=== PATIENT | female | born 1985 | race Caucasian/White ===

== ENCOUNTER → 2020-04-27 | Outpatient (CLI) | payer BC, SELFPAY ==
[2020-04-30 20:39] LABS: HPV APTIMA, High Risk Negative (Negative)
== END | disposition home or self-care (01) ==
LOC: LABSPEC 15:55
PROVIDERS: Visit Provider Student in an Organized Health Care Education/Training Program
DX: Z12.4 Encounter for screening for malignant neoplasm of cervix (principal)
CPT/HCPCS: 87624; 88175; G0145

== ENCOUNTER 2023-08-09 17:36 | Emergency (ER) | payer OTHER, SELFPAY ==
[2023-08-09 17:39] VITALS: BP 133/102; PULSE 118; RESP 18; TEMP 36.5; O2SAT 99; BMI 28.0
--- NOTE | 2023-08-09 18:47 | CT_ITS ---
EXAM: CT ANGIOGRAPHY HEAD AND NECK WITHOUT AND WITH INTRAVENOUS CONTRAST CLINICAL INDICATION: HEADACHE WITH RT NECK PAIN TECHNIQUE: [place] [facility] [place]/head and neck CT angiography protocol performed without and with intravenous contrast. This CT exam was performed using one or more of the following dose reduction techniques: automated exposure control, adjustment of the mA and/or kV according to patient size, and/or use of iterative reconstruction technique. MIP reconstructed images were created and reviewed. CONTRAST: 100 cc of Isovue-370 IV. RADIATION DOSE: CTDIvol = 26.10 mGy, DLP = 1364.38 mGy-cm COMPARISON: No relevant prior studies available. FINDINGS: HEAD: RIGHT ANTERIOR CEREBRAL ARTERY: Unremarkable. No occlusion or significant stenosis. Anterior communicating artery is present. No aneurysm. RIGHT MIDDLE CEREBRAL ARTERY: Unremarkable. No occlusion or significant stenosis. No aneurysm. RIGHT POSTERIOR CEREBRAL ARTERY: Arises primarily from the right internal carotid artery.. No occlusion or significant stenosis. No aneurysm. RIGHT INTRACRANIAL INTERNAL CAROTID ARTERY: Unremarkable. No significant stenosis. No dissection or occlusion. RIGHT INTRACRANIAL VERTEBRAL ARTERY: Unremarkable. No significant stenosis. No dissection or occlusion. LEFT ANTERIOR CEREBRAL ARTERY: Unremarkable. No occlusion or significant stenosis. No aneurysm. LEFT MIDDLE CEREBRAL ARTERY: Unremarkable. No occlusion or significant stenosis. No aneurysm. LEFT POSTERIOR CEREBRAL ARTERY: Unremarkable. No occlusion or significant stenosis. No aneurysm. LEFT INTRACRANIAL INTERNAL CAROTID ARTERY: Unremarkable. No significant stenosis. No dissection or occlusion. LEFT INTRACRANIAL VERTEBRAL ARTERY: Unremarkable. No significant stenosis. No dissection or occlusion. BASILAR ARTERY: Unremarkable. No occlusion or significant stenosis. No aneurysm. OTHER VASCULATURE: No vascular malformation. BRAIN AND EXTRA-AXIAL SPACES: Unremarkable. No intra- or extra-axial hemorrhage. No evidence of acute infarct. No intracranial mass or mass effect. There is preservation of the stallings/white matter interface. Posterior fossa structures are unremarkable. Ventricles are appropriate for age. No hydrocephalus. Basal cisterns are patent. SINUSES: Unremarkable as visualized. Clear. MASTOID AIR CELLS: Unremarkable as visualized. Clear. ORBITS: Visualized globes, extraocular muscles, optic nerves and retrobulbar fat appear unremarkable. NECK: RIGHT COMMON CAROTID ARTERY: Unremarkable. No significant stenosis. No dissection or occlusion. RIGHT EXTRACRANIAL INTERNAL CAROTID ARTERY: Unremarkable. No significant stenosis. No dissection or occlusion. RIGHT EXTERNAL CAROTID ARTERY: Unremarkable. No occlusion. RIGHT EXTRACRANIAL VERTEBRAL ARTERY: Unremarkable. No significant stenosis. No dissection or occlusion. LEFT COMMON CAROTID ARTERY: Unremarkable. No significant stenosis. No dissection or occlusion. LEFT EXTRACRANIAL INTERNAL CAROTID ARTERY: Unremarkable. No significant stenosis. No dissection or occlusion. LEFT EXTERNAL CAROTID ARTERY: Unremarkable. No occlusion. LEFT EXTRACRANIAL VERTEBRAL ARTERY: Unremarkable. No significant stenosis. No dissection or occlusion. BRACHIOCEPHALIC AND SUBCLAVIAN ARTERIES: Unremarkable as visualized. No occlusion or significant stenosis. LUNG APICES: Unremarkable as visualized. HEAD and NECK: BONES/JOINTS: Unremarkable. No discrete lytic or blastic abnormalities. SOFT TISSUES: Unremarkable. CAROTID STENOSIS REFERENCE USING NASCET CRITERIA: % ICA stenosis = (1 - narrowest ICA diameter/diameter of distal cervical ICA) x 100. Mild - <50% stenosis. Moderate - 50-69% stenosis. Severe - 70-94% stenosis. Near occlusion - 95-99% stenosis. Occluded - 100% stenosis. CT/CTA Head AND Neck W/ Contrast IMPRESSION: Negative CTA carotid and CTA brain. Electronically Signed: Beny Grimes MD at 22:16 EDT ,
--- NOTE | 2023-08-09 18:48 | EKG12_ITS ---
Test Reason : DIZZY Blood Pressure : / mmHG Vent. Rate : 096 BPM Atrial Rate : 096 BPM P-R Int : 144 ms QRS Dur : 092 ms QT Int : 364 ms P-R-T Axes : 033 015 017 degrees QTc Int : 459 ms Normal sinus rhythm Normal ECG Confirmed by Beny Roberto ([id number]), newspaper editor managing KARLOS JEFFRIES ([id number]) on 08/14/2023 9:47:50 AM Referred By: Confirmed By:Beny Roberto
--- NOTE | 2023-08-09 18:49 | ED.VIS.STROK ---
HPI History of Present Illness Chief Complaint: Numb/Ting Informant: patient Onset/Context/Timing Onset: Today Timing: Intermittent Current Severity: Mild Maximum Severity: Mild Associated Symptoms Associated Symptoms: Positive for Headache and Nausea; Negative for Vomiting or Chest Pain Narrative Narrative: 38-year-old female history of hypothyroidism and anxiety. Yesterday had a headache behind her right eye which she saw horizontal lines. No history of migraines. Today she had left facial numbness. Perioral numbness. Bilateral hand numbness. And left foot numbness. Been intermittent. Headache is resolved. She has had nausea no vomiting. No head trauma. She is on no blood thinners. No family history of intracranial bleeds. Also had some mild right-sided neck discomfort when she had a headache. Prior similar symptoms: No Recent Illness/Hospitalization: No [facility] Medical History Depression Hypothyroid Home Medications ?Medication ?Instructions ?Recorded ?Last Taken ?Type escitalopram oxalate 10 mg tablet 10 mg PO DAILY 04/09/23 Unknown History fluticasone propionate 50 1 spray intranasal Q12H 04/09/23 Unknown History mcg/actuation nasal spray,suspension levothyroxine 50 mcg tablet 50 mcg PO DAILY 04/09/23 Unknown History (Synthroid) Allergy/AdvReac Type Severity Reaction Status Date / Time No Known Allergies Allergy Verified 08/09/23 17:38 Surgical History History of umbilical hernia repair Social History Smoking Status: Never smoker alcohol intake: current substance use type: does not use ROS ROS ED ROS Narrative Denies recent illness. Review of Systems ROS Unobtainable: Denies due to encephalopathy Constitutional Constitutional ED: Denies chills or fever(s) Eyes Eyes: Denies blurry vision ENT ENT ED: Denies ear pain Cardiovascular Cardiovascular: Denies chest pain Respiratory/Chest Respiratory/Chest: Denies cough or dyspnea Gastrointestinal Gastrointestinal: Reports nausea; Denies abdominal pain, constipation, diarrhea, melena or vomiting Genitourinary Genitourinary ED: Denies dysuria or hematuria Musculoskeletal Musculoskeletal: Denies arthralgias, back pain or myalgias Integumentary Denies abscess Neurologic Neurologic: Reports headache(s) and paresthesias; Denies weakness Psychiatric Psychiatric: Reports anxiety; Denies depression Endocrine Endocrinology: Denies polydipsia or polyphagia Hematologic/Lymphatic Hematologic/Lymphatic: Denies easy bleeding, easy bruising or lymphadenopathy Allergic/Immunologic Allergic/Immunologic ED: Denies mouth swelling or urticaria EXAM Physical Exam Narrative Exam Narrative: Well-appearing 38-year-old female. Vital signs stable initial blood pressure [id number]. She does not look septic toxic or in acute distress. Sitting upright in bed. H EENT exam normal. Pupils round reactive light extra motions are intact. No facial droop. No facial weakness. Normal speech. Unable to wrinkle her forehead. Neck nontender. Lungs clear. Heart regular rhythm rate about 110. No murmurs. Abdomen soft. Nontender. Moving all 4 extremities. Neurologic exam normal. 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 Normal speech. No facial droop. Extra motions are intact. Fingertip to nose and [id number] within normal limits. No drift. Normal strength and sensation both upper and lower extremities. NIH score is 0. Const Vital Signs: 08/09/23 17:39 08/09/23 19:38 08/09/23 21:00 Temperature 97.7 F L Temperature Source Temporal Pulse Rate 118 H 92 92 Respiratory Rate 18 20 H 21 H Blood Pressure 133/102 H 144/94 H 138/95 H Blood Pressure Mean 112 110 109 Pulse Ox 99 95 100 Oxygen Delivery Method Room Air Room Air Positive well nourished and well developed; Negative for obese, cachectic, contractures or unkempt General Appearance ED: well developed and NAD; Negative for unkempt, cachectic or contractures Nutritional Appearance: Negative for cachectic or obese HEENT Reports moist mucous membranes atraumatic; Negative for trauma Nose: Negative for other Eyes PERRL and EOMs intact bilaterally General Eye ED: Negative for pale conjunctiva or scleral icterus Neck no lymphadenopathy, supple and no JVD General: Negative for tenderness Thyroid: Negative for other Chest Wall inspection of chest normal and palpation of chest normal Chest: Negative for other Resp normal respiratory effort and clear to auscultation bilaterally Effort and Inspection: Negative for retractions Auscultation: Negative for rales, rhonchi, wheezes or diminished lung sounds Cardio no murmurs Rate: regular rate Rhythm: regular rhythm Heart Sounds: Negative for S1 normal or S2 normal GI normal to inspection, nondistended, normoactive bowel sounds, soft to palpation, non-tender, non-distended and no masses Inspection: Negative for abdominal distention Auscultation: normoactive bowel sounds Palpation: Negative for tender or guarding Bladder / Kidney Exam: No other Back/Spine no CVA tenderness General Back: Negative for CVA tenderness Cervical Spine: Negative for cervical spine tenderness Thoracic Spine / Upper Back: Negative for thoracic spinal tenderness Lumbar Spine / Lower Back: Negative for lumbar spinal tenderness Extremity normal to inspection General Extremety ED: Negative for deformity, edema, tenderness or other findings General Extremity: Negative for deformity, edema or other findings Neuro oriented x3, CN's II-XII intact bilaterally and no sensory deficits noted Sensorium / Orientation: alert, oriented to person, oriented to place and oriented to time; Negative for orientation impaired, confused, lethargic or stuporous Speech: speech normal Gait (Neuro): Negative for normal gait Sensory Exam: No sensory level loss detected Motor Exam: strength 5/5 throughout; Negative for general weakness or strength abnormal Psych mental status grossly normal Appearance: Negative for unkempt Attitude: No agitated Mood & Affect: Negative for depressed or tearful Attention / Concentration: Negative for other Skin no wounds General Skin Exam: Negative for jaundice Lesions: no lesions Rashes: no rashes Trauma: Negative for abrasion or laceration MDM MDM MDM Narrative Medical decision making narrative: 38-year-old female with headache yesterday and today with atypical numbness. She has normal neurologic exam. This may have been a migraine yesterday. Today it may be secondary to anxiety. Because of her headache her neurological symptoms even though she has normal neurologic exam and her right-sided neck pain I will do a CT and CTA of her head and neck. Screening labs will be obtained. Repeat exam at 10:07 PM neurologic exam remains normal. Patient is clinically doing well. Gone over her labs and EKG with her awaiting the formal reading of the CT a of the head and neck. I did review it I do not see any acute abnormality but of course and waiting for the formal radiologist interpretation. Repeat exam at 1022 CTA returned was negative. Neurologic exam remains normal. NIH remains 0. She will be discharged home. Lab Data Attestation: I reviewed the patient's lab results. Lab results narrative: CBC normal. White count of 6. H&H 14 and 42. Platelets 268. Electrolytes unremarkable gap 3. Normal BUN of 10 creatinine 0.8. Glucose 87. Negative CTA head neck. Labs: Laboratory Results - last 24 hr 08/09/23 18:57 WBC 6.1 RBC 4.62 Hgb 14.0 Hct 42.2 MCV 91.3 MCH 30.3 MCHC 33.2 RDW Std Deviation 40.6 RDW Coeff of Barry 12.2 Plt Count 268 MPV 9.8 Immature Gran % (Auto) 0.200 Neut % (Auto) 50.2 Lymph % (Auto) 38.1 Dodge % (Auto) 8.4 Eos % (Auto) 2.3 Baso % (Auto) 0.8 Absolute Neuts (auto) 3.1 Absolute Lymphs (auto) 2.32 Nucleated RBC % 0 Sodium 139 Potassium 3.7 Chloride 108 H Carbon Dioxide 28.0 Anion Gap 3 L BUN 10 Creatinine 0.80 Estim Creat Clear Calc 88.02 Est GFR (MDRD) Af Amer 105 Est GFR (MDRD) Non-Af 86 BUN/Creatinine Ratio 12.6 Glucose 87 Calcium 8.7 Radiography Diagnostic Testing: Clinical Impression(s) from Imaging Studies Head/Neck CTA 08/09/23 18:47 IMPRESSION: Negative CTA carotid and CTA brain. Electronically Signed: Beny Grimes MD at 22:16 EDT , Rhythm Strip Rhythm Strip: Sinus Rhythm Rate: 96 Ectopy: None EKG Initial EKG: Attestation: I personally reviewed and interpreted this EKG as follows: Interpretation: Sinus Rhythm and No Acute Injury Pattern Comments: Normal sinus rhythm rate 96 no acute signs of NC or ischemia. Discharge Plan Triage Chief Complaint: Numb/Ting ED Provider: Maverick Nassar Dx/Rx/DC Orders Clinical Impression: Headache, migraine, Facial paresthesia, History of anxiety Instructions: ED, Migraine (Classical), ED Paraesthesias Prescriptions: No Action levothyroxine [Synthroid] 50 mcg tablet 50 mcg PO DAILY escitalopram oxalate 10 mg tablet 10 mg PO DAILY fluticasone propionate 50 mcg/actuation spray,suspension 1 spray intranasal Q12H Primary Care Provider: Diann Llamas Referrals: Diann Llamas MD [Primary Care Provider] - 3-5 Days if not improving Activity Restrictions/Additional Instructions: Plenty of fluids and rest. Motrin and Tylenol for any pain. Follow-up with your doctor if not improving. Your labs, EKG and CAT scans were all normal. Print Language: [place] Disposition Disposition: Home, Self Care
[2023-08-09 19:04] LABS: Absolute Lymphocyte Count 2.32 X10^3/uL (0.83-4.51); Absolute Neutrophil Count 3.1 X10^3/uL (2.0-7.7); Basophil# 0.05 X10^3/uL; Basophil% 0.8 % (0-1); Eosinophil# 0.14 X10^3/uL; Eosinophils% 2.3 % (0-5); Hematocrit 42.2 % (37-47); Lymphocyte # 2.32 X10^3/ul (0.83-4.51); Lymphocyte % 38.1 % (19-41); Mean Corp Hgb Conc 33.2 g/dL (32-36); Mean Corpuscular Hgb 30.3 pg (27.0-32.0); Mean Corpuscular Volume 91.3 fL (81-99); Mean Platelet Vol. 9.8 fl (6.2-12.0); Monocyte# 0.51 X10^3/uL; Monocyte% 8.4 % (0-10); NRBC Flagged by Analyzer 0 % (0-5); Neutrophil # 3.06 X10^3/uL (2.7-7.7); Neutrophil % 50.2 % (47-70); Platelet Count 268 K/mm3 (150-450); RBC Distribution Width CV 12.2 % (11.6-14.6); RBC Distribution Width SD 40.6 fl (35.1-43.9); Red Blood Count 4.62 M/mm3 (4.2-5.4); White Blood Count 6.1 K/mm3 (4.4-11.0)
[2023-08-09 19:18] LABS: Anion Gap 3 (5-15); BUN 10 mg/dL (7-18); BUN/Creat Ratio 12.6 RATIO (10-20); Calcium,Total 8.7 mg/dL (8.5-10.1); Chloride 108 mmol/L (98-107); EST Glomerular Filtration Rate 86 mL/min (>60); Est Glom Filt Rate - Afr Amer 105 mL/min (>60); Estimated Creatinine Clearance 88.02 ml/min; Glucose 87 mg/dL (74-106); Potassium 3.7 mmol/L (3.5-5.1); Sodium Level 139 mmol/L (136-145)
[2023-08-09 19:38] VITALS: BP 144/94; PULSE 92; RESP 20; O2SAT 95
[2023-08-09 21:00] VITALS: BP 138/95; PULSE 92; RESP 21; O2SAT 100
[2023-08-09 22:37] VITALS: BP 132/94; PULSE 87; RESP 14; TEMP 36.2; O2SAT 100
== END 2023-08-09 22:40 | disposition home or self-care (01) ==
PROVIDERS: Emergency Provider Emergency Medicine; PCP Internal Medicine; Visit Provider Emergency Medicine
DX: G43.909 Migraine, unspecified, not intractable, without status migrainosus (principal); F41.9 Anxiety disorder, unspecified; R20.2 Paresthesia of skin; R11.0 Nausea; E03.9 Hypothyroidism, unspecified
CPT/HCPCS: 70496; 70498; 80048; 85025; 93005; 99283; Q9967

== ENCOUNTER 2024-11-08 20:26 | Emergency (ER) | payer OTHER, SELFPAY ==
[2024-11-08 20:28] VITALS: BP 128/98; PULSE 71; RESP 16; TEMP 36.8; O2SAT 98; BMI 27.3
--- NOTE | 2024-11-08 20:32 | EKG12_ITS ---
Test Reason : DYSRHYTHMIA Blood Pressure : */* mmHG Vent. Rate : 97 BPM Atrial Rate : 97 BPM P-R Int : 126 ms QRS Dur : 88 ms QT Int : 366 ms P-R-T Axes : 31 9 21 degrees QTcB Int : 464 ms Sinus rhythm with sinus arrhythmia with occasional Premature ventricular complexes Nonspecific T wave abnormality Abnormal ECG Confirmed by NANETTE LONG, DEXTER ([id number]), newspaper editor ADDY STRAUSS ([id number]) on 11/11/2024 9:18:17 AM Referred By: Confirmed By: DEXTER FITZPATRICK MD
--- NOTE | 2024-11-08 20:32 | ED.RN ---
CHEST PAIN NOTED AT END OF TRIAGE RAÚL CHANGED ACCORDINGLY
--- NOTE | 2024-11-08 20:55 | RAD_ITS ---
PROCEDURE: CHEST 1 VIEW (PORTABLE) 11/08/2024 REASON FOR EXAM: CHEST PAIN TECHNIQUE: Frontal view of the chest. COMPARISON: None. FINDINGS: Hardware: None Heart: Normal size. Lungs: Clear. No airspace disease or effusions. Bones: No osseous abnormality. Other: RAD/Chest 1 View (Portable) IMPRESSION: No radiographic evidence of the acute cardiopulmonary process Reading [facility]
--- OUTSIDE RECORDS SUMMARY | 2024-11-08 21:11 | XMS RPT_ITS | CCD ---
Author Organization [facility] CliniSysc Care Team Providers Care Vamp Marker Name Role Phone Saurabh Bermudez MD Primary Care Provider BLOSSOM MURRAY Attending Unavailable GANTA, SAURABH MIGUEL A Primary Care Unavailable LALA POOLE Attending Unavailable GANTA, SAURABH MIGUEL A Primary Care Unavailable BLOSSOM MURRAY Referring Unavailable BLOSSOM MURRAY Attending Unavailable GANTA, SAURABH MIGUEL A Primary Care Unavailable GANTA, SAURABH MIGUEL A Primary Care Unavailable BLOSSOM MURRAY Referring Unavailable GANTA, SAURABH MIGUEL A Primary Care Unavailable BLOSSOM MURRAY Referring Unavailable BLOSSOM MURRAY Attending Unavailable GANTA, SAURABH MIGUEL A Primary Care Unavailable BLOSSOM MURRAY Referring Unavailable AYANA, BLOSSOM LOW Attending Unavailable Anastasia Beck Attending Unavailable Maverick Nassar Attending Unavailable Ganta, Saurabh Primary Care Unavailable Jovita Chisholm Referring Unavailable Jovita Chisholm Attending Unavailable Ganta Saurabh LONG Primary Care Provider Pratibha Doran PA-C Unavailable [phone] 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, Gayathri Unavailable Shital Hameed PA-C Unavailable SHAHIDA GRAF Referring Unavailable GANTA, SAURABH Primary Care Unavailable YVONNE AEGE Attending Unavailable SHAHIDA GRAF Referring Unavailable GANTA, SAURABH Primary Care Unavailable GANTA, SAURABH Primary Care Unavailable GANTA, SAURABH Attending Unavailable GANTA, SAURABH Primary Care Unavailable GANTA, SAURABH Referring Unavailable GANTA, SAURABH Primary Care Unavailable GANTA, SAURABH Referring Unavailable GANTA, SAURABH Primary Care Unavailable GANTA, SAURABH Attending Unavailable DAHLHAUSEN, SHAHIDA Attending Unavailable GANTA, SAURABH Primary Care Unavailable ERROL VENCES Attending Unavailable GANTA, SAURABH Primary Care Unavailable GANTA, SAURABH Primary Care Unavailable ERROL VENCES Attending Unavailable GANTA, SAURABH Primary Care Unavailable DAHLHAUSEN, SHAHIDA Referring Unavailable GANTA, SAURABH Primary Care Unavailable GANTA, SAURABH Primary Care Unavailable DAHLHAUSEN, SHAHIDA Referring Unavailable GANTA, SAURABH Primary Care Unavailable DAHLHAUSEN, SHAHIDA Referring Unavailable ERROL VENCES Attending Unavailable GANTA, SAURABH Primary Care Unavailable HANNAH LORENZO Referring Unavailable MARGOT WYATT Attending Unavailable GANTA, SAURABH Primary Care Unavailable DAHLHAUSEN, SHAHIDA Attending Unavailable GANTA, SAURABH Primary Care Unavailable DAHLHAUSEN, SHAHIDA Referring Unavailable GANTA, SAURABH Primary Care Unavailable DAHLHAUSEN, SHAHIDA Referring Unavailable GANTA, SAURABH Primary Care Unavailable Medications Current Medications Medication Drug Class(es) Dates Sig (Normalized) Sig (Original) amoxicillin 875 mg / clavulanate 125 mg oral tablet (1 source) Penicillin-class Antibacterial Start: 11-08-2021 End: 11-13-2021 take 1 tablet by mouth twice daily amoxicillin-clavula karishma acid (AUGMENTIN) 875-125 mg per tablet Take 1 tablet by mouth twice daily for 5 days. 10 tablet 0 11/08/2021 11/13/2021 Active Comment on above: Take 1 tablet by duarte th twice daily for 5 days. benoxinate hydrochloride 4 mg/ml / fluorescein sodium 3 mg/ml ophthalmic solution (2 sources) Diagnostic Dye Start: 10-19-2023 End: 10-19-2023 fluorescein-benoxin ate 0.3-0.4 % 1 Drop (FLURESS) iv contrast (will be provided with radiology test) (5 sources) Start: 11-02-2023 End: 11-03-2023 iv contrast (will be provided with radiology test) MRI CSP Inject, intravenously, once for 1 dose. No IV access, insert saline lock prior to the beginning of sedation, infusion, injection of imaging exam. Discontinue saline lock post exam. If Pt. has a central line or IVAD, may access for administration according to line specific nursing protocol. Once exam is complete flush line and de-access according to line specific nursing protocol in the MR contrast administration guidelines link. 1 Each 0 11/02/2023 11/03/2023 Active Start: 11-02-2023 End: 11-03-2023 inject 1 dose intravenously once iv contrast (will be provided with radiology test) MRI TSP Inject, intravenously, once for 1 dose. No IV access, insert saline lock prior to the beginning of sedation, infusion, injection of imaging exam. Discontinue saline lock post exam. If Pt. has a central line or IVAD, may access for administration according to line specific nursing protocol. Once exam is complete flush line and de-access according to line specific nursing protocol in the MR contrast administration guidelines link. 1 Each 0 11/02/2023 11/03/2023 Active Start: 10-22-2023 End: 10-23-2023 iv contrast (will be provide d with radiology test) Indications: Pain in eye, unspecified laterality , Subjective visual disturbance MRI Orbits Inject, intravenously, once for 1 dose. No IV access, insert saline lock prior to the beginning of sedation, infusion, injection of imaging exam. Discontinue saline lock post exam. If Pt. has a central line or IVAD, may access for administration according to line specific nursing protocol. Once exam is complete flush line and de-access according to line specific nursing protocol in the MR contrast administration guidelines link. 1 Each 0 10/22/2023 10/23/2023 Active Start: 09-08-2023 End: 09-09-2023 inject 1 dose intravenously once iv contrast (will be provided with radiology test) MRI Brain Inject, intravenously, once for 1 dose.No IV access, insert saline lock prior to beginning of sedation, infusion, injection of imaging exam.Discontinue saline lock post exam. If Pt. has a central line or IVAD, may access for administration according to line specific nursing protocol.Once exam is complete flush line and de-access according to line specific nursing protocol in the MR contrast administration guidelines link 1 Each 0 09/08/2023 09/09/2023 Active Start: 06-30-2021 End: 2021 iv contrast (will be provide d with radiology test) CT Chest ABD/PEL-Inject, intravenously, once for 1 dose.No IV access, insert saline lock prior to the beginning of sedation, infusion, injection of imaging exam. Discontinue saline lock post exam. If Pt. has a central line or IVAD, may access for administration according to line specific nursing protocol. Once exam is complete flush line and de-access according to line specific nursing protocol in the CT contrast administration guidelines link. 1 Each 0 06/30/2021 2021 Comment on above: CT Chest ABD/PEL-Inj ect, intravenously, once for 1 dose.No IV access, insert saline lock prior to the beginning of sedation, infusion, injection of imaging exam. Discontinue saline lock post exam. If Pt. has a central line or IVAD, may access for administration according to line specific nursing protocol. Once exam is complete flush line and de-access according to line specific nursing protocol in the CT contrast administration guidelines link. levothyroxine sodium 0.05 mg oral tablet (20 sources) l-Thyroxine Start: 2023 End: 2024 take 1 tablet by mouth once daily for thyroid dysfunction levothyroxine (LEVOXYL) 50 mcg tablet Indications: Acquired hypothyroidism Take 1 tablet by mouth once daily. Take on empty stomach. For Thyroid 90 tablet 1 09/13/2024 Active Start: 01-03-2022 End: 12-24-2023 take 1 tablet by mouth once daily for thyroid dysfunction levothyroxine (LEVOXYL) 50 mcg tablet Indications: Acquired hypothyroidism Take 1 tablet by mouth once daily. Take on empty stomach. For Thyroid 90 tablet 3 01/11/2023 Active Start: 04-30-2021 End: 01-01-2022 take 1 tablet by mouth once daily for thyroid dysfunction levothyroxine (LEVOXYL) 50 mcg tablet Indications: Acquired hypothyroidism Take 1 tablet by mouth once daily. Take on empty stomach. For Thyroid 30 tablet 5 11/27/2021 01/01/2022 Discontinued Start: 04-28-2021 End: 04-30-2021 take 1 tablet by mouth once daily for thyroid dysfunction levothyroxine (LEVOXYL) 25 mcg tablet Indications: Acquired hypothyroidism Take 1 tablet by mouth once daily. Take on empty stomach. For Thyroid 30 tablet 3 04/28/2021 04/30/2021 Discontinued Comment on above: Take 1 tablet by duarte th once daily. Take on empty stomach. For Thyroid 24 hr metoprolol succinate 25 mg extended release oral tablet (2 sources) beta-Adrenergic Valentine Start: take 1 tablet by mouth once daily metoprolol succinate ER (TOPROL XL) 25 mg 24 hr tablet Take 1 tablet by mouth once daily. 30 tablet 5 10/09/2024 Active tacrolimus 0.001 mg/mg topical ointment (10 sources) Calcineurin Inhibitor Immunosuppressant Start: End: tacrolimus (PROTOPIC) 0.1 % ointment Indications: Eczematous dermatitis of left upper eyelid Apply to affected area two times a day for 21 days. 30 g 03/04/2024 Active triamcinolone acetonide 0.005 mg/mg topical ointment (1 source) Corticosteroid Start: End: triamcinolone acetonide topical 0.5 % ointment Apply to affected area two times a day for 10 days. 15 g 02/15/2024 02/25/2024 Active Completed/Discontinued Medications Medication Drug Class(es) Dates Sig (Normalized) Sig (Original) COMPOUNDED PRESCRIPTION (20 sources) End: 08-24-2022 COMPOUNDED PRESCRIPTION micorgynon - birthcontrol bought in [facility] 08/24/2022 Discontinued End: 08-24-2022 COMPOUNDED PRESCRIPTION sujey rgynon - birthcontrol bought in [facility] 0 08/24/2022 Discontinued COMPOUNDED PRESC RIPTION micorgynon - birthcontrol bought in [facility] 0 Active Comment on above: micorgynon - birthco ntrol bought in [facility] dicyclomine hydrochloride 20 mg oral tablet (19 sources) Anticholinergic Start: 06-02-19 End: 08-25-19 take 1 tablet by mouth three times daily dicyclomine (BENTYL) 20 mg tablet Indications: Back pain, unspecified back location, unspecified back pain laterality, unspecified chronicity , Right upper quadrant pain , Diarrhea, unspecified type Take 1 tablet by mouth three times daily. 90 tablet 0 06/01/2021 08/24/2022 Discontinued Comment on above: Take 1 tablet by duarte three times daily. enteric contrast (will be provided with radiology test) (1 source) Start: 07-01-19 End: 07-02-19 enteric contrast (will be provided with radiology test) For CT CHESTABD/PEL W IVCON Routine order Administer, As Directed One Time Only, via Oral, Rectal, both Oral and Rectal, Enteric Tube, Stoma or Indwelling Catheter, Enteric Contrast as designated per enteric contrast guidelines 1 Each 0 06/30/2021 2021 Comment on above: For CT CHESTABD/PEL W IVCON Routine order Administer, As Directed One Time Only, via Oral, Rectal, both Oral and Rectal, Enteric Tube, Stoma or Indwelling Catheter, Enteric Contrast as designated per enteric contrast guidelines escitalopram 10 mg oral tablet (20 sources) Serotonin Reuptake Inhibitor Start: 01-04-20 End: 10-10-19 escitalopram oxalate (LEXAPRO) 10 mg tablet Indications: Anxiety and depression Take 1 tablet by mouth for 21 days. Then take 2 tablets by mouth for 7 days (week before menses) 120 tablet 3 01/31/2023 10/09/2024 Discontinued Start: 01-26-2021 End: 01-01-2022 take 1 tablet by mouth once daily, then take 1 tablet by mouth once daily escitalopram oxalate (LEXAPRO) 10 mg tablet Indications: Anxiety and depression Take 1 tablet by mouth once daily. 1 tablet by mouth every day 90 tablet 3 01/26/2021 01/01/2022 Discontinued Comment on above: Take 1 tablet by duarte th once daily. 1 tablet by mouth every day Take 1 tablet by duarte th for 21 days. Then take 2 tablets by mouth for 7 days (week before menses) fexofenadine hydrochloride 180 mg oral tablet (7 sources) Histamine-1 Receptor Antagonist take 1 tablet by mouth once daily fexofenadine (ESTELITA ALLERGY) 180 mg tablet Take 180 mg by mouth once daily. 0 Active Comment on above: Take 180 mg by mouth once daily. fluticasone propionate 0.05 mg/actuat metered dose nasal spray (4 sources) Corticosteroid Start: End: fluticasone propionate (FLONASE) 50 mcg/actuation nasal spray gabapentin 100 mg oral capsule (1 source) Anti-epileptic Agent Start: End: take 1 capsule by mouth three times daily gabapentin (NEURONTIN) 100 mg capsule Indications: Chronic night sweats Take 1 capsule by mouth three times a day for 180 days. as directed 270 capsule 1 04/21/2023 08/11/2023 Discontinued ibuprofen 200 mg oral tablet (1 source) Nonsteroidal Anti-inflammatory Drug Start: 025 End: take 3 tablets by mouth every six hours as needed ibuprofen (MOTRIN) 200 mg tablet Take 3 tablets by mouth every 6 hours as needed for pain. FOR PAIN. 04/11/2024 04/11/2024 Discontinued pantoprazole 40 mg delayed release oral tablet (18 sources) Proton Pump Inhibitor Start: End: take 1 tablet by mouth once daily before breakfast pantoprazole DR (PROTONIX) 40 mg tablet Indications: Hx of ulcer disease Take 1 tablet by mouth daily before breakfast. Take on empty stomach, 1/2 hr before meal. 90 tablet 2 07/29/2021 08/24/2022 Discontinued Comment on above: Take 1 tablet by duarte th daily before breakfast. Take on empty stomach, 1/2 hr before meal. phenylephrine hydrochloride 25 mg/ml ophthalmic solution (4 sources) alpha-1 Adrenergic Agonist Start: End: PHENYLephrine 2.5 % 1 Drop (AK-DILATE, SHMUEL-SYNEPHRINE) Start: 02-15-2024 End: 02-16-2024 1 Drop, BOTH EYES, DIRECT ED, Starting on Carissa 02/15/24 at 1500, Until Mon02/16/24 at 0259, Administer for dilation PROTECT FROM LIGHT Start: 10-19-2023 End: 10-19-2023 PHENYLephrine 2.5 % 1 Drop ( AK-DILATE, SHMUEL-SYNEPHRINE) proparacaine hydrochloride 5 mg/ml ophthalmic solution (4 sources) Local Anesthetic Start: 02-15-2024 End: 02-16-2024 proparacaine 0.5 % 1 Drop (ALCAINE) Start: 02-15-2024 End: 02-16-2024 1 Drop, BOTH EYES, DIRECT ED, Starting on Carissa 02/15/24 at 1500, Until Mon02/16/24 at 0259, Administer for pneumo tonometry, tonopen tonometry, or pachymetry. In the event of a proparacaine shortage, administer tetracaine 0.5% ophthalmic drops 1 drop in the left eye as directed for pneumo tonometry, tonopen tonometry, or pachymetry Start: 10-19-2023 End: 10-19-2023 proparacaine 0.5 % 1 Drop (A LCAINE) tropicamide 10 mg/ml ophthalmic solution (4 sources) Anticholinergic Start: 02-15-2024 End: 02-16-2024 tropicamide 1 % 1 Drop (MYDRIACYL) Start: 02-15-2024 End: 02-16-2024 1 Drop, BOTH EYES, DIRECT ED, Starting on Carissa 02/15/24 at 1500, Until Mon02/16/24 at 0259, Administer for dilation Start: 10-19-2023 End: 10-19-2023 tropicamide 1 % 1 Drop (MYDR IACYL) Problems Active Problems Problem Classification Problem Date Documented Da te Episodic/Chronic Abdominal pain (4 sources) Right upper quadrant pain; Translations: [Right upper quadrant pain] Episodic Anxiety disorders (5 sources) Mixed anxiety and depressive disorder; Translations: [Anxiety disorder, unspecified] Chronic Cardiac dysrhythmias (1 source) Other specified cardiac arrhythmias; Translations: [Bigeminy] Onset: 5 Chronic Cardiac dysrhythmias (9 sources) Tachycardia; Translations: [Tachycardia, unspecified] Onset: 5 08-30-2024 Episodic Conditions associated with dizziness or vertigo (5 sources) Dizziness; Translations: [Dizziness and giddiness] Onset: 5 08-30-2024 Episodic Conduction disorders (2 sources) Ventricular bigeminy; Translations: [Other specified cardiac arrhythmias] 10-09-2024 Chronic Disorders of teeth and jaw (3 sources) Pain of right temporomandibular joint; Translations: [Arthralgia of right temporomandibular joint] Onset: 4 07-17-2023 Episodic Gastroduodenal ulcer (except hemorrhage) (1 source) H/O: gastric ulcer; Translations: [Personal history of peptic ulcer disease] Episodic Headache; including migraine (1 source) Migraine without aura, not refractory ; Translations: [Migraine without aura, not intractable, without status migrainosus] 08-11-2023 Chronic Heart valve disorders (3 sources) Pulsus trigeminus; Translations: [Other abnormalities of heart beat] Onset: 5 10-09-2024 Episodic Inflammation; infection of eye (except that caused by tuberculosis or sexually transmitteddisease) (2 sources) Contact dermatitis of eyelid; Translations: [Allergic dermatitis of left eye, unspecified eyelid] 02-16-2024 Episodic Malaise and fatigue (2 sources) Asthenia; Translations: [Weakness] Onset: 5 08-09-2024 Episodic Nutritional deficiencies (3 sources) Vitamin D deficiency; Translations: [Vitamin D deficiency, unspecified] Onset: 5 Chronic Other aftercare (7 sources) Patient encounter status; Translations: [Encounter for therapeutic drug level monitoring] Episodic Other ear and sense organ disorders (3 sources) Sensorineural hearing loss; Translations: [Unspecified sensorineural hearing loss] 06-05-2023 Chronic Other ear and sense organ disorders (2 sources) Unspecified sensorineural hearing loss; Translations: [Unspecified sensorineural hearing loss] Onset: 4 Chronic Other ear and sense organ disorders (3 sources) Subjective tinnitus of right ear; Translations: [Tinnitus, right ear] 06-05-2023 Episodic Other ear and sense organ disorders (1 source) Tinnitus of right ear; Translations: [Tinnitus, right ear] 06-05-2023 Episodic Other ear and sense organ disorders (1 source) Abnormal auditory perception; Translations: [Other abnormal auditory perceptions, right ear] 06-05-2023 Episodic Other ear and sense organ disorders (2 sources) Other abnormal auditory perceptions, right ear; Translations: [Other abnormal auditory perceptions, right ear] Onset: 4 Episodic Other ear and sense organ disorders (4 sources) Tinnitus, right ear; Translations: [Tinnitus, right ear] Onset: 4 Episodic Other eye disorders (6 sources) Pain of left eye; Translations: [Ocular pain, left eye] 09-08-2023 Episodic Other eye disorders (1 source) Pain in eye; Translations: [Ocular pain, unspecified eye] 11-13-2023 Episodic Other female genital disorders (2 sources) Cyst of uterine adnexa; Translations: [Unspecified condition associated with female genital organs and menstrual cycle] Episodic Other gastrointestinal disorders (1 source) Dysphagia; Translations: [Dysphagia, unspecified] 08-09-2024 Episodic Other gastrointestinal disorders (1 source) Dysphagia, unspecified; Translations: [Dysphagia, unspecified type] Onset: 5 Episodic Other nervous system disorders (1 source) Carpal tunnel syndrome of right wrist; Translations: [Carpal tunnel syndrome, right upper limb] Chronic Other nervous system disorders (4 sources) Demyelinating disease of central nervous system; Translations: [Demyelinating disease of central nervous system, unspecified] 09-08-2023 Chronic Other nervous system disorders (1 source) Small fiber neuropathy; Translations: [Polyneuropathy, unspecified] 12-06-2023 Chronic Other nervous system disorders (1 source) Polyneuropathy, unspecified; Translations: [Small fiber neuropathy] Onset: 4 Chronic Other nervous system disorders (1 source) Demyelinating disease of central nervous system, unspecified; Translations: [Demyelinating disease of central nervous system (HCC)] Onset: 4 Chronic Other nervous system disorders (3 sources) Anesthesia of skin; Translations: [Anesthesia of skin] Onset: 4 Episodic Other nervous system disorders (8 sources) Numbness and tingling sensation of skin; Translations: [Anesthesia of skin] 09-04-2023 Episodic Other nervous system disorders (1 source) Perioral numbness; Translations: [Anesthesia of skin] 08-30-2024 Episodic Other nervous system disorders (1 source) Paresthesia; Translations: [Paresthesia of skin] 08-30-2024 Episodic Other nervous system disorders (2 sources) Paresthesia of skin; Translations: [Paresthesia of skin] Onset: 5 Episodic Other non-traumatic joint disorders (1 source) Joint pain; Translations: [Pain in unspecified joint] Episodic Other skin disorders (2 sources) Eruption; Translations: [Rash and other nonspecific skin eruption] Episodic Other skin disorders (1 source) Disorder of skin; Translations: [Other skin changes] Episodic Other skin disorders (1 source) Skin tag; Translations: [Other hypertrophic disorders of the skin] 02-09-2023 Episodic Other skin disorders (1 source) Rash and other nonspecific skin eruption; Translations: [Rash] Onset: 5 Episodic Residual codes; unclassified (1 source) H/O: Disorder; Translations: [Personal history of other specified conditions] Episodic Screening and history of mental health and substance abuse codes (2 sources) Encounter for screening for depression; Translations: [Encounter for screening examination for other mental health and behavioral disorders] Onset: 5 Episodic Spondylosis; intervertebral disc disorders; other back problems (1 source) Backache; Translations: [Dorsalgia, unspecified] 04-28-2021 Episodic Thyroid disorders (20 sources) Graves' disease; Translations: [Thyrotoxicosis with diffuse goiter without thyrotoxic crisis or storm] Onset: 07-31-2017 Chronic Unclassified (1 source) Patient encounter status 10-09-2024 Past or Other Problems Problem Classification Problem Date Documented Date Episodic/Chronic Blindness and vision defects (11 sources) Subjective visual disturbance; Translations: [Unspecified subjective visual disturbances] Onset: 11-13-2023 10-19-2023 Episodic HIV infection (4 sources) Human immunodeficiency virus infection; Translations: [Human immunodeficiency virus [HIV] disease] Onset: 06-05-2023 Resolved: 06-05-2023 06-05-2023 Chronic Influenza (1 source) Influenza due to unidentified influenza virus with other respiratory manifestations; Translations: [Influenza due to unidentified influenza virus with other respiratory manifestations] Onset: 04-10-2023 Episodic Other aftercare (1 source) Encounter for therapeutic drug level monitoring; Translations: [Encounter for therapeutic drug level monitoring] Onset: 08-24-2022 Episodic Other eye disorders (1 source) Ocular pain, unspecified eye; Translations: [Pain in eye, unspecified laterality] Onset: 11-13-2023 Episodic Other eye disorders (1 source) Ocular pain, left eye; Translations: [Left eye pain] Onset: 11-02-2023 Episodic Other non-traumatic joint disorders (1 source) Pain in unspecified joint; Translations: [Polyarthralgia] Onset: 11-01-2023 Episodic Other screening for suspected conditions (not mental disorders or infectious disease) (2 sources) Encounter for screening for lipoid disorders; Translations: [Encounter for screening for diabetes mellitus] Onset: 08-24-2022 Episodic Other upper respiratory infections (2 sources) Acute pansinusitis; Translations: [Acute pansinusitis, unspecified] Onset: 04-10-2023 Episodic Results Test Name Value Interpretation [facility] ) LUCIA OROPEZA ([id number]) 1985 F Date Time Provider Department 10/09/24 8:20 AM SAURABH BERMUDEZ INTMWS During your visit today, we recorded the following information about you: Pulse Respiration Blood pressure Weight 118/minute 16/minute 119/76 68.9 kg Last Period 09/30/24 Saurabh Bermudez MD 10/09/2024 8:59 AM Signed We discussed your symptoms of paresthesias, dizziness, palpitations, and fluctuating heart rate: - Your echocardiogram results were normal, showing good heart function and no structural abnormalities. - Your 14-day Holter monitor showed some isolated supraventricular and ventricular ectopics, as well as occasional bigeminy and trigeminy. These findings are not uncommon but may explain some of your symptoms. - Based on your symptoms and the Holter findings, I recommend that you see an bread packer for further evaluation. Please schedule this appointment as soon as possible. If your symptoms improve with the new medication, you can cancel the appointment. - I prescribed Metoprolol 25 mg to take at night. This may help regulate your heart rate and reduce your symptoms. Please monitor how you feel on this medication and let me know if you experience any side effects such as fatigue or dizziness. - Keep a diary of your symptoms, including any palpitations, dizziness, or other concerns, as well as your food intake and activity levels. This information will help us and the bread packer better understand potential triggers. We discussed your thyroid medication: - You are currently taking 50 mcg of your thyroid medication. I am switching you to Wysox Thyroid, with a dose of 30 mcg and 15 mcg (total 45 mcg daily). This change is to see if it improves your symptoms, as some patients tolerate this formulation better. Please let me know if you notice any changes. Next steps: - Start taking Metoprolol 25 mg at night as prescribed. - Switch to Wysox Thyroid (30 mcg + 15 mcg daily) and monitor for any changes in symptoms. - Schedule an appointment with an bread packer for further evaluation of your heart rate and symptoms. If your symptoms improve significantly with the new medication, you can cancel the appointment. - Keep a detailed diary of your symptoms, food intake, and activity levels to identify potential triggers. Please contact me if your symptoms worsen or if you have any concerns about the new medications. If you experience severe dizziness, fainting, or chest pain, go to the emergency room immediately. Saurabh Bermudez MD 10/09/2024 12:56 PM Signed Reason for Visit Follow up HPI Lucia Oropeza is a 39-year-old female presenting for a 4-5 week follow-up regarding daily paresthesias, visual disturbances, dizziness, and palpitations. Lucia reports persistent daily paresthesias affecting her hands, arms, legs, and the left side of her face. She also experiences visual disturbances described as seeing little spots all over, hal to a TV with poor receptionist telephone operator. These symptoms are exacerbated by physical activity, such as playing pickleball. Lucia has a history of a positive HOPE test, though subsequent autoimmune antibody testing, MRIs, and vascular assessments were negative. She also reports episodes of dizziness and palpitations, which she has become more aware of since wearing a 14-day Holter monitor. She notes that her heart rate seems to fluctuate significantly, and she has experienced feelings of faintness and dizziness during these episodes. She has also noticed that her heart rate increases upon standing, along with her blood pressure. Lucia reports feeling palpitations while driving and sometimes feeling like she might tip over when standing up. She denies current employment but acknowledges potential stress related to her children. Lucia has discontinued Lexapro and is currently on thyroid medication. She has been on thyroid medication for several years, but her symptoms started about a year ago. She has not seen an bread packer. Social History Tobacco Use Smoking status: Never Smokeless tobacco: Never Vaping Use Vaping status: Never Used Substance Use Topics Alcohol use: Yes Comment: occasionally Drug use: No Past medical history, appointments, medications, allergies reviewed. Pertinent Lab/Diagnostic Studies are reviewed and discussed today Current Outpatient Medications: levothyroxine (LEVOXYL) 50 mcg tablet metoprolol succinate ER (TOPROL XL) 25 mg 24 hr tablet tacrolimus (PROTOPIC) 0.1 % ointment Health Maintenance Hepatitis B Vaccine(1 of 3 - 19+ 3-dose series) DTaP,Tdap,Td Vaccine(2 - Td or Tdap) Covid-19 Vaccine(2023- season)@ Review Of Systems Eyes: (+) visual disturbances Cardiovascular: (+) palpitations, (+) tachycardia, (+) near-syncope Musculoskeletal: (+) leg pain (more content not included)... Normal [facility] 1,25-dihydroxyvitamin D3 [Ma ss/Vol]on 08-30-2024 VIT D1,25 DIHYDROXY 42.1 pg/mL Normal 19.9-79.3 [facility] Comment on above: Order Comment: Mine naylor Type: BLOOD SPECIMEN Ordering Facility: [facility] Address: [address] [place] [address] Performed By: #### 1 6493, 1987-05 #### [facility] [place] [id number] [address] [place] [address] [place] 25(OH)D3 [facility] 2024 25-hydroxyvitamin D3 [Mass/Vol] 36.8 ng/mL Normal 31.0-80.0 [facility] Comment on above: Order Comment: Mine naylor Type: BLOOD SPECIMEN Ordering Facility: [facility] Address: [address] [place] [address] Performed By: #### 1 6493, 1987-05 #### [facility] IA [id number] [address] [place] [address] [place] CNOVon 08-30-2024 CNOV Office Visit (INTMWS ) LUCIA OROPEZA ([id number]) 1985 F Date Time Provider Department 08/30/24 8:00 AM SAURABH BERMUDEZ During your visit today, we recorded the following information about you: Pulse Respiration Blood pressure Weight 130/minute 16/minute 132/73 68.9 kg Saurabh Bermudez MD 08/30/2024 9:19 AM Signed Reason for Visit Follow up HPI Lucia Oropeza is a 39-year-old female presenting with chronic paresthesia, visual disturbances, and dizziness. Lucia reports a 1-1.5 year history of daily paresthesia, visual disturbances, and dizziness. The paresthesia is currently localized to her hands, arms, and the left side of her face, with occasional involvement of her lips and tongue. She describes her visual disturbances as seeing little spots all over, hal to a TV with poor receptionist telephone operator. These symptoms are exacerbated by physical activity such as walking, playing pickleball, and swimming. She also experiences episodes of dizziness a few times a week or more. Last night, she noted her legs felt super heavy and painful while lying in bed. She reports that these symptoms began after a sudden, temporary loss of hearing in one ear about 1-1.5 years ago. Lucia has been evaluated for these symptoms previously, including autoimmune antibody testing, MRIs, and vascular assessments, all of which were reportedly normal. An initial positive HOPE test was followed by a negative result on a subsequent test. ESR and CRP levels were within normal limits. Vitamin B12 and thiamine levels were also normal. An EMG revealed evidence of carpal tunnel syndrome, for which she wears a brace. She has also had her eyes examined, with no abnormalities found. Thyroid function tests were normal. She denies any significant stressors and reports sleeping 9 hours per night. She engages in yoga for 30 minutes, five times a week. She is currently tapering off Lexapro, reducing her dose to 5 mg daily for the past month, without adverse effects. She has a family history of cardiac issues, including a grandfather who had a myocardial infarction and subsequent bypass surgery. Social History Tobacco Use Smoking status: Never Smokeless tobacco: Never Vaping Use Vaping status: Never Used Substance Use Topics Alcohol use: Yes Comment: occasionally Drug use: No Past medical history, appointments, medications, allergies reviewed. Pertinent Lab/Diagnostic Studies are reviewed and discussed today Current Outpatient Medications: levothyroxine (LEVOXYL) 50 mcg tablet escitalopram oxalate (LEXAPRO) 10 mg tablet tacrolimus (PROTOPIC) 0.1 % ointment Health Maintenance Depression Screening Anxiety Screening Hepatitis B Vaccine(1 of 3 - 19+ 3-dose series) DTaP,Tdap,Td Vaccine(2 - Td or Tdap) Covid-19 Vaccine( season)@ Review Of Systems Eyes: (+) visual spots Cardiovascular: (+) palpitations Neurological: (+) numbness of hands, (+) numbness of arms, (+) numbness of left face, (+) numbness of lips, (+) numbness of tongue, (+) tingling of hands, (+) tingling of arms, (+) tingling of left face, (+) dizziness Musculoskeletal: (+) leg heaviness, (+) leg pain Physical Exam BP 132/73 Pulse (!) 130 Resp 16 Wt 68.9 kg (152 lb) LMP 07/26/2024 (Exact Date) SpO2 99% BMI 27.80 kg/m? GENERAL: NAD, alert and oriented. SKIN: Unremarkable, no rash or skin lesions. HEAD: Normocephalic. NECK: Supple, no lymphadenopathy, normal thyroid, no carotid bruits. LUNGS: Clear to auscultation bilaterally, no wheezes/rhonchi/rales. HEART: Regular rate and rhythm, no murmurs. No ectopy. EXTREMITIES: Normal, no deformities, no skin discoloration, no edema. NEURO: Awake, alert and oriented x3, cranial nerves II-XII grossly intact, normal gait, no involuntary motions. Labs: (2022) CMP: No abnormalities documented - HOPE: Initially positive, subsequent test negative - ESR: Normal (two tests) - CRP: Normal - Vitamin B12: Normal - Thiamine: Normal Imaging: - MRI: No abnormalities Tests: - EMG: Findings consistent with carpal tunnel syndrome Assessment and Plan 1. Vitamin D deficiency (E55.9) Vitamin D levels previously checked and were within normal limits. 2. Perioral numbness (R20.0) Intermittent numbness over lips and tongue. Differential includes cardiac etiology. - Ordered Holter monitor for 28 days to assess for cardiac arrhythmias. - Ordered echocardiogram to evaluate cardiac function. - Follow-up in one month to review results. 3. Tachycardia (R00.0) Heart rate noted to be on the higher side during visits. Family history of cardiac issues, including grandfather with a heart attack and bypass surgery. - Ordered Holter monitor for 28 days to assess for cardiac arrhythmias. - Ordered echocardiogram to evaluate cardiac function. - Follow-up in one month to review results. 4. Dizziness ( (more content not included)... Normal [facility] Comprehensive metabolic 2000 panelon 08-30-2024 Albumin [Mass/Vol] 4.5 g/dL Normal 3.9-4.9 [facility] Comment on above: Order Comment: Speci men Type: BLOOD SPECIMEN Ordering Facility: [facility] Address: [address] [place] [address] Performed By: #### I FESC #### [facility] CLIA [id number] [address] [place] [address] [place] ALP [Catalytic activity/Vol] 72 U/L Normal 34-123 [facility] Comment on above: Order Comment: Speci men Type: BLOOD SPECIMEN Ordering Facility: [facility] Address: [address] [place] [address] Performed By: #### I FESC #### [facility] CLIA [id number] [address] [place] [address] [place] ALT [Catalytic activity/Vol] 17 U/L Normal 7-38 [facility] Comment on above: Order Comment: Speci men Type: BLOOD SPECIMEN Ordering Facility: [facility] Address: [address] [place] [address] Performed By: #### I FESC #### [facility] CLIA [id number] [address] [place] [address] [place] Anion gap [Moles/Vol] 11 mmol/L Normal 8-15 [facility] Comment on above: Order Comment: Speci men Type: BLOOD SPECIMEN Ordering Facility: [facility] Address: [address] [place] [address] Performed By: #### I FESC #### [facility] CLIA [id number] [address] [place], [place] [id number] [place] AST [Catalytic activity/Vol] 19 U/L Normal 13-35 [facility] Comment on above: Order Comment: Speci men Type: BLOOD SPECIMEN Ordering Facility: [facility] Address: [address] [place] [address] Performed By: #### I FESC #### [facility] CLIA [id number] [address] [place] [address] [place] Bilirubin [Mass/Vol] 0.5 mg/dL Normal 0.2-1.3 [facility] Comment on above: Order Comment: Speci men Type: BLOOD SPECIMEN Ordering Facility: [facility] Address: [address] [place] [address] Performed By: #### I FESC #### [facility] CLIA [id number] [address] [place] [address] [place] Calcium [Mass/Vol] 9.4 mg/dL Normal 8.5-10.2 [facility] Comment on above: Order Comment: Speci men Type: BLOOD SPECIMEN Ordering Facility: [facility] Address: [address] [place] [address] Performed By: #### I FESC #### [facility] CLIA [id number] [address] [place] [address] [place] Chloride [Moles/Vol] 107 mmol/L Normal 98-107 [facility] Comment on above: Order Comment: Speci men Type: BLOOD SPECIMEN Ordering Facility: [facility] Address: [address] [place] [address] Performed By: #### I FESC #### [facility] CLIA [id number] [address] [place], [place] [id number] [place] CO2 [Moles/Vol] 23 mmol/L Normal 22-30 [facility] Comment on above: Order Comment: Speci men Type: BLOOD SPECIMEN Ordering Facility: [facility] Address: [address] [place] [address] Performed By: #### I FESC #### [facility] CLIA [id number] [address] [place] [address] [place] Creatinine [Mass/Vol] 0.81 mg/dL Normal 0.58-0.96 [facility] Comment on above: Order Comment: Nagai men Type: BLOOD SPECIMEN Ordering Facility: [facility] Address: [address] [place] [address] Performed By: #### I FESC #### [facility] CLIA [id number] [address] [place] [address] [place] Creatinine and Glomerular filtration rate.predicted panel (S/P/Bld) 95 mL/min/1.73m??? Normal >=60 [facility] Comment on above: Order Comment: Mine men Type: BLOOD SPECIMEN Ordering Facility: [facility] Address: [address] [place] [address] Result Comment: Margy mated Glomerular Filtration Rate (eGFR) is calculated using the 2020 CKD-EPI creatinine equation. This equation utilizes serum creatinine, sex, and age as parameters. The creatinine assay has traceable calibration to isotope dilution-mass spectrometry. Refer to KDIGO guidelines for clinical interpretation. In patients with unstable renal function, e.g. those with acute kidney injury, the eGFR may not accurately reflect actual GFR. Performed By: #### I FESC #### [facility] CLIA [id number] [address] [place] [address] [place] Glucose [Mass/Vol] 95 mg/dL Normal 74-99 [facility] Comment on above: Order Comment: Mine men Type: BLOOD SPECIMEN Ordering Facility: [facility] Address: [address] [place] [address] Result Comment: The [place] [employer] (ADA) provides guidance for cutoff values for fasting glucose and random glucose. The ADA defines fasting as no caloric intake for at least 8 hours. Fasting plasma glucose results between 100 to 125 mg/dL indicate increased risk for diabetes (prediabetes). Fasting plasma glucose results greater than or equal to 126 mg/dL meet the criteria for diagnosis of diabetes. In the absence of unequivocal hyperglycemia, results should be confirmed by repeat testing. In a patient with classic symptoms of hyperglycemia or hyperglycemic crisis, random plasma glucose results greater than or equal to 200 mg/dL meet the criteria for diagnosis of diabetes. Reference: Standards of Medical Care in Diabetes 2016, [place] [employer]. Diabetes Care. 2016.39(Suppl 1). Performed By: #### I FESC #### [facility] CLIA [id number] [address] [place] [address] [place] Potassium [Moles/Vol] 4.4 mmol/L Normal 3.7-5.1 [facility] Comment on above: Order Comment: Speci men Type: BLOOD SPECIMEN Ordering Facility: [facility] Address: [address] [place] [address] Performed By: #### I FESC #### [facility] CLIA [id number] [address] [place] [address] [place] Protein [Mass/Vol] 6.7 g/dL Normal 6.3-8.0 [facility] Comment on above: Order Comment: Speci men Type: BLOOD SPECIMEN Ordering Facility: [facility] Address: [address] [place] [address] Performed By: #### I FESC #### [facility] CLIA [id number] [address] [place] [address] [place] Sodium [Moles/Vol] 141 mmol/L Normal 136-144 [facility] Comment on above: Order Comment: Speci men Type: BLOOD SPECIMEN Ordering Facility: [facility] Address: [address] [place] [address] Performed By: #### I FESC #### [facility] CLIA [id number] [address] [place], [place] [id number] [place] Urea nitrogen [Mass/Vol] 8 mg/dL Normal 7-21 [facility] Comment on above: Order Comment: Speci men Type: BLOOD SPECIMEN Ordering Facility: [facility] Address: [address] [place] [address] Performed By: #### I [facility] #### [facility] CLIA [id number] [address] [place] [address] [place] [address] [place] [facility] ECHOon 08-30-2024 Echocardiography Echocardiography Report: Transthoracic Echo [facility] Date of service: 08/30/2024 10:16:27 AM WAX MOLDER Ordering physician: SAURABH BERMUDEZ Exam indication: Palpitations Technologist: Deepthi Manzanares RDCS Interpreting physician: Scott Richards MD PATIENT: Name: MS. LUCIA OROPEZA : 1985 Age: 39 years Gender: F Primary rhythm: sinus. Height: 157.50 cm BSA: 1.74 m Weight: 68.95 kg BMI: 27.8 kg/m Heart rate 95 bpm Blood pressure 132/73 mmHg Color Doppler was utilized to interrogate the cardiac valves assessed and spectral Doppler was utilized to determine the flow velocities and pressure gradients reported in this exam. Myocardial strain analysis was performed in this exam to aid in the assessment of cardiac function. MEASUREMENTS: Value Indexed Normal Max aortic dimension 2.8 cm Ao < 3.8 Left atrial volume 30 ml (biplane A-L) 17 ml/m Rena <= 34 LV ID (diastole) 4.6 cm (2D) 2.62 cm/m LV ID (systole) 3.5 cm (2D) 2.01 cm/m IVS, leaflet tips 0.9 cm (2D) Posterior wall thickness 0.8 cm (2D) Left ventricular mass 119 g (2D) 68 g/m Global peak long strain -18.2 % LV stroke volume 47 ml (2D biplane) LV end diastolic volume 81 ml (2D biplane) 46.9 ml/m 29<=EDVi<62 LV end systolic volume 35 ml (2D biplane) 19.9 ml/m Ejection Fraction 58 % (2D biplane) EF > 54 FINDINGS: LEFT VENTRICLE The left ventricle is normal in size. Left ventricular systolic function is normal. Global LV myocardial strain is normal. Normal left ventricular diastolic function. Mitral annular lateral E/e': 5.9. Mitral annular septal E/e': 8.6. Wall Motion: All scored segments are normal. RIGHT VENTRICLE The right ventricle is normal in size. Right ventricular systolic function is normal. RV systolic tissue Doppler velocity is 11.0 cm/s. Tricuspid annular displacement is 1.7 cm. Estimated right atrial pressure is 3 mmHg (although IVC not seen). LEFT ATRIUM The left atrial cavity is normal in size. RIGHT ATRIUM The right atrial cavity is normal in size. Inferior Vena Cava: The inferior vena cava appears normal measuring 1.0 cm. MITRAL VALVE The mitral valve leaflets are structurally normal. There is no mitral valve regurgitation. The pressure half time is 39 msec. The peak mitral E/A ratio is 1.42. The average mitral E/e' ratio is 7.2. The mitral flow deceleration time is 136 msec. TRICUSPID VALVE The tricuspid valve leaflets are structurally normal. There is no tricuspid valve regurgitation. AORTIC VALVE The aortic valve cusps are structurally normal. There is no aortic valve regurgitation. Tricuspid aortic valve. The peak gradient is 9 mmHg (peak velocity = 148.4 cm/s). PULMONIC VALVE The pulmonic valve cusps are structurally normal. There is no pulmonic valve regurgitation. AORTA The visualized aorta is normal in size. Measurements - Mid ascending aorta 2.8 cm. INTERATRIAL SEPTUM There is no evidence of intracardiac shunting as detected by Doppler. PERICARDIUM There is no pericardial effusion. There is an epicardial fat pad. CONCLUSIONS: - Exam indication: Palpitations - The left ventricle is normal in size. Left ventricular systolic function is normal. EF = 58 5% (2D biplane) Normal left ventricular diastolic function. - The right ventricle is normal in size. Right ventricular systolic function is normal. - There are no significant valvular abnormalities. - The patient has not had a prior CC echocardiographic exam for comparison. * * * Final * * * [employer] : [id number] Normal [facility] Magnesium [facility] 08-30 Magnesium [Mass/Vol] 2.3 mg/dL Normal 1.7-2.3 [facility] Comment on above: Order Comment: Speci men Type: BLOOD SPECIMEN Ordering Facility: [facility] Address: [address] [place] [address] Performed By: #### I FESC #### [facility] CLIA [id number] [address] [place] [address] OF [place] PTH-Intact SerPl-ncon 06-0 Parathyrin.intact [Mass/Vol] 55 pg/mL Normal 15-65 [facility] Comment on above: Order Comment: Speci men Type: BLOOD SPECIMEN Ordering Facility: [facility] Address: [address] [place] [address] Performed By: #### I FES #### [facility] CLIA [id number] [address] [place] [address] OF [place] CNOVon 08-22-2024 CNOV Office Visit (NNSTFM ) LUCIA OROPEZA ([id number]) 1985 F Date Time Provider Department 08/22/24 8:30 AM YVONNE AGEE NNST During your visit today, we recorded the following information about you: Temperature Pulse Blood pressure Weight 97.9 degrees 114/minute 124/86 69.3 kg Height Last Period 1.575 m 07/26/24 Yvonne Agee MD 08/22/2024 9:16 AM Addendum HPI: This is Ms. Lucia Oropeza a 39 year old female from who presents to the [facility] neurology department with a chief complaint of numbness and tingling Referring provider: Shahida Graf [address] [address] Lucia is a 39-year-old female presenting for evaluation of falls, numbness, and tingling. Lucia reports experiencing numbness and tingling in her hands, arms, feet, legs, and face for the past year and a half. She also notes seeing specks in her vision. She has been under the care of Shahida Tuttle, who referred her for further evaluation. She describes recent episodes of dizziness, which have led to two falls. The most recent fall occurred last week on the same day as her EMG (08/16), when she experienced an electric shock sensation in her legs while running after a student at work, causing her to fall straight on my face. She describes this incident as a little scary. Lucia reports that the tingling in her hands is intermittent and is associated with decreased sensation in her fingers, particularly the index, thumb, and middle fingers, though she notes that it may affect all fingers. She has a history of mild carpal tunnel syndrome. She has a history of hyperthyroidism as a teenager, which later transitioned to hypothyroidism. She is currently taking levothyroxine for thyroid management and escitalopram for anxiety. 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 Past Diagnostic Results: - (08/16) EMG: Mild carpal tunnel syndrome. - (02/2022) Eye Exam: Normal. - (09/2021) Brain MRI: Normal. - (2021) MRI, Orbits: Normal. - (2021) MRI, Cervical Spine: Normal. - (2021) MRI, Thoracic Spine: Normal. - Skin Biopsy: Normal. PMH: PAST MEDICAL HISTORY Diagnosis Date Graves disease Has not been on medicaiton since 2009 Hyperlipidemia Medications: Current Outpatient Medications Medication Sig Dispense Refill levothyroxine (LEVOXYL) 50 mcg tablet Take 1 tablet by mouth once daily. Take on empty stomach. For Thyroid 90 tablet 1 tacrolimus (PROTOPIC) 0.1 % ointment Apply to affected area two times a day for 21 days. (Patient not taking: Reported on 08/06/2024) 30 g 0 escitalopram oxalate (LEXAPRO) 10 mg tablet Take 1 tablet by mouth for 21 days. Then take 2 tablets by mouth for 7 days (week before menses) 120 tablet 3 No current facility-administered medications for this visit. Allergies: ALLERGIES No Known Allergies Social History: Social History Tobacco Use Smoking status: Never Smokeless tobacco: Never Vaping Use Vaping status: Never Used Substance Use Topics Alcohol use: Yes Comment: occasionally Drug use: No Family History: FAMILY HISTORY Problem Relation Age of Onset Macular Degen Father Cataract Mother Hypertension Mother Psychiatry Mother depression, fibromyalgia Heart Brother 17 hypertrophic cardiomyopathy Hypertension Maternal Grandfather Heart Maternal Grandfather Alzheimer's Disease Maternal Grandfather ROS: A complete review of systems was performed. All systems negative other than those mentioned in HPI. Physical Exam: Vitals: LMP 03/19/2024 (Exact Date) General appearance: no acute distress. Neurological Exam: MSE: Alert and oriented to person, place, and time. Speech is fluent without dysarthria or aphasia. Recall is intact to recent and remote events. Attention and concentration are intact. Fund of knowledge is intact. CN: Pupils equally round and reactive to light. Extraoccular muscles intact. Visual lindsay full. Facial muscles symmetric. Hearing intact to voice. MSK: Normal bulk and tone throughout. Deltoid Triceps Biceps Wrist ext. Hand intrinsic Hip flexion Knee flexion Knee Ext. Eloy. Flex Pl. flex Right 5 5 5 5 5 5 5 5 5 5 Left 5 5 5 5 5 5 5 5 5 5 Sensation: decreased to pinprick L median nerve distribution, otherwise Intact to light touch, pinprick, and vibration throughout. Reflexes: R L Biceps 2 2 Triceps 2 2 Brachioradialis 2 2 Patellar 2 2 Achilles 2 2 Toes downgoing bilaterally Cerebellar: Intact finger to nose bilaterally. Gait: Normal. Labs: WBC Date Value Ref Range Status 08/26/2022 4.77 3.70 - 11.00 k/uL Final Hemoglobin Date Value Ref Range Status 08/26/2022 14.0 11.5 - 15.5 g/dL Final Hematocrit Date Value Ref Range Status 08/26/2022 41.9 36.0 - 46.0 % Final MCV Date Value Ref Range Status (more content not included)... Normal [facility] ACETYLCHOLINE REC BINDING AB Ordered By: Andre Thompson on 08-14-2024 Acetylcholine receptor binding Ab (S) [Moles/Vol] nmol/L NINF - 0.21 nmol/L [facility] Acetylcholine, Binding, Qual Negative Negative [facility] Comment on above: Anti-acetylcholine r eceptor binding antibody test is used as an aid in diagnosis of myasthenia gravis. A negative result cannot exclude myasthenia gravis. Clinical correlation is required. Interpretation and review of laboratory results Normal [facility] ACETYLCHOLINE REC BLOCKING A BOrdered By: Pratibhadenver Baeey on 08-12-2024 Acetylcholine Blocking, Qual Negative Negative [facility] Comment on above: Anti-acetylcholine r eceptor blocking antibody test is used as an aid in diagnosis of myasthenia gravis. A negative result cannot exclude myasthenia gravis. Clinical correlation is required. Acetylcholine receptor blocking Ab/Acetylcholine Ab.total (S) [Molar fraction] [facility] Interpretation and review of laboratory results Normal [facility] ACETYLCHOLINE RECEPTOR MODUL ATING ANTIBODYon 08-12-2024 Acetylcholine receptor modulation Ab/Acetylcholine Ab.total (S) [Molar fraction] 0 % [facility] - 45 % [facility] Comment on above: INTERPRETIVE INFORMA TION: Acetylcholine Modulating Ab Negative .......... 0-45 percent modulating Positive .......... 46 percent or greater modulating Approximately 85-90 percent of patients with myasthenia gravis (MG) express antibodies to the acetylcholine receptor (AChR), which can be divided into binding, blocking, and modulating antibodies. Binding antibody can activate complement and lead to loss of AChR. Blocking antibody may impair binding of acetylcholine to the receptor, leading to poor muscle contraction. Modulating antibody causes receptor endocytosis resulting in loss of AChR expression, which correlates most closely with clinical severity of disease. Approximately 10-15 percent of individuals with confirmed myasthenia gravis have no measurable binding, blocking, or modulating antibodies. This test was developed and its performance characteristics determined by [facility]. It has not been cleared or approved by the [place] Food and Drug Administration. This test was performed in a CLIA certified laboratory and is intended for clinical purposes. Performed By: [facility] [address] [place] [address] Physical Security Specialist: Quentin Rosas MD, PhD CLIA Number: [id number] [facility] ACETYLCHOLINE REC BINDING AB on 08-09-2024 ACETYLCHOLINE BINDING, QUAL Negative Normal Negative [facility] Comment on above: Order Comment: Speci men Type: BLOOD SPECIMEN Ordering Facility: [facility] Address: [address] [place] [address] [place] [address] Result Comment: Anti -acetylcholine receptor binding antibody test is used as an aid in diagnosis of myasthenia gravis. A negative result cannot exclude myasthenia gravis. Clinical correlation is required. Performed By: #### 1 649-3, 1988-05 #### [facility] CLIA [id number] [address] [place] [address] [place] Acetylcholine receptor binding Ab (S) [Moles/Vol] <0.02 Normal <0.21 [facility] Comment on above: Order Comment: Speci men Type: BLOOD SPECIMEN Ordering Facility: [facility] Address: [address] [place] [address] Performed By: #### 1 649-3, 1988-05 #### [facility] CLIA [id number] [address] [place] [address] [place] ACETYLCHOLINE REC BLOCKING A Bon 08-09-2024 ACETYLCHOLINE BLOCKING, QUAL Negative Normal Negative [facility] Comment on above: Order Comment: Mine naylor Type: BLOOD SPECIMEN Ordering Facility: [facility] Address: [address] [place] [address] Result Comment: Anti -acetylcholine receptor blocking antibody test is used as an aid in diagnosis of myasthenia gravis. A negative result cannot exclude myasthenia gravis. Clinical correlation is required. Performed By: #### 1 649-3, 1988-05 #### [facility] CLIA [id number] [address] [place] [address] [place] Acetylcholine receptor blocking Ab/Acetylcholine Ab.total (S) [Molar fraction] <13 Normal <21 [facility] Comment on above: Order Comment: Speci dayday Type: BLOOD SPECIMEN Ordering Facility: [facility] Address: [address] [place] [address] Performed By: #### 1 649-3, 1988-05 #### [facility] CLIA [id number] [address] [place] [address] [place] ACETYLCHOLINE RECEPTOR MODUL ATING ANTIBODYon 05-16-2025 ACETYLCHOLINE RECEPT/MODULATING 0 % Normal <=45 [facility] Comment on above: Order Comment: Mine naylor Type: BLOOD SPECIMEN Ordering Facility: [facility] Address: [address] [place] [address] Result Comment: INTE RPRETIVE INFORMATION: Acetylcholine Modulating Ab Negative .......... 0-45 percent modulating Positive .......... 46 percent or greater modulating Approximately 85-90 percent of patients with myasthenia gravis (MG) express antibodies to the acetylcholine receptor (AChR), which can be divided into binding, blocking, and modulating antibodies. Binding antibody can activate complement and lead to loss of AChR. Blocking antibody may impair binding of acetylcholine to the receptor, leading to poor muscle contraction. Modulating antibody causes receptor endocytosis resulting in loss of AChR expression, which correlates most closely with clinical severity of disease. Approximately 10-15 percent of individuals with confirmed myasthenia gravis have no measurable binding, blocking, or modulating antibodies. This test was developed and its performance characteristics determined by [facility]. It has not been cleared or approved by the [place] Food and Drug Administration. This test was performed in a CLIA certified laboratory and is intended for clinical purposes. Performed By: [facility] [address] [place] [address] Physical Security Specialist: Quentin Rosas MD, PhD CLIA Number: [id number] Performed By: #### I [facility] #### [facility] CLIA [id number] [address] [place] [address] [place] HOPE BY IFA WITH REFLEXon Nuclear Ab Ql (S) Negative Normal Negative [facility] Comment on above: Order Comment: Mine naylor Type: BLOOD SPECIMEN Ordering Facility: [facility] Address: [address] [place] [address] Result Comment: Anti -nuclear antibody test is used as an aid in diagnosis of systemic autoimmune diseases. Where positive and clinically warranted, follow-up using disease-specific testing is recommended. Low positive titers are not uncommon with advanced age, certain chronic infections, and malignancies among others. Test methodology: Indirect fluorescence immunoassay (IFA) using HEp-2 cells. Performed By: #### I [facility] #### [facility] CLIA [id number] [address] [place] [address] [place] CNOVon 08-06-2024 CNOV Office Visit (NEURMM ) LUCIA OROPEZA ([id number]) 1985 F Date Time Provider Department 08/06/24 12:30 PM SHAHIDA GRAF NEUR During your visit today, we recorded the following information about you: Pulse Respiration Blood pressure Weight 119/minute 16/minute 135/89 68.9 kg Shahida Graf APRN.[employer] 08/06/2024 1:31 PM Addendum [facility] [place] Follow-up Visit Follow-up note August 06, 2024 HPI: Ms. Oropeza presents today for a follow-up visit. Per her previous visit on 11/02/23: R20.0, R20.2 Numbness and tingling (primary encounter diagnosis) H57.12 Left eye pain Comment: Pt previously seen for L eye pain and L facial/hand numbness.Sx began as retro-orbital pain in July with progression to L facial numbness. She also reported visual disturbance described as lines/spots as well as shadows. CT/A brain and neck were completed in the ED on 08/09/2023 and unremarkable. Of note, she also underwent MRI/A of the brain in 07/18 d/t ear pain and tinnitus. In interim, MRI brain WO/W completed to evaluate for central process such as demyelinating disease or CN enhancement. Results unremarkable for etiology. Consult was also placed to ophthalmology to evaluate for ocular pathology of pain. Concern for Utthoff's phenomenon and recommendation was made for MRI orbits which has since been ordered and is scheduled for 11/12. Lab work also completed and with positive HOPE but unremarkable reflex panel. Remaining lab work WNL. Since the time of her previous appointment she has experienced additional symptoms including paresthesias to region of T-spine as well as itching sensation throughout all extremities. Symptoms to L face and eye persist. Exam today is mostly unchanged from time of previous appointment and noting brisk reflexes, positive Aly's, ankle clonus bilaterally. Today she reports decreased sensation in R face, bilateral tongue, and pinprick and temperature changes as noted above (slightly altered from exam at time of previous appointment). Given ongoing and worsening symptoms, will proceed with MRI C-spine and T-spine WO/W to further evaluate for process such as demyelinating disease. Should imaging be unremarkable would consider SFN workup including skin biopsy. Order placed at this time and she will schedule for after MRI is complete. Should MRI be unremarkable she will proceed with testing. Over winter she felt good. Since the weather has warmed up the tingling has returned, especially in the heat. Face feels like it is on fire. When washing face feels on fire when water hits it. Feels sunburnt when it is not. + tingling. No numbness. Burning is bilateral but tingling is L. Not constant. Worse only when hot. Did happen when she got in the car yesterday as the car was hot. At [employer] on Monday would come and go. Has had a rash on neck and chest. This comes and goes too. Rash can get brighter and scaly. Rash itches. Unsure if rash and tingling resolve at same time. Maybe rash lasts longer. No tingling to neck. No rash elsewhere. She has tried antihistamines for a week without relief. Tingling in hands and legs. Comes and goes; stays around more often. Has noted this more often since its been hot. Has been walking 1.5 miles. After about one mile feels like she has to force legs to move. Not weak; unsure though. No changes in soaps, diet. She denies headaches; occasionally eye pain but not as frequent. Can radiate down face. No radiation above/across head. Varies from a few min to all day. Can wake her. Takes Tylenol or Aleve; unsure if it helps or if pain is resolving on its own. No light/sound sensitivity. No n/v. Can have pain when walking. No pain with cough/sneeze/bm. + tearing. No ptosis. No facial swelling. No b/b changes. Visual disturbances are worse. No hx of migraines. Last eye appt was last year. + dizziness. Has fallen twice. This is described as spinning. This has been recent. Was drinking water and could not swallow and came back out. No difficulty eating foods. Has not seen PCP recently as she was out. No recent thyroid check. No new family neuro hx. PAST MEDICAL HISTORY Diagnosis Date Graves disease Has not been on medicaiton since 2009 Hyperlipidemia PAST SURGICAL HISTORY Procedure Laterality Date EGD W/O BRSH SPEC VARICIES INJ 06/24/2021 LAP UMBILICAL HERNIA REPAIR 2016 Current Outpatient Medications on File Prior to Visit Medication Sig levothyroxine (LEVOXYL) 50 mcg tablet Take 1 tablet by mouth once daily. Take on empty stomach. For Thyroid tacrolimus (PROTOPIC) 0.1 % ointment Apply to affected area two times a day for 21 days. escitalopram oxalate (LEXAPRO) 10 mg tablet Take 1 tablet by mouth for 21 days. Then take 2 tablets by mouth for 7 days (week before menses) (Patient taking differently: 5 mg. Take (more content not included)... Normal [facility] CRP SerPl-mCncon 08-06-2024 CRP [Mass/Vol] mg/L Normal <0.9 [facility] Comment on above: Order Comment: Speci men Type: BLOOD SPECIMEN Ordering Facility: [facility] Address: [address] [place] [address] Performed By: #### 1 649-3, 1988-05 #### [facility] CLIA [id number] [address] [place] [address] [place] ESR Westergren method (Bld) [Velocity]on 08-06-2024 ESR (Bld) [Velocity] 5 mm/h [facility] Interpretation and review of laboratory results Normal [facility] ESR (Bld) [Velocity] 5 mm/h Normal 0-20 [facility] Comment on above: Order Comment: Speci men Type: BLOOD SPECIMEN Ordering Facility: [facility] Address: [address] [place] [address] Performed By: #### I [facility] #### [facility] CLIA [id number] [address] [place] [address] [place] IMMUNOFIXATION SCREEN, SERUM on 08-06-2024 MPA RESULT No M protein is identified. Normal No M protein is identified. [facility] Comment on above: Order Comment: Speci men Type: BLOOD SPECIMEN Ordering Facility: [facility] Address: [address] [place] [address] Performed By: #### I FES #### [facility] CLIA [id number] [address] [place] [address] OF [place] STAFF REVIEW (MPA) Reviewed by Tanisha Miles M.D., Ph.D Normal [facility] Comment on above: Order Comment: Speci men Type: BLOOD SPECIMEN Ordering Facility: [facility] Address: [address] [place] [address] Performed By: #### I FES #### [facility] CLIA [id number] [address] [place] [address] [place] IMMUNOGLOBULINS,IGG,IGA,IGMo n 08-06-2024 IgA [Mass/Vol] 85 mg/dL Normal 70-400 [facility] Comment on above: Order Comment: Speci men Type: BLOOD SPECIMEN Ordering Facility: [facility] Address: [address] [place] [address] Performed By: #### 1 649-3, 1988-05 #### [facility] CLIA [id number] [address] [place] [address] [place] IgG [Mass/Vol] 1085 mg/dL Normal 700-1600 [facility] Comment on above: Order Comment: Speci men Type: BLOOD SPECIMEN Ordering Facility: [facility] Address: [address] [place] [address] Performed By: #### 1 649-3, 1988-05 #### [facility] CLIA [id number] [address] [place], [place] [id number] [place] IgM [Mass/Vol] 113 mg/dL Normal 40-230 [facility] Comment on above: Order Comment: Speci men Type: BLOOD SPECIMEN Ordering Facility: [facility] Address: [address] [place] [address] Performed By: #### 1 649-3, 1988-05 #### [facility] CLIA [id number] [address] [place] [address] [place] KAPPA/ALVES,FREE,SERon 2024 Immunoglobulin light chains.kappa.free (S) [Mass/Vol] 9.9 mg/L Normal 3.3-19.4 [facility] Comment on above: Order Comment: Speci men Type: BLOOD SPECIMEN Ordering Facility: [facility] Address: [address] [place] [address] Result Comment: Rare ly, increased serum free light chains levels may not be detected or accurately quantified due to prozone phenomenon or in high viscosity samples using this immunoturbidimetric assay. Correlation with other laboratory results and clinical findings is recommended. The [place] Free Light Chain was performed using the Binding Site Optilite immunoturbidimetric method. Result obtained with different assay methods or kits cannot be used interchangeably. Performed By: #### I [facility] #### [facility] CLIA [id number] [address] [place] [address] [place] Immunoglobulin light chains.kappa/Immunoglo bulin light chains.lambda (S) [Mass ratio] 1.14 Normal 0.26-1.65 [facility] Comment on above: Order Comment: Speci men Type: BLOOD SPECIMEN Ordering Facility: [facility] Address: [address] [place] [address] Performed By: #### I FES #### [facility] CLIA [id number] [address] [place] [address] [place] Immunoglobulin light chains.lambda.free [Mass/Vol] 8.7 mg/L Normal 5.7-26.3 [facility] Comment on above: Order Comment: Speci men Type: BLOOD SPECIMEN Ordering Facility: [facility] Address: [address] [place] [address] Result Comment: Rare ly, increased serum free light chains levels may not be detected or accurately quantified due to prozone phenomenon or in high viscosity samples using this immunoturbidimetric assay. Correlation with other laboratory results and clinical findings is recommended. The Lambda Free Light Chain was performed using the Binding Site Optilite immunoturbidimetric method. Result obtained with different assay methods or kits cannot be used interchangeably. Performed By: #### I [facility] #### [facility] CLIA [id number] [address] [place] [address] [place] TSH SerPl-aCncon 08-06-2024 TSH Qn 3.340 m[IU]/L Normal 0.270-4.200 [facility] Comment on above: Order Comment: Speci men Type: BLOOD SPECIMEN Ordering Facility: [facility] Address: [address] [place] [address] Result Comment: If t he patient is , TSH reference range varies by gestational period: First Trimester (weeks 9-12): 0.180-2.990 mIU/L Second Trimester: 0.110-3.980 mIU/L Third Trimester: 0.480-4.710 mIU/L Jefry Darnell et al. A Practical Approach for the Verifications and Determination of Site- and Trimester-Specific Reference Intervals for Thyroid Function tests in . Thyroid, 2019:29:3:412-420. John E, et al. 2017 Guidelines of the [place] Thy[employer] for the Diagnosis and Management of Thyroid Disease during and the . Thyroid, 2017:27:3:315-389. Performed By: #### 1 649-3, 1988-05 #### [facility] CLIA [id number] [address] [place] [address] [place] Vit B12 SerPl-mCncon 025 Cobalamin (Vitamin B12) [Mass/Vol] 845 pg/mL Normal 232-1245 [facility] Comment on above: Order Comment: Speci men Type: BLOOD SPECIMEN Ordering Facility: [facility] Address: [address] [place] [address] Performed By: #### 1 649-3, 1988-05 #### [facility] CLIA [id number] [address] [place] [address] [place] [id number] [facility] CNOVon 04-11-2024 CNOV Office Visit (OBGYWM ) LUCIA OROPEZA ([id number]) 1985 F Date Time Provider Department 04/11/24 3:40 PM MARGOT WYATT OBGYWM During your visit today, we recorded the following information about you: Blood pressure Weight Height Last Period 110/62 67.6 kg 1.6 m 03/19/24 Margot Wyatt MD 04/11/2024 4:11 PM Signed Sample Worker offered: Patient declines. Lucia is a 38 year old who presents for an annual gynecologic exam. Still get period: Yes Menses: cycles every 30 days and 4 days of flow Menstrual flow: Moderate Bleeding amount bothersome: No Bleeding between periods: No Period symptoms: Cramps and Mood change Contraception: Vasectomy HPV vaccine: No HPV:negative 2022 Last pap smear: 2022 negative History of abnormal pap: No Last mammogram: diagnostic for pain in the past 5-6 years OB History T0 L3 SAB0 IAB0 Ectopic0 Multiple0 Live Births0 Comment: 3 vaginal deliveries 1 miscarriage Appeals Examiner History LMP: 03/19/2024 (Exact Date), Having periods Age at Menarche: Age at First : Age at Menopause: Appeals Examiner History Comments: Sexual Activity: Yes; Male Contraception: Vasectomy PAST MEDICAL HISTORY Diagnosis Date Graves disease Has not been on medicaiton since 2009 Hyperlipidemia PAST SURGICAL HISTORY Procedure Laterality Date EGD W/O BRSH SPEC VARICIES INJ 06/24/2021 LAP UMBILICAL HERNIA REPAIR 2016 FAMILY HISTORY Problem Relation Age of Onset Macular Degen Father Cataract Mother Hypertension Mother Psychiatry Mother depression, fibromyalgia Heart Brother 17 hypertrophic cardiomyopathy Hypertension Maternal Grandfather Heart Maternal Grandfather Alzheimer's Disease Maternal Grandfather SOCIAL HISTORY Social History Tobacco Use Smoking status: Never Smokeless tobacco: Never Vaping Use Vaping status: Never Used Substance Use Topics Alcohol use: Yes Comment: occasionally Drug use: No REVIEW OF SYSTEMS Abdomen: No abdominal pain, nausea, vomiting, diarrhea, or constipation. No bloating, early satiety, indigestion, or increased flatulence. Bladder: No dysuria, gross hematuria, urinary frequency, urinary urgency, or incontinence. Breast: No breast lumps, nipple d/c, overlying skin changes, redness or skin retraction. Allergies and current medication updated:Yes SENSITIVE EXAM: The sensitive examination was discussed with the Patient or Patient's Authorized Battery Hand. As applicable, any other physician, advance practice provider, medical student, or other health professional student that will be observing or involved in the sensitive examination for educational or training purposes was discussed with the Patient or Authorized Battery Hand. The Patient or Authorized Battery Hand has agreed to proceed with the sensitive examination. (Sensitive examination includes inspection and/or palpation of the breasts, pelvis, prostate and anorectal regions). EXAM: BP 110/62 Ht 5' 3 (1.60m) Wt 149 lb (67.6kg) LMP 03/19/2024 BMI 26.40 kg/(m2). GENERAL: pleasant, female in no apparent distress BREAST: soft, non-tender, symmetric, no dominant mass, normal nipple-areolar complex, no lymphadenopathy, and no nipple discharge CHEST: Normal inspiratory effort ABDOMEN: soft, non-tender, and no masses PELVIC: external genitalia normal, normal Bartholin's glands, urethra, [place]'s glands, no vulvar lesions, no cervical lesions, good vaginal support, physiologic discharge present, normal appearing perineal body and perianal region BIMANUAL: uterus normal size, shape and consistency, no adnexal masses, and non-tender RECTOVAGINAL: deferred. NEURO: alert and oriented x3,exam grossly non-focal EXTREMITIES: normal ASSESSMENT/PLAN: 1) Health maintenance: Pap/HPV up to date. Mammogram starting age 40. Nutrition, exercise and routine health maintenance exams reviewed. 2) Contraception: vasectomy. Contraceptive options reviewed and information provided. 3) PMS - advised on magnesium and calcium supplementation. Follow up if desires further evaluation and treatment. 4) Follow up one year or sooner as needed MD Jadon Iglesias Karmon, MD 04/11/2024 4:09 PM Signed Calcium and Vitamin D Supplementation (from the National Institutes of Health Office of Dietary Supplements 2010) Calcium is required by the body for blood vessel, muscle, hormone and nerve functioning. Most of the body's calcium is stored in the bones and teeth where it supports structure and function. Bone is continuously broken down and reformed. When bone breakdown exceeds formation, especially in postmenopausal women, bone loss can increase the risk of osteoporosis and fractures. In addition to low calcium intake, women who smoke, have a family history of osteoporosis, are thin, or , or who take certain medications martinez (more content not included)... Normal [facility] OCT OPTIC NERVE CIRRUS OU (B OTH EYES)on 02-16-2024 [facility] OCT OPTIC NERVE CIRRUS OU (B OTH EYES)on 02-15-2024 Radiology Study observation (narrative) [facility] MR Cervical spine WO and W c ontrast Rosalva 11-13-2023 * * *Final Report* * * DATE OF EXAM: Nov 13 2023 10:25AM [facility] 0298 - MRI CERVICAL SPINE WO/W IVCON / PROCEDURE REASON: Demyelinating disease of central nervous system (HCC) * * * * Physician Interpretation * * * * EXAMINATION: MRI CERVICAL SPINE WO/W IVCON, MRI THORACIC SPINE WO/W IVCON CLINICAL HISTORY: Demyelinating disease of central nervous system (HCC) TECHNIQUE: Routine cervical and thoracic spine MR protocol without gadolinium. MQ: MRCTWO_3 COMPARISON: None. RESULT: CERVICAL: Counting reference: Craniocervical junction. Anatomic Variants: None. Localizer images: Alignment: Alignment is anatomic. Craniocervical junction: Craniocervical junction is normal. Cord: The cervical spinal cord is within normal limits of signal intensity and morphology. Bone marrow signal/fracture: No evidence of pathologic marrow infiltration. No evidence of prior fracture. Cervical soft tissues: The paraspinal soft tissues are within normal limits. C2-C3: Canal and foramina are patent. C3-C4: Canal and foramina are patent. C4-C5: Canal and foramina are patent. C5-C6: Canal and foramina are patent. C6-C7: Canal and foramina are patent. C7-T1: Canal and foramina are patent. THORACIC: Counting reference: Craniocervical and lumbosacral junctions For the purposes of this report, Assume the first normal thoracic rib is at the T1 level. Localizer images: Unremarkable. Alignment: Alignment is anatomic. Cord: The thoracic spinal cord is within normal limits of signal intensity and morphology. There is no abnormal enhancement. Bone marrow signal/fracture: No evidence of pathologic marrow infiltration. No evidence of prior fracture. Thoracic soft tissues: The paraspinal soft tissues are within normal limits. Canal and foramina: The thoracic canal and foramina are patent within the constraints of the study. DIVISION OF RADIOLOGY Provider, [facility] - 11/13/2023 * * *Final Report* * * DATE OF EXAM: Nov 13 2023 10:25AM [facility] 0298 - MRI CERVICAL SPINE WO/W IVCON / PROCEDURE REASON: Demyelinating disease of central nervous system (HCC) * * * * Physician Interpretation * * * * EXAMINATION: MRI CERVICAL SPINE WO/W IVCON, MRI THORACIC SPINE WO/W IVCON CLINICAL HISTORY: Demyelinating disease of central nervous system (HCC) TECHNIQUE: Routine cervical and thoracic spine MR protocol without gadolinium. MQ: MRCTWO_3 COMPARISON: None. RESULT: CERVICAL: Counting reference: Craniocervical junction. Anatomic Variants: None. Localizer images: Alignment: Alignment is anatomic. Craniocervical junction: Craniocervical junction is normal. Cord: The cervical spinal cord is within normal limits of signal intensity and morphology. Bone marrow signal/fracture: No evidence of pathologic marrow infiltration. No evidence of prior fracture. Cervical soft tissues: The paraspinal soft tissues are within normal limits. C2-C3: Canal and foramina are patent. C3-C4: Canal and foramina are patent. C4-C5: Canal and foramina are patent. C5-C6: Canal and foramina are patent. C6-C7: Canal and foramina are patent. C7-T1: Canal and foramina are patent. THORACIC: Counting reference: Craniocervical and lumbosacral junctions For the purposes of this report, Assume the first normal thoracic rib is at the T1 level. Localizer images: Unremarkable. Alignment: Alignment is anatomic. Cord: The thoracic spinal cord is within normal limits of signal intensity and morphology. There is no abnormal enhancement. Bone marrow signal/fracture: No evidence of pathologic marrow infiltration. No evidence of prior fracture. Thoracic soft tissues: The paraspinal soft tissues are within normal limits. Canal and foramina: The thoracic canal and foramina are patent within the constraints of the study. IMPRESSION IMPRESSION: Cervical: Normal MRI cervical spine. No evidence of demyelination. No pathologic enhancement. Thoracic: Normal MRI thoracic spine. No evidence of demyelination. No pathologic enhancement. Cervical Anatomic Variant: None. Assume 7 cervical vertebrae with counting from the craniocervical junction. Anatomic Thoracic/Lumbar Variant: None. L4-5 is considered the level of the iliac crest and assume there are 5 lumbar-type vertebrae. Dietetic Intern: [facility] Transcribe Date/Time: Nov 13 2023 10:58A Dictated by : GILL NAIK MD This examination was interpreted and the report reviewed and electronically signed by: GILL NAIK MD on Nov 13 2023 10:59AM [facility] MR Orbit WO and W contrast I Von 11-13-2023 IMPRESSION: NORMAL MRI OF THE BRAIN WITHOUT AND WITH CONTRAST FOR AGE. NO EVIDENCE OF AN ACUTE INTRACRANIAL INFARCTION. HIGH-RESOLUTION IMAGES THROUGH THE ORBITS AND SKULL BASE SHOW NO ABNORMAL ENHANCEMENT. NO EVIDENCE OF SKULL BASE OR ORBITAL MASS. Dietetic Intern: [facility] Transcribe Date/Time: Nov 13 2023 10:56A Dictated by : GILL NAIK MD This examination was interpreted and the report reviewed and electronically signed by: GILL NAIK MD on Nov 13 2023 10:59AM [facility] DIVISION OF RADIOLOGY * * *Final Report* * * DATE OF EXAM: Nov 13 2023 10:25AM [facility] 0311 - MRI ORBIT WO/W IVCON / PROCEDURE REASON: multiple diagnoses * * * * Physician Interpretation * * * * MRI OF THE BRAIN AND ORBITS WITHOUT AND WITH CONTRAST History: Eye pain. Subjective visual disturbance.. Technique: BRAIN: Diffusion, axial T2, axial FLAIR, postcontrast axial T1 volume. ORBIT: High-resolution precontrast coronal T1, fat-saturated high-resolution coronal T2, Fat-saturated postcontrast sagittal T1 space with reconstructions. MQ: MRBWOW_2 Contrast: 14 mL Dotarem IV Results: Brain: There is no restricted diffusion on this exam to suggest an acute intracranial infarction. Postcontrast images show no evidence for an intra-axial mass or leptomeningeal disease. There is moderate diffuse age appropriate volume loss. No white matter changes are definitely identified. There is no cortical encephalomalacia. There is no hydrocephalus, midline shift or herniation. Orbits/skull base: The globes, extraocular muscles, optic nerves, lacrimal glands, optic chiasm and optic tracts are symmetric and normal in appearance. There is no pathologic enhancement along the optic pathways. IAC, CP angles, Meckel's caves and cavernous sinuses as well as the prepontine cistern are normal in appearance. Sella and suprasellar cistern are normal. Mastoid air cells, middle ear cavities and visualized paranasal sinuses are grossly clear. DIVISION [facility]OLOGY [facility] * * *Final Report* * * DATE OF EXAM: Nov 13 2023 10:25AM [facility] 0311 - MRI ORBIT WO/W IVCON / PROCEDURE REASON: multiple diagnoses * * * * Physician Interpretation * * * * MRI OF THE BRAIN AND ORBITS WITHOUT AND WITH CONTRAST History: Eye pain. Subjective visual disturbance.. Technique: BRAIN: Diffusion, axial T2, axial FLAIR, postcontrast axial T1 volume. ORBIT: High-resolution precontrast coronal T1, fat-saturated high-resolution coronal T2, Fat-saturated postcontrast sagittal T1 space with reconstructions. MQ: MRBWOW_2 Contrast: 14 mL Dotarem IV Results: Brain: There is no restricted diffusion on this exam to suggest an acute intracranial infarction. Postcontrast images show no evidence for an intra-axial mass or leptomeningeal disease. There is moderate diffuse age appropriate volume loss. No white matter changes are definitely identified. There is no cortical encephalomalacia. There is no hydrocephalus, midline shift or herniation. Orbits/skull base: The globes, extraocular muscles, optic nerves, lacrimal glands, optic chiasm and optic tracts are symmetric and normal in appearance. There is no pathologic enhancement along the optic pathways. IAC, CP angles, Meckel's caves and cavernous sinuses as well as the prepontine cistern are normal in appearance. Sella and suprasellar cistern are normal. Mastoid air cells, middle ear cavities and visualized paranasal sinuses are grossly clear. IMPRESSION IMPRESSION: NORMAL MRI OF THE BRAIN WITHOUT AND WITH CONTRAST FOR AGE. NO EVIDENCE OF AN ACUTE INTRACRANIAL INFARCTION. HIGH-RESOLUTION IMAGES THROUGH THE ORBITS AND SKULL BASE SHOW NO ABNORMAL ENHANCEMENT. NO EVIDENCE OF SKULL BASE OR ORBITAL MASS. Dietetic Intern: [facility] Transcribe Date/Time: Nov 13 2023 10:56A Dictated by : GILL NAIK MD This examination was interpreted and the report reviewed and electronically signed by: GILL NAIK MD on Nov 13 2023 10:59AM [facility] MR Thoracic spine WO and W c ontrast Rosalva 11-13-2023 * * *Final Report* * * DATE OF EXAM: Nov 13 2023 10:25AM [facility] 0326 - MRI THORACIC SPINE WO/W IVCON / PROCEDURE REASON: Demyelinating disease of central nervous system (HCC) * * * * Physician Interpretation * * * * EXAMINATION: MRI CERVICAL SPINE WO/W IVCON, MRI THORACIC SPINE WO/W IVCON CLINICAL HISTORY: Demyelinating disease of central nervous system (HCC) TECHNIQUE: Routine cervical and thoracic spine MR protocol without gadolinium. MQ: MRCTWO_3 COMPARISON: None. RESULT: CERVICAL: Counting reference: Craniocervical junction. Anatomic Variants: None. Localizer images: Alignment: Alignment is anatomic. Craniocervical junction: Craniocervical junction is normal. Cord: The cervical spinal cord is within normal limits of signal intensity and morphology. Bone marrow signal/fracture: No evidence of pathologic marrow infiltration. No evidence of prior fracture. Cervical soft tissues: The paraspinal soft tissues are within normal limits. C2-C3: Canal and foramina are patent. C3-C4: Canal and foramina are patent. C4-C5: Canal and foramina are patent. C5-C6: Canal and foramina are patent. C6-C7: Canal and foramina are patent. C7-T1: Canal and foramina are patent. THORACIC: Counting reference: Craniocervical and lumbosacral junctions For the purposes of this report, Assume the first normal thoracic rib is at the T1 level. Localizer images: Unremarkable. Alignment: Alignment is anatomic. Cord: The thoracic spinal cord is within normal limits of signal intensity and morphology. There is no abnormal enhancement. Bone marrow signal/fracture: No evidence of pathologic marrow infiltration. No evidence of prior fracture. Thoracic soft tissues: The paraspinal soft tissues are within normal limits. Canal and foramina: The thoracic canal and foramina are patent within the constraints of the study. DIVISION OF RADIOLOGY Provider, Ronna Valle [facility] - 11/13/2023 * * *Final Report* * * DATE OF EXAM: Nov 13 2023 10:25AM [facility] 0326 - MRI THORACIC SPINE WO/W IVCON / PROCEDURE REASON: Demyelinating disease of central nervous system (HCC) * * * * Physician Interpretation * * * * EXAMINATION: MRI CERVICAL SPINE WO/W IVCON, MRI THORACIC SPINE WO/W IVCON CLINICAL HISTORY: Demyelinating disease of central nervous system (HCC) TECHNIQUE: Routine cervical and thoracic spine MR protocol without gadolinium. MQ: MRCTWO_3 COMPARISON: None. RESULT: CERVICAL: Counting reference: Craniocervical junction. Anatomic Variants: None. Localizer images: Alignment: Alignment is anatomic. Craniocervical junction: Craniocervical junction is normal. Cord: The cervical spinal cord is within normal limits of signal intensity and morphology. Bone marrow signal/fracture: No evidence of pathologic marrow infiltration. No evidence of prior fracture. Cervical soft tissues: The paraspinal soft tissues are within normal limits. C2-C3: Canal and foramina are patent. C3-C4: Canal and foramina are patent. C4-C5: Canal and foramina are patent. C5-C6: Canal and foramina are patent. C6-C7: Canal and foramina are patent. C7-T1: Canal and foramina are patent. THORACIC: Counting reference: Craniocervical and lumbosacral junctions For the purposes of this report, Assume the first normal thoracic rib is at the T1 level. Localizer images: Unremarkable. Alignment: Alignment is anatomic. Cord: The thoracic spinal cord is within normal limits of signal intensity and morphology. There is no abnormal enhancement. Bone marrow signal/fracture: No evidence of pathologic marrow infiltration. No evidence of prior fracture. Thoracic soft tissues: The paraspinal soft tissues are within normal limits. Canal and foramina: The thoracic canal and foramina are patent within the constraints of the study. IMPRESSION IMPRESSION: Cervical: Normal MRI cervical spine. No evidence of demyelination. No pathologic enhancement. Thoracic: Normal MRI thoracic spine. No evidence of demyelination. No pathologic enhancement. Cervical Anatomic Variant: None. Assume 7 cervical vertebrae with counting from the craniocervical junction. Anatomic Thoracic/Lumbar Variant: None. L4-5 is considered the level of the iliac crest and assume there are 5 lumbar-type vertebrae. Dietetic Intern: JEANNE Transcribe Date/Time: Nov 13 2023 10:58A Dictated by : GILL NAIK MD This examination was interpreted and the report reviewed and electronically signed by: GILL NAIK MD on Nov 13 2023 10:59AM [facility] MRI CERVICAL SPINE WO/W IVCO Non 11-13-2023 MRI CERVICAL SPINE WO/W IVCON * * *Final Report* * * DATE OF EXAM: Nov 13 2023 10:25AM [facility] 0298 - MRI CERVICAL SPINE WO/W IVCON / PROCEDURE REASON: Demyelinating disease of central nervous system (HCC) * * * * Physician Interpretation * * * * EXAMINATION: MRI CERVICAL SPINE WO/W IVCON, MRI THORACIC SPINE WO/W IVCON CLINICAL HISTORY: Demyelinating disease of central nervous system (HCC) TECHNIQUE: Routine cervical and thoracic spine MR protocol without gadolinium. MQ: MRCTWO_3 COMPARISON: None. RESULT: CERVICAL: Counting reference: Craniocervical junction. Anatomic Variants: None. Localizer images: Alignment: Alignment is anatomic. Craniocervical junction: Craniocervical junction is normal. Cord: The cervical spinal cord is within normal limits of signal intensity and morphology. Bone marrow signal/fracture: No evidence of pathologic marrow infiltration. No evidence of prior fracture. Cervical soft tissues: The paraspinal soft tissues are within normal limits. C2-C3: Canal and foramina are patent. C3-C4: Canal and foramina are patent. C4-C5: Canal and foramina are patent. C5-C6: Canal and foramina are patent. C6-C7: Canal and foramina are patent. C7-T1: Canal and foramina are patent. THORACIC: Counting reference: Craniocervical and lumbosacral junctions For the purposes of this report, Assume the first normal thoracic rib is at the T1 level. Localizer images: Unremarkable. Alignment: Alignment is anatomic. Cord: The thoracic spinal cord is within normal limits of signal intensity and morphology. There is no abnormal enhancement. Bone marrow signal/fracture: No evidence of pathologic marrow infiltration. No evidence of prior fracture. Thoracic soft tissues: The paraspinal soft tissues are within normal limits. Canal and foramina: The thoracic canal and foramina are patent within the constraints of the study. IMPRESSION: Cervical: Normal MRI cervical spine. No evidence of demyelination. No pathologic enhancement. Thoracic: Normal MRI thoracic spine. No evidence of demyelination. No pathologic enhancement. Cervical Anatomic Variant: None. Assume 7 cervical vertebrae with counting from the craniocervical junction. Anatomic Thoracic/Lumbar Variant: None. L4-5 is considered the level of the iliac crest and assume there are 5 lumbar-type vertebrae. Dietetic Intern: [employer] Transcribe Date/Time: Nov 13 2023 10:58A Dictated by : GILL NAIK MD This examination was interpreted and the report reviewed and electronically signed by: GILL NAIK MD on Nov 13 2023 10:59AM EST [id number] Normal [facility] MRI ORBIT WO/W IVCONon 11-12 MRI ORBIT WO/W IVCON * * *Final Report* * * DATE OF EXAM: Nov 13 2023 10:25AM [facility] 0311 - MRI ORBIT WO/W IVCON / PROCEDURE REASON: multiple diagnoses * * * * Physician Interpretation * * * * MRI OF THE BRAIN AND ORBITS WITHOUT AND WITH CONTRAST History: Eye pain. Subjective visual disturbance.. Technique: BRAIN: Diffusion, axial T2, axial FLAIR, postcontrast axial T1 volume. ORBIT: High-resolution precontrast coronal T1, fat-saturated high-resolution coronal T2, Fat-saturated postcontrast sagittal T1 space with reconstructions. MQ: MRBWOW_2 Contrast: 14 mL Dotarem IV Results: Brain: There is no restricted diffusion on this exam to suggest an acute intracranial infarction. Postcontrast images show no evidence for an intra-axial mass or leptomeningeal disease. There is moderate diffuse age appropriate volume loss. No white matter changes are definitely identified. There is no cortical encephalomalacia. There is no hydrocephalus, midline shift or herniation. Orbits/skull base: The globes, extraocular muscles, optic nerves, lacrimal glands, optic chiasm and optic tracts are symmetric and normal in appearance. There is no pathologic enhancement along the optic pathways. IAC, CP angles, Meckel's caves and cavernous sinuses as well as the prepontine cistern are normal in appearance. Sella and suprasellar cistern are normal. Mastoid air cells, middle ear cavities and visualized paranasal sinuses are grossly clear. IMPRESSION: NORMAL MRI OF THE BRAIN WITHOUT AND WITH CONTRAST FOR AGE. NO EVIDENCE OF AN ACUTE INTRACRANIAL INFARCTION. HIGH-RESOLUTION IMAGES THROUGH THE ORBITS AND SKULL BASE SHOW NO ABNORMAL ENHANCEMENT. NO EVIDENCE OF SKULL BASE OR ORBITAL MASS. Dietetic Intern: [facility] Transcribe Date/Time: Nov 13 2023 10:56A Dictated by : GILL NAIK MD This examination was interpreted and the report reviewed and electronically signed by: GILL NAIK MD on Nov 13 2023 10:59AM EST [id number] Normal [facility] MRI THORACIC SPINE WO/W IVCO Non 11-13-2023 MRI THORACIC SPINE WO/W IVCON * * *Final Report* * * DATE OF EXAM: Nov 13 2023 10:25AM [facility] 0326 - MRI THORACIC SPINE WO/W IVCON / PROCEDURE REASON: Demyelinating disease of central nervous system (HCC) * * * * Physician Interpretation * * * * EXAMINATION: MRI CERVICAL SPINE WO/W IVCON, MRI THORACIC SPINE WO/W IVCON CLINICAL HISTORY: Demyelinating disease of central nervous system (HCC) TECHNIQUE: Routine cervical and thoracic spine MR protocol without gadolinium. MQ: MRCTWO_3 COMPARISON: None. RESULT: CERVICAL: Counting reference: Craniocervical junction. Anatomic Variants: None. Localizer images: Alignment: Alignment is anatomic. Craniocervical junction: Craniocervical junction is normal. Cord: The cervical spinal cord is within normal limits of signal intensity and morphology. Bone marrow signal/fracture: No evidence of pathologic marrow infiltration. No evidence of prior fracture. Cervical soft tissues: The paraspinal soft tissues are within normal limits. C2-C3: Canal and foramina are patent. C3-C4: Canal and foramina are patent. C4-C5: Canal and foramina are patent. C5-C6: Canal and foramina are patent. C6-C7: Canal and foramina are patent. C7-T1: Canal and foramina are patent. THORACIC: Counting reference: Craniocervical and lumbosacral junctions For the purposes of this report, Assume the first normal thoracic rib is at the T1 level. Localizer images: Unremarkable. Alignment: Alignment is anatomic. Cord: The thoracic spinal cord is within normal limits of signal intensity and morphology. There is no abnormal enhancement. Bone marrow signal/fracture: No evidence of pathologic marrow infiltration. No evidence of prior fracture. Thoracic soft tissues: The paraspinal soft tissues are within normal limits. Canal and foramina: The thoracic canal and foramina are patent within the constraints of the study. IMPRESSION: Cervical: Normal MRI cervical spine. No evidence of demyelination. No pathologic enhancement. Thoracic: Normal MRI thoracic spine. No evidence of demyelination. No pathologic enhancement. Cervical Anatomic Variant: None. Assume 7 cervical vertebrae with counting from the craniocervical junction. Anatomic Thoracic/Lumbar Variant: None. L4-5 is considered the level of the iliac crest and assume there are 5 lumbar-type vertebrae. Dietetic Intern: JEANNE Transcribe Date/Time: Nov 13 2023 10:58A Dictated by : GILL NAIK MD This examination was interpreted and the report reviewed and electronically signed by: GILL NAIK MD on Nov 13 2023 10:59AM EST [id number] Normal [facility] No Panel InformationOrdered By: [facility] Provider on 11-13-2023 [facility] No Panel Informationon 11-12 IMPRESSION: Cervical: Normal MRI cervical spine. No evidence of demyelination. No pathologic enhancement. Thoracic: Normal MRI thoracic spine. No evidence of demyelination. No pathologic enhancement. Cervical Anatomic Variant: None. Assume 7 cervical vertebrae with counting from the craniocervical junction. Anatomic Thoracic/Lumbar Variant: None. L4-5 is considered the level of the iliac crest and assume there are 5 lumbar-type vertebrae. Dietetic Intern: [facility] Transcribe Date/Time: Nov 13 2023 10:58A Dictated by : GILL NAIK MD This examination was interpreted and the report reviewed and electronically signed by: GILL NAIK MD on Nov 13 2023 10:59AM EST DIVISION OF RADIOLOGY Radiology Study observation (narrative) [facility] CNOVon 11-02-2023 CNOV Office Visit (NEURMM ) LUCIA OROPEZA ([id number]) 1985 F Date Time Provider Department 11/02/23 11:30 AM SHAHIDA GRAF NEURCATINA During your visit today, we recorded the following information about you: Pulse Blood pressure Weight 98/minute 119/87 68.9 kg Shahida Graf APRN.[employer] 11/02/2023 3:22 PM Signed [facility] [place] Follow-up Visit Follow-up note November 02, 2023 HPI: Ms. Oropeza presents today for a follow-up visit. Per her previous visit on 09/08/23: R20.0, R20.2 Numbness and tingling (primary encounter diagnosis) H57.12 Left eye pain Comment: Pt presenting today for L eye pain and L facial/hand numbness. She reports that sx began as retro orbital pain roughly three weeks ago with progression to L facial numbness. She reports visual disturbance described as lines/spots as well as shadows. Due to persistence of symptoms she presented to the ED on 08/09/[address]/A brain and neck were completed and unremarkable. Symptoms have persisted since that time on L. She denies associated headache or migraine history and no notable weakness to face or hand. She does note that she is often bumping into things on L. Of note, she was previously following with ENT who completed MRI/A of brain in June d/t R ear pain and tinnitus. This has since improved with use of bite guard. Exam today is notable for L facial numbness as well as L tongue/buccal surface numbness and sensory deficits to pinprick and temperature as noted above. No focal weakness noted. Reflexes brisk in BLE with + 1 ankle clonus bilaterally. Question if symptoms secondary to migraine headache, though symptoms persist despite absence of eye pain and no notable migraine history. Additionally, given sensory deficits question possible central process such as demyelinating disease or CN enhancement. As previous MRI was completed 2 months ago prior to onset of symptoms, will repeat MRI brain WO/W to evaluate for aforementioned diagnoses. Additionally, consult placed to ophthalmology to evaluate for ocular pathology of pain. Lastly, lab work ordered as listed below to evaluate for underlying cause of paresthesias. Should imaging be unremarkable may consider treating as migraine headache with preventative medication and proceeding with further evaluation for paresthesias in extremities such as nerve testing (small/large fiber). Follow-up after testing is complete or sooner should new or changing symptoms occur. Saw ophthalmology in interim. Has MRI of orbit scheduled. Per ophthalmology on 10/19/23: 1. Left eye pain 2. Subjective visual disturbance Intermittent eye pain (left > right) with spots and lines in vision +worsens with exercise/rise in body temp per patient (Uhthoff's Phenomenon?) No swelling of disc, normal visual field and normal OCT Suspect possible retro-bulbar changes? Patient also notes dimming of vision on left side Patient under care of neurology- had normal MRI but no MRI done of orbits- will consult with neurology for possible coordination of MRI of orbits 3. Myopia, bilateral 4. Regular astigmatism of both eyes Continue with current glasses Recommend follow-up with me in 6 weeks and neurology as scheduled Went back to work this week; sitting at desk. Over the last week has been getting cold radiating sx over the middle of her back. Multiple times per day mostly when sitting. Also notes itching when active. Neck, arms, legs. Lasts for some time after working out. Feels sx in thoracic region. Radiates to flank but not to front. No squeezing sensation in abdomen/torso. A couple months would have tightness in chest when just resting in bed. When exercising eye sx get worse. No improvement. Only pain behind eye. Will be following up with opthalmology for L vision loss. Still noting lines/colors/spots; worse when active. Pain not worse when active. In her mouth she has been getting an abnormal taste; happens even when not eating the last 2-3 days. Tongue feels thick and heavy. She did fall and trip over her L foot. Happened out of nowhere. Was walking her dogs and finished walk ok. No b/b changes. No saddle anesthesia. Feet hurt in the AM or when sitting for some time. Hands have been painful as well. Occasional dizziness over the past week. Spinning sensation. PAST MEDICAL HISTORY No date: Graves disease Comment: Has not been on medicaiton since 2009 No date: Hyperlipidemia PAST SURGICAL HISTORY 06/24/2021: EGD W/O [facility] SPEC VARICIES INJ 2016: LAP UMBILICAL HERNIA REPAIR Current Outpatient Medications on File Prior to Visit Medication Sig escitalopram oxalate (LEXAPRO) 10 mg tablet Take 1 tablet by mouth for 21 days. Then take 2 tablets by mouth for 7 days (week before menses) levothyroxine (LEVOXYL) 50 mcg tablet Take 1 tablet by mouth once daily. Take on emp (more content not included)... Normal [facility] CRP SerPl-mCncon 11-01-2023 CRP [Mass/Vol] mg/L Normal <0.9 [facility] Comment on above: Order Comment: Speci men Type: BLOOD SPECIMEN Ordering Facility: [facility] Address: [address] [place] [address] Performed By: #### I FESC #### [facility] CLIA [id number] [address] [place] [address] [place] ESR Westergren method (Bld) [Velocity]on 11-01-2023 ESR (Bld) [Velocity] 2 mm/h Normal 0-20 [facility] Comment on above: Order Comment: Speci men Type: BLOOD SPECIMEN Ordering Facility: [facility] Address: [address] [place] [address] Performed By: #### 1 649-3, 1988-05 #### [facility] CLIA [id number] [address] [place] [address] [place] Rheumatoid fact SerPl-aCncon 11-01-2023 Rheumatoid factor Qn [IU]/mL Normal <16 [facility] Comment on above: Order Comment: Speci men Type: BLOOD SPECIMEN Ordering Facility: [facility] Address: [address] [place] [address] Performed By: #### I FESC #### [facility] CLIA [id number] [address] [place] [address] [place] CNPMaribel 10-23-2023 CNPN Telephone ([facility]) LUCIA OROPEZA ([id number]) 1985 F Date Time Provider Department 10/23/23 SHAHIDA GRAF During your visit today, we recorded the following information about you: Vladimir Fields, RN 10/23/2023 9:59 AM Signed Shahida Graf APRN.GWEN Jenkins [facility] Please let patient know that I spoke with her medical planner. She recommended proceeding with an MRI of the orbit for further evaluation as this may show some subtle changes that are not seen on the MRI brain. The order has been entered and testing can be scheduled at her earliest convenience. Thank you! Shahida Graf APRN.[employer] Spoke to patient who was advised of provider's message and verbalized understanding. She will schedule the MRI today. Allergies As of Date: 10/23/2023 (No Known Allergies) Date Reviewed: 10/19/2023 Reviewed by: Errol Vences OD - Fully Assessed Prescriptions as of 10/23/2023 - iv contrast (will be provided with radiology test) MRI Orbits Inject, intravenously, once for 1 dose. No IV access, insert saline lock prior to the beginning of sedation, infusion, injection of imaging exam. Discontinue saline lock post exam. If Pt. has a central line or IVAD, may access for administration according to line specific nursing protocol. Once exam is complete flush line and de-access according to line specific nursing protocol in the MR contrast administration guidelines link. - escitalopram oxalate (LEXAPRO) 10 mg tablet Take 1 tablet by mouth for 21 days. Then take 2 tablets by mouth for 7 days (week before menses) - levothyroxine (LEVOXYL) 50 mcg tablet Take 1 tablet by mouth once daily. Take on empty stomach. For Thyroid Problem List As Of Date 10/23/2023 Noted Resolved Graves disease [E05.00] Encounter Status:Closed by VLADIMIR FIELDS on 10/23/23 Normal [facility] OCT OPTIC NERVE CIRRUS OU (B OTH EYES)on 10-19-2023 [facility] Radiology Study observation (narrative) [facility] VISUAL FIELD 30-2 OU (BOTH E YES)on 10-19-2023 [facility] Radiology Study observation (narrative) [facility] MR Brain WO and W contrast I Von 10-17-2023 IMPRESSION: Age-appropriate unremarkable brain without acute findings, abnormal enhancement, or evidence of prior demyelination. Dietetic Intern: JEANNE Transcribe Date/Time: Oct 17 2023 10:10A Dictated by : ELANA XAVIER MD This examination was interpreted and the report reviewed and electronically signed by: ELANA XAVIER MD on Oct 17 2023 10:13AM [facility] DIVISION OF RADIOLOGY * * *Final Report* * * DATE OF EXAM: Oct 17 2023 9:55AM [facility] 0295 - MRI BRAIN WO/W IVCON / PROCEDURE REASON: Demyelinating disease of central nervous system (HCC) * * * * Physician Interpretation * * * * EXAMINATION: MRI BRAIN WO/W IVCON HISTORY: Demyelinating disease of central nervous system TECHNIQUE: MRI brain demyelination protocol without and with contrast. M: [id number] MR Contrast: Dotarem Contrast Dose: 14 cc Route of Administration: IV COMPARISON: MRI brain 07/12/2023 RESULT: Acute Change: No evidence of an acute intracranial process. Hemorrhage: No evidence of prior parenchymal hemorrhage within the constraints of the acquisition. Mass Lesion/ Mass Effect: No evidence of an intracranial mass, abnormal enhancement, extra-axial fluid collection, or significant localized mass effect. Chronic Change: The white matter is within normal limits of signal intensity for age. Parenchyma: No significant parenchymal volume loss for age. Ventricles: Normal caliber and morphology. Skull Base: Hypothalamic and pituitary region are grossly normal. Craniocervical junction is normal. No significant marrow replacement process. Vasculature: Major intracranial arteries and dural venous sinuses demonstrate typical flow voids, suggesting patency by spin echo criteria. Other: The paranasal sinuses and mastoid air cells are clear. The orbits and extracranial soft tissues are unremarkable. DIVISION OF RADIOLOGY Provider, [facility] - 10/17/2023 * * *Final Report* * * DATE OF EXAM: Oct 17 2023 9:55AM [facility] 0295 - MRI BRAIN WO/W IVCON / PROCEDURE REASON: Demyelinating disease of central nervous system (HCC) * * * * Physician Interpretation * * * * EXAMINATION: MRI BRAIN WO/W IVCON HISTORY: Demyelinating disease of central nervous system TECHNIQUE: MRI brain demyelination protocol without and with contrast. M: [id number] MR Contrast: Dotarem Contrast Dose: 14 cc Route of Administration: IV COMPARISON: MRI brain 07/12/2023 RESULT: Acute Change: No evidence of an acute intracranial process. Hemorrhage: No evidence of prior parenchymal hemorrhage within the constraints of the acquisition. Mass Lesion/ Mass Effect: No evidence of an intracranial mass, abnormal enhancement, extra-axial fluid collection, or significant localized mass effect. Chronic Change: The white matter is within normal limits of signal intensity for age. Parenchyma: No significant parenchymal volume loss for age. Ventricles: Normal caliber and morphology. Skull Base: Hypothalamic and pituitary region are grossly normal. Craniocervical junction is normal. No significant marrow replacement process. Vasculature: Major intracranial arteries and dural venous sinuses demonstrate typical flow voids, suggesting patency by spin echo criteria. Other: The paranasal sinuses and mastoid air cells are clear. The orbits and extracranial soft tissues are unremarkable. IMPRESSION IMPRESSION: Age-appropriate unremarkable brain without acute findings, abnormal enhancement, or evidence of prior demyelination. Dietetic Intern: JEANNE Transcribe Date/Time: Oct 17 2023 10:10A Dictated by : ELANA XAVIER MD This examination was interpreted and the report reviewed and electronically signed by: ELANA XAVIER MD on Oct 17 2023 10:13AM EST [facility] Radiology Study observation (narrative) [facility] MR Brain WO and W contrast I VOrdered By: [facility] Provider on 10-17-2023 [facility] MRI BRAIN WO/W IVCONon 10-16 MRI BRAIN WO/W IVCON * * *Final Report* * * DATE OF EXAM: Oct 17 2023 9:55AM [facility] 0295 - MRI BRAIN WO/W IVCON / PROCEDURE REASON: Demyelinating disease of central nervous system (HCC) * * * * Physician Interpretation * * * * EXAMINATION: MRI BRAIN WO/W IVCON HISTORY: Demyelinating disease of central nervous system TECHNIQUE: MRI brain demyelination protocol without and with contrast. M: [id number] MR Contrast: Dotarem Contrast Dose: 14 cc Route of Administration: IV COMPARISON: MRI brain 07/12/2023 RESULT: Acute Change: No evidence of an acute intracranial process. Hemorrhage: No evidence of prior parenchymal hemorrhage within the constraints of the acquisition. Mass Lesion/ Mass Effect: No evidence of an intracranial mass, abnormal enhancement, extra-axial fluid collection, or significant localized mass effect. Chronic Change: The white matter is within normal limits of signal intensity for age. Parenchyma: No significant parenchymal volume loss for age. Ventricles: Normal caliber and morphology. Skull Base: Hypothalamic and pituitary region are grossly normal. Craniocervical junction is normal. No significant marrow replacement process. Vasculature: Major intracranial arteries and dural venous sinuses demonstrate typical flow voids, suggesting patency by spin echo criteria. Other: The paranasal sinuses and mastoid air cells are clear. The orbits and extracranial soft tissues are unremarkable. IMPRESSION: Age-appropriate unremarkable brain without acute findings, abnormal enhancement, or evidence of prior demyelination. Dietetic Intern: JEANNE Transcribe Date/Time: Oct 17 2023 10:10A Dictated by : ELANA XAVIER MD This examination was interpreted and the report reviewed and electronically signed by: ELANA XAVIER MD on Oct 17 2023 10:13AM EST [id number] Normal [facility] 12 Lead EKGon 08-09-2023 12 Lead EKG [facility] [address] [place] [address] 12 Lead EKG 08/09/23 1854 MR#: [id number] Acct: [id number] Name: LUCIA OROPEZA Rep #: [id number] : 1985 38 From: Beny Roberto MD Attending Dr: Status: DEP ER Ordering Dr: Maverick Nassar MD Date: 08/09/23 Location: ED Sex: F C Admitted: Test Reason : DIZZY Blood Pressure : / mmHG Vent. Rate : 096 BPM Atrial Rate : 096 BPM P-R Int : 144 ms QRS Dur : 092 ms QT Int : 364 ms P-R-T Axes : 033 015 017 degrees QTc Int : 459 ms Normal sinus rhythm Normal ECG Confirmed by Beny Roberto ([id number]), index editor KARLOS JEFFRIES ([id number]) on 08/14/2023 9:47:50 AM Referred By: Confirmed By:Beny Roberto 08/14/23 0948 Date Beny Roberto MD CC: Dr. Saurabh Bermudez MD; Dr. Maverick Nassar MD Signed Normal [facility] Basic Metabolic Profile (BMP )on 08-09-2023 BUN/CRE 12.6 RATIO Normal 10-20 [facility] Comment on above: Performed By: #### L 500.2500, L100.0100 #### [facility] [address] [place], [address] CA,Total 8.7 mg/dL Normal 8.5-10.1 [facility] Comment on above: Performed By: #### L 500.2500, L100.0100 #### [facility] [address] [place], [address] Chloride [Moles/Vol] 108 mmol/L High 98-107 [facility] Comment on above: Performed By: #### L 500.2500, L100.0100 #### [facility] [address] [place], [address] CO2 [Moles/Vol] 28.0 mmol/L Normal 21.0-32.0 [facility] Comment on above: Performed By: #### L 500.2500, L100.0100 #### [facility] [address] [place], [address] Creatinine [Mass/Vol] 0.80 mg/dL Normal 0.55-1.02 [facility] Comment on above: Result Comment: The validity of the calculated GFR GFRAA in patients over 70 years has not been determined. Clinical correlation is essential. Performed By: #### L 500.2500, L100.0100 #### [facility] [address] [place], [address] ECRCL 88.02 ml/min Normal [facility] Comment on above: Performed By: #### L 500.2500, L100.0100 #### [facility] [address] [place], [address] EST GFR - AA 105 mL/min Normal >60 [facility] Comment on above: Result Comment: Afri can Qatari GFR Calc Performed By: #### L 500.2500, L100.0100 #### [facility] [address] [place], [address] GAP 3 Low 5-15 [facility] Comment on above: Performed By: #### L 500.2499, L100.0100 #### [facility] [address] [place], [address] GFR/1.73 sq M.predicted among non-blacks MDRD (S/P/Bld) [Vol rate/Area] 86 mL/min/{1.73_m2} Normal >60 [facility] Comment on above: Result Comment: Non- GFR Calc Performed By: #### L 500.2500, L100.0100 #### [facility] [address] [place], [address] Glucose [Mass/Vol] 87 mg/dL Normal 74-106 [facility] Comment on above: Performed By: #### L 500.2500, L100.0100 #### [facility] [address] [place], [address] Potassium [Moles/Vol] 3.7 mmol/L Normal 3.5-5.1 [facility] Comment on above: Performed By: #### L 500.2500, L100.0100 #### [facility] [address] [place], [address] Sodium [Moles/Vol] 139 mmol/L Normal 136-145 [facility] Comment on above: Performed By: #### L 500.2500, L100.0100 #### [facility] [address] [place], [address] Urea nitrogen [Mass/Vol] 10 mg/dL Normal 7-18 [facility] Comment on above: Performed By: #### L 500.2500, L100.0100 #### [facility] [address] [place], [address] CBC W/Diff, Automatedon 05- Absolute Lymph 2.32 X10 3/uL Normal 0.83-4.51 [facility] Comment on above: Performed By: #### L 500.2500, L100.0100 #### [facility] [address] [place], [address] Absolute Neut 3.1 X10 3/uL Normal 2.0-7.7 [facility] Comment on above: Performed By: #### L 500.2500, L100.0100 #### [facility] [address] [place], [address] Basophils/100 WBC (Bld) 0.8 % Normal 0-1 [facility] Comment on above: Performed By: #### L 500.2500, L100.0100 #### [facility] [address] [place], [address] Eosinophils/100 WBC (Bld) 2.3 % Normal 0-5 [facility] Comment on above: Performed By: #### L 500.2500, L100.0100 #### [facility] [address] [place], [address] Erythrocyte distribution width (RBC) [Ratio] 12.2 % Normal 11.6-14.6 [facility] Comment on above: Performed By: #### L 500.2500, L100.0100 #### [facility] [address] [place], [address] Hematocrit (Bld) [Volume fraction] 42.2 % Normal 37-47 [facility] Comment on above: Performed By: #### L 500.2500, L100.0100 #### [facility] [address] [place], [address] Hemoglobin (Bld) [Mass/Vol] 14.0 g/dL Normal 12.0-15.0 [facility] Comment on above: Performed By: #### L 500.2500, L100.0100 #### [facility] [address] [place], [address] IG% 0.200 Normal 0.0-0.9 [facility] Comment on above: Result Comment: IG% - Immature Granulocytes (promyelocytes, myelocytes and metamyelocytes) > 1% indicates that a LEFT SHIFT is Present. Performed By: #### L 500.2500, L100.0100 #### [facility] [address] [place], [address] Lymphocytes/100 WBC (Bld) 38.1 % Normal 19-41 [facility] Comment on above: Performed By: #### L 500.2500, L100.0100 #### [facility] [address] [place], [address] MCH (RBC) [Entitic mass] 30.3 pg Normal 27.0-32.0 [facility] Comment on above: Performed By: #### L 500.2500, L100.0100 #### [facility] [address] [place], [address] MCHC (RBC) [Mass/Vol] 33.2 g/dL Normal 32-36 [facility] Comment on above: Performed By: #### L 500.2500, L100.0100 #### [facility] [address] [place], [address] MCV (RBC) [Entitic vol] 91.3 fL Normal 81-99 [facility] Comment on above: Performed By: #### L 500.2500, L100.0100 #### [facility] [address] [place], [address] Monocytes/100 WBC (Bld) 8.4 % Normal 0-10 [facility] Comment on above: Performed By: #### L 500.2500, L100.0100 #### [facility] [address] [place], [address] Neutrophils/100 WBC (Bld) 50.2 % Normal 47-70 [facility] Comment on above: Performed By: #### L 500.2500, L100.0100 #### [facility] [address] [place], [address] Nucleated RBC (Bld) [#/Vol] 0 10*3/uL Normal 0-5 [facility] Comment on above: Performed By: #### L 500.2500, L100.0100 #### [facility] [address] [place], [address] Platelet mean volume (Bld) [Entitic vol] 9.8 fL Normal 6.2-12.0 [facility] Comment on above: Performed By: #### L 500.2500, L100.0100 #### [facility] [address] [place], [address] Platelets (Bld) [#/Vol] 268 10*3/uL Normal 150-450 [facility] Comment on above: Performed By: #### L 500.2500, L100.0100 #### [facility] [address] [place], [address] RBC (Bld) [#/Vol] 4.62 10*6/uL Normal 4.2-5.4 [facility] Comment on above: Performed By: #### L 500.2500, L100.0100 #### [facility] [address] [place], [address] RDW SD 40.6 fl Normal 35.1-43.9 [facility] Comment on above: Performed By: #### L 500.2500, L100.0100 #### [facility] [address] [place], [address] WBC (Bld) [#/Vol] 6.1 10*3/uL Normal 4.4-11.0 [facility] Comment on above: Performed By: #### L 500.2500, L100.0100 #### [facility] [address] [place], [address] CTA Head AND Neck W/ Contras ton 08-09-2023 CTA Head AND Neck W/ Contrast [facility] Imaging Services [address] [place] [address] CTA Head AND Neck W/ Contrast MR#: [id number] Acct: [id number] Name: LUCIA OROPEZA Rep #: [id number] : 1985 F 38 From: Beny Buchanan PCP: Dr. Saurabh Bermudez MD Status: REG ER Study: CTA Head AND Neck W/ Contrast Date of Exam: Exam# [id number] Ordering Dr: [place] [id number] EXAM: CT ANGIOGRAPHY HEAD AND NECK WITHOUT AND WITH INTRAVENOUS CONTRAST CLINICAL INDICATION: HEADACHE WITH RT NECK PAIN TECHNIQUE: [place]/head and neck CT angiography protocol performed without and with intravenous contrast. This CT exam was performed using one or more of the following dose reduction techniques: automated exposure control, adjustment of the mA and/or kV according to patient size, and/or use of iterative reconstruction technique. MIP reconstructed images were created and reviewed. CONTRAST: 100 cc of Isovue-370 IV. RADIATION DOSE: CTDIvol = 26.10 mGy, DLP = 1364.38 mGy-cm COMPARISON: No relevant prior studies available. FINDINGS: HEAD: RIGHT ANTERIOR CEREBRAL ARTERY: Unremarkable. No occlusion or significant stenosis. Anterior communicating artery is present. No aneurysm. RIGHT MIDDLE CEREBRAL ARTERY: Unremarkable. No occlusion or significant stenosis. No aneurysm. RIGHT POSTERIOR CEREBRAL ARTERY: Arises primarily from the right internal carotid artery.. No occlusion or significant stenosis. No aneurysm. RIGHT INTRACRANIAL INTERNAL CAROTID ARTERY: Unremarkable. No significant stenosis. No dissection or occlusion. RIGHT INTRACRANIAL VERTEBRAL ARTERY: Unremarkable. No significant stenosis. No dissection or occlusion. LEFT ANTERIOR CEREBRAL ARTERY: Unremarkable. No occlusion or significant stenosis. No aneurysm. LEFT MIDDLE CEREBRAL ARTERY: Unremarkable. No occlusion or significant stenosis. No aneurysm. LEFT POSTERIOR CEREBRAL ARTERY: Unremarkable. No occlusion or significant stenosis. No aneurysm. LEFT INTRACRANIAL INTERNAL CAROTID ARTERY: Unremarkable. No significant stenosis. No dissection or occlusion. LEFT INTRACRANIAL VERTEBRAL ARTERY: Unremarkable. No significant stenosis. No dissection or occlusion. BASILAR ARTERY: Unremarkable. No occlusion or significant stenosis. No aneurysm. OTHER VASCULATURE: No vascular malformation. BRAIN AND EXTRA-AXIAL SPACES: Unremarkable. No intra- or extra-axial hemorrhage. No evidence of acute infarct. No intracranial mass or mass effect. There is preservation of the celaya/white matter interface. Posterior fossa structures are unremarkable. Ventricles are appropriate for age. No hydrocephalus. Basal cisterns are patent. SINUSES: Unremarkable as visualized. Clear. MASTOID AIR CELLS: Unremarkable as visualized. Clear. ORBITS: Visualized globes, extraocular muscles, optic nerves and retrobulbar fat appear unremarkable. NECK: RIGHT COMMON CAROTID ARTERY: Unremarkable. No significant stenosis. No dissection or occlusion. RIGHT EXTRACRANIAL INTERNAL CAROTID ARTERY: Unremarkable. No significant stenosis. No dissection or occlusion. RIGHT EXTERNAL CAROTID ARTERY: Unremarkable. No occlusion. RIGHT EXTRACRANIAL VERTEBRAL ARTERY: Unremarkable. No significant stenosis. No dissection or occlusion. LEFT COMMON CAROTID ARTERY: Unremarkable. No significant stenosis. No dissection or occlusion. LEFT EXTRACRANIAL INTERNAL CAROTID ARTERY: Unremarkable. No significant stenosis. No dissection or occlusion. LEFT EXTERNAL CAROTID ARTERY: Unremarkable. No occlusion. LEFT EXTRACRANIAL VERTEBRAL ARTERY: Unremarkable. No significant stenosis. No dissection or occlusion. BRACHIOCEPHALIC AND SUBCLAVIAN ARTERIES: Unremarkable as visualized. No occlusion or significant stenosis. LUNG APICES: Unremarkable as visualized. HEAD and NECK: BONES/JOINTS: Unremarkable. No discrete lytic or blastic abnormalities. SOFT TISSUES: Unremarkable. CAROTID STENOSIS REFERENCE USING NASCET CRITERIA: % ICA stenosis = (1 - narrowest ICA diameter/diameter of distal cervical ICA) x 100. Mild - <50% stenosis. Moderate - 50-69% stenosis. Severe - 70-94% stenosis. Near occlusion - 95-99% stenosis. Occluded - 100% stenosis. CT/CTA Head AND Neck W/ Contrast IMPRESSION: Negative CTA carotid and CTA brain. Electronically Signed: Beny Grimes MD at 22:16 EDT , CC: Dr. Saurabh Bermudez MD; Dr. Maverick Nassar MD Dietetic Intern: Signed Normal [facility] Emergency Department Summary on 08-09-2023 Emergency Department Summary [facility] Medical Records Department [address] [place] [address] Emergency Department Summary 08/09/23 MR#: [id number] Acct: [id number] Name: LUCIA OROPEZA Rep #: [id number] : 1985 38 From: Maverick Nassar MD PCP: Dr. Saurabh Bermudez MD Status:DEP ER Location: ED HPI History of Present Illness Chief Complaint: Numb/Ting Informant: patient Onset/Context/Timing Onset: Today Timing: Intermittent Current Severity: Mild Maximum Severity: Mild Associated Symptoms Associated Symptoms: Positive for Headache and Nausea; Negative for Vomiting or Chest Pain Narrative Narrative: 38-year-old female history of hypothyroidism and anxiety. Yesterday had a headache behind her right eye which she saw horizontal lines. No history of migraines. Today she had left facial numbness. Perioral numbness. Bilateral hand numbness. And left foot numbness. Been intermittent. Headache is resolved. She has had nausea no vomiting. No head trauma. She is on no blood thinners. No family history of intracranial bleeds. Also had some mild right-sided neck discomfort when she had a headache. Prior similar symptoms: No Recent Illness/Hospitalization : No PFSH PFSH Medical History Depression Hypothyroid Home Medications ???Medication ???Instructions ???Recorded ???Last Taken ???Type escitalopram oxalate 10 mg tablet 10 mg PO DAILY 04/09/23 Unknown History fluticasone propionate 50 1 spray intranasal Q12H 04/09/23 Unknown History mcg/actuation nasal spray,suspension levothyroxine 50 mcg tablet 50 mcg PO DAILY 04/09/23 Unknown History (Synthroid) Allergy/AdvReac Type Severity Reaction Status Date / Time No Known Allergies Allergy Verified 08/09/23 17:38 Surgical History History of umbilical hernia repair Social History Smoking Status: Never smoker alcohol intake: current substance use type: does not use ROS ROS ED ROS Narrative Denies recent illness. Review of Systems ROS Unobtainable: Denies due to encephalopathy Constitutional Constitutional ED: Denies chills or fever(s) Eyes Eyes: Denies blurry vision ENT ENT ED: Denies ear pain Cardiovascular Cardiovascular: Denies chest pain Respiratory/Chest Respiratory/Chest: Denies cough or dyspnea Gastrointestinal Gastrointestinal: Reports nausea; Denies abdominal pain, constipation, diarrhea, melena or vomiting Genitourinary Genitourinary ED: Denies dysuria or hematuria Musculoskeletal Musculoskeletal: Denies arthralgias, back pain or myalgias Integumentary Denies abscess Neurologic Neurologic: Reports headache(s) and paresthesias; Denies weakness Psychiatric Psychiatric: Reports anxiety; Denies depression Endocrine Endocrinology: Denies polydipsia or polyphagia Hematologic/Lymphatic Hematologic/Lymphatic: Denies easy bleeding, easy bruising or lymphadenopathy Allergic/Immunologic Allergic/Immunologic ED: Denies mouth swelling or urticaria EXAM Physical Exam Narrative Exam Narrative: Well-appearing 38-year-old female. Vital signs stable initial blood pressure [id number]. She does not look septic toxic or in acute distress. Sitting upright in bed. H EENT exam normal. Pupils round reactive light extra motions are intact. No facial droop. No facial weakness. Normal speech. Unable to wrinkle her forehead. Neck nontender. Lungs clear. Heart regular rhythm rate about 110. No murmurs. Abdomen soft. Nontender. Moving all 4 extremities. Neurologic exam normal. 5 of 5 cigarette catcher strength. Normal speech. No facial droop. Extra motions are intact. Fingertip to nose and [id number] within normal limits. No drift. Normal strength and sensation both upper and lower extremities. NIH score is 0. Const Vital Signs: 08/09/23 17:39 08/09/23 19:38 08/09/23 21:00 Temperature 97.7 F L Temperature Source Temporal Pulse Rate 118 H 92 92 Respiratory Rate 18 20 H 21 H Blood Pressure 133/102 H 144/94 H 138/95 H Blood Pressure Mean 112 110 109 Pulse Ox 99 95 100 Oxygen Delivery Method Room Air Room Air Positive well nourished and well developed; Negative for obese, cachectic, contractures or unkempt General Appearance ED: well developed and NAD; Negative for unkempt, cachectic or contractures Nutritional Appearance: Negative for cachectic or obese HEENT Reports moist mucous membranes atraumatic; Negative for trauma Nose: Negative for other Eyes PERRL and EOMs intact bilaterally General Eye ED: Negative for pale conjunctiva or scleral icterus Neck no lymphadenopathy, supple and no JVD General: Negative for tenderness Thyroid: Negative for other Chest Wall inspection of chest normal and palpation (more content not included)... Normal [facility] MR/MRA BRAIN WITH AND WITHOU T CONTRASTon 07-12-2023 MR/MRA BRAIN WITH AND WITHOUT CONTRAST EXAMINATION: MR/MRA BRAIN WITH AND WITHOUT CONTRAST HISTORY: ORDERING SYSTEM PROVIDED HISTORY: Tinnitus, pulsatile, TECHNOLOGIST PROVIDED HISTORY: Illness/Other Reason for exam: acute rt ear pain , and pulsating sound x 4 months and getting worse Encounter Type: Initial Additional signs and symptoms: n/a ORDERING SYSTEM PROVIDED DIAGNOSIS CODES: H93.11 Subjective tinnitus of right ear COMPARISON: None TECHNIQUE: Routine MRI of the head without with contrast was performed. 3D [id number]-ak-swmxox MRA of the head was performed. CONTRAST: GADOTERATE MEGLUMINE 0.5 MMOL/ML (376.9 MG/ML) INTRAVENOUS SOLUTION - 13.5 mL, FINDINGS: MRI head Brain volume: Normal Sagittal midline structures: Normal Ventricles: Normal Acute ischemic changes: Negative Chronic ischemic changes: Negative Hemorrhage: Negative Masses/edema: Negative Enhancement: Negative Celaya-white: Normal White matter: Normal Vessels: Normal Extra-axial: Normal Calvarium/scalp: Normal Skull base: Normal Visualized sinuses/orbits: Normal Visualized upper neck: Normal MRA head ICAs: Negative ACAs: Negative MCAs: Negative repossession agent: origin of the right SENIOR MEDICAL WRITER. Vertebrobasilar: Negative IMPRESSION: 1. Normal brain. 2. Normal intracranial circulation. Workstation ID: [id number] Dictated by: PHONG WILSON on MonJul 12, 2023 11:20:54 AM EDT Transcribed by: PHONG WILSON on MonJul 12, 2023 11:20:54 AM EDT Finalized by: PHONG WILSON on MonJul 12, 2023 11:20:54 AM EDT Normal [facility] Comment on above: Order Comment: Injur y/Trauma or Illness?:Illness/Other How long have you had these symptoms (acute/chronic)?:Acute Reason for exam?:acute rt ear pain , and pulsating sound x 4 months and getting worse Type of Exam?:Initial Additional signs and symptoms?:n/a Urgent Care Visit Reporton 0 04-09-2023 Urgent Care Visit Report [facility] [address], [address] [place] [address] OFFICE VISIT Date of Service: 04/09/23 MR#: [id number] Acct: [id number] Name: LUCIA OROPEZA Rep #: [id number] : 1985 Provider: MICK Beck Age/Sex: 37/F Location: [facility] Status: Signed Intake Vital Signs 04/09/23 11:08 Height 5 ft 2 in Weight: 148 lb 4 oz BMI 27.1 BP 114/74 Blood Pressure Location Lt brachial Position Sitting Respiration 17 Pulse 131 H Pulse Source NIBP Temp 97.8 F Temp Source Temporal Pulse Oximetry (%) 97 Oxygen Delivery Method room air Intake Visit Reasons: SORE THROAT, EAR PAIN, COUGH Chief Complaint: cough, congestion, left ear pain, ST Apartment Maintenance Technician Required: No Is patient in pain?: Yes Allergies No Known Allergies Allergy (Verified 04/09/23 11:09) Medications escitalopram oxalate 10 mg tablet mg PO 04/09/23 [History Confirmed 04/09/23] fluticasone propionate 50 mcg/actuation nasal spray,suspension intranasal 04/09/23 [History Confirmed 04/09/23] levothyroxine 50 mcg tablet (Synthroid) mcg PO 04/09/23 [History Confirmed 04/09/23] Is last menstrual period known: No Post menopausal: No Patient : No Nurse's Note: cough, congestion, left ear pain, ST x 10 days PFSH Medical History (Updated 04/09/23 @ 11:42 by MICK Gomez) Depression Hypothyroid Surgical History (Updated 04/09/23 @ 11:10 by Ashli Wyatt) History of umbilical hernia repair Social History (Updated 04/09/23 @ 11:10 by Ashli Wyatt) Smoking Status: Never smoker alcohol intake: current substance use type: does not use HPI HPI Chief Complaint: cough, congestion, left ear pain, ST Details: LUCIA OROPEZA, is a 37 F who presents to the office today for cough congestion. Sx started 10 days ago. Congestion, ear pain, ST, cough, sinus pain. Cough- wet cough- unsure of color. Nasal congestion clear. Tried so far day and nyquil, mucinex. neti pot. Denies sob and body aches. Tired and fatigue ROS Const Constitutional: Positive for other (ROS negative x6 except what was placed in HPI) Exam Const General: cooperative and no acute distress Orientation: alert and oriented x3 HENMT Head: normal to inspection and normocephalic Ears: hearing grossly normal bilaterally, external ears normal and TM's normal bilaterally Nose: external nose normal, nasal discharge and other (+ rhinorrhea/congestion, erythema and mild swelling) Face and sinus: normal facial exam and sinus tenderness maxillary (left) Mouth: oral mucosae normal, lip normal, tongue normal, oropharynx normal and moist mucous membranes Throat: posterior oropharynx normal, uvula midline and postnasal drainage Neck Neck: normal visual inspection, full ROM and lymphadenopathy Resp Effort Inspection: normal respiratory effort, able to speak in complete sentences and symmetric chest movement Auscultation: Bilateral: Clear to Auscultation, Left: Clear to Auscultation and Right: Clear to Auscultation Cardio Rate: regular rate and tachycardic Rhythm: regular rhythm Heart Sounds: S1 normal and S2 normal GI Auscultation: normal bowel sounds Palpation: soft and no hepatosplenomegaly Neuro General: patient alert, patient awake and patient oriented x3 Extrem General: normal to inspection and full ROM Psych Appearance: grossly normal Mental Status: mental status grossly normal Attitude: cooperative Thought Process: normal Thought Content: normal Judgment: judgment good Coding Level of Care Code Off vis,new,level 3 Diagnoses Flu J11.1 Acute non-recurrent maxillary sinusitis J01.00 Sinusitis location: maxillary Chronicity: acute Recurrence: non-recurrent Assessment and Plan Assessment and Plan (1) Flu: Status: Acute Plan: Drink plenty of fluids. This includes water, warm soup and drinks that contain minerals, called rehydration solutions. Rest. You may need to change or cancel some of your activities depending on your symptoms. Take acetaminophen (Tylenol, others) or ibuprofen (Advil, Motrin IB, others). These medicines can help lower fever and help with muscle aches or headache. Stay home from work, school or other public places for at least 24 hours after your fever is gone without use of fever-reducing medicine. This helps stop the spread of the virus that causes flu. Most people feel better within a week of becoming infected with the flu virus. But coughing may last for another one or two weeks. (2) Sinus infection: Status: Acute Qualifiers: Sinusitis location: maxillary Chronicity: acute Recurrence: non-recurrent Qualified Code(s): J01.00 - Acute maxillary sinusitis, unspecified Plan: If prescribed antibiotics take the full course even if feeling better. Warm salt water gargles, warm tea w (more content not included)... Normal [facility] CBC W Auto Differential pane l (Bld)on 04-22-2022 Basophils (Bld) [#/Vol] 0.04 10*3/uL <0.11 k/uL [facility] Basophils/100 WBC (Bld) 1.0 % [facility] Differential cell count method Nom (Bld) Auto [facility] Eosinophils (Bld) [#/Vol] 0.19 10*3/uL <0.46 k/uL [facility] Eosinophils/100 WBC (Bld) 4.5 % [facility] Erythrocyte distribution width (RBC) [Ratio] 12.5 % 11.5 - 15.0 % [facility] Hematocrit (Bld) [Volume fraction] 42.7 % 36.0 - 46.0 % [facility] Hemoglobin (Bld) [Mass/Vol] 14.2 g/dL 11.5 - 15.5 g/dL [facility] Immature granulocytes (Bld) [#/Vol] <0.10 k/uL [facility] Immature granulocytes/100 WBC (Bld) 0.2 % [facility] Lymphocytes (Bld) [#/Vol] 0.96 10*3/uL Low 1.00 - 4.00 k/uL [facility] Lymphocytes/100 WBC (Bld) 22.9 % [facility] MCH (RBC) [Entitic mass] 31.3 pg 26.0 - 34.0 pg [facility] MCHC (RBC) [Mass/Vol] 33.3 g/dL 30.5 - 36.0 g/dL [facility] MCV (RBC) [Entitic vol] 94.3 fL 80.0 - 100.0 fL [facility] Monocytes (Bld) [#/Vol] 0.73 10*3/uL <0.87 k/uL [facility] Monocytes/100 WBC (Bld) 17.4 % [facility] Neutrophils (Bld) [#/Vol] 2.26 10*3/uL 1.45 - 7.50 k/uL [facility] Neutrophils/100 WBC (Bld) 54.0 % [facility] Nucleated RBC (Bld) [#/Vol] <0.01 k/uL [facility] Nucleated RBC/100 WBC (Bld) [Ratio] 0.0 /100 WBC [facility] Platelet mean volume (Bld) [Entitic vol] 10.4 fL 9.0 - 12.7 fL [facility] Platelets (Bld) [#/Vol] 224 10*3/uL 150 - 400 k/uL [facility] RBC (Bld) [#/Vol] 4.53 10*6/uL 3.90 - 5.2 0 m/uL [facility] WBC (Bld) [#/Vol] 4.19 10*3/uL 3.70 - 11. 00 k/uL [facility] US FEMALE PELVIS TRANSVAGon 07-22-[address] [facility] [address] ABD/PEL W IVCONon 022 [facility] EGD DIAGNOSTICon 06-24-2021 [facility] XR Lumbar spine 3 Viewson IMPRESSION: Negative lumbar spine X-ray. Dietetic Intern: PSCB Transcribe Date/Time: Apr 28 2021 12:57P Dictated by : DANIELA ROBERTS MD This examination was interpreted and the report reviewed and electronically signed by: DANIELA ROBERTS MD on Apr 28 2021 12:58PM [facility] DIVISION OF RADIOLOGY * * *Final Report* * * DATE OF EXAM: Apr 28 2021 12:52PM WOX [id number] - XR LUMBAR 3V AP/LAT/L5-S1 / PROCEDURE REASON: Back pain, unspecified back location, unspecified back pain laterality, unspecif * * * * Physician Interpretation * * * * EXAM TITLE: XR LUMBAR 3V AP/LAT/L5-S1 EXAM DATE/TIME: 04/28/2021 12:52 PM COMPARISON: None. CLINICAL INDICATION/HISTORY: Back pain. TECHNIQUE: AP, lateral and cone down lateral views of the lumbar spine are presented. FINDINGS: There are five hki-hzt-jdmcwyi lumbar vertebrae. No fracture or subluxations are noted. The disc spaces are well preserved. There is no significant osteophyte formation. DIV[facility]OLOGY [facility] * * *Final Report* * * DATE OF EXAM: Apr 28 2021 12:52PM WOX [id number] - XR LUMBAR 3V AP/LAT/L5-S1 / PROCEDURE REASON: Back pain, unspecified back location, unspecified back pain laterality, unspecif * * * * Physician Interpretation * * * * EXAM TITLE: XR LUMBAR 3V AP/LAT/L5-S1 EXAM DATE/TIME: 04/28/2021 12:52 PM COMPARISON: None. CLINICAL INDICATION/HISTORY: Back pain. TECHNIQUE: AP, lateral and cone down lateral views of the lumbar spine are presented. FINDINGS: There are five wsg-mhi-eakwsge lumbar vertebrae. No fracture or subluxations are noted. The disc spaces are well preserved. There is no significant osteophyte formation. IMPRESSION IMPRESSION: Negative lumbar spine X-ray. Dietetic Intern: [facility] Transcribe Date/Time: Apr 28 2021 12:57P Dictated by : DANIELA ROBERTS MD This examination was interpreted and the report reviewed and electronically signed by: DANIELA ROBERTS MD on Apr 28 2021 12:58PM EST [facility] Radiology Study observation (narrative) [facility] XR Lumbar spine 3 ViewsOrder ed By: Cc Provider on 04-28-2021 [facility] Vital Signs Date Time Vital Sign Value Performing Clinician Karin anand 10-09-2024 08:21-0400 Body mass index (BMI) [Ratio] 27.76 kg/m2 Saurabh Bermudez MD Work Phone: [facility] 10-09-2024 08:21-0400 Body weight 68.86 kg Saurabh Bermudez MD Work Phone: [facility] 10-09-2024 08:21-0400 Diastolic blood pressure 76 mm[Hg] Saurabh Bermudez MD Work Phone: [facility] 10-09-2024 08:21-0400 Heart rate 118 /min Saurabh Bermudez MD Work Phone: [facility] 10-09-2024 08:21-0400 Respiratory rate 16 /min Saurabh eBrmudez MD Work Phone: [facility] 10-09-2024 08:21-0400 Systolic blood pressure 119 mm[Hg] Saurabh Bermudez MD Work Phone: [facility] 08-30-2024 08:13-0400 Body mass index (BMI) [Ratio] 27.8 kg/m2 Saurabh Berumdez MD Work Phone: [facility] 08-30-2024 08:13-0400 Body weight 68.95 kg Saurabh Bermudez MD Work Phone: [facility] 08-30-2024 08:13-0400 Diastolic blood pressure 73 mm[Hg] Saurabh Bermudez MD Work Phone: [facility] 08-30-2024 08:13-0400 Heart rate 130 /min Saurabh Bermudez MD Work Phone: [facility] 08-30-2024 08:13-0400 Respiratory rate 16 /min Saurabh Bermudez MD Work Phone: [facility] 08-30-2024 08:13-0400 SaO2% (BldA) [Mass fraction] 99 % Saurabh Bermudez MD Work Phone: [facility] 08-30-2024 08:13-0400 Systolic blood pressure 132 mm[Hg] Saurabh Bermudez MD Work Phone: [facility] 08-22-2024 08:29-0400 Body height 157.5 cm Yvonne Agee MD Work Phone: [facility] 08-22-2024 08:29-0400 Body mass index (BMI) [Ratio] 27.94 kg/m2 Yvonne Agee MD Work Phone: [facility] 08-22-2024 08:29-0400 Body temperature 97.9 [degF] Yvonne Agee MD Work Phone: [facility] 08-22-2024 08:29-0400 Body weight 69.3 kg Yvonne Agee MD Work Phone: [facility] 08-22-2024 08:29-0400 Diastolic blood pressure 86 mm[Hg] Yvonne Agee MD Work Phone: [facility] 08-22-2024 08:29-0400 Heart rate 114 /min Yvonne Agee MD Work Phone: [facility] 08-22-2024 08:29-0400 SaO2% (BldA) [Mass fraction] 100 % Yvonne Agee MD Work Phone: [facility] 08-22-2024 08:29-0400 Systolic blood pressure 124 mm[Hg] Yvonne Agee MD Work Phone: [facility] 08-06-2024 12:32-0400 Body mass index (BMI) [Ratio] 26.91 kg/m2 Shahidaxiang Averyhausen FINAL INSPECTOR [employer]EST FIREFIGHTER Work Phone: [facility] 08-06-2024 12:32-0400 Body weight 68.9 kg Shahida Averyhausen FINAL INSPECTOR [employer].FOREST FIREFIGHTER Work Phone: [facility] 08-06-2024 12:32-0400 Diastolic blood pressure 89 mm[Hg] Shahida Daromihausen FINAL INSPECTOR [employer].FOREST FIREFIGHTER Work Phone: [facility] 08-06-2024 12:32-0400 Heart rate 119 /min Shahida Genahausen FINAL INSPECTOR [employer]EST FI[employer]FIGHTER Work Phone: [facility] 08-06-2024 12:32-0400 Respiratory rate 16 /min Shahida Dahlhausen FINAL INSPECTOR [employer].FOREST FIREFIGHTER Work Phone: [facility] 08-06-2024 12:32-0400 SaO2% (BldA) [Mass fraction] 99 % Shahida Dahlhausen FINAL INSPECTOR [employer].FOREST FIREFIGHTER Work Phone: [facility] 08-06-2024 12:32-0400 Systolic blood pressure 135 mm[Hg] Shahida Dahlhausen FINAL INSPECTOR [employer]EST FIREFIGHTER Work Phone: [facility] 04-11-2024 15:45-0500 Body height 160 cm Margot Wyatt MD Work Phone: [facility] 04-11-2024 15:45-0500 Body mass index (BMI) [Ratio] 26.39 kg/m2 Margot Wyatt MD Work Phone: [facility] 04-11-2024 15:45-0500 Body weight 67.59 kg Margot Wyatt MD Work Phone: [facility] 04-11-2024 15:45-0500 Diastolic blood pressure 62 mm[Hg] Margot Wyatt MD Work Phone: [facility] 04-11-2024 15:45-0500 Systolic blood pressure 110 mm[Hg] Margot Wyatt MD Work Phone: [facility] 11-02-2023 11:29-0400 Body mass index (BMI) [Ratio] 27.78 kg/m2 Shahida Dahlhausen FINAL INSPECTOR [employer]EST FI[employer]FIGHTER Work Phone: [facility] 11-02-2023 11:29-0400 Body weight 68.9 kg Shahida Dahlhausen FINAL INSPECTOR [employer]EST FI[employer]FIGHTER Work Phone: [facility] 11-02-2023 11:29-0400 Diastolic blood pressure 87 mm[Hg] Shahida Dahlhausen FINAL INSPECTOR [employer]EST FI[employer]FIGHTER Work Phone: [facility] 11-02-2023 11:29-0400 Heart rate 98 /min Shahida Dahlhausen FINAL INSPECTOR [employer]EST FI[employer]FIGHTER Work Phone: [facility] 11-02-2023 11:29-0400 SaO2% (BldA) [Mass fraction] 100 % Shahida Dahlhausen FINAL INSPECTOR [employer]EST FI[employer]FIGHTER Work Phone: [facility] 11-02-2023 11:29-0400 Systolic blood pressure 119 mm[Hg] Shahida Dahlhausen FINAL INSPECTOR [employer]EST FIREFIGHTER Work Phone: [facility] 09-08-2023 08:51-0400 Body height 157.5 cm Shahida Dahlhausen FINAL INSPECTOR [employer]EST FI[employer]FIGHTER Work Phone: [facility] 09-08-2023 08:51-0400 Body mass index (BMI) [Ratio] 28.27 kg/m2 Shahida Dahlhausen FINAL INSPECTOR [employer]EST FI[employer]FIGHTER Work Phone: [facility] 09-08-2023 08:51-0400 Body weight 70.1 kg Shahida Dahlhausen FINAL INSPECTOR [employer]EST FI[employer]FIGHTER Work Phone: [facility] 09-08-2023 08:51-0400 Diastolic blood pressure 90 mm[Hg] Shahida Dahlhausen FINAL INSPECTOR [employer]EST FI[employer]FIGHTER Work Phone: [facility] 09-08-2023 08:51-0400 Heart rate 90 /min Shahida Dahlhausen FINAL INSPECTOR [employer]EST FI[employer]FIGHTER Work Phone: [facility] [facility]23 08:51-0400 SaO2% (BldA) [Mass fraction] 100 % Shahida Dahlhausen FINAL INSPECTOR [employer] Work Phone: [facility] 09-08-2023 08:51-0400 Systolic blood pressure 133 mm[Hg] Shahida Dahlhausen FINAL INSPECTOR [employer] Work Phone: [facility] 08-11-2023 15:00-0400 Body height 160.7 cm Hannah Lorenzo MD Work Phone: [facility] 08-11-2023 15:00-0400 Body mass index (BMI) [Ratio] 26.86 kg/m2 Hannah Lorenzo MD Work Phone: [facility] 08-11-2023 15:00-0400 Body temperature 98.01 [degF] Hannah Lorenzo MD Work Phone: [facility] 08-11-2023 15:00-0400 Body weight 69.4 kg Hannah Lorenzo MD Work Phone: [facility] 08-11-2023 15:00-0400 Diastolic blood pressure 86 mm[Hg] Hannah Lorenzo MD Work Phone: [facility] 08-11-2023 15:00-0400 Heart rate 75 /min Hannah Lorenzo MD Work Phone: [facility] 08-11-2023 15:00-0400 Respiratory rate 18 /min Hannah Lorenzo MD Work Phone: [facility] 08-11-2023 15:00-0400 SaO2% (BldA) [Mass fraction] 100 % Hannah Lorenzo MD Work Phone: [facility] 08-11-2023 15:00-0400 Systolic blood pressure 138 mm[Hg] Hannah Lorenzo MD Work Phone: [facility] 07-17-2023 15:12-0400 Body height 157.5 cm Blossom Murray MD Work Phone: [facility] 07-17-2023 15:12-0400 Body mass index (BMI) [Ratio] 28.24 kg/m2 Blossom Murray MD Work Phone: [facility] 07-17-2023 15:12-0400 Body temperature 98.01 [degF] Blossom Murray MD Work Phone: [facility] 07-17-2023 15:12-0400 Body weight 70.03 kg Blossom Murray MD Work Phone: [facility] 06-05-2023 08:23-0400 Body temperature 98.49 [degF] Blossom Murray MD Work Phone: [facility] 06-05-2023 08:23-0400 Body weight 69.17 kg Blossom Murray MD Work Phone: [facility] 02-09-2023 14:55-0500 Body weight 67.86 kg Margot Wyatt MD Work Phone: [facility] 02-09-2023 14:55-0500 Diastolic blood pressure 70 mm[Hg] Margot Wyatt MD Work Phone: [facility] 02-09-2023 14:55-0500 Systolic blood pressure 124 mm[Hg] Margot Wytat MD Work Phone: [facility] 01-31-2023 08:20-0500 Body height 159.4 cm Margot Wyatt MD Work Phone: [facility] 01-31-2023 08:20-0500 Body weight 68.13 kg Margot Wyatt MD Work Phone: [facility] 01-31-2023 08:20-0500 Diastolic blood pressure 82 mm[Hg] Margot Wyatt MD Work Phone: [facility] 01-31-2023 08:20-0500 Systolic blood pressure 138 mm[Hg] Margot Wyatt MD Work Phone: [facility] 08-24-2022 15:28-0400 Body weight 63.96 kg Jovita Kathrine FINAL INSPECTOR [employer] Work Phone: [facility] 08-24-2022 15:28-0400 Diastolic blood pressure 80 mm[Hg] Jovita Kathrine FINAL INSPECTOR [employer]EST FI[employer]TER Work Phone: [facility] 08-24-2022 15:28-0400 Heart rate 97 /min Jovita Kathrine FINAL INSPECTOR [employer]EST FI[employer]FIGHTER Work Phone: [facility] 08-24-2022 15:28-0400 SaO2% (BldA) [Mass fraction] 99 % Jovita Kathrine FINAL INSPECTOR [employer]EST FI[employer]TER Work Phone: [facility] 08-24-2022 15:28-0400 Systolic blood pressure 126 mm[Hg] Jovita Kathrine FINAL INSPECTOR [employer]EST FI[employer]FIG[employer]TER Work Phone: [facility] 04-22-2022 09:34-0500 Body temperature 98.71 [degF] Gayathri 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 Work Phone: [facility] 04-22-2022 09:34-0500 Body weight 61.69 kg Gayathri 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 Work Phone: [facility] 04-22-2022 09:34-0500 Diastolic blood pressure 76 mm[Hg] Gayathri 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 Work Phone: [facility] 04-22-2022 09:34-0500 Heart rate 107 /min Gayathri 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 Work Phone: [facility] 04-22-2022 09:34-0500 Respiratory rate 16 /min Gayathri 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 Work Phone: [facility] 04-22-2022 09:34-0500 SaO2% (BldA) [Mass fraction] 98 % Gayathri 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 Work Phone: [facility] 04-22-2022 09:34-0500 Systolic blood pressure 122 mm[Hg] Gayathri 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 Work Phone: [facility] 02-12-2022 09:55-0500 Body weight 61.69 kg Saurabh Bermudez MD Work Phone: [facility] 02-12-2022 09:55-0500 Diastolic blood pressure 82 mm[Hg] Saurabh Bermudez MD Work Phone: [facility] 02-12-2022 09:55-0500 Heart rate 88 /min Saurabh Bermudez MD Work Phone: [facility] 02-12-2022 09:55-0500 Respiratory rate 16 /min Saurabh Bermudez MD Work Phone: [facility] 02-12-2022 09:55-0500 Systolic blood pressure 128 mm[Hg] Saurabh Bermudez MD Work Phone: [facility] 11-08-2021 18:15-0400 Body temperature 97.39 [degF] Leydi Dusty FINAL INSPECTOR [employer] Work Phone: [facility] 11-08-2021 18:15-0400 Body weight 64.5 kg Leydi Dusty FINAL INSPECTOR [employer]EST FI[employer] Work Phone: [facility] 11-08-2021 18:15-0400 Diastolic blood pressure 74 mm[Hg] Leydi Dusty FINAL INSPECTOR [employer]EST FI[employer]TER Work Phone: [facility] 11-08-2021 18:15-0400 Heart rate 99 /min Leydi Dusty FINAL INSPECTOR [employer]EST FI[employer]HTER Work Phone: [facility] 11-08-2021 18:15-0400 Respiratory rate 21 /min Leydi Dusty FINAL INSPECTOR [employer]EST FI[employer]FIGHTER Work Phone: [facility] 11-08-2021 18:15-0400 SaO2% (BldA) [Mass fraction] 100 % Leydi Dusty FINAL INSPECTOR [employer]EST FI[employer]FIGHTER Work Phone: [facility] 11-08-2021 18:15-0400 Systolic blood pressure 122 mm[Hg] Leydi Dusty FINAL INSPECTOR [employer]EST FI[employer]TER Work Phone: [facility] 06-24-2021 14:41-0400 Diastolic blood pressure 81 mm[Hg] Jamari Rincon MD Work Phone: [facility] 06-24-2021 14:41-0400 Heart rate 95 /min Jamari Rincon MD Work Phone: [facility] 06-24-2021 14:41-0400 Respiratory rate 16 /min Jamari Rincon MD Work Phone: [facility] 06-24-2021 14:41-0400 SaO2% (BldA) [Mass fraction] 100 % Jamari Rincon MD Work Phone: [facility] 06-24-2021 14:41-0400 Systolic blood pressure 121 mm[Hg] Jamari Rincon MD Work Phone: [facility] 06-24-2021 12:37-0400 Body temperature 99 [degF] Jamari Rincon MD Work Phone: [facility] Encounters Encounter Date Encounter Type Care Provider Facility Start: 10-09-2024 End: 10-09-2024 Office outpatient visit 25 minutes Saurabh Bermudez MD Work Phone: [facility] [place] Comment on above: Bigeminy (Primary Dx ); Palpitation; Dizziness; Trigeminy; Sinus tachycardia; Screening for depression; Encounter for screening examination for other mental health and behavioral disorders Start: 10-09-2024 End: 10-09-2024 ambulatory Saurabh Bermudez MD Work Phone: [facility] [place] Comment on above: Thyroid medication Start: 09-13-2024 End: 09-13-2024 Refill Saurabh Bermudez MD Work Phone: [facility] [place] Comment on above: Refill Request Start: 08-30-2024 End: 08-30-2024 ambulatory SAURABH LARA Facility:[facility] Start: 08-30-2024 End: 08-30-2024 [facility] Facility:[facility] Start: 08-30-2024 End: 08-30-2024 Office outpatient visit 25 minutes Saurabh Bermudez MD Work Phone: [facility] [place] Comment on above: Vitamin D deficiency (Primary Dx); Perioral numbness; Tachycardia; Dizziness; Paresthesia of skin Start: 08-30-2024 End: 08-30-2024 [facility] Start: 08-22-2024 End: 08-22-2024 Patient encounter procedure Yvonne Agee MD Work Phone: Neurology Comment on above: Numbness and tinglin g Start: 08-22-2024 End: 08-22-2024 ambulatory YOVNNE AGEE Facility:[facility] Start: 08-16-2024 End: 08-16-2024 ambulatory SHAHIDA GRAF Facility:[facility] Start: 08-14-2024 End: 10-14-2024 Follow-up encounter Shahida Graf APRN.CNP Work Phone: Neurology Start: 08-09-2024 End: 08-09-2024 ambulatory SHAHIDA GRAF Facility:[facility] Start: 08-09-2024 End: 10-09-2024 Follow-up encounter Shahida Graf SHELLEY Work Phone: Neurology Start: 08-06-2024 End: 08-06-2024 ambulatory SHAHIDARACHAEL GRAF Facility:[facility] Start: 08-06-2024 End: 08-06-2024 Patient encounter procedure Shahida Graf APRKwesiFOREST FIREFIGHTER Work Phone: Neurology Comment on above: Numbness and tinglin g (Primary Dx); Left eye pain; Rash Start: 08-06-2024 End: 08-06-2024 [facility] Start: 08-04-2024 End: 08-05-2024 E-mail encounter from caregiver Shahida Graf APRN.GWEN Work Phone: Neurology Start: 08-04-2024 End: 08-05-2024 Patient encounter procedure Shahida Graf [employer] Work Phone: Neurology Comment on above: Appointment Request Start: 04-11-2024 End: 04-11-2024 ambulatory MARGOT WYATT Facility:[facility] Start: 04-11-2024 End: 04-11-2024 Patient encounter procedure Margot Wyatt MD Work Phone: OB/Gynecology Comment on above: Encounter for gyneco logical examination (general) (routine) without abnormal findings (Primary Dx) Start: 04-11-2024 End: 04-11-2024 Patient encounter status Margot Wyatt MD Work Phone: [facility] Start: 04-08-2024 End: 04-08-2024 Refill Saurabh Bermudez MD Work Phone: [facility] [place] Comment on above: Refill Request Start: 03-12-2024 End: 03-12-2024 Refill Saurabh Bermudez MD Work Phone: [facility] [place] Comment on above: Refill Request Start: 03-04-2024 End: 03-04-2024 Orders Only Errol Vences OD Work Phone: Ophthalmology Comment on above: Eczematous dermatiti s of left upper eyelid (Primary Dx) Start: 02-15-2024 End: 02-15-2024 ambulatory ERROL VENCES Facility:[facility] Start: 02-15-2024 End: 02-15-2024 Patient encounter procedure Errol Vences OD Work Phone: Ophthalmology Comment on above: Left eye pain (Prima ry Dx); Subjective visual disturbance; Myopia, bilateral; Regular astigmatism of both eyes; Contact dermatitis of eyelid, left Start: 12-24-2023 End: 12-26-2023 Refill Jovita Kathrine FIN[employer]EST FI[employer] Work Phone: [facility] [place] Comment on above: Refill Request Start: 12-06-2023 End: 12-06-2023 Patient encounter procedure Skin Biopsy Work Phone: Neurology Start: 12-06-2023 End: 12-06-2023 ambulatory SAURABH BERMUDEZ Neurology Comment on above: Arrived Start: 11-30-2023 End: 11-30-2023 ambulatory ERROL VENCES Facility:[facility] Start: 11-30-2023 End: 11-30-2023 Patient encounter procedure Errol Vences OD Work Phone: Ophthalmology Comment on above: Left eye pain (Prima ry Dx); Subjective visual disturbance; Myopia, bilateral; Regular astigmatism of both eyes Start: 11-13-2023 End: 11-13-2023 ambulatory SHAHIDA GRAF Facility:[facility] Start: 11-13-2023 End: 11-13-2023 Subsequent hospital visit by physician [employer] [facility] (I-Stat/1.5t) Work Phone: Radiology Comment on above: Pain in eye, unspeci fied laterality [H57.10] Start: 11-02-2023 End: 11-02-2023 ambulatory SHAHIDA GRAF Facility:[facility] Start: 11-02-2023 End: 11-02-2023 Patient encounter procedure Shahida Graf FINAL [employer]PECT[employer] FI[employer] Work Phone: Neurology Comment on above: Numbness and tinglin g (Primary Dx); Left eye pain; Demyelinating disease of central nervous system (HCC) Start: 11-01-2023 End: 11-01-2023 [facility] Facility:[facility] Start: 10-23-2023 Telephone encounter Shahida Maya APRN.CNP Work Phone: Neurology Start: 10-19-2023 End: 10-19-2023 [facility] Facility:[facility] Start: 10-19-2023 End: 10-19-2023 Patient encounter procedure Errol Vences OD Work Phone: Ophthalmology Comment on above: Left eye pain (Prima ry Dx); Subjective visual disturbance; Myopia, bilateral; Regular astigmatism of both eyes Start: 10-17-2023 End: 10-17-2023 [facility] Facility:[facility] Start: 10-17-2023 End: 10-17-2023 Subsequent [facility] physician [facility] Work Phone: Radiology Comment on above: Demyelinating diseas e of central nervous system (HCC) [G37.9] Start: 09-08-2023 End: 09-08-2023 Patient encounter procedure Shahida Graf APRN.FOREST FIREFIGHTER Work Phone: Neurology Comment on above: Numbness and tinglin g (Primary Dx); Left eye pain; Demyelinating disease of central nervous system (HCC) Start: 09-01-2023 ambulatory Hannah crandall MD Work Phone: [facility] [place] Start: 09-01-2023 Patient encounter procedure Hannah Lorenzo MD Work Phone: [facility] [place] Comment on above: Neurology appointmen t Start: 08-11-2023 End: 08-11-2023 Patient encounter procedure Hannah Lorenzo MD Work Phone: [facility] [place] Comment on above: Routine medical exam (Primary Dx); Acquired hypothyroidism; Migraine without aura and without status migrainosus, not intractable; Numbness and tingling Start: 08-11-2023 End: 08-11-2023 Patient encounter status Hannah Lorenzo MD Work Phone: [facility] Work Phone: Start: 08-09-2023 End: 08-10-2023 Emergency department patient visit Maverick Nassar Facility:[facility] Start: 07-17-2023 End: 07-17-2023 ambulatory BLOSSOM MURRAY [facility] Ambulatory Start: 07-17-2023 End: 07-17-2023 Office outpatient visit 15 minutes Blossom Murray MD Work Phone: [facility] Comment on above: Subjective tinnitus of right ear (Primary Dx); Arthralgia of right temporomandibular joint; Sensorineural hearing loss, unilateral Start: 07-12-2023 End: 07-13-2023 ambulatory [facility] Start: 06-05-2023 End: 06-09-2023 ambulatory [facility] Start: 06-05-2023 End: 06-09-2023 ambulatory LALA Gilma POOLE [facility] Amb[facility] Start: 06-05-2023 End: 06-05-2023 Clinical Support Lala Gilma Virgilio [facility] Work Phone: [facility] Comment on above: Tinnitus of right ea r (Primary Dx); Abnormal auditory perception of right ear Start: 06-05-2023 End: 06-05-2023 Office outpatient new 45 minutes Blossom Murray MD Work Phone: [facility] Comment on above: Subjective tinnitus of right ear (Primary Dx); Sensorineural hearing loss, unilateral Start: 04-09-2023 End: 04-10-2023 ambulatory Anastasia Beck Facility:[facility] Start: 02-24-2023 Telephone encounter Purnima Solorzano DO Work Phone: Orthopaedics Comment on above: Appointment Conflict Start: 02-20-2023 ambulatory Jovita Chisholm APRN.CNP Work Phone: [facility] [place] Comment on above: Thyroid Start: 02-09-2023 End: 02-09-2023 Patient encounter procedure Margot Wyatt MD Work Phone: OB/Gynecology Comment on above: Skin tag (Primary Dx ) Start: 01-31-2023 End: 01-31-2023 Patient encounter procedure Margot Wyatt MD Work Phone: OB/Gynecology Comment on above: Encounter for gyneco logical examination without abnormal finding (Primary Dx); Encounter for screening for malignant neoplasm of cervix; Special screening examination for human papillomavirus (HPV); Anxiety and depression Start: 01-31-2023 End: 01-31-2023 Patient encounter status Margot Wyatt MD Work Phone: [facility] Start: 01-10-2023 Refill Gayathri Whitley APRN .[employer] Work Phone: Internal [facility] Comment on above: Refill Request Start: 12-08-2022 Refill Gayathri Whitley APRN .FOREST FI[employer]HTER Work Phone: [facility] Comment on above: Refill Request Start: 08-25-2022 ambulatory [facility] Facility:[facility] Start: 08-24-2022 Encounter for genera l adult medical examination without abnormal findings [facility] Start: 08-24-2022 End: 08-24-2022 Patient encounter procedure Jovita Chisholm [employer]HTER Work Phone: Internal [facility] Comment on above: Wellness examination (Primary Dx); Carpal tunnel syndrome of right wrist; Arthralgia, unspecified joint; Graves disease; Encounter for therapeutic drug monitoring; Encounter for screening for diabetes mellitus; Screening for lipid disorders Start: 08-24-2022 End: 08-24-2022 Patient encounter status Jovita Chisholm APRN.FOREST FIREFIGHTER Work Phone: [facility] [place] Start: 04-28-2022 Telephone encounter Gayathri Whitley APRN.[employer]EST FI[employer]HTER Work Phone: Family [facility] Comment on above: Results Start: 04-22-2022 End: 04-22-2022 Patient encounter procedure Gayathri Whitley APRN.FOREST FIREFIGHTER Work Phone: [facility] [place] Comment on above: Skin rash (Primary D x); Other skin changes; Graves disease Start: 03-28-2022 ambulatory Saurabh Buchanan Work Phone: [facility] [place] Comment on above: Red lines in armpit Eosin Start: 02-12-2022 End: 02-12-2022 Patient encounter procedure Saurabh Bermudez MD Work Phone: [facility] [place] Comment on above: Acquired hypothyroid ism (Primary Dx); Hx of ulcer disease; Anxiety and depression; Vitamin D deficiency Start: 01-01-2022 Refill Saurabh Buchanan Work Phone: [facility] [place] Comment on above: Refill Request Start: 11-27-2021 Refill Gayathri Older [employer] .[employer] Work Phone: [facility] [place] Comment on above: Refill Request Start: 11-27-2021 Refill Gayathri Older FINAL [employer] .[employer]EST FI[employer]HTER Work Phone: [facility] [place] Comment on above: Refill Request Start: 11-08-2021 End: 11-08-2021 Patient encounter procedure Leydi Montano FIN[employer]EST FI[employer]HTER Work Phone: [facility] Comment on above: Acute non-recurrent pansinusitis (Primary Dx) Start: 07-28-2021 ambulatory Jeanna Harris [employer]EST FI[employer]HTER Work Phone: Gastroenterology Comment on above: Cyst shape Start: 07-22-2021 End: 07-22-2021 Subsequent hospital visit by physician [facility] Work Phone: Radiology Comment on above: Adnexal cyst [N94.9] Start: 07-21-2021 End: 07-21-2021 ambulatory Jeanna Harris [employer]HTER Work Phone: Gastroenterology Comment on above: RUQ pain (Primary Dx ); Adnexal cyst Start: 07-21-2021 End: 07-21-2021 Telemedicine consultation with patient Jeanna Harris FINAL INSPECTOR [employer]EST FIREFIGHTER Work Phone: [facility] Start: 07-20-2021 Telephone encounter Jeanna Harris FINAL INSPECTOR [employer]EST FI[employer]FIGHTER Work Phone: Gastroenterology Comment on above: Results Start: 07-15-2021 End: 07-15-2021 Subsequent hospital visit by physician [facility] (I-Stat) Work Phone: Cat Scan Comment on above: Right lower quadrant abdominal pain [R10.31] Start: 06-30-2021 Telephone encounter Jeanna Harris APRN.FOREST FIREFIGHTER Work Phone: Gastroenterology Comment on above: Results Start: 06-24-2021 ambulatory Jeanna Harris APRN.FOREST FI[employer]HTER Work Phone: Gastroenterology Comment on above: update Start: 06-24-2021 End: 06-24-2021 Subsequent hospital visit by physician Jamari Rincon MD Work Phone: Ambulatory Surgery Comment on above: Right upper quadrant pain [R10.11] Start: 06-01-2021 Telephone encounter Jeanna Harris APRN.[employer]EST FI[employer]FIGHTER Work Phone: Gastroenterology Comment on above: Procedure (EGD) Start: 04-28-2021 End: 04-28-2021 Subsequent hospital visit by physician [facility] [place] Work Phone: Radiology Comment on above: Back pain, unspecifi ed back location, unspecified back pain laterality, unspecified chronicity [M54.9] Procedures Date Procedure Procedure Detail Performing Clinician Start: 10-09-2024 Adult depression screening assessment Saurabh Bermudez MD Work Phone: Start: 02-15-2024 Computerized ophthalmic imaging optic nerve Errol Vences OD Work Phone: Start: 11-13-2023 Mri orbit face & neck w/o & w/contrast matrl Shahida Daromihausen FINAL [employer]PECT[employer]HTER Work Phone: Start: 10-19-2023 End: 10-19-2023 Visual field xm uni/bi w/interp extended exam Errol Vences OD Work Phone: Start: 10-17-2023 Mri brain brain stem w/o w/contrast material Shahida Dahlhausen FINAL INSPECT[employer]EST FI[employer]HTER Work Phone: Start: 01-31-2023 Microscopic observation [Identifier] in Cervix by Cyto stain Blossom Murray MD Work Phone: Start: 07-22-2021 Us transvaginal Jeanna Harris FINAL [employer]HTER Work Phone: Start: 07-15-2021 Ct abdomen & pelvis w/contrast material Jeanna Harris FINAL INSPECTOR [employer]EST FI[employer]FIGHTER Work Phone: Start: 06-24-2021 Esophagogastroduodenoscopy transoral diagnostic Jeanna Harris FINAL INSPECTOR [employer]EST FI[employer]HTER Work Phone: Start: 04-28-2021 Radex spine lumbosacral 2/3 views Saurabh Bermudez MD Work Phone: Start: 08-08-2020 Adult depression screening assessment Jamari Rincon MD Work Phone: Plan of Treatment Date Care Activity Detail Author Start: 02-01-2028 HPV Testing HPV Testing [facility] Start: 02-01-2028 Pap Testing Pap Testing [facility] Start: 02-01-2028 Screening for malignant neoplasm of cervix [facility] Start: 01-31-2026 Screening for malignant neoplasm of cervix Pap Smear [facility] Start: 10-09-2025 Annual PCP Team Chronic Disease Visit Annual PCP Team Chronic Disease Visit [facility] Start: 10-09-2025 Anxiety Screening Anxiety Screening [facility] Start: 10-09-2025 Depression Screening Depression Screening [facility] Start: 08-30-2025 Annual PCP Team Chronic Disease Visit Annual PCP Team Chronic Disease Visit [facility] Start: 04-15-2025 End: 04-15-2025 Patient encounter procedure 04/15/2025 3:40 PM EST Office Visit OB/Gynecology [address] [place] [id number] Margot Wyatt MD [address] [place] [id number] Annual OB/Gynecology Comment on above: Annual Start: 02-14-2025 End: 02-14-2025 Patient encounter procedure 02/14/2025 3:00 PM EST Office Visit [facility] [place] [address] [place] [id number] Saurabh Bermudez MD [address] [place] [address] 4 month follow up [facility] [place] Comment on above: 4 month follow up Start: 12-17-2024 End: 12-17-2024 Patient encounter procedure 12/17/2024 8:20 AM EDT Office Visit [facility] [address] [place] [address] Dinesh Clemons MD [address] [place] [address] [place] [phone] ; Bigeminy [I49.8]; Trigeminy [R00.8]; Sinus tachycardia [R00.0]; Palpitation [R00.2]; Dizziness [R42] [facility] Comment on above: ; Bigeminy [I49.8]; Trigeminy [R00.8]; S inus tachycardia [R00.0]; Palpitation [R00.2]; Dizziness [R42] Start: 11-25-2024 Influenza vaccination [facility] Start: 10-09-2024 End: 10-09-2024 Patient encounter procedure 10/09/2024 8:20 AM EDT Office Visit [facility] [place] [address] [place] [address] Saurabh Bermudez MD [address] [place] [address] 4-5 Week F/U [facility] [place] Comment on above: 4-5 Week F/U Start: 09-04-2024 End: 09-04-2024 ambulatory 09/04/2024 11:15 AM EDT OT/PT/Speech Visit [facility] [address] [place] [address] Lexis Davison, PT Dizziness and nausea [facility] Comment on above: Dizziness and nausea Start: 08-30-2024 End: 11-29-2024 25-hydroxyvitamin D3 [Mass/volume] in Serum or Plasma [facility] Comment on above: Expected: 08/30/2024, Expires: Start: 08-30-2024 End: 11-29-2024 Calcitriol [Mass/volume] in Serum or Plasma [facility] Comment on above: Expected: 08/30/2024, Expires: Start: 08-30-2024 End: 11-29-2024 Comprehensive metabolic 2000 panel - Serum or Plasma [facility] Work Phone: Comment on above: Expected: 08/30/2024, Expires: Start: 08-30-2024 End: 11-29-2024 Magnesium [Mass/volume] in Serum or Plasma [facility] Comment on above: Expected: 08/30/2024, Expires: Start: 08-30-2024 End: 11-29-2024 Parathyrin.intact [Mass/volume] in Serum or Plasma [facility] Comment on above: Expected: 08/30/2024, Expires: Start: 08-22-2024 End: 08-22-2024 Patient encounter procedure 08/22/2024 8:30 AM EDT Office Visit Neurology [address] [facility] [address] [place] [address] Yvonne Agee MD [address] [facility] [address] [place] [address] Numbness and tingling [R20.0, R20.2] Neurology Comment on above: Numbness and tingling [R20.0, R20.2] Start: 08-16-2024 End: 08-16-2024 ambulatory 08/16/2024 7:40 AM EDT Procedure Neurology [address] [place] [address] Numbness and tingling [R20.0, R20.2] Neurology Comment on above: Numbness and tingling [R20.0, R20.2] Start: 08-10-2024 Annual PCP Team Chronic Disease Visit Annual PCP Team Chronic Disease Visit [facility] Start: 08-06-2024 End: 11-05-2024 HOPE BY IFA WITH REFLEX [facility] Comment on above: Expected: 08/06/2024, Expires: Start: 08-06-2024 End: 11-05-2024 C reactive protein [Mass/volume] in Serum or Plasma [facility] Comment on above: Expected: 08/06/2024, Expires: Start: 08-06-2024 End: 11-05-2024 Cobalamin (Vitamin B12) [Mass/volume] in Serum or Plasma [facility] Comment on above: Expected: 08/06/2024, Expires: Start: 08-06-2024 End: 11-05-2024 MONOCLONAL PROTEIN, SERUM (BLOOD) [facility] Comment on above: Expected: 08/06/2024, Expires: Start: 08-06-2024 End: 11-05-2024 Thyrotropin [Units/volume] in Serum or Plasma [facility] Work Phone: Comment on above: Expected: 08/06/2024, Expires: Start: 08-06-2024 End: 08-06-2024 Patient encounter procedure 08/06/2024 12:30 PM EDT Office Visit Neurology [address] [address] Shahida Graf APRN.[employer] [address] [address] New neurological symptoms (MyChart appt request); 60 min per KD Neurology Comment on above: New neurological symptoms (MyChart appt request); 60 min per KD Start: 07-22-2024 End: 07-22-2024 Patient encounter procedure 07/22/2024 2:15 PM EDT Office Visit [facility] [address] [place] [id number] Blossom Murray MD [address] [place] [address] [facility] Start: 06-14-2024 End: 06-14-2024 Patient encounter procedure 06/14/2024 2:45 PM EDT Office Visit [facility] [address] [place] [address] Errol Vences, OD [address] [place] [address] OV for vision and eye pain check ( possible dilation Ophthalmology Comment on above: OV for vision and eye pain check ( possi ble dilation Start: 04-11-2024 End: 04-11-2024 Patient encounter procedure 04/11/2024 3:40 PM EST Office Visit OB/Gynecology [address] [place] [address] Margot Wyatt MD [address] [place] [address] Annual checkup OB/Gynecology Comment on above: Annual checkup Start: 02-29-2024 End: 02-29-2024 Patient encounter procedure 02/29/2024 8:00 AM EST Office Visit [facility] [address] [place] [address] Errol Vences, OD [address] [place] [address] 3 MTH F/U for dilation and OCT nerve. Ophthalmology Comment on above: 3 MTH F/U for dilation and OCT nerve. Start: 02-23-2024 End: 02-23-2024 Patient encounter procedure 02/23/2024 2:20 PM EST Office Visit Internal Medicine [place] [address] [place] [address] Hannah Lorenzo MD [address] [place] [address] 6 month follow up [facility] Medicine [place] Comment on above: 6 month follow up Start: 02-06-2024 End: 02-06-2024 Patient encounter procedure 02/06/2024 3:20 PM EST Office Visit OB/Gynecology [address] [place] [address] Margot Wyatt MD [address] [place] [address] annual OB/Gynecology Comment on above: annual Start: 02-02-2024 End: 02-02-2024 Patient encounter procedure 02/02/2024 9:20 AM EST Office Visit OB/Gynecology [address] [place] [address] Margot Wyatt MD [address] [place] [address] annual OB/Gynecology Comment on above: annual Start: 12-06-2023 End: 12-06-2023 ambulatory 12/06/2023 2:25 PM EDT Procedure Neurology [address] [place] [address] Numbness and tingling [R20.0, R20.2 (ICD-10-CM)] Neurology Comment on above: Numbness and tingling [R20.0, R20.2 (ICD -10-CM)] Start: 11-30-2023 End: 11-30-2023 Patient encounter procedure 11/30/2023 1:15 PM EDT Office Visit [facility] [address] [place] [address] Errol Vences, OD [address] [place] [address] 6 wk f/u-Vision check and refraction Ophthalmology Comment on above: 6 wk f/u-Vision check and refraction Start: 11-30-2023 End: 11-30-2023 Patient encounter procedure Radiology Comment on above: Demyelinating disease of central nervous system (HCC) [G37.9] Start: 11-26-2023 Covid-19 Vaccine () Covid-19 Vaccine () [facility] Start: 11-26-2023 Influenza vaccination Influenza Vaccine (#1) [facility] Start: 11-13-2023 End: 11-13-2023 Patient encounter procedure 11/13/2023 9:20 AM EDT Appointment Radiology [address] [place] [id number] MRI ORBIT WO/W IVCON Radiology Comment on above: MRI ORBIT WO/W IVCON Start: 11-02-2023 End: 11-02-2023 Patient encounter procedure 11/02/2023 11:30 AM EDT Office Visit Neurology [address] [address] Shahida Graf APRN.[employer] [address] [place] [address] follow up Neurology Comment on above: follow up Start: 10-19-2023 End: 10-19-2023 Patient encounter procedure 10/19/2023 8:15 AM EDT Office Visit [facility] [address] [place] [address] Errol Vences, OD [address] [place] [address] Numbness and tingling [R20.0, R20.2] Ophthalmology Comment on above: Numbness and tingling [R20.0, R20.2] Start: 10-17-2023 End: 10-17-2023 Patient encounter procedure 10/17/2023 9:20 AM EDT Appointment Radiology [address] [place] [address] Demyelinating disease of central nervous system (HCC) [G37.9] Radiology Comment on above: Demyelinating disease of central nervous system (HCC) [G37.9] Start: 09-09-2023 End: 09-09-2023 ambulatory 09/09/2023 8:45 AM EDT [facility] [address] [place] [id number] [facility] Start: 09-08-2023 End: 12-08-2023 HOPE BY IFA WITH REFLEX HOPE BY IFA WITH REFLEX Lab Routine Numbness and tingling Expected: 09/08/2023, Expires: 12/08/2023 [facility] Comment on above: Expected: 09/08/2023, Expires: Start: 09-08-2023 End: 12-08-2023 Cobalamin (Vitamin B12) [Mass/volume] in Serum or Plasma VITAMIN B12 Lab Routine Numbness and tingling Expected: 09/08/2023, Expires: 12/08/2023 [facility] Comment on above: Expected: 09/08/2023, Expires: Start: 09-08-2023 End: 12-08-2023 Pyridoxine [Mass/volume] in Serum or Plasma VITAMIN B6/PYRIDOXIN Lab Routine Numbness and tingling Expected: 09/08/2023, Expires: 12/08/2023 [facility] Comment on above: Expected: 09/08/2023, Expires: Start: 09-08-2023 End: 12-08-2023 VITAMIN B1 (THIAMINE), WHOLE BLOOD VITAMIN B1 (THIAMINE), WHOLE BLOOD Lab Routine Numbness and tingling Expected: 09/08/2023, Expires: 12/08/2023 [facility] Work Phone: Comment on above: Expected: 09/08/2023, Expires: Start: 09-08-2023 End: 09-08-2023 Patient encounter procedure 09/08/2023 9:00 AM EDT Office Visit Neurology [address] [address] Shahida Graf, TAMMY.[employer] [address] [place] [address] Numbness and tingling [R20.0, R20.2] Neurology Comment on above: Numbness and tingling [R20.0, R20.2] Start: 08-25-2023 ANNUAL PCP TEAM CHRONIC DISEASE VISIT ANNUAL PCP TEAM CHRONIC DISEASE VISIT [facility] Start: 07-11-2023 End: 07-11-2023 Patient encounter procedure 07/11/2023 8:00 AM EDT Office Visit [facility] [address] [place] [address] Blossom Murray MD [facility] [address] [place] [address] [facility] Start: 04-22-2023 ANNUAL PCP TEAM CHRONIC DISEASE VISIT ANNUAL PCP TEAM CHRONIC DISEASE VISIT [facility] Start: 03-27-2023 Behavioral Health Screening Behavioral Health Screening [facility] Start: 02-27-2023 End: 05-29-2023 Thyrotropin [Units/volume] in Serum or Plasma TSH BLD Lab Routine Acquired hypothyroidism Expected: 02/27/2023, Expires: 05/29/2023 [facility] Work Phone: Comment on above: Expected: 02/27/2023, Expires: Start: 02-27-2023 End: 05-29-2023 Thyroxine (T4) free [Mass/volume] in Serum or Plasma T4 FREE/FREE THYROX Lab Routine Acquired hypothyroidism Expected: 02/27/2023, Expires: 05/29/2023 [facility] Work Phone: Comment on above: Expected: 02/27/2023, Expires: Start: 02-27-2023 End: 05-29-2023 Triiodothyronine (T3) Free [Mass/volume] in Serum or Plasma T3 FREE BLD Lab Routine Acquired hypothyroidism Expected: 02/27/2023, Expires: 05/29/2023 [facility] Work Phone: Comment on above: Expected: 02/27/2023, Expires: Start: 02-12-2023 ANNUAL PCP TEAM CHRONIC DISEASE VISIT ANNUAL PCP TEAM CHRONIC DISEASE VISIT [facility] Start: 11-25-2022 Covid-19 Vaccine () Covid-19 Vaccine () [facility] Start: 11-25-2022 Influenza vaccination Influenza Vaccine (#1) [facility] Start: 08-31-2022 End: 10-31-2022 CBC W Auto Differential panel - Blood CBC + DIFF Lab Routine Wellness examination Encounter for therapeutic drug monitoring Expected: 08/31/2022, Expires: 10/31/2022 [facility] Work Phone: Comment on above: Expected: 08/31/2022, Expires: Start: 08-31-2022 End: 10-31-2022 Comprehensive metabolic 2000 panel - Serum or Plasma COMP METABOLIC PANEL Lab Routine Wellness examination Encounter for therapeutic drug monitoring Encounter for screening for diabetes mellitus Expected: 08/31/2022, Expires: 10/31/2022 [facility] Work Phone: Comment on above: Expected: 08/31/2022, Expires: Start: 08-31-2022 End: 10-31-2022 Lipid 1996 panel - Serum or Plasma LIPID PANEL BASIC Lab Routine Wellness examination Screening for lipid disorders Expected: 08/31/2022, Expires: 10/31/2022 [facility] Work Phone: Comment on above: Expected: 08/31/2022, Expires: Start: 08-31-2022 End: 10-31-2022 Thyrotropin [Units/volume] in Serum or Plasma TSH BLD Lab Routine Graves disease Expected: 08/31/2022, Expires: 10/31/2022 [facility] Work Phone: Comment on above: Expected: 08/31/2022, Expires: 3 Start: 08-31-2022 End: 10-31-2022 Thyroxine (T4) free [Mass/volume] in Serum or Plasma T4 FREE/FREE THYROX Lab Routine Graves disease Expected: 08/31/2022, Expires: 10/31/2022 [facility] Work Phone: Comment on above: Expected: 08/31/2022, Expires: Start: 08-31-2022 End: 10-31-2022 Triiodothyronine (T3) Free [Mass/volume] in Serum or Plasma T3 FREE BLD Lab Routine Graves disease Expected: 08/31/2022, Expires: 10/31/2022 [facility] Work Phone: Comment on above: Expected: 08/31/2022, Expires: 3 Start: 07-29-2022 ANNUAL PCP TEAM CHRONIC DISEASE VISIT ANNUAL PCP TEAM CHRONIC DISEASE VISIT [facility] Start: 07-29-2022 HEPATITIS C SCREENING HEPATITIS C SCREENING [facility] Comment on above: Postponed from 2004 (Declined at t his time) Start: 07-29-2022 HIV SCREENING HIV SCREENING [facility] Comment on above: Postponed from 2004 (Declined at t his time) Start: 07-29-2022 Urine microalbumin profile DTAP,TDAP,TD (1 - Tdap) [facility] Comment on above: Postponed from 03/03/2010 (Declined at t his time) Start: 04-28-2022 ANNUAL PCP TEAM CHRONIC DISEASE VISIT ANNUAL PCP TEAM CHRONIC DISEASE VISIT [facility] Start: 04-22-2022 End: 06-22-2022 C reactive protein [Mass/volume] in Serum or Plasma [facility] Work Phone: Comment on above: Expected: 04/22/2022, Expires: 3 Start: 04-22-2022 End: 06-22-2022 Comprehensive metabolic 2000 panel - Serum or Plasma [facility] Work Phone: Comment on above: Expected: 04/22/2022, Expires: 3 Start: 04-22-2022 End: 06-22-2022 Erythrocyte sedimentation rate [facility] Work Phone: Comment on above: Expected: 04/22/2022, Expires: 3 Start: 04-22-2022 End: 06-22-2022 Thyrotropin [Units/volume] in Serum or Plasma [facility] Work Phone: Comment on above: Expected: 04/22/2022, Expires: 3 Start: 04-22-2022 End: 06-22-2022 Thyroxine (T4) free [Mass/volume] in Serum or Plasma [facility] Work Phone: Comment on above: Expected: 04/22/2022, Expires: 3 Start: 04-22-2022 End: 06-22-2022 Triiodothyronine (T3) [Mass/volume] in Serum or Plasma [facility] Work Phone: Comment on above: Expected: 04/22/2022, Expires: 3 Start: 03-27-2022 DEPRESSION ASSESSMENT DEPRESSION ASSESSMENT [facility] Start: 02-12-2022 End: 04-14-2022 25-hydroxyvitamin D3 [Mass/volume] in Serum or Plasma [facility] Work Phone: Comment on above: Expected: 02/12/2022, Expires: 3 Start: 02-12-2022 End: 04-14-2022 CBC W Auto Differential panel - Blood [facility] Work Phone: Comment on above: Expected: 02/12/2022, Expires: 3 Start: 02-12-2022 End: 04-14-2022 Comprehensive metabolic 2000 panel - Serum or Plasma [facility] Work Phone: Comment on above: Expected: 02/12/2022, Expires: 3 Start: 02-12-2022 End: 04-14-2022 Thyrotropin [Units/volume] in Serum or Plasma [facility] Work Phone: Comment on above: Expected: 02/12/2022, Expires: 3 Start: 11-25-2021 Influenza vaccination INFLUENZA (#1) [facility] Start: 08-08-2021 Adult depression screening assessment DEPRESSION SCREENING [facility] Start: 06-30-2021 End: 08-30-2021 Choriogonadotropin.beta subunit [Units/volume] in Serum or Plasma HCG QUANTITATIVE Lab Routine Right lower quadrant abdominal pain Expected: 06/30/2021, Expires: 08/30/2021 [facility] Work Phone: Comment on above: Expected: 06/30/2021, Expires: 2 Start: 04-12-2021 COVID-19 VACCINE (4 - Booster for Moderna series) COVID-19 VACCINE (4 - Booster for Moderna series) [facility] Start: 03-27-2021 DEPRESSION ASSESSMENT DEPRESSION ASSESSMENT [facility] Start: 03-02-2020 Tetanus vaccination Tetanus: Every 10yrs [facility] Start: 03-02-2020 Urine microalbumin profile DTaP,Tdap,Td Vaccine (2 - Td or Tdap) [facility] Start: 2016 HPV TESTING HPV TESTING [facility] Start: 06-27-2014 History and physical examination, annual for health maintenance Wellness Visit [facility] Start: 03-03-2010 Urine microalbumin profile DTAP,TDAP,TD (1 - Tdap) [facility] Start: 07-02-2007 PAP TESTING PAP TESTING [facility] Start: 2005 Hepatitis B Vaccine (1 of 3 - 19+ 3-dose series) Hepatitis B Vaccine (1 of 3 - 19+ 3-dose series) [facility] Start: 2004 Anxiety Screening Anxiety Screening [facility] Start: 2004 Depression Screening Depression Screening [facility] Start: 2004 HEPATITIS C SCREENING HEPATITIS C SCREENING [facility] Start: 2004 Hepatitis C screening Hepatitis C Screening [facility] Start: 2004 HIV SCREENING HIV SCREENING [facility] Start: 2001 HIV screening HIV Screening [facility] Start: 1998 Depression screening using PHQ-9 (Patient Health Questionnaire 9) score Depression Screening (PHQ-2/9) [facility] Start: 1986 HEPATITIS B (1 of 3 - 3-dose series) HEPATITIS B (1 of 3 - 3-dose series) [facility] Start: 1986 Hepatitis B Vaccine (1 of 3 - 3-dose series) Hepatitis B Vaccine (1 of 3 - 3-dose series) [facility] End: 06-04-2024 Creatinine [Mass/volume] in Serum or Plasma Creatinine, Serum Lab Routine Subjective tinnitus of right ear 1 Occurrences starting 06/05/2023 until 06/04/2024 [facility] Comment on above: 1 Occurrences starting 06/05/2023 until 06/04/2024 Creatinine [Mass/vol ume] in Serum or Plasma Creatinine, Serum Lab Routine Subjective tinnitus of right ear 06/05/2023 10:15 AM EDT [facility] End: 07-30-2022 Ct abdomen & pelvis w/contrast material CT ABD/PEL W IVCON Radiology Routine Right lower quadrant abdominal pain 1 Occurrences starting 06/30/2021 until 07/30/2022 [facility] Work Phone: Comment on above: 1 Occurrences starting 06/30/2021 until 07/30/2022 End: 08-30-2025 Echocardiography ECHO Cardiology Routine Tachycardia Dizziness 1 Occurrences starting 08/30/2024 until 08/30/2025 [facility] Comment on above: 1 Occurrences starting 08/30/2024 until 08/30/2025 End: 08-06-2025 EMG(NEURO/NI) EMG(NEURO/NI) EMG Routine Numbness and tingling 1 Occurrences starting 08/06/2024 until 08/06/2025 [facility] Comment on above: 1 Occurrences starting 08/06/2024 until 08/06/2025 End: 10-07-2024 MR Brain WO and W contrast IV MRI BRAIN WO/W IVCON Radiology Routine Demyelinating disease of central nervous system (HCC) 1 Occurrences starting 09/08/2023 until 10/07/2024 [facility] Comment on above: 1 Occurrences starting 09/08/2023 until 10/07/2024 End: 06-04-2024 MR Brain WO and W contrast IV and MRA Brain WO contrast MR/MRA Brain With And Without Contrast Imaging Routine Subjective tinnitus of right ear 1 Occurrences starting 06/05/2023 until 06/04/2024 [facility] Comment on above: 1 Occurrences starting 06/05/2023 until 06/04/2024 End: 12-01-2024 MR Cervical spine WO and W contrast IV MRI CERVICAL SPINE WO/W IVCON Radiology Routine Demyelinating disease of central nervous system (HCC) 1 Occurrences starting 11/02/2023 until 12/01/2024 [facility] Comment on above: 1 Occurrences starting 11/02/2023 until 12/01/2024 End: 06-04-2024 MR Internal auditory canal WO and W contrast IV MR IAC With And Without Contrast Imaging Routine Subjective tinnitus of right ear 1 Occurrences starting 06/05/2023 until 06/04/2024 [facility] Work Phone: Comment on above: 1 Occurrences starting 06/05/2023 until 06/04/2024 End: 12-01-2024 MR Thoracic spine WO and W contrast IV MRI THORACIC SPINE WO/W IVCON Radiology Routine Demyelinating disease of central nervous system (HCC) 1 Occurrences starting 11/02/2023 until 12/01/2024 [facility] Comment on above: 1 Occurrences starting 11/02/2023 until 12/01/2024 OUTSIDE VENDOR CARDI AC OUTPATIENT EXTENDED RHYTHM RECORDING (WITHOUT TELEMETRY) OUTSIDE VENDOR CARDIAC OUTPATIENT EXTENDED RHYTHM RECORDING (WITHOUT TELEMETRY) Holter Routine Tachycardia Dizziness Ordered: 08/30/2024 [facility] Comment on above: Ordered: 08/30/2024 PAP TEST PAP TEST Lab [facility] Encounter for screening for malignant neoplasm of cervix Special screening examination for human papillomavirus (HPV) 01/31/2023 9:50 AM [facility] Work Phone: SKIN BIOPSY FOR NEUROPATHY/CNL SKIN BIOPSY FOR NEUROPATHY/CNL Procedures Routine Numbness and tingling Ordered: 11/02/2023 [facility] Work Phone: Comment on above: Ordered: 11/02/2023 SURGICAL PATHOLOGY [facility] Work Phone: Comment on above: Release Upon Ordering for 1 Occurrences starting 06/24/2021, 1 completed SURGICAL PATHOLOGY SURGICAL PATH OLOGY Lab Routine Skin tag 02/09/2023 3:22 PM [facility] Work Phone: Thyrotropin [Units/volume] in Serum or Plasma TSH BLD Lab Routine Acquired hypothyroidism 02/20/2023 4:55 PM [facility] Work Phone: Thyroxine (T4) free [Mass/volume] in Serum or Plasma T4 FREE/FREE THYROX Lab Routine Acquired hypothyroidism 02/20/2023 4:55 PM [facility] Work Phone: Triiodothyronine (T3 ) Free [Mass/volume] in Serum or Plasma T3 FREE BLD Lab Routine Acquired hypothyroidism 02/20/2023 4:55 PM [facility] Work Phone: End: 08-20-2022 Us transvaginal US FEMALE PELVIS TRANSVAG Radiology Routine Adnexal cyst 1 Occurrences starting 07/21/2021 until 08/20/2022 [facility] Work Phone: Comment on above: 1 Occurrences starting 07/21/2021 until 08/20/2022 [facility] Immunizations Immunization Date Immunization Notes Care Provider Fa cility 12-17-2022 Seasonal, quadrivale nt, recombinant, injectable influenza vaccine, preservative free Hannah Lorenzo MD Work Phone: [facility] 12-17-2022 influenza virus vacc ine, unspecified formulation Mri (I-Stat/1.5t) Work Phone: [facility] 12-11-2021 influenza, injectabl e, quadrivalent, preservative free Jovita Kathrine [employer] Work Phone: [facility] Work Phone: 12-11-2021 influenza virus vacc ine, unspecified formulation Gayathri Whitley [employer] Work Phone: [facility] 12-19-2020 influenza virus vacc ine, unspecified formulation Jovita Kathrine [employer] Work Phone: [facility] Work Phone: 12-19-2020 influenza, injectabl e, quadrivalent, contains preservative Jamari Rincon MD Work Phone: [facility] Work Phone: 12-12-2020 Influenza, injectabl e, Madin Lohn Canine Kidney, preservative free, quadrivalent Jovita Kathrine [employer] Work Phone: [facility] Work Phone: 12-11-2019 influenza, injectabl e, quadrivalent, preservative free Jovita Kathrine [employer] Work Phone: [facility] Work Phone: 01-29-2019 influenza, injectabl e, quadrivalent, preservative free Jovita Kathrine [employer] Work Phone: [facility] Work Phone: 01-24-2018 Influenza, injectabl e, Madin Marissa Canine Kidney, preservative free, quadrivalent Jovita Vitaler [employer] Work Phone: [facility] Work Phone: 03-02-2010 tetanus and diphther ia toxoids, adsorbed, preservative free, for adult use (2 Lf of tetanus toxoid and 2 Lf of diphtheria toxoid) Jamari Rincon MD Work Phone: [facility] 03-02-2010 tetanus toxoid, redu yael diphtheria toxoid, and acellular pertussis vaccine, adsorbed Jovita Kathrine [employer] Work Phone: [facility] Work Phone: 08-10-2008 typhoid vaccine, unspecified formulation Jamari Rincon MD Work Phone: [facility] 08-10-2008 Yellow fever vaccine , unspecified formulation Jamari Rincon MD Work Phone: [facility] 08-24-2005 meningococcal C conjugate vaccine Jamari Rincon MD Work Phone: [facility] 08-24-2005 tetanus and diphther ia toxoids, adsorbed, preservative free, for adult use (2 Lf of tetanus toxoid and 2 Lf of diphtheria toxoid) Jamari Rincon MD Work Phone: [facility] 09-24-1998 hepatitis B immune globulin Jamari Rincon MD Work Phone: [facility] 05-28-1998 hepatitis B immune globulin Jamari Rincon MD Work Phone: [facility] 04-30-1998 hepatitis B immune globulin Jamari Rincon MD Work Phone: [facility] Payers Date Payer Category Payer Self-pay [id number] 2022 Unknown [id number] 2022 Private Health Insurance MMO [employer] PPO [id number] 2022 Unknown [id number] 2021 Unknown MATT PAUL GER O RICHARD [id number] 2021-Present [phone] [address] [place] [address] O [id number] 2018 Unknown [id number] 2018 Unknown [id number] 1986 Unknown [id number] 1986 Unknown [id number] 1986 Unknown [id number] 1986 Unknown [id number] 1986 Unknown [id number] Unknown [id number] Unknown [id number] Unknown [id number] Unknown [id number] Social History Date Type Detail Facility Start: 07-31-2017 End: 11-08-2021 Tobacco smoking status NHIS Never smoked tobacco [facility] Start: 07-31-2017 End: 11-08-2021 Tobacco use and exposure Smokeless tobacco non-user [facility] Start: 06-24-2021 End: 08-06-2024 Alcohol intake Current drinker of alcohol (finding) [facility] Start: 08-09-2020 End: 04-21-2022 History SDOH Alcohol Frequency 3 [facility] Start: 08-09-2020 End: 04-21-2022 History SDOH Alcohol Std Drinks 1 [facility] Start: 07-31-2017 History SDOH Alcohol Comment occasionally [facility] Start: 08-09-2020 End: 04-21-2022 History SDOH Social Connections Phone 2 [facility] Start: 08-09-2020 End: 04-21-2022 History SDOH Financial 5 [facility] Start: 08-08-2020 Education 17 [facility] Start: 1985 Sex Assigned At Female [facility] Start: 03-29-2021 End: 2021 Exposure to SARS-CoV-2 (event) Not sure [facility] Work Phone: Start: 04-21-2022 History SDOH Financial 4 [facility] Start: 04-20-2022 End: 08-24-2022 History of Social function [facility] Start: 04-20-2022 End: 08-24-2022 Social connection and isolation panel [facility] Do you belong to any clubs or organizations such as gnosticism groups, unions, fraternal or athletic groups, or school groups? Yes [facility] Are you now , , , , never or living with a partner? [facility] How often to you hav e a drink containing alcohol? 2-4 times a month [facility] How many standard dr inks containing alcohol do you have on a typical day? 1 or 2 [facility] How often do you hav e 6 or more drinks on 1 occasion? Never [facility] How hard is it for y ou to pay for the very basics like food, housing, medical care, and heating Not very hard [facility] Adult Depression Screening Assessment 0 [facility] Work Phone: Do you feel stress - tense, restless, nervous, or anxious, or unable to sleep at night because your mind is troubled all the time - these days [OSQ] Only a little [facility] (I/We) worried wheth er (my/our) food would run out before (I/we) got money to buy more. Never true [facility] In the past 12 month s, was there a time when you were not able to pay the mortgage or rent on time? No [facility] Start: 08-12-2020 Gender identity Identifies as female gender (finding) [facility] Start: 08-12-2020 Sexual orientation Heterosexual (finding) [facility] Start: 06-05-2023 Alcohol intake Lifetime non-drinker (finding) [facility] Start: 1985 Sex Assigned At Not on file [facility] Do you feel stress - tense, restless, nervous, or anxious, or unable to sleep at night because your mind is troubled all the time - these days [OSQ] To some extent [facility] Functional Status Date Assessment Result Facility 08-28-2024 Total score [AUDIT-C] 2 08/29/19 25 8:23 PM EDT User, Pari [facility] 08-28-2024 How often to you hav e a drink containing alcohol? 2-4 times a month 08/28/2024 8:23 PM EDT User, Pari 2-4 times a month [facility] 08-28-[address] inks containing alcohol do you have on a typical day? 1 or 2 08/28/2024 8:23 PM EDT User, Pari 1 or 2 [facility] 08-28-2024 How often do you hav e 6 or more drinks on 1 occasion? Never 08/28/2024 8:23 PM EDT User, Pari Gonzalez [facility] Clinical Notes 02-02-2022 to 10-09-2024 Saurabh Bermudez MD - 10/09/2024 12:55 PM EDTPatient InstructionsTelephone Encounter - Deepthi Carter RN - 09/13/2024 4:34 PM EDTTelephone Encounter - Deepthi Carter RN - 09/13/2024 4:34 PM EDT Note Date & Type Note Facility 10-09-2024 Note HNO ID: [id number] Author: SAURBAH BERMUDEZ MD Service: ? Author Type: Physician Type: Progress Notes Filed: 10/09/2024 12:56 Note Text: Reason for Visit Follow up HPI Lucia Oropeza is a 39-year-old female presenting for a 4-5 week follow-up regarding daily paresthesias, visual disturbances, dizziness, and palpitations. Lucia reports persistent daily paresthesias affecting her hands, arms, legs, and the left side of her face. She also experiences visual disturbances described as seeing little spots all over, hal to a TV with poor receptionist telephone operator. These symptoms are exacerbated by physical activity, such as playing pickleball. Lucia has a history of a positive HOPE test, though subsequent autoimmune antibody testing, MRIs, and vascular assessments were negative. She also reports episodes of dizziness and palpitations, which she has become more aware of since wearing a 14-day Holter monitor. She notes that her heart rate seems to fluctuate significantly, and she has experienced feelings of faintness and dizziness during these episodes. She has also noticed that her heart rate increases upon standing, along with her blood pressure. Lucia reports feeling palpitations while driving and sometimes feeling like she might tip over when standing up. She denies current employment but acknowledges potential stress related to her children. Lucia has discontinued Lexapro and is currently on thyroid medication. She has been on thyroid medication for several years, but her symptoms started about a year ago. She has not seen an bread packer. Social History Tobacco Use Smoking status: Never Smokeless tobacco: Never Vaping Use Vaping status: Never Used Substance Use Topics Alcohol use: Yes Comment: occasionally Drug use: No Past medical history, appointments, medications, allergies reviewed. Pertinent Lab/Diagnostic Studies are reviewed and discussed today Current Outpatient Medications: levothyroxine (LEVOXYL) 50 mcg tablet metoprolol succinate ER (TOPROL XL) 25 mg 24 hr tablet tacrolimus (PROTOPIC) 0.1 % ointment Health Maintenance Hepatitis B Vaccine(1 of 3 - 19+ 3-dose series) DTaP,Tdap,Td Vaccine(2 - Td or Tdap) Covid-19 Vaccine( season)@ Review Of Systems Eyes: (+) visual disturbances Cardiovascular: (+) palpitations, (+) tachycardia, (+) near-syncope Musculoskeletal: (+) leg pain Neurological: (+) paresthesias of hands, arms, legs, left face, (+) dizziness Physical Exam BP 119/76 Pulse 118 Resp 16 Wt 68.9 kg (151 lb 12.8 oz) LMP 09/30/2024 (Exact Date) BMI 27.76 kg/m? GENERAL: NAD, alert and oriented. SKIN: Unremarkable, no rash or skin lesions. HEAD: Normocephalic. EYES: PERRLA, EOMI, conjunctiva clear. EARS: External ears normal, canals clear, TM's normal. NOSE/SINUSES: Nares normal. Septum midline. OROPHARYNX: Lips, mucosa, and tongue normal, good dentition. No oral lesions noted. NECK: Supple, no lymphadenopathy, normal thyroid, no carotid bruits. LUNGS: Clear to auscultation bilaterally, no wheezes/rhonchi/rales. HEART: Regular rate and rhythm, no murmurs. No ectopy. EXTREMITIES: Normal, no deformities, no skin discoloration, no edema. NEURO: Awake, alert and oriented x3, cranial nerves II-XII grossly intact, normal gait, no involuntary motions. Labs: - HOPE: Negative - HOPE: Positive - Autoimmune body testing: Negative - Magnesium: Normal - Vitamin D: Normal Tests: - Holter monitor (14-day): - Minimum HR: 52 - Maximum HR: 200 - Average HR: 92 - Rhythm: Sinus - Supraventricular ectopics: Rare (<1%) - Ventricular ectopics: Occasional (1.5%) - Bigeminy/trigeminy present Imaging: - Echocardiogram: - Left Ventricular Ejection Fraction: 58% (normal) - Normal diastolic function - No valvular abnormalities - MRI: Negative - Vascular assessment: Negative Assessment and Plan 1. Palpitation (R00.2) Dizziness (R42) Trigeminy (R00.8) Bigeminy (I49.8) Sinus tachycardia (R00.0) Holter monitor showed sinus rhythm with occasional supraventricular and ventricular ectopics, including bigeminy and trigeminy. Patient experiences palpitations and dizziness, particularly during physical activity and upon standing. Symptoms may be related to autonomic dysregulation or exaggerated cardiovascular response. - Initiated metoprolol 25 mg at night to help regulate heart rate and reduce palpitations. - Referred to electrophysiology for further evaluation and management. - Advised patient to maintain a diary of symptoms, including any potential triggers such as physical activity or dietary intake. 2. Screening for depression (Z13.31) Encounter for screening examination for other mental health and behavioral disorders (Z13.39) Patient previously on Lexapro, now discontinued. No current depressive symptoms reported. Voice recognition software was used to compose this office note. Please excuse any (more content not included)... [facility] 10-09-2024 History of Present illness Narrative Reason for Visit Follow up HPI Lucia Oropeza is a 39-year-old female presenting for a 4-5 week follow-up regarding daily paresthesias, visual disturbances, dizziness, and palpitations. Lucia reports persistent daily paresthesias affecting her hands, arms, legs, and the left side of her face. She also experiences visual disturbances described as seeing little spots all over, hal to a TV with poor receptionist telephone operator. These symptoms are exacerbated by physical activity, such as playing pickleball. Lucia has a history of a positive HOPE test, though subsequent autoimmune antibody testing, MRIs, and vascular assessments were negative. She also reports episodes of dizziness and palpitations, which she has become more aware of since wearing a 14-day Holter monitor. She notes that her heart rate seems to fluctuate significantly, and she has experienced feelings of faintness and dizziness during these episodes. She has also noticed that her heart rate increases upon standing, along with her blood pressure. Lucia reports feeling palpitations while driving and sometimes feeling like she might tip over when standing up. She denies current employment but acknowledges potential stress related to her children. Lucia has discontinued Lexapro and is currently on thyroid medication. She has been on thyroid medication for several years, but her symptoms started about a year ago. She has not seen an bread packer. Social History Tobacco Use Smoking status: Never Smokeless tobacco: Never Vaping Use Vaping status: Never Used Substance Use Topics Alcohol use: Yes Comment: occasionally Drug use: No Past medical history, appointments, medications, allergies reviewed. Pertinent Lab/Diagnostic Studies are reviewed and discussed today Current Outpatient Medications: levothyroxine (LEVOXYL) 50 mcg tablet metoprolol succinate ER (TOPROL XL) 25 mg 24 hr tablet tacrolimus (PROTOPIC) 0.1 % ointment Health Maintenance Hepatitis B Vaccine(1 of 3 - 19+ 3-dose series) DTaP,Tdap,Td Vaccine(2 - Td or Tdap) Covid-19 Vaccine( season)@ Review Of Systems Eyes: (+) visual disturbances Cardiovascular: (+) palpitations, (+) tachycardia, (+) near-syncope Musculoskeletal: (+) leg pain Neurological: (+) paresthesias of hands, arms, legs, left face, (+) dizziness Physical Exam BP 119/76 Pulse 118 Resp 16 Wt 68.9 kg (151 lb 12.8 oz) LMP 09/30/2024 (Exact Date) BMI 27.76 kg/m GENERAL: NAD, alert and oriented. SKIN: Unremarkable, no rash or skin lesions. HEAD: Normocephalic. EYES: PERRLA, EOMI, conjunctiva clear. EARS: External ears normal, canals clear, TM's normal. NOSE/SINUSES: Nares normal. Septum midline. OROPHARYNX: Lips, mucosa, and tongue normal, good dentition. No oral lesions noted. NECK: Supple, no lymphadenopathy, normal thyroid, no carotid bruits. LUNGS: Clear to auscultation bilaterally, no wheezes/rhonchi/rales. HEART: Regular rate and rhythm, no murmurs. No ectopy. EXTREMITIES: Normal, no deformities, no skin discoloration, no edema. NEURO: Awake, alert and oriented x3, cranial nerves II-XII grossly intact, normal gait, no involuntary motions. Labs: - HOPE: Negative - HOPE: Positive - Autoimmune body testing: Negative - Magnesium: Normal - Vitamin D: Normal Tests: - Holter monitor (14-day): - Minimum HR: 52 - Maximum HR: 200 - Average HR: 92 - Rhythm: Sinus - Supraventricular ectopics: Rare (<1%) - Ventricular ectopics: Occasional (1.5%) - Bigeminy/trigeminy present Imaging: - Echocardiogram: - Left Ventricular Ejection Fraction: 58% (normal) - Normal diastolic function - No valvular abnormalities - MRI: Negative - Vascular assessment: Negative Assessment and Plan 1. Palpitation (R00.2) Dizziness (R42) Trigeminy (R00.8) Bigeminy (I49.8) Sinus tachycardia (R00.0) Holter monitor showed sinus rhythm with occasional supraventricular and ventricular ectopics, including bigeminy and trigeminy. Patient experiences palpitations and dizziness, particularly during physical activity and upon standing. Symptoms may be related to autonomic dysregulation or exaggerated cardiovascular response. - Initiated metoprolol 25 mg at night to help regulate heart rate and reduce palpitations. - Referred to electrophysiology for further evaluation and management. - Advised patient to maintain a diary of symptoms, including any potential triggers such as physical activity or dietary intake. 2. Screening for depression (Z13.31) Encounter for screening examination for other mental health and behavioral disorders (Z13.39) Patient previously on Lexapro, now discontinued. No current depressive symptoms reported. Voice recognition software was used to compose this office note. Please excuse any unintended typographical errors. Recording using [employer] software for draft documentation of the visit was discussed with the patient/authorized public service representative; all questions welcomed and answered. Patient/authorized public service representative agreed to proceed Saurabh Bermudez MD documented in this encounter [facility] 10-09-2024 Instructions Saurabh Bermudez MD - 10/09/2024 8:59 AM EDT We discussed your symptoms of paresthesias, dizziness, palpitations, and fluctuating heart rate: - Your echocardiogram results were normal, showing good heart function and no structural abnormalities. - Your 14-day Holter monitor showed some isolated supraventricular and ventricular ectopics, as well as occasional bigeminy and trigeminy. These findings are not uncommon but may explain some of your symptoms. - Based on your symptoms and the Holter findings, I recommend that you see an bread packer for further evaluation. Please schedule this appointment as soon as possible. If your symptoms improve with the new medication, you can cancel the appointment. - I prescribed Metoprolol 25 mg to take at night. This may help regulate your heart rate and reduce your symptoms. Please monitor how you feel on this medication and let me know if you experience any side effects such as fatigue or dizziness. - Keep a diary of your symptoms, including any palpitations, dizziness, or other concerns, as well as your food intake and activity levels. This information will help us and the bread packer better understand potential triggers. We discussed your thyroid medication: - You are currently taking 50 mcg of your thyroid medication. I am switching you to Wysox Thyroid, with a dose of 30 mcg and 15 mcg (total 45 mcg daily). This change is to see if it improves your symptoms, as some patients tolerate this formulation better. Please let me know if you notice any changes. Next steps: - Start taking Metoprolol 25 mg at night as prescribed. - Switch to Wysox Thyroid (30 mcg + 15 mcg daily) and monitor for any changes in symptoms. - Schedule an appointment with an bread packer for further evaluation of your heart rate and symptoms. If your symptoms improve significantly with the new medication, you can cancel the appointment. - Keep a detailed diary of your symptoms, food intake, and activity levels to identify potential triggers. Please contact me if your symptoms worsen or if you have any concerns about the new medications. If you experience severe dizziness, fainting, or chest pain, go to the emergency room immediately. documented in this encounter [facility] 09-13-2024 Telephone encounter Note The patient has been identified by name and date of : Yes Caregiver verified no other encounters exist for this prescription request: Yes Caregiver confirmed with patient/requestor that no other refills are due, in the near future, with this provider at this time: Yes The last office visit in the department: 08/30/2024 Does the patient have a future office visit with this provider/department: Yes 10/09/2024 Requested Prescriptions Pending Prescriptions Disp Refills levothyroxine (LEVOXYL) 50 mcg tablet 90 tablet 1 Sig: Take 1 tablet by mouth once daily. Take on empty stomach. For Thyroid Deepthi Carter RN September 13, 2024 4:34 PM [facility] 09-13-2024 Miscellaneous Notes The patient has been identified by name and date of : Yes Caregiver verified no other encounters exist for this prescription request: Yes Caregiver confirmed with patient/requestor that no other refills are due, in the near future, with this provider at this time: Yes The last office visit in the department: 08/30/2024 Does the patient have a future office visit with this provider/department: Yes 10/09/2024 Requested Prescriptions Pending Prescriptions Disp Refills levothyroxine (LEVOXYL) 50 mcg tablet 90 tablet 1 Sig: Take 1 tablet by mouth once daily. Take on empty stomach. For Thyroid Deepthi Carter RN September 13, 2024 4:34 PM documented in this encounter [facility] 08-30-2024 Instructions Saurabh Bermudez MD - 08/30/2024 8:41 AM EDT We discussed your symptoms of numbness, tingling, dizziness, and visual disturbances: - You are currently tapering off Lexapro, taking 5 mg daily. Continue this dose for one more month, then stop the medication. Let me know if you experience any worsening symptoms during this process. - I will order an echocardiogram (echo) and a 28-day Holter monitor to evaluate your heart function and rhythm, as your symptoms may be related to a cardiac issue or a condition like POTS (Postural Orthostatic Tachycardia Syndrome). - I will also check your magnesium and calcium levels to rule out any deficiencies or imbalances contributing to your symptoms. - Continue your regular exercise routine, including yoga, as this is beneficial for your overall health. We discussed your history of carpal tunnel syndrome: - Continue wearing your wrist brace as needed to manage symptoms. Let me know if your symptoms worsen or if you experience new issues. We discussed follow-up: - Please schedule a follow-up appointment with me in one month to review the results of your cardiac testing and lab work. Let me know if you have any new or worsening symptoms before your next visit. documented in this encounter [facility] 08-30-2024 Note HNO ID: [id number] Author: SAURABH BERMUDEZ MD Service: ? Author Type: Physician Type: Progress Notes Filed: 08/30/2024 09:19 Note Text: Reason for Visit Follow up HPI Lucia Oropeza is a 39-year-old female presenting with chronic paresthesia, visual disturbances, and dizziness. Lucia reports a 1-1.5 year history of daily paresthesia, visual disturbances, and dizziness. The paresthesia is currently localized to her hands, arms, and the left side of her face, with occasional involvement of her lips and tongue. She describes her visual disturbances as seeing little spots all over, hal to a TV with poor receptionist telephone operator. These symptoms are exacerbated by physical activity such as walking, playing pickleball, and swimming. She also experiences episodes of dizziness a few times a week or more. Last night, she noted her legs felt super heavy and painful while lying in bed. She reports that these symptoms began after a sudden, temporary loss of hearing in one ear about 1-1.5 years ago. Lucia has been evaluated for these symptoms previously, including autoimmune antibody testing, MRIs, and vascular assessments, all of which were reportedly normal. An initial positive HOPE test was followed by a negative result on a subsequent test. ESR and CRP levels were within normal limits. Vitamin B12 and thiamine levels were also normal. An EMG revealed evidence of carpal tunnel syndrome, for which she wears a brace. She has also had her eyes examined, with no abnormalities found. Thyroid function tests were normal. She denies any significant stressors and reports sleeping 9 hours per night. She engages in yoga for 30 minutes, five times a week. She is currently tapering off Lexapro, reducing her dose to 5 mg daily for the past month, without adverse effects. She has a family history of cardiac issues, including a grandfather who had a myocardial infarction and subsequent bypass surgery. Social History Tobacco Use Smoking status: Never Smokeless tobacco: Never Vaping Use Vaping status: Never Used Substance Use Topics Alcohol use: Yes Comment: occasionally Drug use: No Past medical history, appointments, medications, allergies reviewed. Pertinent Lab/Diagnostic Studies are reviewed and discussed today Current Outpatient Medications: levothyroxine (LEVOXYL) 50 mcg tablet escitalopram oxalate (LEXAPRO) 10 mg tablet tacrolimus (PROTOPIC) 0.1 % ointment Health Maintenance Depression Screening Anxiety Screening Hepatitis B Vaccine(1 of 3 - 19+ 3-dose series) DTaP,Tdap,Td Vaccine(2 - Td or Tdap) Covid-19 Vaccine( season)@ Review Of Systems Eyes: (+) visual spots Cardiovascular: (+) palpitations Neurological: (+) numbness of hands, (+) numbness of arms, (+) numbness of left face, (+) numbness of lips, (+) numbness of tongue, (+) tingling of hands, (+) tingling of arms, (+) tingling of left face, (+) dizziness Musculoskeletal: (+) leg heaviness, (+) leg pain Physical Exam BP 132/73 Pulse (!) 130 Resp 16 Wt 68.9 kg (152 lb) LMP 07/26/2024 (Exact Date) SpO2 99% BMI 27.80 kg/m? GENERAL: NAD, alert and oriented. SKIN: Unremarkable, no rash or skin lesions. HEAD: Normocephalic. NECK: Supple, no lymphadenopathy, normal thyroid, no carotid bruits. LUNGS: Clear to auscultation bilaterally, no wheezes/rhonchi/rales. HEART: Regular rate and rhythm, no murmurs. No ectopy. EXTREMITIES: Normal, no deformities, no skin discoloration, no edema. NEURO: Awake, alert and oriented x3, cranial nerves II-XII grossly intact, normal gait, no involuntary motions. Labs: (2022) CMP: No abnormalities documented - HOPE: Initially positive, subsequent test negative - ESR: Normal (two tests) - CRP: Normal - Vitamin B12: Normal - Thiamine: Normal Imaging: - MRI: No abnormalities Tests: - EMG: Findings consistent with carpal tunnel syndrome Assessment and Plan 1. Vitamin D deficiency (E55.9) Vitamin D levels previously checked and were within normal limits. 2. Perioral numbness (R20.0) Intermittent numbness over lips and tongue. Differential includes cardiac etiology. - Ordered Holter monitor for 28 days to assess for cardiac arrhythmias. - Ordered echocardiogram to evaluate cardiac function. - Follow-up in one month to review results. 3. Tachycardia (R00.0) Heart rate noted to be on the higher side during visits. Family history of cardiac issues, including grandfather with a heart attack and bypass surgery. - Ordered Holter monitor for 28 days to assess for cardiac arrhythmias. - Ordered echocardiogram to evaluate cardiac function. - Follow-up in one month to review results. 4. Dizziness (R42) Intermittent dizziness occurring a few times a week. Differential includes cardiac etiology and POTS. - Ordered Holter monitor for 28 days to assess for cardiac arrhythmias. - Ordered echocardiogram to evaluate cardiac function. - Follow-up in one rody (more content not included)... [facility] 08-30-2024 History of Present illness Narrative Reason for Visit Follow up HPI Lucia Oropeza is a 39-year-old female presenting with chronic paresthesia, visual disturbances, and dizziness. Lucia reports a 1-1.5 year history of daily paresthesia, visual disturbances, and dizziness. The paresthesia is currently localized to her hands, arms, and the left side of her face, with occasional involvement of her lips and tongue. She describes her visual disturbances as seeing little spots all over, hal to a TV with poor receptionist telephone operator. These symptoms are exacerbated by physical activity such as walking, playing pickleball, and swimming. She also experiences episodes of dizziness a few times a week or more. Last night, she noted her legs felt super heavy and painful while lying in bed. She reports that these symptoms began after a sudden, temporary loss of hearing in one ear about 1-1.5 years ago. Lucia has been evaluated for these symptoms previously, including autoimmune antibody testing, MRIs, and vascular assessments, all of which were reportedly normal. An initial positive HOPE test was followed by a negative result on a subsequent test. ESR and CRP levels were within normal limits. Vitamin B12 and thiamine levels were also normal. An EMG revealed evidence of carpal tunnel syndrome, for which she wears a brace. She has also had her eyes examined, with no abnormalities found. Thyroid function tests were normal. She denies any significant stressors and reports sleeping 9 hours per night. She engages in yoga for 30 minutes, five times a week. She is currently tapering off Lexapro, reducing her dose to 5 mg daily for the past month, without adverse effects. She has a family history of cardiac issues, including a grandfather who had a myocardial infarction and subsequent bypass surgery. Social History Tobacco Use Smoking status: Never Smokeless tobacco: Never Vaping Use Vaping status: Never Used Substance Use Topics Alcohol use: Yes Comment: occasionally Drug use: No Past medical history, appointments, medications, allergies reviewed. Pertinent Lab/Diagnostic Studies are reviewed and discussed today Current Outpatient Medications: levothyroxine (LEVOXYL) 50 mcg tablet escitalopram oxalate (LEXAPRO) 10 mg tablet tacrolimus (PROTOPIC) 0.1 % ointment Health Maintenance Depression Screening Anxiety Screening Hepatitis B Vaccine(1 of 3 - 19+ 3-dose series) DTaP,Tdap,Td Vaccine(2 - Td or Tdap) Covid-19 Vaccine( season)@ Review Of Systems Eyes: (+) visual spots Cardiovascular: (+) palpitations Neurological: (+) numbness of hands, (+) numbness of arms, (+) numbness of left face, (+) numbness of lips, (+) numbness of tongue, (+) tingling of hands, (+) tingling of arms, (+) tingling of left face, (+) dizziness Musculoskeletal: (+) leg heaviness, (+) leg pain Physical Exam BP 132/73 Pulse (!) 130 Resp 16 Wt 68.9 kg (152 lb) LMP 07/26/2024 (Exact Date) SpO2 99% BMI 27.80 kg/m GENERAL: NAD, alert and oriented. SKIN: Unremarkable, no rash or skin lesions. HEAD: Normocephalic. NECK: Supple, no lymphadenopathy, normal thyroid, no carotid bruits. LUNGS: Clear to auscultation bilaterally, no wheezes/rhonchi/rales. HEART: Regular rate and rhythm, no murmurs. No ectopy. EXTREMITIES: Normal, no deformities, no skin discoloration, no edema. NEURO: Awake, alert and oriented x3, cranial nerves II-XII grossly intact, normal gait, no involuntary motions. Labs: (2022) CMP: No abnormalities documented - HOPE: Initially positive, subsequent test negative - ESR: Normal (two tests) - CRP: Normal - Vitamin B12: Normal - Thiamine: Normal Imaging: - MRI: No abnormalities Tests: - EMG: Findings consistent with carpal tunnel syndrome Assessment and Plan 1. Vitamin D deficiency (E55.9) Vitamin D levels previously checked and were within normal limits. 2. Perioral numbness (R20.0) Intermittent numbness over lips and tongue. Differential includes cardiac etiology. - Ordered Holter monitor for 28 days to assess for cardiac arrhythmias. - Ordered echocardiogram to evaluate cardiac function. - Follow-up in one month to review results. 3. Tachycardia (R00.0) Heart rate noted to be on the higher side during visits. Family history of cardiac issues, including grandfather with a heart attack and bypass surgery. - Ordered Holter monitor for 28 days to assess for cardiac arrhythmias. - Ordered echocardiogram to evaluate cardiac function. - Follow-up in one month to review results. 4. Dizziness (R42) Intermittent dizziness occurring a few times a week. Differential includes cardiac etiology and POTS. - Ordered Holter monitor for 28 days to assess for cardiac arrhythmias. - Ordered echocardiogram to evaluate cardiac function. - Follow-up in one month to review results. 5. Paresthesia of skin (R20.2) Intermittent numbness and tingling in hands, arms, and left side of face. Symptoms exacerbated by physical activity. Previous EMG showed evidence of carpal tunnel syndrome. - Continue wearing wrist brace for carpal tunnel syndrome. - Discontinue Lexapro; patient has been tapering to 5 mg daily for the past month. - Ordered Holter monitor for 28 days to assess for cardiac arrhythmias. - Ordered echocardiogram to evaluate cardiac function. - Follow-up in one month to review results. Voice recognition software was used to compose this office note. Please excuse any unintended typographical errors. Recording using [employer] software for draft documentation of the visit was discussed with the patient/authorized public service representative; all questions welcomed and answered. Patient/authorized public service representative agreed to proceed Saurabh Bermudez MD documented in this encounter [facility] 08-30-2024 Note HNO ID: [id number] Author: ILYA NEUMANN MD Service: ? Author Type: Physician Type: Procedures Filed: 09/30/2024 16:27 Note Text: Patient Name: Lucia Oropeza : 1985 Ordering Provider: SAURABH BERMUDEZ Indication: R00.0 Tachycardia, unspecified Type of Monitor: Extended Monitoring-Zio Patch Enrollment Dates: 09/02/2024-09/16/2024 IRHYTHM FINDINGS: Patient had a min HR of 52 bpm, max HR of 200 bpm, and avg HR of 92 bpm. Predominant underlying rhythm was Sinus Rhythm. Isolated SVEs were rare (<1.0%), and no SVE Couplets or SVE Triplets were present. Isolated VEs were occasional (1.5%, [id number]), VE Couplets were rare (<1.0%, 38), and no VE Triplets were present. Ventricular Bigeminy and Trigeminy were present. [facility] 08-22-2024 History of Present illness Narrative HPI: This is Ms. Lucia Castro Oropeza a 39 year old female from who presents to the [facility] neurology department with a chief complaint of numbness and tingling Referring provider: Shahida Graf [address] [address] Lucia is a 39-year-old female presenting for evaluation of falls, numbness, and tingling. Lucia reports experiencing numbness and tingling in her hands, arms, feet, legs, and face for the past year and a half. She also notes seeing specks in her vision. She has been under the care of Shahida Tuttle, who referred her for further evaluation. She describes recent episodes of dizziness, which have led to two falls. The most recent fall occurred last week on the same day as her EMG (08/16), when she experienced an electric shock sensation in her legs while running after a student at work, causing her to fall straight on my face. She describes this incident as a little scary. Lucia reports that the tingling in her hands is intermittent and is associated with decreased sensation in her fingers, particularly the index, thumb, and middle fingers, though she notes that it may affect all fingers. She has a history of mild carpal tunnel syndrome. She has a history of hyperthyroidism as a teenager, which later transitioned to hypothyroidism. She is currently taking levothyroxine for thyroid management and escitalopram for anxiety. 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 Past Diagnostic Results: - (08/16) EMG: Mild carpal tunnel syndrome. - (02/2022) Eye Exam: Normal. - (09/2021) Brain MRI: Normal. - (2021) MRI, Orbits: Normal. - (2021) MRI, Cervical Spine: Normal. - (2021) MRI, Thoracic Spine: Normal. - Skin Biopsy: Normal. PMH: PAST MEDICAL HISTORY Diagnosis Date Graves disease Has not been on medicaiton since 2009 Hyperlipidemia Medications: Current Outpatient Medications Medication Sig Dispense Refill levothyroxine (LEVOXYL) 50 mcg tablet Take 1 tablet by mouth once daily. Take on empty stomach. For Thyroid 90 tablet 1 tacrolimus (PROTOPIC) 0.1 % ointment Apply to affected area two times a day for 21 days. (Patient not taking: Reported on 08/06/2024) 30 g 0 escitalopram oxalate (LEXAPRO) 10 mg tablet Take 1 tablet by mouth for 21 days. Then take 2 tablets by mouth for 7 days (week before menses) 120 tablet 3 No current facility-administered medications for this visit. Allergies: ALLERGIES No Known Allergies Social History: Social History Tobacco Use Smoking status: Never Smokeless tobacco: Never Vaping Use Vaping status: Never Used Substance Use Topics Alcohol use: Yes Comment: occasionally Drug use: No Family History: FAMILY HISTORY Problem Relation Age of Onset Macular Degen Father Cataract Mother Hypertension Mother Psychiatry Mother depression, fibromyalgia Heart Brother 17 hypertrophic cardiomyopathy Hypertension Maternal Grandfather Heart Maternal Grandfather Alzheimer's Disease Maternal Grandfather ROS: A complete review of systems was performed. All systems negative other than those mentioned in HPI. Physical Exam: Vitals: LMP 03/19/2024 (Exact Date) General appearance: no acute distress. Neurological Exam: MSE: Alert and oriented to person, place, and time. Speech is fluent without dysarthria or aphasia. Recall is intact to recent and remote events. Attention and concentration are intact. Fund of knowledge is intact. CN: Pupils equally round and reactive to light. Extraoccular muscles intact. Visual lindsay full. Facial muscles symmetric. Hearing intact to voice. MSK: Normal bulk and tone throughout. Deltoid Triceps Biceps Wrist ext. Hand intrinsic Hip flexion Knee flexion Knee Ext. Eloy. Flex Pl. flex Right 5 5 5 5 5 5 5 5 5 5 Left 5 5 5 5 5 5 5 5 5 5 Sensation: decreased to pinprick L median nerve distribution, otherwise Intact to light touch, pinprick, and vibration throughout. Reflexes: R L Biceps 2 2 Triceps 2 2 Brachioradialis 2 2 Patellar 2 2 Achilles 2 2 Toes downgoing bilaterally Cerebellar: Intact finger to nose bilaterally. Gait: Normal. Labs: WBC Date Value Ref Range Status 08/26/2022 4.77 3.70 - 11.00 k/uL Final Hemoglobin Date Value Ref Range Status 08/26/2022 14.0 11.5 - 15.5 g/dL Final Hematocrit Date Value Ref Range Status 08/26/2022 41.9 36.0 - 46.0 % Final MCV Date Value Ref Range Status 08/26/2022 93.5 80.0 - 100.0 fL Final Platelet Count Date Value Ref Range Status 08/26/2022 300 150 - 400 k/uL Final BUN Date Value Ref Range Status 08/26/2022 9 7 - 21 mg/dL Final Creatinine Date Value Ref Range Status 08/26/2022 0.79 0.58 - 0.96 mg/dL Final Calcium, Total Date Value Ref Range Status 08/26/2022 8.9 8.5 - 10.2 mg/dL Final AST Date Value Ref Range Status 08/26/2022 19 13 - 35 U/L Final ALT Date Value Ref Range Status 08/26/2022 11 7 - 38 U/L Final Bilirubin, Total Date Value Ref Range Status 08/26/2022 0.4 0.2 - 1.3 mg/dL Final TSH Date Value Ref Range Status 08/06/2024 3.340 0.270 - 4.200 mIU/L Final Comment: If the patient is , TSH reference range varies by gestational period: First Trimester (weeks 9-12): 0.180-2.990 mIU/L Second Trimester: 0.110-3.980 mIU/L Third Trimester: 0.480-4.710 mIU/L Jefry Darnell et al. A Practical Approach for the Verifications and Determination of Site- and Trimester-Specific Reference Intervals for Thyroid Function tests in . Thyroid, 2019:29:3:412-420. John Vogt, et al. 2017 Guidelines of the [place] Thy[employer] for the Diagnosis and Management of Thyroid Disease during and the . Thyroid, 2017:27:3:315-389. Vitamin B12 Date Value Ref Range Status 08/06/2024 845 232 - 1,245 pg/mL Final CRP Date Value Ref Range Status 08/06/2024 <0.3 <0.9 mg/dL Final HOPE Date Value Ref Range Status 08/06/2024 Negative Negative Final Comment: Anti-nuclear antibody test is used as an aid in diagnosis of systemic autoimmune diseases. Where positive and clinically warranted, follow-up using disease-specific testing is recommended. Low positive titers are not uncommon with advanced age, certain chronic infections, and malignancies among others. Test methodology: Indirect fluorescence immunoassay (IFA) using HEp-2 cells. Vitamin B1 (Thiamine diphosphate), Whole Blood Date Value Ref Range Status 09/09/2023 151.1 84.3 - 213.3 nmol/L Final Comment: This assay measures the concentration of thiamine diphosphate (TDP), the primary active form of vitamin B1. Approximately 90 percent of vitamin B1 present in whole blood is TDP. Thiamine and thiamine monophosphate, which comprise the remaining 10 percent, are not measured. This test was developed and its performance characteristics determined by [facility] [place] ([facility]). It has not been cleared or approved by the FDA. [facility] is regulated under CLIA as qualified to perform high-complexity testing. This test is used for clinical purposes. It should not be regarded as investigational or for research. Latest Ref Rng 09/09/2023 11/01/2023 HOPE Negative Positive ! HOPE Titer 1:80 HOPE Pattern Nuclear fine speckled Sm Antibody Negative Negative Anti-Sm <1.0 AI <0.2 DNA Antibody <=200 IU/mL 27 DNA Antibody Qualitative Interpretation Negative Negative SUPERVISOR PLATE PASTING Antibody QUAL Negative Negative Anti-SUPERVISOR PLATE PASTING <1.0 AI <0.2 SSA Antibody Qual Negative Negative Anti-SSA <1.0 AI <0.2 Anti-SSB <1.0 AI <0.2 SSB Antibody Qual Negative Negative CENTROMERE AB QUAL Negative Negative Centromere Ab <1.0 AI <0.2 Scleroderma Ab Qual Negative Negative Scl-70 Abs, EIA <1.0 AI <0.2 DREA 1 ANTIBODY QUAL Negative Negative Drea 1 Antibody <1.0 AI <0.2 Ribosomal SUPERVISOR [employer]STING Qualitative Negative Negative Ribosomal SUPERVISOR [employer]ATE PASTING Ab <1.0 AI <0.2 Chromatin Ab Qual Negative Negative Chromatin Ab <1.0 AI <0.2 Vitamin B1 (TDP), Whole Blood 84.3 - 213.3 nmol/L 151.1 Vitamin B6, Plasma 20.0 - 125.0 nmol/L 24.0 Vitamin B12 232 - 1,245 pg/mL 691 WSR 0 - 20 mm/hr 2 CRP <0.9 mg/dL <0.3 Rheumatoid Factor <16 IU/mL <10 Imaging: MRI Head/Brain - Last 2 Impressions MRI BRAIN WO/W IVCON Exam End: 10/17/2023 10:02 AM (Final result) Impression: IMPRESSION: Age-appropriate unremarkable brain without acute findings, abnormal enhancement, or evidence of prior demyelination. ... MRI cervical and thoracic spine: IMPRESSION: Cervical: Normal MRI cervical spine. No evidence of demyelination. No pathologic enhancement. Thoracic: Normal MRI thoracic spine. No evidence of demyelination. No pathologic enhancement. Other studies: Emg Extensive electrodiagnostic examination of the right upper and lower limbs reveals: 1. No evidence of a right lumbosacral (L3-S1) motor radiculopathy. 2. No evidence of a large fiber sensorimotor polyneuropathy. 3. Right median mononeuropathy at or distal to the wrist (consistent with carpal tunnel syndrome) which is mild in degree electrically. IMPRESSION: The epidermal nerve fiber densities are normal at all sites. There is no evidence of a small fiber sensory neuropathy. Assessment/Plan : 1. Numbness and tingling (R20.0) - Extensive workup including brain MRI, cervical and thoracic spine imaging, EMG, and skin biopsy have all returned normal results. - Mild carpal tunnel syndrome identified on EMG, likely contributing to intermittent paresthesia in hands. - Neurologic examination today is unremarkable; no evidence of serious neurologic disease. - Symptoms are likely functional in nature rather than structural. - Reassured patient that there is no indication of a serious underlying neurologic condition. - Advised monitoring symptoms and maintaining current management. - Follow-up as needed if symptoms worsen or new symptoms develop. documented in this encounter [facility] 08-22-2024 Note HNO ID: [id number] Author: YVONNE AGEE MD Service: ? Author Type: Physician Type: Progress Notes Filed: 08/22/2024 09:16 Note Text: HPI: This is Ms. Lucia Castro Oropeza a 39 year old female from who presents to the [facility] neurology department with a chief complaint of numbness and tingling Referring provider: Shahida Graf [address] [place] [id number] Lucia is a 39-year-old female presenting for evaluation of falls, numbness, and tingling. Lucia reports experiencing numbness and tingling in her hands, arms, feet, legs, and face for the past year and a half. She also notes seeing specks in her vision. She has been under the care of Shahida Tuttle, who referred her for further evaluation. She describes recent episodes of dizziness, which have led to two falls. The most recent fall occurred last week on the same day as her EMG (08/16), when she experienced an electric shock sensation in her legs while running after a student at work, causing her to fall straight on my face. She describes this incident as a little scary. Lucia reports that the tingling in her hands is intermittent and is associated with decreased sensation in her fingers, particularly the index, thumb, and middle fingers, though she notes that it may affect all fingers. She has a history of mild carpal tunnel syndrome. She has a history of hyperthyroidism as a teenager, which later transitioned to hypothyroidism. She is currently taking levothyroxine for thyroid management and escitalopram for anxiety. 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 Past Diagnostic Results: - (08/16) EMG: Mild carpal tunnel syndrome. - (02/2022) Eye Exam: Normal. - (09/2021) Brain MRI: Normal. - (2021) MRI, Orbits: Normal. - (2021) MRI, Cervical Spine: Normal. - (2021) MRI, Thoracic Spine: Normal. - Skin Biopsy: Normal. PMH: PAST MEDICAL HISTORY Diagnosis Date Graves disease Has not been on medicaiton since 2009 Hyperlipidemia Medications: Current Outpatient Medications Medication Sig Dispense Refill levothyroxine (LEVOXYL) 50 mcg tablet Take 1 tablet by mouth once daily. Take on empty stomach. For Thyroid 90 tablet 1 tacrolimus (PROTOPIC) 0.1 % ointment Apply to affected area two times a day for 21 days. (Patient not taking: Reported on 08/06/2024) 30 g 0 escitalopram oxalate (LEXAPRO) 10 mg tablet Take 1 tablet by mouth for 21 days. Then take 2 tablets by mouth for 7 days (week before menses) 120 tablet 3 No current facility-administered medications for this visit. Allergies: ALLERGIES No Known Allergies Social History: Social History Tobacco Use Smoking status: Never Smokeless tobacco: Never Vaping Use Vaping status: Never Used Substance Use Topics Alcohol use: Yes Comment: occasionally Drug use: No Family History: FAMILY HISTORY Problem Relation Age of Onset Macular Degen Father Cataract Mother Hypertension Mother Psychiatry Mother depression, fibromyalgia Heart Brother 17 hypertrophic cardiomyopathy Hypertension Maternal Grandfather Heart Maternal Grandfather Alzheimer's Disease Maternal Grandfather ROS: A complete review of systems was performed. All systems negative other than those mentioned in HPI. Physical Exam: Vitals: LMP 03/19/2024 (Exact Date) General appearance: no acute distress. Neurological Exam: MSE: Alert and oriented to person, place, and time. Speech is fluent without dysarthria or aphasia. Recall is intact to recent and remote events. Attention and concentration are intact. Fund of knowledge is intact. CN: Pupils equally round and reactive to light. Extraoccular muscles intact. Visual lindsay full. Facial muscles symmetric. Hearing intact to voice. MSK: Normal bulk and tone throughout. Deltoid Triceps Biceps Wrist ext. Hand intrinsic Hip flexion Knee flexion Knee Ext. Eloy. Flex Pl. flex Right 5 5 5 5 5 5 5 5 5 5 Left 5 5 5 5 5 5 5 5 5 5 Sensation: decreased to pinprick L median nerve distribution, otherwise Intact to light touch, pinprick, and vibration throughout. Reflexes: R L Biceps 2 2 Triceps 2 2 Brachioradialis 2 2 Patellar 2 2 Achilles 2 2 Toes downgoing bilaterally Cerebellar: Intact finger to nose bilaterally. Gait: Normal. Labs: WBC Date Value Ref Range Status 08/26/2022 4.77 3.70 - 11.00 k/uL Final Hemoglobin Date Value Ref Range Status 08/26/2022 14.0 11.5 - 15.5 g/dL Final Hematocrit Date Value Ref Range Status 08/26/2022 41.9 36.0 - 46.0 % Final MCV Date Value Ref Range Status 08/26/2022 93.5 80.0 - 100.0 fL Final Platelet Count Date Value Ref Range Status 08/26/2022 300 150 - 400 k/uL Final BUN Date Value Ref Range Status 08/26/2022 9 7 - 21 mg/dL Final Creatinine Date Value Ref Range Status 08/26/2022 0.79 0.58 - 0.96 mg/dL Final Calcium, Total Date Value Ref Range St (more content not included)... [facility] 08-16-2024 Note HNO ID: [id number] Author: DINESH QUEVEDO DO Service: ? Author Type: Physician Type: Progress Notes Filed: 08/16/2024 09:45 Note Text: UNIVERSAL PROTOCOL / SAFETY CHECKLIST Procedure to be Performed: EMG Sign In: A Moment of CARE was completed. Personnel directly involved with the procedure wore the appropriate PPE (Personal Protective Equipment). Patient/Surrogate Stated/Verified: Patient name, Date of , Relevant allergies, and The intended procedure Time Out Communication: Intended patient and procedure match the source documents. Correct side/site marked and visible. Sign Out: SIGN OUT (optional for EMERGENT procedures): Post-procedure follow-up management communicated and Plan of Care Visit completed when applicable. Karen LOWE, R.NCS.T Dinesh Quevedo DO [facility] 08-06-2024 History of Present illness Narrative Images from the original note were not included. [facility] [place] Follow-up Visit Follow-up note August 06, 2024 HPI: Ms. Oropeza presents today for a follow-up visit. Per her previous visit on 11/02/23: R20.0, R20.2 Numbness and tingling (primary encounter diagnosis) H57.12 Left eye pain Comment: Pt previously seen for L eye pain and L facial/hand numbness.Sx began as retro-orbital pain in July with progression to L facial numbness. She also reported visual disturbance described as lines/spots as well as shadows. CT/A brain and neck were completed in the ED on 08/09/2023 and unremarkable. Of note, she also underwent MRI/A of the brain in 07/18 d/t ear pain and tinnitus. In interim, MRI brain WO/W completed to evaluate for central process such as demyelinating disease or CN enhancement. Results unremarkable for etiology. Consult was also placed to ophthalmology to evaluate for ocular pathology of pain. Concern for Utthoff's phenomenon and recommendation was made for MRI orbits which has since been ordered and is scheduled for 11/12. Lab work also completed and with positive HOPE but unremarkable reflex panel. Remaining lab work WNL. Since the time of her previous appointment she has experienced additional symptoms including paresthesias to region of T-spine as well as itching sensation throughout all extremities. Symptoms to L face and eye persist. Exam today is mostly unchanged from time of previous appointment and noting brisk reflexes, positive Aly's, ankle clonus bilaterally. Today she reports decreased sensation in R face, bilateral tongue, and pinprick and temperature changes as noted above (slightly altered from exam at time of previous appointment). Given ongoing and worsening symptoms, will proceed with MRI C-spine and T-spine WO/W to further evaluate for process such as demyelinating disease. Should imaging be unremarkable would consider SFN workup including skin biopsy. Order placed at this time and she will schedule for after MRI is complete. Should MRI be unremarkable she will proceed with testing. Over winter she felt good. Since the weather has warmed up the tingling has returned, especially in the heat. Face feels like it is on fire. When washing face feels on fire when water hits it. Feels sunburnt when it is not. + tingling. No numbness. Burning is bilateral but tingling is L. Not constant. Worse only when hot. Did happen when she got in the car yesterday as the car was hot. At [employer] baseball game on Monday would come and go. Has had a rash on neck and chest. This comes and goes too. Rash can get brighter and scaly. Rash itches. Unsure if rash and tingling resolve at same time. Maybe rash lasts longer. No tingling to neck. No rash elsewhere. She has tried antihistamines for a week without relief. Tingling in hands and legs. Comes and goes; stays around more often. Has noted this more often since its been hot. Has been walking 1.5 miles. After about one mile feels like she has to force legs to move. Not weak; unsure though. No changes in soaps, diet. She denies headaches; occasionally eye pain but not as frequent. Can radiate down face. No radiation above/across head. Varies from a few min to all day. Can wake her. Takes Tylenol or Aleve; unsure if it helps or if pain is resolving on its own. No light/sound sensitivity. No n/v. Can have pain when walking. No pain with cough/sneeze/bm. + tearing. No ptosis. No facial swelling. No b/b changes. Visual disturbances are worse. No hx of migraines. Last eye appt was last year. + dizziness. Has fallen twice. This is described as spinning. This has been recent. Was drinking water and could not swallow and came back out. No difficulty eating foods. Has not seen PCP recently as she was out. No recent thyroid check. No new family neuro hx. PAST MEDICAL HISTORY Diagnosis Date Graves disease Has not been on medicaiton since 2009 Hyperlipidemia PAST SURGICAL HISTORY Procedure Laterality Date EGD W/O [facility] SPEC VARICIES INJ 06/24/2021 LAP UMBILICAL HERNIA REPAIR 2016 Current Outpatient Medications on File Prior to Visit Medication Sig levothyroxine (LEVOXYL) 50 mcg tablet Take 1 tablet by mouth once daily. Take on empty stomach. For Thyroid tacrolimus (PROTOPIC) 0.1 % ointment Apply to affected area two times a day for 21 days. escitalopram oxalate (LEXAPRO) 10 mg tablet Take 1 tablet by mouth for 21 days. Then take 2 tablets by mouth for 7 days (week before menses) (Patient taking differently: 5 mg. Take 1 tablet by mouth for 21 days. Then take 2 tablets by mouth for 7 days (week before menses)) No current facility-administered medications on file prior to visit. Social History Tobacco Use Smoking status: Never Smokeless tobacco: Never Vaping Use Vaping status: Never Used Substance Use Topics Alcohol use: Yes Comment: occasionally Drug use: No ALLERGIES No Known Allergies Review of Systems: Cardiopulmonary: denies chest pain, palpitations Respiratory: denies shortness of breath GI/: denies recent nausea, vomiting, diarrhea, constipation, incontinence Musculoskeletal: denies weakness, joint ache/pain Back/spine: denies low back or cervical pains Neuro: denies tremors, loss of feeling, dizziness, seizure, blackout, paresthesia, facial paresthesia, facial weakness, difficulty in speech, slurring of words, dysarthria, dysphagia, memory loss, headache, vision changes, loss of hearing Physical Exam: 08/06/24 1232 BP: 135/89 BP Site: Left Arm BP Position: Sitting BP Cuff Size: Large Adult Pulse: 119 Resp: 16 SpO2: 99% Weight: 68.9 kg (151 lb 14.4 oz) Patient is alert and in no distress. Dress is appropriate. Mood is appropriate Breathing appears regular and unstressed Neurologic examination: Cognitively intact. No deficits. No formal MOCA performed. CN: Pupils equal and reactive to light, extraocular movements intact with no nystagmus, face is symmetric with no facial droop, facial sensation dec to light touch. R V1-3, hearing intact bilaterally, symmetric evaluation of the soft palate, tongue is midline with no deviation, shoulder shrug is symmetric. Motor Examination: Right Upper Extremity: (of 5) Left Upper Extremity: (of 5) Shoulder Abduction: Deltoid (Ax/C5) 5 Shoulder Abduction 5 Elbow Flexion: Biceps (MC/R and C5/6) 5 Elbow Flexion 5 Elbow Extension: Triceps (R/C7) 5 Elbow Extension 5 Wrist Flexion (M/U and C6/7) 5 Wrist Flexion 5 Wrist Extension (R/C6) 5 Wrist Extension 5 Finger Abduction (U/T1) 5 Finger Abduction 5 Pony Worker 5 Pony Worker 5 Right Lower Extremity: (of 5) Left Lower Extremity: (of 5) Hip Flexion: Iliopsoas (F and L1/2) 5 Hip Flexion 5 Knee Extension: Quadriceps (F and L3/4) 5 Knee Extension 5 Knee Flexion: Hamstrings (S/S1) 5 Knee Flexion 5 Dorsiflexion: Tibialis Anterior (DP and L4/5) 5 Dorsiflexion 5 Plantarflexion: Gastrocnemius/Soleus (T and S1/2) 5 Plantarflexion 5 Reflexes: Right Extremities Left Extremities: Triceps (C7-8R) 2 Triceps 2+ Biceps (C5-6MC) 2+ Biceps 2+ Brachioradialis (C5-6R) 2+ Brachioradialis 2+ Patellar (L3-4F) 3 Patellar 3 Achilles (S1-2S) 2+ Achilles 2+ Babinskis: mute Ankle Clonus: +3 R and +2 L Prieto's: + R Sensory Intact to light touch upper and lower extremities bilaterally Pinprick: dec in feet and hands and inc moving proximally Temperature: dec in feet and hands and inc moving proximally Normal proprioception (toe position) Normal toe and finger vibratory sensation Coordination: No dysmetria on finger to nose. No tremors noted. No drift seen. Gait normal in stance and pattern. Negative Romberg. Tandem without imbalance. Labs/studies: Skin biopsy for neuropathy 12/14/23: IMPRESSION: The epidermal nerve fiber densities are normal at all sites. There is no evidence of a small fiber sensory neuropathy. MRI Spine Report MRI THORACIC SPINE WO/W IVCON Exam End: 11/13/2023 10:35 AM (Final result) Narrative: * * *Final Report* * * DATE OF EXAM: Nov 13 2023 10:25AM [facility] 0326 - MRI THORACIC SPINE WO/W IVCON / PROCEDURE REASON: Demyelinating disease of central nervous system (HCC) * * * * Physician Interpretation * * * * EXAMINATION: MRI CERVICAL SPINE WO/W IVCON, MRI THORACIC SPINE WO/W IVCON CLINICAL HISTORY: Demyelinating disease of central nervous system (HCC) TECHNIQUE: Routine cervical and thoracic spine MR protocol without gadolinium. MQ: [id number] COMPARISON: None. RESULT: CERVICAL: Counting reference: Craniocervical junction. Anatomic Variants: None. Localizer images: Alignment: Alignment is anatomic. Craniocervical junction: Craniocervical junction is normal. Cord: The cervical spinal cord is within normal limits of signal intensity and morphology. Bone marrow signal/fracture: No evidence of pathologic marrow infiltration. No evidence of prior fracture. Cervical soft tissues: The paraspinal soft tissues are within normal limits. C2-C3: Canal and foramina are patent. C3-C4: Canal and foramina are patent. C4-C5: Canal and foramina are patent. C5-C6: Canal and foramina are patent. C6-C7: Canal and foramina are patent. C7-T1: Canal and foramina are patent. THORACIC: Counting reference: Craniocervical and lumbosacral junctions For the purposes of this report, Assume the first normal thoracic rib is at the T1 level. Localizer images: Unremarkable. Alignment: Alignment is anatomic. Cord: The thoracic spinal cord is within normal limits of signal intensity and morphology. There is no abnormal enhancement. Bone marrow signal/fracture: No evidence of pathologic marrow infiltration. No evidence of prior fracture. Thoracic soft tissues: The paraspinal soft tissues are within normal limits. Canal and foramina: The thoracic canal and foramina are patent within the constraints of the study. Impression: IMPRESSION: Cervical: Normal MRI cervical spine. No evidence of demyelination. No pathologic enhancement. Thoracic: Normal MRI thoracic spine. No evidence of demyelination. No pathologic enhancement. Cervical Anatomic Variant: None. Assume 7 cervical vertebrae with counting from the craniocervical junction. Anatomic Thoracic/Lumbar Variant: None. L4-5 is considered the level of the iliac crest and assume there are 5 lumbar-type vertebrae. Dietetic Intern: [facility] Transcribe Date/Time: Nov 13 2023 10:58A Dictated by : GILL NAIK MD This examination was interpreted and the report reviewed and electronically signed by: GILL NAIK MD on Nov 13 2023 10:59AM EST Latest Ref Rng 09/09/2023 11/01/2023 HOPE Negative Positive ! HOPE Titer 1:80 HOPE Pattern Nuclear fine speckled Sm Antibody Negative Negative Anti-Sm <1.0 AI <0.2 DNA Antibody <=200 IU/mL 27 DNA Antibody Qualitative Interpretation Negative Negative SUPERVISOR PLATE PASTING Antibody QUAL Negative Negative Anti-SUPERVISOR PLATE PASTING <1.0 AI <0.2 SSA Antibody Qual Negative Negative Anti-SSA <1.0 AI <0.2 Anti-SSB <1.0 AI <0.2 SSB Antibody Qual Negative Negative CENTROMERE AB QUAL Negative Negative Centromere Ab <1.0 AI <0.2 Scleroderma Ab Qual Negative Negative Scl-70 Abs, EIA <1.0 AI <0.2 DREA 1 ANTIBODY QUAL Negative Negative Drea 1 Antibody <1.0 AI <0.2 Ribosomal SUPERVISOR [employer] PASTING Qualitative Negative Negative Ribosomal SUPERVISOR [employer]ATE PASTING Ab <1.0 AI <0.2 Chromatin Ab Qual Negative Negative Chromatin Ab <1.0 AI <0.2 Vitamin B1 (TDP), Whole Blood 84.3 - 213.3 nmol/L 151.1 Vitamin B6, Plasma 20.0 - 125.0 nmol/L 24.0 Vitamin B12 232 - 1,245 pg/mL 691 WSR 0 - 20 mm/hr 2 CRP <0.9 mg/dL <0.3 Rheumatoid Factor <16 IU/mL <10 Legend: ! Abnormal MRI Report MRI BRAIN WO/W IVCON Exam End: 10/17/2023 10:02 AM (Final result) Narrative: * * *Final Report* * * DATE OF EXAM: Oct 17 2023 9:55AM [facility] 0295 - MRI BRAIN WO/W IVCON / PROCEDURE REASON: Demyelinating disease of central nervous system (HCC) * * * * Physician Interpretation * * * * EXAMINATION: MRI BRAIN WO/W IVCON HISTORY: Demyelinating disease of central nervous system TECHNIQUE: MRI brain demyelination protocol without and with contrast. M: [id number] MR Contrast: Dotarem Contrast Dose: 14 cc Route of Administration: IV COMPARISON: MRI brain 07/12/2023 RESULT: Acute Change: No evidence of an acute intracranial process. Hemorrhage: No evidence of prior parenchymal hemorrhage within the constraints of the acquisition. Mass Lesion/ Mass Effect: No evidence of an intracranial mass, abnormal enhancement, extra-axial fluid collection, or significant localized mass effect. Chronic Change: The white matter is within normal limits of signal intensity for age. Parenchyma: No significant parenchymal volume loss for age. Ventricles: Normal caliber and morphology. Skull Base: Hypothalamic and pituitary region are grossly normal. Craniocervical junction is normal. No significant marrow replacement process. Vasculature: Major intracranial arteries and dural venous sinuses demonstrate typical flow voids, suggesting patency by spin echo criteria. Other: The paranasal sinuses and mastoid air cells are clear. The orbits and extracranial soft tissues are unremarkable. Impression: IMPRESSION: Age-appropriate unremarkable brain without acute findings, abnormal enhancement, or evidence of prior demyelination. Dietetic Intern: JEANNE Transcribe Date/Time: Oct 17 2023 10:10A Dictated by : ELANA XAVIER MD This examination was interpreted and the report reviewed and electronically signed by: ELANA XAVIER MD on Oct 17 2023 10:13AM EST Latest Ref Rng 05/05/2023 TSH 0.270 - 4.200 mIU/L 1.170 Free T4 0.9 - 1.7 ng/dL 1.2 Free T3 2.3 - 4.1 pg/mL 2.7 CTA Head/Neck 08/09/23: FINDINGS: HEAD: RIGHT ANTERIOR CEREBRAL ARTERY: Unremarkable. No occlusion or significant stenosis. Anterior communicating artery is present. No aneurysm. RIGHT MIDDLE CEREBRAL ARTERY: Unremarkable. No occlusion or significant stenosis. No aneurysm. RIGHT POSTERIOR CEREBRAL ARTERY: Arises primarily from the right internal carotid artery.. No occlusion or significant stenosis. No aneurysm. RIGHT INTRACRANIAL INTERNAL CAROTID ARTERY: Unremarkable. No significant stenosis. No dissection or occlusion. RIGHT INTRACRANIAL VERTEBRAL ARTERY: Unremarkable. No significant stenosis. No dissection or occlusion. LEFT ANTERIOR CEREBRAL ARTERY: Unremarkable. No occlusion or significant stenosis. No aneurysm. LEFT MIDDLE CEREBRAL ARTERY: Unremarkable. No occlusion or significant stenosis. No aneurysm. LEFT POSTERIOR CEREBRAL ARTERY: Unremarkable. No occlusion or significant stenosis. No aneurysm. LEFT INTRACRANIAL INTERNAL CAROTID ARTERY: Unremarkable. No significant stenosis. No dissection or occlusion. LEFT INTRACRANIAL VERTEBRAL ARTERY: Unremarkable. No significant stenosis. No dissection or occlusion. BASILAR ARTERY: Unremarkable. No occlusion or significant stenosis. No aneurysm. OTHER VASCULATURE: No vascular malformation. BRAIN AND EXTRA-AXIAL SPACES: Unremarkable. No intra- or extra-axial hemorrhage. No evidence of acute infarct. No intracranial mass or mass effect. There is preservation of the celaya/white matter interface. Posterior fossa structures are unremarkable. Ventricles are appropriate for age. No hydrocephalus. Basal cisterns are patent. SINUSES: Unremarkable as visualized. Clear. MASTOID AIR CELLS: Unremarkable as visualized. Clear. ORBITS: Visualized globes, extraocular muscles, optic nerves and retrobulbar fat appear unremarkable. NECK: RIGHT COMMON CAROTID ARTERY: Unremarkable. No significant stenosis. No dissection or occlusion. RIGHT EXTRACRANIAL INTERNAL CAROTID ARTERY: Unremarkable. No significant stenosis. No dissection or occlusion. RIGHT EXTERNAL CAROTID ARTERY: Unremarkable. No occlusion. RIGHT EXTRACRANIAL VERTEBRAL ARTERY: Unremarkable. No significant stenosis. No dissection or occlusion. LEFT COMMON CAROTID ARTERY: Unremarkable. No significant stenosis. No dissection or occlusion. LEFT EXTRACRANIAL INTERNAL CAROTID ARTERY: Unremarkable. No significant stenosis. No dissection or occlusion. LEFT EXTERNAL CAROTID ARTERY: Unremarkable. No occlusion. LEFT EXTRACRANIAL VERTEBRAL ARTERY: Unremarkable. No significant stenosis. No dissection or occlusion. BRACHIOCEPHALIC AND SUBCLAVIAN ARTERIES: Unremarkable as visualized. No occlusion or significant stenosis. LUNG APICES: Unremarkable as visualized. HEAD and NECK: BONES/JOINTS: Unremarkable. No discrete lytic or blastic abnormalities. SOFT TISSUES: Unremarkable. IMPRESSION: Negative CTA carotid and CTA brain. 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 Impression 1. Normal brain. 2. Normal intracranial circulation. Assessment/Plan: R20.0, R20.2 Numbness and tingling (primary encounter diagnosis) H57.12 Left eye pain R21 Rash Comment: Pt previously seen for L eye pain and L facial/hand numbness with last visit in 11/02/2023. Symptoms began in 07/2023. Previous imaging completed in [address]/A head and neck, MRI/A brain WO/W, MRI brain and MRI orbit WO/W, MRI cervical and thoracic spine WO/W all of which were unremarkable. She also underwent skin biopsy for neuropathy without evidence of SFN. Previous lab work was unremarkable with exception of low positive HOPE and elevated TSH. At time of appointment today she reports that symptoms had initially improved since her previous appointment, however, she experienced return of symptoms with onset of warmer weather in July (similar in timing to onset in 2023). Current symptoms include facial tingling/paresthesias, tingling in hands and legs, weakness to BLE with prolonged exertion, occasional L eye pain, dizziness, episode of dysphagia. Exam today again noting brisk reflexes throughout, bilateral ankle clonus, and positive R Aly's. Sensory deficits to pinprick and temperature in stocking glove pattern are noted. Slight rash noted to chest and anterior neck. Etiology of symptoms remains uncertain. Given extensive past testing and recurrence of symptoms we will proceed with further plan below: - Additional lab work as listed below. - EMG/NCV to evaluate for peripheral neuropathy. - Will place consult for neuromuscular opinion should testing be unremarkable (as workup thus far has been unrevealing for etiology). Office Visit on 08/06/24 THYROID STIMULATING HORMONE HOPE BY IFA WITH REFLEX MONOCLONAL PROTEIN, SERUM (BLOOD) VITAMIN B12 SEDIMENTATION RATE, WESTERGREN C-REACTIVE PROTEIN CONSULT TO NEUROLOGY EMG(NEURO/NI) Shahida Graf APRN.GWEN I spent a total of 50 minutes on the date of the service which included preparing to see the patient, [id number] patient care, completing clinical documentation, obtaining and/or reviewing separately obtained history, performing a medically appropriate examination, counseling and educating the patient/family/caregiver, and ordering medications, tests, or procedures. documented in this encounter [facility] 08-06-2024 Note HNO ID: [id number] Author: SHAHIDA GRAF APRN.CNP Service: ? Author Type: Nurse Practitioner Type: Progress Notes Filed: 08/06/2024 13:31 Note Text: [facility] [place] Follow-up Visit Follow-up note August 06, 2024 HPI: Ms. Oropeza presents today for a follow-up visit. Per her previous visit on 11/02/23: R20.0, R20.2 Numbness and tingling (primary encounter diagnosis) H57.12 Left eye pain Comment: Pt previously seen for L eye pain and L facial/hand numbness.Sx began as retro-orbital pain in July with progression to L facial numbness. She also reported visual disturbance described as lines/spots as well as shadows. CT/A brain and neck were completed in the ED on 08/09/2023 and unremarkable. Of note, she also underwent MRI/A of the brain in 07/18 d/t ear pain and tinnitus. In interim, MRI brain WO/W completed to evaluate for central process such as demyelinating disease or CN enhancement. Results unremarkable for etiology. Consult was also placed to ophthalmology to evaluate for ocular pathology of pain. Concern for Utthoff's phenomenon and recommendation was made for MRI orbits which has since been ordered and is scheduled for 11/12. Lab work also completed and with positive HOPE but unremarkable reflex panel. Remaining lab work WNL. Since the time of her previous appointment she has experienced additional symptoms including paresthesias to region of T-spine as well as itching sensation throughout all extremities. Symptoms to L face and eye persist. Exam today is mostly unchanged from time of previous appointment and noting brisk reflexes, positive Aly's, ankle clonus bilaterally. Today she reports decreased sensation in R face, bilateral tongue, and pinprick and temperature changes as noted above (slightly altered from exam at time of previous appointment). Given ongoing and worsening symptoms, will proceed with MRI C-spine and T-spine WO/W to further evaluate for process such as demyelinating disease. Should imaging be unremarkable would consider SFN workup including skin biopsy. Order placed at this time and she will schedule for after MRI is complete. Should MRI be unremarkable she will proceed with testing. Over winter she felt good. Since the weather has warmed up the tingling has returned, especially in the heat. Face feels like it is on fire. When washing face feels on fire when water hits it. Feels sunburnt when it is not. + tingling. No numbness. Burning is bilateral but tingling is L. Not constant. Worse only when hot. Did happen when she got in the car yesterday as the car was hot. At [email or web address] game on Monday would come and go. Has had a rash on neck and chest. This comes and goes too. Rash can get brighter and scaly. Rash itches. Unsure if rash and tingling resolve at same time. Maybe rash lasts longer. No tingling to neck. No rash elsewhere. She has tried antihistamines for a week without relief. Tingling in hands and legs. Comes and goes; stays around more often. Has noted this more often since its been hot. Has been walking 1.5 miles. After about one mile feels like she has to force legs to move. Not weak; unsure though. No changes in soaps, diet. She denies headaches; occasionally eye pain but not as frequent. Can radiate down face. No radiation above/across head. Varies from a few min to all day. Can wake her. Takes Tylenol or Aleve; unsure if it helps or if pain is resolving on its own. No light/sound sensitivity. No n/v. Can have pain when walking. No pain with cough/sneeze/bm. + tearing. No ptosis. No facial swelling. No b/b changes. Visual disturbances are worse. No hx of migraines. Last eye appt was last year. + dizziness. Has fallen twice. This is described as spinning. This has been recent. Was drinking water and could not swallow and came back out. No difficulty eating foods. Has not seen PCP recently as she was out. No recent thyroid check. No new family neuro hx. PAST MEDICAL HISTORY Diagnosis Date Graves disease Has not been on medicaiton since 2009 Hyperlipidemia PAST SURGICAL HISTORY Procedure Laterality Date EGD W/O [facility] SPEC VARICIES INJ 06/24/2021 LAP UMBILICAL HERNIA REPAIR 2016 Current Outpatient Medications on File Prior to Visit Medication Sig levothyroxine (LEVOXYL) 50 mcg tablet Take 1 tablet by mouth once daily. Take on empty stomach. For Thyroid tacrolimus (PROTOPIC) 0.1 % ointment Apply to affected area two times a day for 21 days. escitalopram oxalate (LEXAPRO) 10 mg tablet Take 1 tablet by mouth for 21 days. Then take 2 tablets by mouth for 7 days (week before menses) (Patient taking differently: 5 mg. Take 1 tablet by mouth for 21 days. Then take 2 tablets by mouth for 7 days (week before menses)) No current facility-administered medications on file prior to visit. Social History Tobacco Use Smoking status: Never Smokeless tobacco: Never Vaping Use Vaping sta (more content not included)... [facility] 08-05-2024 Telephone encounter Note Called Patient - no answer. Left voicemail with appt details below Josee Fitzgerald [facility] 08-05-2024 Miscellaneous Notes Called Patient - no answer. Left voicemail with appt details below Josee Fitzgerald documented in this encounter [facility] 04-11-2024 Instructions Margot Wyatt MD - 04/11/2024 4:09 PM EST Calcium and Vitamin D Supplementation (from the National Institutes of Health Office of Dietary Supplements 2011) Calcium is required by the body for blood vessel, muscle, hormone and nerve functioning. Most of the body's calcium is stored in the bones and teeth where it supports structure and function. Bone is continuously broken down and reformed. When bone breakdown exceeds formation, especially in postmenopausal women, bone loss can increase the risk of osteoporosis and fractures. In addition to low calcium intake, women who smoke, have a family history of osteoporosis, are thin, or , or who take certain medications such as cancer chemotherapy, seizure mediations and steroids are at increased risk of osteoporosis. The calcium requirements in women change with age. The National Institutes of Health (NIH) recommends: 1000mg elemental calcium for premenopausal women age 19-50 1200mg elemental calcium for postmenopausal women and all women over 50 Milk, yogurt, and cheese are rich natural sources of calcium and are the major food contributors in the [place]. For example, 8oz of milk (whole, lowfat or skim) contains about 300mg calcium, 8oz of yogurt contains 415mg. Nondairy sources include salmon and sardines and vegetables, such as Malagasy cabbage, kale, and broccoli. Foods fortified with calcium include many fruit juices, tofu and cereals. For more food calcium content information, visit http://ods.od.nih.gov/factsheets/c alcium. Calcium supplements come in several different forms. Remember that the recommendations are for millgrams (mg) of elemental calcium which may be less than the total weight of the supplement. The amount of elemental calcium is required to be printed on the label. Calcium carbonate is the least expensive form. It must be taken on a full stomach to be properly absorbed. Some patients may experience gas or constipation. Calcium phosphate and calcium citrate may be taken either with or without food and tend to have less side effects but are generally more expensive. Because of its ability to neutralize stomach acid, calcium carbonate is found in some [id number] antacid products, such as Tums and Rolaids . Depending on its strength, each chewable pill or softchew provides 200 to 400 mg of elemental calcium. The percentage of calcium absorbed depends on the total amount of elemental calcium consumed at one time. Absorption is highest in doses <500mg. So a woman who takes 1,000mg/day of calcium from supplements should split the dose and take 500mg at two separate times during the day. Too much calcium can cause kidney stones, constipation, difficulty absorbing other nutrients and calcium buildup in blood vessels. Women under 50 should not exceed 2500mg/day (2000mg/day for women over 50) of calcium from food and supplements. Excessive alcohol and caffeine intake can inhibit absorption of calcium. Calcium can reduce the absorption of some medications if taken at the same time of day (bisphosphonates, thyroid medication, Phenytoin and other seizure medications, some antibiotics and iron supplements). Vitamin D promotes calcium absorption in the gut and maintains adequate blood levels of calcium and phosphate for normal bone growth and bone remodeling. Vitamin D also helps regulate cell growth as well as nerve, muscle and immune system function. Vitamin D is produced in the skin as a result of ultraviolet sunlight rays and must be altered in the liver and kidney to become its active form. Recommended intake according to the National Institutes of Health is 600 International Units (IU) for girls and women ages 1-70 and 800 IU for women over 70. Very few foods in nature contain vitamin D. The flesh of fatty fish (such as salmon, tuna, and mackerel) and fish liver oils are among the best sources. Small amounts of vitamin D are found in beef liver, cheese, mushrooms and egg yolks. Most people meet at least some of their vitamin D needs through exposure to sunlight. Season, time of day, length of day, cloud cover, smog, skin melanin content, and sunscreen are among the factors that affect UV radiation exposure and vitamin D synthesis. Despite the importance of the sun for vitamin D synthesis, it is prudent to limit exposure of skin to sunlight and avoid tanning beds. UV radiation is a carcinogen responsible for most of the estimated 1.5 million skin cancers that occur annually in the [place]. Lifetime cumulative UV damage to skin is also responsible for some age-associated dryness and other cosmetic changes. In supplements and fortified foods, vitamin D is available in two forms, D2 (ergocalciferol) and D3 (cholecalciferol). The two are equivalent at normal supplement doses. For women who require high supplement doses because of vitamin D deficiency, D3 may work better to raise blood levels. Some medications can prevent proper absorption of Vitamin D. These include laxatives, corticosteroids like prednisone, the seizure drugs phenobarbital and phenytoin, the weight-loss drug orlistat ( Xenical and AlliTM) and the cholesterol-lowering drug cholestyramine (Questran , LoCholest , and Prevalite ). Talk to your doctor about adjusting your recommended daily vitamin D dosage if you take these medications. You should not exceed 4000 mg of vitamin D supplementation daily unless specifically prescribed by your doctor. documented in this encounter [facility] 04-11-2024 Note HNO ID: [id number] Author: MARGOT WYATT MD Service: ? Author Type: Physician Type: Progress Notes Filed: 04/11/2024 16:11 Note Text: Sample Worker offered: Patient declines. Lucia is a 38 year old who presents for an annual gynecologic exam. Still get period: Yes Menses: cycles every 30 days and 4 days of flow Menstrual flow: Moderate Bleeding amount bothersome: No Bleeding between periods: No Period symptoms: Cramps and Mood change Contraception: Vasectomy HPV vaccine: No HPV:negative 2022 Last pap smear: 2022 negative History of abnormal pap: No Last mammogram: diagnostic for pain in the past 5-6 years OB History T0 L3 SAB0 IAB0 Ectopic0 Multiple0 Live Births0 Comment: 3 vaginal deliveries 1 miscarriage Appeals Examiner History LMP: 03/19/2024 (Exact Date), Having periods Age at Menarche: Age at First : Age at Menopause: Appeals Examiner History Comments: Sexual Activity: Yes; Male Contraception: Vasectomy PAST MEDICAL HISTORY Diagnosis Date Graves disease Has not been on medicaiton since 2009 Hyperlipidemia PAST SURGICAL HISTORY Procedure Laterality Date EGD W/O BRSH SPEC VARICIES INJ 06/24/2021 LAP UMBILICAL HERNIA REPAIR 2016 FAMILY HISTORY Problem Relation Age of Onset Macular Degen Father Cataract Mother Hypertension Mother Psychiatry Mother depression, fibromyalgia Heart Brother 17 hypertrophic cardiomyopathy Hypertension Maternal Grandfather Heart Maternal Grandfather Alzheimer's Disease Maternal Grandfather SOCIAL HISTORY Social History Tobacco Use Smoking status: Never Smokeless tobacco: Never Vaping Use Vaping status: Never Used Substance Use Topics Alcohol use: Yes Comment: occasionally Drug use: No REVIEW OF SYSTEMS Abdomen: No abdominal pain, nausea, vomiting, diarrhea, or constipation. No bloating, early satiety, indigestion, or increased flatulence. Bladder: No dysuria, gross hematuria, urinary frequency, urinary urgency, or incontinence. Breast: No breast lumps, nipple d/c, overlying skin changes, redness or skin retraction. Allergies and current medication updated:Yes SENSITIVE EXAM: The sensitive examination was discussed with the Patient or Patient's Authorized Battery Hand. As applicable, any other physician, advance practice provider, medical student, or other health professional student that will be observing or involved in the sensitive examination for educational or training purposes was discussed with the Patient or Authorized Battery Hand. The Patient or Authorized Battery Hand has agreed to proceed with the sensitive examination. (Sensitive examination includes inspection and/or palpation of the breasts, pelvis, prostate and anorectal regions). EXAM: BP 110/62 Ht 5' 3 (1.60m) Wt 149 lb (67.6kg) LMP 03/19/2024 BMI 26.40 kg/(m2). GENERAL: pleasant, female in no apparent distress BREAST: soft, non-tender, symmetric, no dominant mass, normal nipple-areolar complex, no lymphadenopathy, and no nipple discharge CHEST: Normal inspiratory effort ABDOMEN: soft, non-tender, and no masses PELVIC: external genitalia normal, normal Bartholin's glands, urethra, [place]'s glands, no vulvar lesions, no cervical lesions, good vaginal support, physiologic discharge present, normal appearing perineal body and perianal region BIMANUAL: uterus normal size, shape and consistency, no adnexal masses, and non-tender RECTOVAGINAL: deferred. NEURO: alert and oriented x3,exam grossly non-focal EXTREMITIES: normal ASSESSMENT/PLAN: 1) Health maintenance: Pap/HPV up to date. Mammogram starting age 40. Nutrition, exercise and routine health maintenance exams reviewed. 2) Contraception: vasectomy. Contraceptive options reviewed and information provided. 3) PMS - advised on magnesium and calcium supplementation. Follow up if desires further evaluation and treatment. 4) Follow up one year or sooner as needed Margot Wyatt MD [facility] 04-11-2024 History of Present illness Narrative Sample Worker offered: Patient declines. Lucia is a 38 year old who presents for an annual gynecologic exam. Still get period: Yes Menses: cycles every 30 days and 4 days of flow Menstrual flow: Moderate Bleeding amount bothersome: No Bleeding between periods: No Period symptoms: Cramps and Mood change Contraception: Vasectomy HPV vaccine: No HPV:negative 2022 Last pap smear: 2022 negative History of abnormal pap: No Last mammogram: diagnostic for pain in the past 5-6 years OB History T0 L3 SAB0 IAB0 Ectopic0 Multiple0 Live Births0 Comment: 3 vaginal deliveries 1 miscarriage Appeals Examiner History LMP: 03/19/2024 (Exact Date), Having periods Age at Menarche: Age at First : Age at Menopause: Appeals Examiner History Comments: Sexual Activity: Yes; Male Contraception: Vasectomy PAST MEDICAL HISTORY Diagnosis Date Graves disease Has not been on medicaiton since 2009 Hyperlipidemia PAST SURGICAL HISTORY Procedure Laterality Date EGD W/O BRSH SPEC VARICIES INJ 06/24/2021 LAP UMBILICAL HERNIA REPAIR 2016 FAMILY HISTORY Problem Relation Age of Onset Macular Degen Father Cataract Mother Hypertension Mother Psychiatry Mother depression, fibromyalgia Heart Brother 17 hypertrophic cardiomyopathy Hypertension Maternal Grandfather Heart Maternal Grandfather Alzheimer's Disease Maternal Grandfather SOCIAL HISTORY Social History Tobacco Use Smoking status: Never Smokeless tobacco: Never Vaping Use Vaping status: Never Used Substance Use Topics Alcohol use: Yes Comment: occasionally Drug use: No REVIEW OF SYSTEMS Abdomen: No abdominal pain, nausea, vomiting, diarrhea, or constipation. No bloating, early satiety, indigestion, or increased flatulence. Bladder: No dysuria, gross hematuria, urinary frequency, urinary urgency, or incontinence. Breast: No breast lumps, nipple d/c, overlying skin changes, redness or skin retraction. Allergies and current medication updated:Yes SENSITIVE EXAM: The sensitive examination was discussed with the Patient or Patient's Authorized Battery Hand. As applicable, any other physician, advance practice provider, medical student, or other health professional student that will be observing or involved in the sensitive examination for educational or training purposes was discussed with the Patient or Authorized Battery Hand. The Patient or Authorized Battery Hand has agreed to proceed with the sensitive examination. (Sensitive examination includes inspection and/or palpation of the breasts, pelvis, prostate and anorectal regions). EXAM: BP 110/62 Ht 5' 3 (1.60m) Wt 149 lb (67.6kg) LMP 03/19/2024 BMI 26.40 kg/(m^2). GENERAL: pleasant, female in no apparent distress BREAST: soft, non-tender, symmetric, no dominant mass, normal nipple-areolar complex, no lymphadenopathy, and no nipple discharge CHEST: Normal inspiratory effort ABDOMEN: soft, non-tender, and no masses PELVIC: external genitalia normal, normal Bartholin's glands, urethra, [place]'s glands, no vulvar lesions, no cervical lesions, good vaginal support, physiologic discharge present, normal appearing perineal body and perianal region BIMANUAL: uterus normal size, shape and consistency, no adnexal masses, and non-tender RECTOVAGINAL: deferred. NEURO: alert and oriented x3,exam grossly non-focal EXTREMITIES: normal ASSESSMENT/PLAN: 1) Health maintenance: Pap/HPV up to date. Mammogram starting age 40. Nutrition, exercise and routine health maintenance exams reviewed. 2) Contraception: vasectomy. Contraceptive options reviewed and information provided. 3) PMS - advised on magnesium and calcium supplementation. Follow up if desires further evaluation and treatment. 4) Follow up one year or sooner as needed Margot Wyatt MD documented in this encounter [facility] 04-08-2024 Telephone encounter Note Patient's pharmacy changed. Please resend levothyroxine to [facility] 04-08-2024 Miscellaneous Notes Patient's pharmacy changed. Please resend levothyroxine to [facility] Prescription Refill Information The patient has been identified by name and date of : Yes Caregiver verified no other encounters exist for this prescription request: Yes Caregiver confirmed with patient/requestor that no other refills are due, in the near future, with this provider at this time: Yes The last office visit in the department: 08-11-23 Does the patient have a future office visit with this provider/department: No Requested Prescriptions Pending Prescriptions Disp Refills levothyroxine (LEVOXYL) 50 mcg tablet 90 tablet 3 Sig: Take 1 tablet by mouth once daily. Take on empty stomach. For Thyroid Adalgisa Peterson April 08, 2024 2:14 PM documented in this encounter [facility] 04-08-2024 Telephone encounter Note Prescription Refill Information The patient has been identified by name and date of : Yes Caregiver verified no other encounters exist for this prescription request: Yes Caregiver confirmed with patient/requestor that no other refills are due, in the near future, with this provider at this time: Yes The last office visit in the department: 08-11-23 Does the patient have a future office visit with this provider/department: No Requested Prescriptions Pending Prescriptions Disp Refills levothyroxine (LEVOXYL) 50 mcg tablet 90 tablet 3 Sig: Take 1 tablet by mouth once daily. Take on empty stomach. For Thyroid Adalgisa Peterson April 08, 2024 2:14 PM [facility] 03-04-2024 Note HNO ID: [id number] Author: ERROL VENCES OD Service: ? Author Type: RIB CLOTH KNITTER Type: Progress Notes Filed: 03/04/2024 08:33 Note Text: [facility] rx [facility] 03-04-2024 History of Present illness Narrative [facility] rx [facility]. documented in this encounter [facility] 02-16-2024 Note HNO ID: [id number] Author: ERROL VENCES OD Service: ? Author Type: RIB CLOTH KNITTER Type: Progress Notes Filed: 02/16/2024 09:03 Note Text: 1. Left eye pain 2. Subjective visual disturbance Slight improvement in symptoms the past few months but some symptoms returning this past week No swelling of disc, normal visual field and normal OCT Patient also notes dimming of vision on left side Patient under care of neurology- had normal MRI of head and orbit - will continue to monitor 3. Myopia, bilateral 4. Regular astigmatism of both eyes Recommend updating glasses 5. Contact dermatitis vs molluscum of left eyelid Suspect contact dermatitis Will start: Medications to Start Taking triamcinolone acetonide topical 0.5 % ointment Apply to affected area two times a day for 10 days. Educated pt to keep out of eye and discussed risks (IOP spike, glaucoma, cataracts, etc) Also recommended aquaphor ointment nightly Follow-up with any new or worsening eyelid symptoms Follow-up in 4-5 months for vision check and possible dilation Errol Vences, OD February 16, 2024 8:55 AM [facility] 02-16-2024 Note Date of Procedure 02/16/2024. Quality Right Eye Good. Left Eye Good. NFL Interpretation Right Eye Normal. Left Eye Normal. Ganglion Cell Layer Thickness Right Eye Normal. Left Eye Normal. Interval Change Right Eye Stable. Left Eye Stable. [facility] 02-16-2024 History of Present illness Narrative 1. Left eye pain 2. Subjective visual disturbance Slight improvement in symptoms the past few months but some symptoms returning this past week No swelling of disc, normal visual field and normal OCT Patient also notes dimming of vision on left side Patient under care of neurology- had normal MRI of head and orbit - will continue to monitor 3. Myopia, bilateral 4. Regular astigmatism of both eyes Recommend updating glasses 5. Contact dermatitis vs molluscum of left eyelid Suspect contact dermatitis Will start: Medications to Start Taking triamcinolone acetonide topical 0.5 % ointment Apply to affected area two times a day for 10 days. Educated pt to keep out of eye and discussed risks (IOP spike, glaucoma, cataracts, etc) Also recommended aquaphor ointment nightly Follow-up with any new or worsening eyelid symptoms Follow-up in 4-5 months for vision check and possible dilation Errol Vences, CARROLL February 16, 2024 8:55 AM documented in this encounter [facility] 02-15-2024 Instructions Errol Vences, OD - 02/15/2024 3:28 PM EST Use Systane Complete or Refresh Relieva 2-3 times daily Use Systane, Refresh or Blink gel nightly before bed in both eyes documented in this encounter [facility] 12-26-2023 Telephone encounter Note Patient has been identified by name and date of : Yes Patient phones for refill(s): Requested Prescriptions Pending Prescriptions Disp Refills levothyroxine (LEVOXYL) 50 mcg tablet 90 tablet 3 Sig: Take 1 tablet by mouth once daily. Take on empty stomach. For Thyroid Date of last office visit in primary care: 08/11/2023 Date of next office visit in primary care: 02/23/2024 Please advise. Thank you. Fanny Stevens LPN. [facility] 12-26-2023 Miscellaneous Notes Patient has been identified by name and date of : Yes Patient phones for refill(s): Requested Prescriptions Pending Prescriptions Disp Refills levothyroxine (LEVOXYL) 50 mcg tablet 90 tablet 3 Sig: Take 1 tablet by mouth once daily. Take on empty stomach. For Thyroid Date of last office visit in primary care: 08/11/2023 Date of next office visit in primary care: 02/23/2024 Please advise. Thank you. Fanny Stevens LPN. documented in this encounter [facility] 12-06-2023 History of Present illness Narrative Skin Biopsy Procedure Note Skin Biopsy Accession Number: [id number] Biopsy Date: 12/06/2023 Referring physician: Shahida Graf CNP UNIVERSAL PROTOCOL / SAFETY CHECKLIST Procedure to be Performed: skin nerve biopsy Sign In: A Moment of CARE was completed. Personnel directly involved with the procedure wore the appropriate PPE (Personal Protective Equipment). Patient/Surrogate Stated/Verified: PATIENT VERIFIED(optional for EMERGENT procedures): Patient name, Date of , Relevant allergies, and The intended procedure Time Out Communication: Intended patient and procedure match the source documents. Consent documented and matches the intended procedure. Sign Out: SIGN OUT (optional for EMERGENT procedures): All specimen containers correctly labeled. BREN Barber APRN.GWEN Sign in Pt ID verified with patient. Yes, by name and date. Is patient allergic to lidocaine, epinephrine, or bandage adhesive: No Is patient on anticoagulant medicine or blood thinners: No Does patient have a history of surgery on legs or feet: No Procedure verified with the patient: Yes, right leg biopsies, 2 sites. History 38 year old female with symptoms of numbness and tingling in BLE/BUE, face and occasionally back for 5 months is referred for skin biopsy to evaluate for possible small fiber neuropathy. Written aftercare was given and explained: Yes Patient verbally agrees to proceed with the procedure. Sign in completed: Yes Procedure Note Procedure confirmed with provider and network support administrator. Yes, right leg 2 skin biopsies. The procedure was discussed with the patient, including the risks, benefits, instruments and personnel involved in this procedure. All of the patient s questions were answered. Informed consent discussed and signed: Yes Audible time-out documented: Yes Procedure Start Time: 1459 Procedure: After the patient was placed in a lateral position the following biopsy sites were identified: right distal leg and right distal thigh. These sites were cleansed with Chloroprep and injected with 0.5cc 1% Lidocaine. Two skin biopsies were obtained using a 3mm biopsy punch and removed with the forceps and surgical blade technique. Bleeding was minimal and hemostasis was obtained by pressure. Sterile dressing was applied to each biopsy site. Audible sign out completed: All specimens labeled, no equipment issues. Procedure End Time: 1504 Patient tolerated procedure well, without complications. Patient was discharged home. Specimens were labeled and sent to [facility] Cutaneous Nerve Laboratory. Procedure was performed by: Shahida Graf APRN.GWEN Assistance in supply/equipment preparation performed by: GRACE Palomo, RN, BA (RN) Sign out is complete. documented in this encounter [facility] 12-06-2023 Note HNO ID: [id number] Author: SHAHIDA GRAF APRN.GWEN Service: ? Author Type: Nurse Practitioner Type: Progress Notes Filed: 12/06/2023 15:05 Note Text: Skin Biopsy Procedure Note Skin Biopsy Accession Number: [id number] Biopsy Date: 12/06/2023 Referring physician: Shahida Graf CNP UNIVERSAL PROTOCOL / SAFETY CHECKLIST Procedure to be Performed: skin nerve biopsy Sign In: A Moment of CARE was completed. Personnel directly involved with the procedure wore the appropriate PPE (Personal Protective Equipment). Patient/Surrogate Stated/Verified: PATIENT VERIFIED(optional for EMERGENT procedures): Patient name, Date of , Relevant allergies, and The intended procedure Time Out Communication: Intended patient and procedure match the source documents. Consent documented and matches the intended procedure. Sign Out: SIGN OUT (optional for EMERGENT procedures): All specimen containers correctly labeled. BREN Barber APRN.FOREST FIREFIGHTER Sign in Pt ID verified with patient. Yes, by name and date. Is patient allergic to lidocaine, epinephrine, or bandage adhesive: No Is patient on anticoagulant medicine or blood thinners: No Does patient have a history of surgery on legs or feet: No Procedure verified with the patient: Yes, right leg biopsies, 2 sites. History 38 year old female with symptoms of numbness and tingling in BLE/BUE, face and occasionally back for 5 months is referred for skin biopsy to evaluate for possible small fiber neuropathy. Written aftercare was given and explained: Yes Patient verbally agrees to proceed with the procedure. Sign in completed: Yes Procedure Note Procedure confirmed with provider and network support administrator. Yes, right leg 2 skin biopsies. The procedure was discussed with the patient, including the risks, benefits, instruments and personnel involved in this procedure. All of the patient?s questions were answered. Informed consent discussed and signed: Yes Audible time-out documented: Yes Procedure Start Time: 145 Procedure: After the patient was placed in a lateral position the following biopsy sites were identified: right distal leg and right distal thigh. These sites were cleansed with Chloroprep and injected with 0.5cc 1% Lidocaine. Two skin biopsies were obtained using a 3mm biopsy punch and removed with the forceps and surgical blade technique. Bleeding was minimal and hemostasis was obtained by pressure. Sterile dressing was applied to each biopsy site. Audible sign out completed: All specimens labeled, no equipment issues. Procedure End Time: 1504 Patient tolerated procedure well, without complications. Patient was discharged home. Specimens were labeled and sent to [facility] Cutaneous Nerve Laboratory. Procedure was performed by: Shahida Garf APRN.FOREST FIREFIGHTER Assistance in supply/equipment preparation performed by: Yany Mclean, ANNMARIEN, RN, BA (RN) Sign out is complete. [facility] 11-30-2023 Note HNO ID: [id number] Author: ERROL VENCES OD Service: ? Author Type: RIB CLOTH KNITTER Type: Progress Notes Filed: 11/30/2023 13:51 Note Text: 1. Left eye pain 2. Subjective visual disturbance Intermittent eye pain (left > right) with spots and lines in vision +worsens with exercise/rise in body temp per patient (Uhthoff's Phenomenon?) No swelling of disc 10/19/23 or today -normal visual field and normal OCT on 10/19/23 Normal ishihara color vision both eyes Suspect possible retro-bulbar changes but no changes or signs of optic neuritis on MRI orbits (11/13/23) Patient still notes dimming of vision on left side but vision is slightly improved Patient under care of neurology- will continue care 3. Myopia, bilateral 4. Regular astigmatism of both eyes Finalized spec rx Follow-up in 3 months for dilation and OCT nerve Errol Vences, CARROLL November 30, 2023 1:43 PM [facility] 11-30-2023 History of Present illness Narrative 1. Left eye pain 2. Subjective visual disturbance Intermittent eye pain (left > right) with spots and lines in vision +worsens with exercise/rise in body temp per patient (Uhthoff's Phenomenon?) No swelling of disc 10/19/23 or today -normal visual field and normal OCT on 10/19/23 Normal ishihara color vision both eyes Suspect possible retro-bulbar changes but no changes or signs of optic neuritis on MRI orbits (11/13/23) Patient still notes dimming of vision on left side but vision is slightly improved Patient under care of neurology- will continue care 3. Myopia, bilateral 4. Regular astigmatism of both eyes Finalized spec rx Follow-up in 3 months for dilation and OCT nerve Errol Vneces, CARROLL November 30, 2023 1:43 PM documented in this encounter [facility] 11-13-2023 History of Present illness Narrative Radiology Service Progress Note DATE OF SERVICE: November 13, 2023 TIME: 9:40 AM PATIENT IDENTITY VERIFICATION COMPLETED USING TWO (2) STANDARD IDENTIFIERS: Name and Date of confirmed by patient verbally. FALL SCREENING: Has the patient had 2 falls in the last year or 1 fall with injury or currently using an Ambulatory Assistive Device (Walker, Cane, Wheelchair, Crutches, etc.)? No PATIENT GENDER DATA: Female. status: : No status: NO. PATIENT RELEVANT IMPLANT DATA REVIEWED: Yes PATIENT PRESENTS WITH AN IMPLANTABLE OR ATTACHED WELFARE INTERVIEWER: No ALLERGIES: Reviewed and unchanged CONTRAST ALLERGY: NO. EXAM: MRI - CONTRAST TYPE: GROUP II PERIPHERAL IV DATA: Ambulatory: A peripheral IV was started in the Left upper extremity with a Angio cath: 22 gauge. RADIOLOGY DEPARTMENT: MR; Exam(s) Completed: Head: Orbit/Sinus Spine: Cervical spine and Thoracic spine SIGNATURE: YOANA Ceja) PATIENT NAME: Lucia Oropeza DATE: November 13, 2023 TIME: 9:40 AM documented in this encounter [facility] 11-13-2023 Note HNO ID: [id number] Author: ROHINI MACKEY RT (R) Service: ? Author Type: Technologist Type: Progress Notes Filed: 11/13/2023 09:40 Note Text: Radiology Service Progress Note DATE OF SERVICE: November 13, 2023 TIME: 9:40 AM PATIENT IDENTITY VERIFICATION COMPLETED USING TWO (2) STANDARD IDENTIFIERS: Name and Date of confirmed by patient verbally. FALL SCREENING: Has the patient had 2 falls in the last year or 1 fall with injury or currently using an Ambulatory Assistive Device (Walker, Cane, Wheelchair, Crutches, etc.)? No PATIENT GENDER DATA: Female. status: : No status: NO. PATIENT RELEVANT IMPLANT DATA REVIEWED: Yes PATIENT PRESENTS WITH AN IMPLANTABLE OR ATTACHED WELFARE INTERVIEWER: No ALLERGIES: Reviewed and unchanged CONTRAST ALLERGY: NO. EXAM: MRI - CONTRAST TYPE: GROUP II PERIPHERAL IV DATA: Ambulatory: A peripheral IV was started in the Left upper extremity with a Angio cath: 22 gauge. RADIOLOGY DEPARTMENT: MR; Exam(s) Completed: Head: Orbit/Sinus Spine: Cervical spine and Thoracic spine SIGNATURE: RT Brenna(R) PATIENT NAME: Lucia Oropeza DATE: November 13, 2023 TIME: 9:40 AM [facility] 11-02-2023 History of Present illness Narrative Images from the original note were not included. [facility] [place] Follow-up Visit Follow-up note November 02, 2023 HPI: Ms. Oropeza presents today for a follow-up visit. Per her previous visit on 09/08/23: R20.0, R20.2 Numbness and tingling (primary encounter diagnosis) H57.12 Left eye pain Comment: Pt presenting today for L eye pain and L facial/hand numbness. She reports that sx began as retro orbital pain roughly three weeks ago with progression to L facial numbness. She reports visual disturbance described as lines/spots as well as shadows. Due to persistence of symptoms she presented to the ED on 08/09/[address]/A brain and neck were completed and unremarkable. Symptoms have persisted since that time on L. She denies associated headache or migraine history and no notable weakness to face or hand. She does note that she is often bumping into things on L. Of note, she was previously following with ENT who completed MRI/A of brain in June d/t R ear pain and tinnitus. This has since improved with use of bite guard. Exam today is notable for L facial numbness as well as L tongue/buccal surface numbness and sensory deficits to pinprick and temperature as noted above. No focal weakness noted. Reflexes brisk in BLE with + 1 ankle clonus bilaterally. Question if symptoms secondary to migraine headache, though symptoms persist despite absence of eye pain and no notable migraine history. Additionally, given sensory deficits question possible central process such as demyelinating disease or CN enhancement. As previous MRI was completed 2 months ago prior to onset of symptoms, will repeat MRI brain WO/W to evaluate for aforementioned diagnoses. Additionally, consult placed to ophthalmology to evaluate for ocular pathology of pain. Lastly, lab work ordered as listed below to evaluate for underlying cause of paresthesias. Should imaging be unremarkable may consider treating as migraine headache with preventative medication and proceeding with further evaluation for paresthesias in extremities such as nerve testing (small/large fiber). Follow-up after testing is complete or sooner should new or changing symptoms occur. Saw ophthalmology in interim. Has MRI of orbit scheduled. Per ophthalmology on 10/19/23: 1. Left eye pain 2. Subjective visual disturbance Intermittent eye pain (left > right) with spots and lines in vision +worsens with exercise/rise in body temp per patient (Uhthoff's Phenomenon?) No swelling of disc, normal visual field and normal OCT Suspect possible retro-bulbar changes? Patient also notes dimming of vision on left side Patient under care of neurology- had normal MRI but no MRI done of orbits- will consult with neurology for possible coordination of MRI of orbits 3. Myopia, bilateral 4. Regular astigmatism of both eyes Continue with current glasses Recommend follow-up with me in 6 weeks and neurology as scheduled Went back to work this week; sitting at desk. Over the last week has been getting cold radiating sx over the middle of her back. Multiple times per day mostly when sitting. Also notes itching when active. Neck, arms, legs. Lasts for some time after working out. Feels sx in thoracic region. Radiates to flank but not to front. No squeezing sensation in abdomen/torso. A couple months would have tightness in chest when just resting in bed. When exercising eye sx get worse. No improvement. Only pain behind eye. Will be following up with opthalmology for L vision loss. Still noting lines/colors/spots; worse when active. Pain not worse when active. In her mouth she has been getting an abnormal taste; happens even when not eating the last 2-3 days. Tongue feels thick and heavy. She did fall and trip over her L foot. Happened out of nowhere. Was walking her dogs and finished walk ok. No b/b changes. No saddle anesthesia. Feet hurt in the AM or when sitting for some time. Hands have been painful as well. Occasional dizziness over the past week. Spinning sensation. PAST MEDICAL HISTORY No date: Graves disease Comment: Has not been on medicaiton since 2009 No date: Hyperlipidemia PAST SURGICAL HISTORY 06/24/2021: EGD W/O BRS SPEC VARICIES INJ 2016: LAP UMBILICAL HERNIA REPAIR Current Outpatient Medications on File Prior to Visit Medication Sig escitalopram oxalate (LEXAPRO) 10 mg tablet Take 1 tablet by mouth for 21 days. Then take 2 tablets by mouth for 7 days (week before menses) levothyroxine (LEVOXYL) 50 mcg tablet Take 1 tablet by mouth once daily. Take on empty stomach. For Thyroid No current facility-administered medications on file prior to visit. Social History Tobacco Use Smoking status: Never Smokeless tobacco: Never Vaping Use Vaping Use: Never used Substance Use Topics Alcohol use: Yes Comment: occasionally Drug use: No ALLERGIES No Known Allergies Review of Systems: Constitutional: denies fever, weight loss, + loss of appetite ENT: denies loss of hearing (R ear Dec), vertigo Vision: denies double vision/diplopia Dermatologic: + rash (one month) Cardiopulmonary: denies chest pain, palpitations Respiratory: denies shortness of breath GI: denies recent + nausea, vomiting, diarrhea, constipation : denies incontinence Psych: denies depression, + anxiety (not worse at onset of sx) Sleep: denies issues with sleeping Musculoskeletal: denies weakness Neuro: denies tremors, loss of feeling, dizziness, seizure, blackout, + paresthesia, + facial paresthesia, facial weakness, difficulty in speech, slurring of words, dysarthria, dysphagia, memory loss, + headache (eye pain) Physical Exam: 11/02/23 1129 BP: 119/87 Pulse: 98 SpO2: 100% Weight: 68.9 kg (151 lb 14.4 oz) Patient is alert and in no distress. Dress is appropriate. Mood is appropriate Breathing appears regular and unstressed Neurologic examination: Cognitively intact. No deficits. No formal MOCA performed. CN: Pupils equal and reactive to light, extraocular movements intact with no nystagmus, face is symmetric with no facial droop, facial sensation decreased to light touch. R V1-2 (decreased to bilateral tongue and intact in buccal surface), hearing intact bilaterally, symmetric evaluation of the soft palate, tongue is midline with no deviation, shoulder shrug is symmetric. Motor Examination: Right Upper Extremity: (of 5) Left Upper Extremity: (of 5) Shoulder Abduction: Deltoid (Ax/C5) 5 Shoulder Abduction 5 Elbow Flexion: Biceps (MC/R and C5/6) 5 Elbow Flexion 5 Elbow Extension: Triceps (R/C7) 5 Elbow Extension 5 Wrist Flexion (M/U and C6/7) 5 Wrist Flexion 5 Wrist Extension (R/C6) 5 Wrist Extension 5 Finger Abduction (U/T1) 5 Finger Abduction 5 Pony Worker 5 Pony Worker 5 Right Lower Extremity: (of 5) Left Lower Extremity: (of 5) Hip Flexion: Iliopsoas (F and L1/2) 5 Hip Flexion 5 Knee Extension: Quadriceps (F and L3/4) 5 Knee Extension 5 Knee Flexion: Hamstrings (S/S1) 5 Knee Flexion 5 Dorsiflexion: Tibialis Anterior (DP and L4/5) 5 Dorsiflexion 5 Plantarflexion: Gastrocnemius/Soleus (T and S1/2) 5 Plantarflexion 5 Reflexes: Right Extremities Left Lower Extremities: Triceps (C7-8R) 2+ Triceps 2+ Biceps (C5-6MC) 2+ Biceps 2+ Brachioradialis (C5-6R) 2+ Brachioradialis 2+ Patellar (L3-4F) 2+ Patellar 2+ Achilles (S1-2S) 2+ Achilles 2+ Ankle Clonus: +1 bilaterally Prieto's: + R Sensory Dec to light touch in RUE Pinprick: Decreased in both feet R>L Temperature: Decreased to LLE and RLE in both feet Normal toe and finger vibratory sensation Coordination: No dysmetria on finger to nose. No tremors noted. No drift seen. Gait normal in stance and pattern. Tandem without imbalance. Negative Romberg. Labs/studies: MRI Report MRI BRAIN WO/W IVCON Exam End: 10/17/2023 10:02 AM (Final result) Narrative: * * *Final Report* * * DATE OF EXAM: Oct 17 2023 9:55AM [facility] 0295 - MRI BRAIN WO/W IVCON / PROCEDURE REASON: Demyelinating disease of central nervous system (HCC) * * * * Physician Interpretation * * * * EXAMINATION: MRI BRAIN WO/W IVCON HISTORY: Demyelinating disease of central nervous system TECHNIQUE: MRI brain demyelination protocol without and with contrast. M: [id number] MR Contrast: Dotarem Contrast Dose: 14 cc Route of Administration: IV COMPARISON: MRI brain 07/12/2023 RESULT: Acute Change: No evidence of an acute intracranial process. Hemorrhage: No evidence of prior parenchymal hemorrhage within the constraints of the acquisition. Mass Lesion/ Mass Effect: No evidence of an intracranial mass, abnormal enhancement, extra-axial fluid collection, or significant localized mass effect. Chronic Change: The white matter is within normal limits of signal intensity for age. Parenchyma: No significant parenchymal volume loss for age. Ventricles: Normal caliber and morphology. Skull Base: Hypothalamic and pituitary region are grossly normal. Craniocervical junction is normal. No significant marrow replacement process. Vasculature: Major intracranial arteries and dural venous sinuses demonstrate typical flow voids, suggesting patency by spin echo criteria. Other: The paranasal sinuses and mastoid air cells are clear. The orbits and extracranial soft tissues are unremarkable. Impression: IMPRESSION: Age-appropriate unremarkable brain without acute findings, abnormal enhancement, or evidence of prior demyelination. Dietetic Intern: JEANNE Transcribe Date/Time: Oct 17 2023 10:10A Dictated by : ELANA XAVIER MD This examination was interpreted and the report reviewed and electronically signed by: ELANA XAVIER MD on Oct 17 2023 10:13AM EST Latest Ref Rng 05/05/2023 TSH 0.270 - 4.200 mIU/L 1.170 Free T4 0.9 - 1.7 ng/dL 1.2 Free T3 2.3 - 4.1 pg/mL 2.7 CTA Head/Neck 08/09/23: FINDINGS: HEAD: RIGHT ANTERIOR CEREBRAL ARTERY: Unremarkable. No occlusion or significant stenosis. Anterior communicating artery is present. No aneurysm. RIGHT MIDDLE CEREBRAL ARTERY: Unremarkable. No occlusion or significant stenosis. No aneurysm. RIGHT POSTERIOR CEREBRAL ARTERY: Arises primarily from the right internal carotid artery.. No occlusion or significant stenosis. No aneurysm. RIGHT INTRACRANIAL INTERNAL CAROTID ARTERY: Unremarkable. No significant stenosis. No dissection or occlusion. RIGHT INTRACRANIAL VERTEBRAL ARTERY: Unremarkable. No significant stenosis. No dissection or occlusion. LEFT ANTERIOR CEREBRAL ARTERY: Unremarkable. No occlusion or significant stenosis. No aneurysm. LEFT MIDDLE CEREBRAL ARTERY: Unremarkable. No occlusion or significant stenosis. No aneurysm. LEFT POSTERIOR CEREBRAL ARTERY: Unremarkable. No occlusion or significant stenosis. No aneurysm. LEFT INTRACRANIAL INTERNAL CAROTID ARTERY: Unremarkable. No significant stenosis. No dissection or occlusion. LEFT INTRACRANIAL VERTEBRAL ARTERY: Unremarkable. No significant stenosis. No dissection or occlusion. BASILAR ARTERY: Unremarkable. No occlusion or significant stenosis. No aneurysm. OTHER VASCULATURE: No vascular malformation. BRAIN AND EXTRA-AXIAL SPACES: Unremarkable. No intra- or extra-axial hemorrhage. No evidence of acute infarct. No intracranial mass or mass effect. There is preservation of the celaya/white matter interface. Posterior fossa structures are unremarkable. Ventricles are appropriate for age. No hydrocephalus. Basal cisterns are patent. SINUSES: Unremarkable as visualized. Clear. MASTOID AIR CELLS: Unremarkable as visualized. Clear. ORBITS: Visualized globes, extraocular muscles, optic nerves and retrobulbar fat appear unremarkable. NECK: RIGHT COMMON CAROTID ARTERY: Unremarkable. No significant stenosis. No dissection or occlusion. RIGHT EXTRACRANIAL INTERNAL CAROTID ARTERY: Unremarkable. No significant stenosis. No dissection or occlusion. RIGHT EXTERNAL CAROTID ARTERY: Unremarkable. No occlusion. RIGHT EXTRACRANIAL VERTEBRAL ARTERY: Unremarkable. No significant stenosis. No dissection or occlusion. LEFT COMMON CAROTID ARTERY: Unremarkable. No significant stenosis. No dissection or occlusion. LEFT EXTRACRANIAL INTERNAL CAROTID ARTERY: Unremarkable. No significant stenosis. No dissection or occlusion. LEFT EXTERNAL CAROTID ARTERY: Unremarkable. No occlusion. LEFT EXTRACRANIAL VERTEBRAL ARTERY: Unremarkable. No significant stenosis. No dissection or occlusion. BRACHIOCEPHALIC AND SUBCLAVIAN ARTERIES: Unremarkable as visualized. No occlusion or significant stenosis. LUNG APICES: Unremarkable as visualized. HEAD and NECK: BONES/JOINTS: Unremarkable. No discrete lytic or blastic abnormalities. SOFT TISSUES: Unremarkable. IMPRESSION: Negative CTA carotid and CTA brain. 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 Impression 1. Normal brain. 2. Normal intracranial circulation. Assessment/Plan: R20.0, R20.2 Numbness and tingling (primary encounter diagnosis) H57.12 Left eye pain Comment: Pt previously seen for L eye pain and L facial/hand numbness.Sx began as retro-orbital pain in July with progression to L facial numbness. She also reported visual disturbance described as lines/spots as well as shadows. CT/A brain and neck were completed in the ED on 08/09/2023 and unremarkable. Of note, she also underwent MRI/A of the brain in 07/18 d/R ear pain and tinnitus. In interim, MRI brain WO/W completed to evaluate for central process such as demyelinating disease or CN enhancement. Results unremarkable for etiology. Consult was also placed to ophthalmology to evaluate for ocular pathology of pain. Concern for Utthoff's phenomenon and recommendation was made for MRI orbits which has since been ordered and is scheduled for 11/12. Lab work also completed and with positive HOPE but unremarkable reflex panel. Remaining lab work WNL. Since the time of her previous appointment she has experienced additional symptoms including paresthesias to region of T-spine as well as itching sensation throughout all extremities. Symptoms to L face and eye persist. Exam today is mostly unchanged from time of previous appointment and noting brisk reflexes, positive Aly's, ankle clonus bilaterally. Today she reports decreased sensation in R face, bilateral tongue, and pinprick and temperature changes as noted above (slightly altered from exam at time of previous appointment). Given ongoing and worsening symptoms, will proceed with MRI C-spine and T-spine WO/W to further evaluate for process such as demyelinating disease. Should imaging be unremarkable would consider SFN workup including skin biopsy. Order placed at this time and she will schedule for after MRI is complete. Should MRI be unremarkable she will proceed with testing. Office Visit on 11/02/23 SKIN BIOPSY FOR NEUROPATHY/CNL MRI CERVICAL SPINE WO/W IVCON MRI THORACIC SPINE WO/W IVCON Shahida Graf APRN.GWEN I spent a total of 40 minutes on the date of the service which included preparing to see the patient, [id number] patient care, completing clinical documentation, obtaining and/or reviewing separately obtained history, performing a medically appropriate examination, counseling and educating the patient/family/caregiver, and ordering medications, tests, or procedures. documented in this encounter [facility] 11-02-2023 Note HNO ID: [id number] Author: SHAHIDA GRAF APRN.GWEN Service: ? Author Type: Nurse Practitioner Type: Progress Notes Filed: 11/02/2023 15:22 Note Text: [facility] [place] Follow-up Visit Follow-up note November 02, 2023 HPI: Ms. Oropeza presents today for a follow-up visit. Per her previous visit on 09/08/23: R20.0, R20.2 Numbness and tingling (primary encounter diagnosis) H57.12 Left eye pain Comment: Pt presenting today for L eye pain and L facial/hand numbness. She reports that sx began as retro orbital pain roughly three weeks ago with progression to L facial numbness. She reports visual disturbance described as lines/spots as well as shadows. Due to persistence of symptoms she presented to the ED on 08/09/[address]/A brain and neck were completed and unremarkable. Symptoms have persisted since that time on L. She denies associated headache or migraine history and no notable weakness to face or hand. She does note that she is often bumping into things on L. Of note, she was previously following with ENT who completed MRI/A of brain in June d/t R ear pain and tinnitus. This has since improved with use of bite guard. Exam today is notable for L facial numbness as well as L tongue/buccal surface numbness and sensory deficits to pinprick and temperature as noted above. No focal weakness noted. Reflexes brisk in BLE with + 1 ankle clonus bilaterally. Question if symptoms secondary to migraine headache, though symptoms persist despite absence of eye pain and no notable migraine history. Additionally, given sensory deficits question possible central process such as demyelinating disease or CN enhancement. As previous MRI was completed 2 months ago prior to onset of symptoms, will repeat MRI brain WO/W to evaluate for aforementioned diagnoses. Additionally, consult placed to ophthalmology to evaluate for ocular pathology of pain. Lastly, lab work ordered as listed below to evaluate for underlying cause of paresthesias. Should imaging be unremarkable may consider treating as migraine headache with preventative medication and proceeding with further evaluation for paresthesias in extremities such as nerve testing (small/large fiber). Follow-up after testing is complete or sooner should new or changing symptoms occur. Saw ophthalmology in interim. Has MRI of orbit scheduled. Per ophthalmology on 10/19/23: 1. Left eye pain 2. Subjective visual disturbance Intermittent eye pain (left > right) with spots and lines in vision +worsens with exercise/rise in body temp per patient (Uhthoff's Phenomenon?) No swelling of disc, normal visual field and normal OCT Suspect possible retro-bulbar changes? Patient also notes dimming of vision on left side Patient under care of neurology- had normal MRI but no MRI done of orbits- will consult with neurology for possible coordination of MRI of orbits 3. Myopia, bilateral 4. Regular astigmatism of both eyes Continue with current glasses Recommend follow-up with me in 6 weeks and neurology as scheduled Went back to work this week; sitting at desk. Over the last week has been getting cold radiating sx over the middle of her back. Multiple times per day mostly when sitting. Also notes itching when active. Neck, arms, legs. Lasts for some time after working out. Feels sx in thoracic region. Radiates to flank but not to front. No squeezing sensation in abdomen/torso. A couple months would have tightness in chest when just resting in bed. When exercising eye sx get worse. No improvement. Only pain behind eye. Will be following up with opthalmology for L vision loss. Still noting lines/colors/spots; worse when active. Pain not worse when active. In her mouth she has been getting an abnormal taste; happens even when not eating the last 2-3 days. Tongue feels thick and heavy. She did fall and trip over her L foot. Happened out of nowhere. Was walking her dogs and finished walk ok. No b/b changes. No saddle anesthesia. Feet hurt in the AM or when sitting for some time. Hands have been painful as well. Occasional dizziness over the past week. Spinning sensation. PAST MEDICAL HISTORY No date: Graves disease Comment: Has not been on medicaiton since 2009 No date: Hyperlipidemia PAST SURGICAL HISTORY 06/24/2021: EGD W/O [facility] SPEC VARICIES INJ 2016: LAP UMBILICAL HERNIA REPAIR Current Outpatient Medications on File Prior to Visit Medication Sig escitalopram oxalate (LEXAPRO) 10 mg tablet Take 1 tablet by mouth for 21 days. Then take 2 tablets by mouth for 7 days (week before menses) levothyroxine (LEVOXYL) 50 mcg tablet Take 1 tablet by mouth once daily. Take on empty stomach. For Thyroid No current facility-administered medications on file prior to visit. Social History Tobacco Use Smoking status: Never Smokeless tobacco: Never Vaping Use Vaping Use: Never used Substance Use Topics Al (more content not included)... [facility] 10-23-2023 Telephone encounter Note Images from the original note were not included. Shahida Graf APRN.CNP [facility] Please let patient know that I spoke with her medical planner. She recommended proceeding with an MRI of the orbit for further evaluation as this may show some subtle changes that are not seen on the MRI brain. The order has been entered and testing can be scheduled at her earliest convenience. Thank you! Shahida Graf APRN.CNP Spoke to patient who was advised of provider's message and verbalized understanding. She will schedule the MRI today. [facility] 10-23-2023 Miscellaneous Notes Images from the original note were not included. Shahida Graf APRN.CNP [facility] Please let patient know that I spoke with her medical planner. She recommended proceeding with an MRI of the orbit for further evaluation as this may show some subtle changes that are not seen on the MRI brain. The order has been entered and testing can be scheduled at her earliest convenience. Thank you! Shahida Graf APRN.CNP Spoke to patient who was advised of provider's message and verbalized understanding. She will schedule the MRI today. documented in this encounter [facility] 10-19-2023 Note HNO ID: [id number] Author: ERROL VENCES OD Service: ? Author Type: RIB CLOTH KNITTER Type: Progress Notes Filed: 10/19/2023 10:40 Note Text: 1. Left eye pain 2. Subjective visual disturbance Intermittent eye pain (left > right) with spots and lines in vision +worsens with exercise/rise in body temp per patient (Uhthoff's Phenomenon?) No swelling of disc, normal visual field and normal OCT Suspect possible retro-bulbar changes? Patient also notes dimming of vision on left side Patient under care of neurology- had normal MRI but no MRI done of orbits- will consult with neurology for possible coordination of MRI of orbits 3. Myopia, bilateral 4. Regular astigmatism of both eyes Continue with current glasses Recommend follow-up with me in 6 weeks and neurology as scheduled Errol Vences, OD October 19, 2023 10:29 AM [facility] 10-19-2023 History of Present illness Narrative 1. Left eye pain 2. Subjective visual disturbance Intermittent eye pain (left > right) with spots and lines in vision +worsens with exercise/rise in body temp per patient (Uhthoff's Phenomenon?) No swelling of disc, normal visual field and normal OCT Suspect possible retro-bulbar changes? Patient also notes dimming of vision on left side Patient under care of neurology- had normal MRI but no MRI done of orbits- will consult with neurology for possible coordination of MRI of orbits 3. Myopia, bilateral 4. Regular astigmatism of both eyes Continue with current glasses Recommend follow-up with me in 6 weeks and neurology as scheduled Errol Vences, OD October 19, 2023 10:29 AM documented in this encounter [facility] 10-19-2023 Note Date of Procedure 10/19/2023. Paper Products Machine Operator Information Adolescent Counselor: THOMAS. Start time: 8:48 AM. Stop time: 8:48 AM. Quality Right Eye Good. Left Eye Good. NFL Interpretation Right Eye Normal. Left Eye Normal. Ganglion Cell Layer Thickness Right Eye Normal. Left Eye Normal. Interval Change Right Eye Initial. Left Eye Initial. [facility] 10-19-2023 Note Date of Procedure 10/19/2023. Paper Products Machine Operator Information Adolescent Counselor: THOMAS. Start time: 9:30 AM. Stop time: 9:37 AM. Reliability Right Eye Good. Left Eye Good. Interpretation Right Eye Normal. Left Eye Normal. Interval Change Right Eye Initial. Left Eye Initial. [facility] 10-17-2023 History of Present illness Narrative Radiology Service Progress Note DATE OF SERVICE: October 17, 2023 TIME: 9:20 AM PATIENT IDENTITY VERIFICATION COMPLETED USING TWO (2) STANDARD IDENTIFIERS: Name and Date of confirmed by patient verbally. FALL SCREENING: Has the patient had 2 falls in the last year or 1 fall with injury or currently using an Ambulatory Assistive Device (Walker, Cane, Wheelchair, Crutches, etc.)? No PATIENT GENDER DATA: Female. status: : No status: NO. PATIENT RELEVANT IMPLANT DATA REVIEWED: Yes PATIENT PRESENTS WITH AN IMPLANTABLE OR ATTACHED WELFARE INTERVIEWER: No ALLERGIES: Reviewed and unchanged CONTRAST ALLERGY: NO. EXAM: MRI - CONTRAST TYPE: GROUP II PERIPHERAL IV DATA: Ambulatory: A peripheral IV was started in the Left antecubital site with a Angio cath: 22 gauge. RADIOLOGY DEPARTMENT: MR; Exam(s) Completed: Head: Multiple Sclerosis SIGNATURE: RT Brenna(Giacomo) PATIENT NAME: Lucia Oropeza DATE: October 17, 2023 TIME: 9:20 AM documented in this encounter [facility] 10-17-2023 Note HNO ID: [id number] Author: ROHINI MACKEY RT (R) Service: ? Author Type: Technologist Type: Progress Notes Filed: 10/17/2023 09:21 Note Text: Radiology Service Progress Note DATE OF SERVICE: October 17, 2023 TIME: 9:20 AM PATIENT IDENTITY VERIFICATION COMPLETED USING TWO (2) STANDARD IDENTIFIERS: Name and Date of confirmed by patient verbally. FALL SCREENING: Has the patient had 2 falls in the last year or 1 fall with injury or currently using an Ambulatory Assistive Device (Walker, Cane, Wheelchair, Crutches, etc.)? No PATIENT GENDER DATA: Female. status: : No status: NO. PATIENT RELEVANT IMPLANT DATA REVIEWED: Yes PATIENT PRESENTS WITH AN IMPLANTABLE OR ATTACHED WELFARE INTERVIEWER: No ALLERGIES: Reviewed and unchanged CONTRAST ALLERGY: NO. EXAM: MRI - CONTRAST TYPE: GROUP II PERIPHERAL IV DATA: Ambulatory: A peripheral IV was started in the Left antecubital site with a Angio cath: 22 gauge. RADIOLOGY DEPARTMENT: MR; Exam(s) Completed: Head: Multiple Sclerosis SIGNATURE: RT Brenna(Giacomo) PATIENT NAME: Lucia Oropeza DATE: October 17, 2023 TIME: 9:20 AM [facility] 09-08-2023 History of Present illness Narrative Images from the original note were not included. [facility] [place] New Patient Evaluation CHIEF COMPLAINT: Facial numbness/hand numbness Lucia Oropeza is a 38 year old accompanied by self. Consult was requested by Dr. Lorenzo for an opinion regarding above CC. My final impression and recommendations will be communicated back to the requesting physician by way of the shared medical record or fax. September 08, 2023 HPI: Ms. Oropeza presents today secondary to issues of facial numbness/hand numbness/eye pain. She states that sx began three weeks as pain behind her eye. L face became numb. Was also seeing lines/spots in vision. Numbness did not resolve so she went to ED where CT was completed. This past week had pain behind her eye. Initially thought this was r/t sinuses. Over the past year had the pain. Followed up with PCP after. Per ED note from [facility] on 08/09/23: Medical decision making narrative: 38-year-old female with headache yesterday and today with atypical numbness. She has normal neurologic exam. This may have been a migraine yesterday. Todayit may be secondary to anxiety. Because of her headache her neurological symptoms even though she has normal neurologic exam and her right-sided neck pain I will do a CT and CTA of her head and neck. Screening labs will be obtained. Repeat exam at 10:07 PM neurologic exam remains normal. Patient is clinically doing well. Gone over her labs and EKG with her awaiting the formal reading of the CT a of the head and neck. I did review it I do not see any acute abnormality but of course and waiting for the formal radiologist interpretation. Clinical Impression: Headache, migraine, Facial paresthesia, History of anxiety Activity Restrictions/Additional Instructions: Plenty of fluids and rest. Motrin and Tylenol for any pain. Follow-up with your doctor if not improving. Your labs, EKG and CAT scans were all normal. Did have an MRI in 07/18 for ear pain and whooshing in R ear. Was felt to be TMJ. This has since improved since using night guards. No whooshing L ear. No migraine or headache hx. No family hx of migraine. Just L facial pain. Numbness from eye down; lips involved. L should and hand numb. Sx are intermittent. Tried tracking and no known trigger. Can happen when sitting or mowing lawn. Lasts from 30 min to all day. Has tried Tylenol and ibuprofen which did not help. Has not yet seen an eye doctor. Has seen within the past year. Denies neck pain. Both hands numb. No bright lights but does see shadows. Independent of numbness. Dots are constant. Shadows occur intermittently. Few times per week. No shade over eye. Eye pain separate and more with numbness. No double vision. No loss of vision. No changes in taste or smell. No facial weakness. No speech changes. No weakness in extremities. Feels like she runs into things more with her leg. Not lifting as much. Not tripping over foot. No b/b changes. No falls. No neuro hx. No family neuro hx. Personal hx of Graves ds and mother with Eron. Mother with fibro. No recent med changes, illness. Last head injury 17 years ago. No vit def, DM. No recent [place] rash or heavy metal exposure. Alcohol: Socially Tobacco: Denies Drug: Denies PAST MEDICAL HISTORY Diagnosis Date Graves disease Has not been on medicaiton since 2009 Hyperlipidemia PAST SURGICAL HISTORY Procedure Laterality Date EGD W/O [facility] SPEC VARICIES INJ 06/24/2021 LAP UMBILICAL HERNIA REPAIR 2016 Current Outpatient Medications on File Prior to Visit Medication Sig escitalopram oxalate (LEXAPRO) 10 mg tablet Take 1 tablet by mouth for 21 days. Then take 2 tablets by mouth for 7 days (week before menses) levothyroxine (LEVOXYL) 50 mcg tablet Take 1 tablet by mouth once daily. Take on empty stomach. For Thyroid No current facility-administered medications on file prior to visit. Social History Tobacco Use Smoking status: Never Smokeless tobacco: Never Vaping Use Vaping Use: Never used Substance Use Topics Alcohol use: Yes Comment: occasionally Drug use: No ALLERGIES No Known Allergies Review of Systems: Constitutional: denies fever, weight loss, + loss of appetite ENT: denies loss of hearing (R ear Dec), vertigo Vision: denies double vision/diplopia Dermatologic: + rash (one month) Cardiopulmonary: denies chest pain, palpitations Respiratory: denies shortness of breath GI: denies recent + nausea, vomiting, diarrhea, constipation : denies incontinence Psych: denies depression, + anxiety (not worse at onset of sx) Sleep: denies issues with sleeping Musculoskeletal: denies weakness Neuro: denies tremors, loss of feeling, dizziness, seizure, blackout, + paresthesia, + facial paresthesia, facial weakness, difficulty in speech, slurring of words, dysarthria, dysphagia, memory loss, + headache (eye pain) Physical Exam: 09/08/23 0851 BP: 133/90 BP Site: Left Arm BP Position: Sitting BP Cuff Size: Regular Adult Pulse: 90 SpO2: 100% Weight: 70.1 kg (154 lb 8.7 oz) Height: 157.5 cm (5' 2) Patient is alert and in no distress. Dress is appropriate. Mood is appropriate Breathing appears regular and unstressed Neurologic examination: Cognitively intact. No deficits. No formal MOCA performed. CN: Pupils equal and reactive to light, extraocular movements intact with no nystagmus, face is symmetric with no facial droop, facial sensation decreased to light touch. L V1-2 (decreased to L tongue and L buccal surface), hearing intact bilaterally, symmetric evaluation of the soft palate, tongue is midline with no deviation, shoulder shrug is symmetric. Motor Examination: Right Upper Extremity: (of 5) Left Upper Extremity: (of 5) Shoulder Abduction: Deltoid (Ax/C5) 5 Shoulder Abduction 5 Elbow Flexion: Biceps (MC/R and C5/6) 5 Elbow Flexion 5 Elbow Extension: Triceps (R/C7) 5 Elbow Extension 5 Wrist Flexion (M/U and C6/7) 5 Wrist Flexion 5 Wrist Extension (R/C6) 5 Wrist Extension 5 Finger Abduction (U/T1) 5 Finger Abduction 5 Pony Worker 5 Pony Worker 5 Right Lower Extremity: (of 5) Left Lower Extremity: (of 5) Hip Flexion: Iliopsoas (F and L1/2) 5 Hip Flexion 5 Knee Extension: Quadriceps (F and L3/4) 5 Knee Extension 5 Knee Flexion: Hamstrings (S/S1) 5 Knee Flexion 5 Dorsiflexion: Tibialis Anterior (DP and L4/5) 5 Dorsiflexion 5 Plantarflexion: Gastrocnemius/Soleus (T and S1/2) 5 Plantarflexion 5 Reflexes: Right Extremities Left Lower Extremities: Triceps (C7-8R) 2 Triceps 2 Biceps (C5-6MC) 2 Biceps 2 Brachioradialis (C5-6R) 2 Brachioradialis 2 Patellar (L3-4F) 2+ Patellar 2+ Achilles (S1-2S) 2+ Achilles 2+ Ankle Clonus: negative bilaterally Prieto's: +1 bilaterally Sensory Intact to light touch upper and lower extremities bilaterally Pinprick: Decreased in arms compared to BLE Temperature: Decreased to LLE Normal proprioception (toe position) Normal toe and finger vibratory sensation No temporal pain with palpation. Coordination: No dysmetria on finger to nose. No tremors noted. No drift seen. Gait normal in stance and pattern. Tandem without imbalance. Negative Romberg. Labs/studies: Latest Ref Rng 05/05/2023 TSH 0.270 - 4.200 mIU/L 1.170 Free T4 0.9 - 1.7 ng/dL 1.2 Free T3 2.3 - 4.1 pg/mL 2.7 CTA Head/Neck 08/09/23: FINDINGS: HEAD: RIGHT ANTERIOR CEREBRAL ARTERY: Unremarkable. No occlusion or significant stenosis. Anterior communicating artery is present. No aneurysm. RIGHT MIDDLE CEREBRAL ARTERY: Unremarkable. No occlusion or significant stenosis. No aneurysm. RIGHT POSTERIOR CEREBRAL ARTERY: Arises primarily from the right internal carotid artery.. No occlusion or significant stenosis. No aneurysm. RIGHT INTRACRANIAL INTERNAL CAROTID ARTERY: Unremarkable. No significant stenosis. No dissection or occlusion. RIGHT INTRACRANIAL VERTEBRAL ARTERY: Unremarkable. No significant stenosis. No dissection or occlusion. LEFT ANTERIOR CEREBRAL ARTERY: Unremarkable. No occlusion or significant stenosis. No aneurysm. LEFT MIDDLE CEREBRAL ARTERY: Unremarkable. No occlusion or significant stenosis. No aneurysm. LEFT POSTERIOR CEREBRAL ARTERY: Unremarkable. No occlusion or significant stenosis. No aneurysm. LEFT INTRACRANIAL INTERNAL CAROTID ARTERY: Unremarkable. No significant stenosis. No dissection or occlusion. LEFT INTRACRANIAL VERTEBRAL ARTERY: Unremarkable. No significant stenosis. No dissection or occlusion. BASILAR ARTERY: Unremarkable. No occlusion or significant stenosis. No aneurysm. OTHER VASCULATURE: No vascular malformation. BRAIN AND EXTRA-AXIAL SPACES: Unremarkable. No intra- or extra-axial hemorrhage. No evidence of acute infarct. No intracranial mass or mass effect. There is preservation of the celaya/white matter interface. Posterior fossa structures are unremarkable. Ventricles are appropriate for age. No hydrocephalus. Basal cisterns are patent. SINUSES: Unremarkable as visualized. Clear. MASTOID AIR CELLS: Unremarkable as visualized. Clear. ORBITS: Visualized globes, extraocular muscles, optic nerves and retrobulbar fat appear unremarkable. NECK: RIGHT COMMON CAROTID ARTERY: Unremarkable. No significant stenosis. No dissection or occlusion. RIGHT EXTRACRANIAL INTERNAL CAROTID ARTERY: Unremarkable. No significant stenosis. No dissection or occlusion. RIGHT EXTERNAL CAROTID ARTERY: Unremarkable. No occlusion. RIGHT EXTRACRANIAL VERTEBRAL ARTERY: Unremarkable. No significant stenosis. No dissection or occlusion. LEFT COMMON CAROTID ARTERY: Unremarkable. No significant stenosis. No dissection or occlusion. LEFT EXTRACRANIAL INTERNAL CAROTID ARTERY: Unremarkable. No significant stenosis. No dissection or occlusion. LEFT EXTERNAL CAROTID ARTERY: Unremarkable. No occlusion. LEFT EXTRACRANIAL VERTEBRAL ARTERY: Unremarkable. No significant stenosis. No dissection or occlusion. BRACHIOCEPHALIC AND SUBCLAVIAN ARTERIES: Unremarkable as visualized. No occlusion or significant stenosis. LUNG APICES: Unremarkable as visualized. HEAD and NECK: BONES/JOINTS: Unremarkable. No discrete lytic or blastic abnormalities. SOFT TISSUES: Unremarkable. IMPRESSION: Negative CTA carotid and CTA brain. 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 Impression 1. Normal brain. 2. Normal intracranial circulation. Assessment/Plan: R20.0, R20.2 Numbness and tingling (primary encounter diagnosis) H57.12 Left eye pain Comment: Pt presenting today for L eye pain and L facial/hand numbness. She reports that sx began as retro orbital pain roughly three weeks ago with progression to L facial numbness. She reports visual disturbance described as lines/spots as well as shadows. Due to persistence of symptoms she presented to the ED on 08/09/[address]/A brain and neck were completed and unremarkable. Symptoms have persisted since that time on L. She denies associated headache or migraine history and no notable weakness to face or hand. She does note that she is often bumping into things on L. Of note, she was previously following with ENT who completed MRI/A of brain in June d/t R ear pain and tinnitus. This has since improved with use of bite guard. Exam today is notable for L facial numbness as well as L tongue/buccal surface numbness and sensory deficits to pinprick and temperature as noted above. No focal weakness noted. Reflexes brisk in BLE with + 1 ankle clonus bilaterally. Question if symptoms secondary to migraine headache, though symptoms persist despite absence of eye pain and no notable migraine history. Additionally, given sensory deficits question possible central process such as demyelinating disease or CN enhancement. As previous MRI was completed 2 months ago prior to onset of symptoms, will repeat MRI brain WO/W to evaluate for aforementioned diagnoses. Additionally, consult placed to ophthalmology to evaluate for ocular pathology of pain. Lastly, lab work ordered as listed below to evaluate for underlying cause of paresthesias. Should imaging be unremarkable may consider treating as migraine headache with preventative medication and proceeding with further evaluation for paresthesias in extremities such as nerve testing (small/large fiber). Follow-up after testing is complete or sooner should new or changing symptoms occur. Office Visit on 09/08/23 MRI BRAIN WO/W IVCON VITAMIN B1 (THIAMINE), WHOLE BLOOD VITAMIN B6/PYRIDOXIN VITAMIN B12 HOPE BY IFA WITH REFLEX CONSULT TO NEUROLOGY CONSULT TO OPHTHALMOLOGY Shahida Graf APRN.GWEN I spent a total of 60 minutes on the date of the service which included preparing to see the patient, [id number] patient care, completing clinical documentation, obtaining and/or reviewing separately obtained history, performing a medically appropriate examination, counseling and educating the patient/family/caregiver, and ordering medications, tests, or procedures. Portions of this note were created with electronic dictation and errors in spelling, syntax, and meaning may have occurred. documented in this encounter [facility] 09-04-2023 Telephone encounter Note Filed order [facility] 09-04-2023 Miscellaneous Notes Filed order documented in this encounter [facility] 08-11-2023 History of Present illness Narrative This note was created using [employer]. Subjective Lucia Oropeza is a 38 year old female. HISTORY Lucia Oropeza is a 38 year old lady here for yearly exam and follow up appointment. Right shoulder pain Migraine Monday then other symptoms persisted. Migraine headache resolved after 8 hours. Half face was numb and face and feet numb--lasted overnight so went to ER. Blood work, ECG, CT head and neck fine. Lips constantly numb and so is face. In back and shoulder area and hands come and go. Has TMJ issues with pain shooting down the right neck with pain in right TMJ with pulsatile tinnitus. TMJ issues come and go. Not an issue now. Gabapentin helped with night sweats but caused increased depression symptoms but might have been thyroid issue. No recurrence of night sweats. Migraines usually once in a while and not lasting long. No neck issues. Labs from work reviewed. Plans to start regular exercise. Usually eats healthy diet--has some room to improve. PAST MEDICAL HISTORY Diagnosis Date Graves disease Has not been on medicaiton since 2009 Hyperlipidemia Current Outpatient Medications Medication Sig escitalopram oxalate (LEXAPRO) 10 mg tablet Take 1 tablet by mouth for 21 days. Then take 2 tablets by mouth for 7 days (week before menses) levothyroxine (LEVOXYL) 50 mcg tablet Take 1 tablet by mouth once daily. Take on empty stomach. For Thyroid gabapentin (NEURONTIN) 100 mg capsule Take 1 capsule by mouth three times a day for 180 days. as directed (Patient not taking: Reported on 08/11/2023) No current facility-administered medications for this visit. ALLERGIES No Known Allergies FAMILY HISTORY Problem Relation Age of Onset Hypertension Mother Psychiatry Mother depression, fibromyalgia Heart Brother 17 hypertrophic cardiomyopathy Hypertension Maternal Grandfather Heart Maternal Grandfather Alzheimer's Disease Maternal Grandfather Social History Tobacco Use Smoking status: Never Smokeless tobacco: Never Vaping Use Vaping Use: Never used Substance Use Topics Alcohol use: Yes Comment: occasionally Drug use: No Review of Systems Objective BP 138/86 Pulse 75 Temp 36.7 C (98 F) Resp 18 Ht 160.8 cm (5' 3.29) Wt 69.4 kg (153 lb) LMP 07/29/2023 (Exact Date) SpO2 100% BMI 26.86 kg/m Last 5 Encounter Wt Readings: Date: Wt: 08/11/2023 69.4 kg (153 lb) 03/21/2023 68 kg (150 lb) 03/14/2023 67.6 kg (149 lb) 02/09/2023 67.9 kg (149 lb 9.6 oz) 01/31/2023 68.1 kg (150 lb 3.2 oz) No waist measurement recorded Estimated body mass index is 26.86 kg/m as calculated from the following: Height as of this encounter: 160.8 cm (5' 3.29). Weight as of this encounter: 69.4 kg (153 lb). Last 5 Encounter BP Readings: Date: BP: 08/11/2023 138/86 03/21/2023 124/82 03/14/2023 126/82 02/09/2023 124/70 01/31/2023 138/82 Physical Exam Vitals reviewed. Constitutional: Appearance: She is well-developed. HENT: Head: Normocephalic and atraumatic. Right Ear: External ear normal. Left Ear: External ear normal. Nose: Nose normal. Eyes: Conjunctiva/sclera: Conjunctivae normal. Neck: Thyroid: No thyromegaly. Cardiovascular: Rate and Rhythm: Normal rate and regular rhythm. Pulses: Normal pulses. Heart sounds: Normal heart sounds. No murmur heard. No friction rub. No gallop. Pulmonary: Effort: Pulmonary effort is normal. Breath sounds: Normal breath sounds. Abdominal: General: Bowel sounds are normal. There is no distension. Palpations: Abdomen is soft. There is no mass. Tenderness: There is no abdominal tenderness. Musculoskeletal: General: No deformity. Normal range of motion. Right lower leg: No edema. Left lower leg: No edema. Lymphadenopathy: Cervical: No cervical adenopathy. Skin: General: Skin is warm and dry. Coloration: Skin is not jaundiced or pale. Findings: No rash. Neurological: General: No focal deficit present. Mental Status: She is alert and oriented to person, place, and time. Cranial Nerves: No cranial nerve deficit, dysarthria or facial asymmetry. Sensory: Sensation is intact. No sensory deficit. Motor: No weakness, tremor or abnormal muscle tone. Coordination: Coordination normal. Gait: Gait normal. Deep Tendon Reflexes: Reflexes normal. Psychiatric: Attention and Perception: Attention normal. Mood and Affect: Mood and affect normal. Behavior: Behavior normal. Thought Content: Thought content normal. Judgment: Judgment normal. Latest Ref Rng 08/26/2022 02/20/2023 05/05/2023 WBC 3.70 - 11.00 k/uL 4.77 RBC 3.90 - 5.20 m/uL 4.48 Hemoglobin 11.5 - 15.5 g/dL 14.0 Hematocrit 36.0 - 46.0 % 41.9 MCV 80.0 - 100.0 fL 93.5 MCH 26.0 - 34.0 pg 31.3 MCHC 30.5 - 36.0 g/dL 33.4 RDW-CV 11.5 - 15.0 % 12.4 Platelet Count 150 - 400 k/uL 300 MPV 9.0 - 12.7 fL 10.5 Neut% % 46.4 Abs Neut (ANC) 1.45 - 7.50 k/uL 2.21 Lymph% % 39.0 Abs Lymph 1.00 - 4.00 k/uL 1.86 Hall% % 9.6 Abs Hall <0.87 k/uL 0.46 Eosin% % 4.0 Abs Eosin <0.46 k/uL 0.19 Baso% % 0.8 Abs Baso <0.11 k/uL 0.04 Immature Gran % % 0.2 IMMATURE GRANS (ABS) <0.10 k/uL <0.03 NRBC /100 WBC 0.0 Absolute nRBC <0.01 k/uL <0.01 DTYPE Auto Protein, Total 6.3 - 8.0 g/dL 6.9 Albumin 3.9 - 4.9 g/dL 4.4 Calcium 8.5 - 10.2 mg/dL 8.9 Bilirubin, Total 0.2 - 1.3 mg/dL 0.4 Alkaline Phosphatase 34 - 123 U/L 74 AST 13 - 35 U/L 19 ALT 7 - 38 U/L 11 Glucose 74 - 99 mg/dL 93 BUN 7 - 21 mg/dL 9 Creatinine 0.58 - 0.96 mg/dL 0.79 Sodium 136 - 144 mmol/L 139 Potassium 3.7 - 5.1 mmol/L 4.2 Chloride 97 - 105 mmol/L 106 (H) CO2 22 - 30 mmol/L 25 Anion Gap 9 - 18 mmol/L 8 (L) eGFR >=60 mL/min/1.73m 100 Cholesterol, Total <200 mg/dL 169 Triglyceride <150 mg/dL 60 HDL Cholesterol >39 mg/dL 48 Non HDL Cholesterol <130 mg/dL 121 Fasting Time hrs 12 VLDL Cholesterol <30 mg/dL 12 TC:HDL Ratio <5.10 3.52 LDL Cholesterol <100 mg/dL 109 (H) LDL:HDL Ratio <2.54 2.27 TSH 0.270 - 4.200 mIU/L 2.480 3.790 Free T3 2.3 - 4.1 pg/mL 3.0 2.5 2.7 Free T4 0.9 - 1.7 ng/dL 1.2 1.1 1.2 Legend: (H) High (L) Low Assessment and Plan Encounter Diagnosis ICD-10-CM 1. Routine medical exam Z00.00 2. Acquired hypothyroidism E03.9 Clinically euthyroid. Stay on same dose 3. Migraine without aura and without status migrainosus, not intractable G43.009 4. Numbness and tingling R20.0 R20.2 Face on left, lips persistent; left arm and shoulder area and hand--come and goes; sometimes left foot Patient here for yearly exam and follow up. Above issues addressed with patient. Patient involved in shared decision making for management of medical issues. History and medications reviewed. Epic updated as needed Refills taken care of and meds adjusted as indicated after reviewed history, exam and labs. Health Maintenance reviewed. Updated record and/or ordered tests as recorded. Encouraged on efforts at healthy diet and regular exercise and adequate sleep. Will refer to neurology if symptoms persist or migraines get worse. Hannah Lorenzo MD documented in this encounter [facility] 07-17-2023 History of Present illness Narrative [facility] [address] [facility] [address] [facility] [address] Dept: [phone] MD Lucia Mccracken 38 y.o. female Patient presents with a chief complaint of Subjective tinnitus of right ear (1mo follow up MRA review) Temp 98 F (36.7 C) (Temporal) Ht 5' 2 Wt 70 kg (154 lb 6.4 oz) BMI 28.24 kg/m History of Presenting Illness: The patient/caregiver reports a history of complaint with the following features: She reports that the noise of the MRI seemed to make her right ear pain worse. This has subsided. She still has pain that comes and goes and this will shoot down her neck. She does report popping of the right jaw with wide mouth opening. She does admit teeth grinding at night. Review of systems covering 10 systems is reviewed and pertinent positives and negatives are noted as above. Past Medical History: Diagnosis Date Disease of thyroid gland 07/2003 Fracture of nasal bones 11/2006 Tinnitus 03/27/2023 Current Outpatient Medications: escitalopram oxalate (LEXAPRO) 10 MG tablet, Take 1 tablet by mouth for 21 days. Then take 2 tablets by mouth for 7 days (week before menses), Disp: , Rfl: levothyroxine (SYNTHROID, LEVOTHROID) 50 MCG tablet, Take 1 (one) tablet (50 mcg total) by mouth daily ., Disp: , Rfl: fluticasone propionate (FLONASE) 50 mcg/actuation nasal spray, , Disp: , Rfl: No Known Allergies History reviewed. No pertinent surgical history. Social History Socioeconomic History Marital status: Tobacco Use Smoking status: Never Smokeless tobacco: Never Substance and Sexual Activity Alcohol use: Yes Alcohol/week: 1.0 standard drink of alcohol Types: 1 Drinks containing 0.5 oz of alcohol per week Drug use: Never Sexual activity: Yes Partners: Male control/protection: Vasectomy Family History Problem Relation Age of Onset Hypertension Mother Glaucoma Father Hearing loss Father Hypertension Maternal Grandfather Heart disease Maternal Grandmother Hearing loss Paternal Grandfather Hearing loss Paternal Grandmother PHYSICAL EXAM: The patient was examined today 07/17/2023 with findings as follows: CONSTITUTIONAL: General Appearance: well-appearing, nontoxic, alert, no acute distress Communication: understanding at normal conversational tones, normal voicing, speech intelligible HEAD/FACE: Head: atraumatic, normocephalic, no lesions Facial Inspection: no lesions, healthy skin Facial Strength: motor strength normal, symmetric strength, symmetric movement Sinuses: no sinus tenderness Salivary Glands: no enlargements of parotid glands, no tenderness of parotid glands, no masses of parotid glands, clear salivary flow on palpation from Stensen's ducts, no duct stones of Stensen's duct, no enlargement of submandibular glands, no tenderness of submandibular glands, no masses of submandibular glands, clear salivary flow from Anna's ducts, no stones of Anna's ducts Temporomandibular Joint: no crepitus with motion, no tenderness on palpation, no trismus, motion symmetric EYES: Pupils: PERRLA, extra-ocular movements intact, no nystagmus, sclera white, no redness of eyes, no watering of eyes EARS: Bilateral External Ears: no pits, no tags Right External Ear: normally formed, no lesions, no mastoid tenderness Left External Ear: normally formed, no lesions, no mastoid tenderness Right External Auditory Canal: normal, healthy skin, no obstructing cerumen, no discharge Left External Auditory Canal: normal, healthy skin, no obstructing cerumen, no discharge Right Tympanic Membrane: normal landmarks, translucent, mobile to pneumatic otoscopy, no perforation Left Tympanic Membrane: normal landmarks, translucent, mobile to pneumatic otoscopy, no perforation Hearing: intact to spoken voice NOSE: Nasal Skin: no lesions, no lacerations, no scars Nasal Dorsum: symmetric with no visible or palpable deformities Nasal Tip: normal symmetric nasal tip, normal nasal valves Nasal Mucosa: normal, pink and moist Septum: not markedly deformed, midline, no exposed vessels, no bleeding, no septal granuloma Turbinates: normal size and conformation Nasopharynx: normal ORAL CAVITY/MOUTH: Lips, teeth, gums: normal lips, normal gums, dentition intact, no dental pain on palpation Oral Mucosa: normal, moist, no lesions Palate: normal hard palate, normal soft palate, symmetric palatal elevation Floor of Mouth: normal floor of mouth Tongue: normal tongue, no lesions, no edema, no masses, normal mucosa, mobile Tonsils: normal tonsils, symmetric, no lesions Posterior pharynx: normal NECK: Neck: no masses, trachea midline, normal range of motion, no cysts or pits, no tenderness to palpation Thyroid: normal thyroid, no enlargement, no tenderness, no nodules LYMPH NODES: Cervical: no palpable lymph node enlargement SKIN: General Appearance: no lesions, warm and dry, normal turgor, no bruising NEUROLOGICAL SYSTEM: Orientation: oriented to time, oriented to place, oriented to person Cranial Nerves: Cranial Nerves II-XII intact, normal facial movement PSYCHIATRIC: Mood and affect: normal mood, normal affect Assessment and Plan: I have independently reviewed her MRI brain with her. This shows no retrocochlear or vascular pathology. There is some inferior enhancement of the maxillary sinuses that does not appear clinically relevant. There is some asymmetric flair enhancement of the TMJ joint on the right that may suggest some inflammation. This can result in the radiating otalgia and swishing tinnitus that she describes. Repeat hearing assessment to monitor for any progressive hearing loss is advised. The patient and/or caregiver is advised on symptom management with the use of over the counter medication of ibuprofen 600 mg every 8 hours for three days if there is no medical contraindication, the avoidance of gum chewing, a soft diet, warm compresses to the area, gentle stretching of the jaw, and stress management. I have discussed that if this should fail to give adequate relief, consideration for dental evaluation and fitting of a bite block may be considered. The patient and/or caregiver is to notify me for any acute worsening or failure to relieve symptoms prior to scheduled follow-up. The patient and/or caregiver is able to state an understanding of these recommendations and is agreeable to the treatment plan. 1. Subjective tinnitus of right ear 2. Arthralgia of right temporomandibular joint 3. Sensorineural hearing loss, unilateral Return in about 1 year (around 07/16/2024). The patient and/or caregiver is to notify the office if no improvement or worsening of symptoms is noted prior to the scheduled follow-up for sooner evaluation. The patient and/or caregiver is able to state an understanding of these recommendations and is agreeable to the treatment plan. --Blossom Murray MD on 07/17/2023 at 3:37 PM An electronic signature was used to authenticate this note. Review of Systems Constitutional: Negative. HENT: Positive for ear pain and sinus pressure. Eyes: Negative. Respiratory: Negative. Cardiovascular: Negative. Gastrointestinal: Negative. Endocrine: Negative. Genitourinary: Negative. Musculoskeletal: Negative. Skin: Negative. Allergic/Immunologic: Negative. Neurological: Negative. Hematological: Negative. Psychiatric/Behavioral: Negative. documented in this encounter [facility] 06-05-2023 History of Present illness Narrative Images from the original note were not included. [facility] [address] [address] Name: Lucia Oropeza : 1985 Date: 06/05/23 History & Purpose of Evaluation: Lucia Oropeza was seen today for audiologic assessment at the request of Blossom Murray MD. Ms. Oropeza's chief auditory complaint was sudden hearing loss in her right ear, beginning on March 20, 2023. Hearing improved somewhat after 24 hours from onset. Please see below for other pertinent case history information as reported by Ms. Oropeza. Otologic Symptoms R L Noise Exposure Y N Medical Y N Hearing Loss [x] [] Occupational [] [x] Hypertension [] [x] Tinnitus [x] [] Recreational [x] [] Diabetes [] [x] Otalgia [x] [] [] [x] Hypercholesterolemia [] [x] Otorrhea [x] [] Heart Disease [] [x] Aural Fullness [x] [] Family History [x] [] Stroke [] [x] Meniere s Disease [] [] Cancer [] [x] Y N Sp./Lang. Skills Ear Surgery R L Vertigo [] [x] Appropriate [x] [] PE Tubes [] [] Dizziness [] [x] In Therapy [] [x] Mastoidectomy [] [] Imbalance [] [x] Social Acoustic Neuroma [] [] Vestibular Rehab [] [x] Depression [x] [] Tympanoplasty [] [] Hearing aids: none Other: Results: Otoscopy: Performed by Dr. Murray prior to testing. Puretone Air & Bone Conduction Audiometry: Puretone audiometry suggested hearing within normal limits bilaterally, but better in the left ear than the right ear. Speech Audiometry: Speech recognition thresholds were in good agreement with puretone averages. Word recognition was excellent (98%) when assessed at normal conversational loudness levels using recorded male voice. Immittance Audiometry: Tympanometry revealed normal ear canal volume, normal static compliance, and normal resting pressure (Jerger type A), bilaterally. Impression: Middle ear testing was consistent with a well-ventilated middle ear system, bilaterally. Puretone audiometry was consistent with better hearing in the left ear than in the right ear on day of test. Recommendations: Follow up with Dr. Murray. Further testing and/or re-evaluation at Dr. Murray' discretion. Use of hearing protection is recommended when in high levels of noise. The above was explained to Ms. Oropeza and she expressed understanding. Electronically Signed by: Ovi Sage, CCC-A 06/05/23 8:59 AM Audiogram: documented in this encounter [facility] 06-05-2023 History of Present illness Narrative [facility] [address] [facility] [address] [facility] [address] Dept: [phone] Blossom Murray MD Lucia Oropeza 37 y.o. female Patient presents with a chief complaint of Hearing Loss Temp 98.5 F (36.9 C) (Temporal) Wt 69.2 kg (152 lb 8 oz) History of Presenting Illness: The patient/caregiver reports a history of complaint with the following features: Onset: lost hearing on right, now with whooshing sound after oral steroid therapy Timing: abrupt onset Duration: last few months Quality: comes and goes Location: right Severity: pain none Risk factors: no prior hearing, no preceding illness Alleviating factors: oral steroid, background noise improved tinnitus Aggravating factors: nothing makes it worse Associated factors: initially with off balance, but no america spinning, that lasted 3-4 weeks Review of systems covering 10 systems is reviewed and pertinent positives and negatives are noted as above. History reviewed. No pertinent past medical history. Current Outpatient Medications: escitalopram oxalate (LEXAPRO) 10 MG tablet, Take 1 tablet by mouth for 21 days. Then take 2 tablets by mouth for 7 days (week before menses), Disp: , Rfl: fluticasone propionate (FLONASE) 50 mcg/actuation nasal spray, , Disp: , Rfl: levothyroxine (SYNTHROID, LEVOTHROID) 50 MCG tablet, Take 1 (one) tablet (50 mcg total) by mouth daily ., Disp: , Rfl: No Known Allergies History reviewed. No pertinent surgical history. Social History Socioeconomic History Marital status: Tobacco Use Smoking status: Never Smokeless tobacco: Never Substance and Sexual Activity Alcohol use: Never Drug use: Never History reviewed. No pertinent family history. PHYSICAL EXAM: The patient was examined today 06/05/2023 with findings as follows: CONSTITUTIONAL: General Appearance: well-appearing, nontoxic, alert, no acute distress Communication: understanding at normal conversational tones, normal voicing, speech intelligible HEAD/FACE: Head: atraumatic, normocephalic, no lesions Facial Inspection: no lesions, healthy skin Facial Strength: motor strength normal, symmetric strength, symmetric movement Sinuses: no sinus tenderness Salivary Glands: no enlargements of parotid glands, no tenderness of parotid glands, no masses of parotid glands, clear salivary flow on palpation from Stensen's ducts, no duct stones of Stensen's duct, no enlargement of submandibular glands, no tenderness of submandibular glands, no masses of submandibular glands, clear salivary flow from Anna's ducts, no stones of Anna's ducts Temporomandibular Joint: no crepitus with motion, no tenderness on palpation, no trismus, motion symmetric EYES: Pupils: PERRLA, extra-ocular movements intact, no nystagmus, sclera white, no redness of eyes, no watering of eyes EARS: Bilateral External Ears: no pits, no tags Right External Ear: normally formed, no lesions, no mastoid tenderness Left External Ear: normally formed, no lesions, no mastoid tenderness Right External Auditory Canal: normal, healthy skin, no obstructing cerumen, no discharge Left External Auditory Canal: normal, healthy skin, no obstructing cerumen, no discharge Right Tympanic Membrane: normal landmarks, translucent, mobile to pneumatic otoscopy, no perforation Left Tympanic Membrane: normal landmarks, translucent, mobile to pneumatic otoscopy, no perforation Hearing: intact to spoken voice, intact to finger rub, Owens midline, Right Ear: Rinne AC>BC, Left Left Ear: Rinne AC>BC NOSE: Nasal Skin: no lesions, no lacerations, no scars Nasal Dorsum: symmetric with no visible or palpable deformities Nasal Tip: normal symmetric nasal tip, normal nasal valves Nasal Mucosa: normal, pink and moist Septum: not markedly deformed, midline, no exposed vessels, no bleeding, no septal granuloma Turbinates: normal size and conformation Nasopharynx: normal ORAL CAVITY/MOUTH: Lips, teeth, gums: normal lips, normal gums, dentition intact, no dental pain on palpation Oral Mucosa: normal, moist, no lesions Palate: normal hard palate, normal soft palate, symmetric palatal elevation Floor of Mouth: normal floor of mouth Tongue: normal tongue, no lesions, no edema, no masses, normal mucosa, mobile Tonsils: normal tonsils, symmetric, no lesions Posterior pharynx: normal NECK: Neck: no masses, trachea midline, normal range of motion, no cysts or pits, no tenderness to palpation Thyroid: normal thyroid, no enlargement, no tenderness, no nodules LYMPH NODES: Cervical: no palpable lymph node enlargement RESPIRATORY: Inspection/Auscultation: good air movement, chest expands symmetrically, normal breath sounds, no wheezing, no stridor CARDIOVASCULAR SYSTEM: Auscultation: regular rate and rhythm, carotid pulse normal, no carotid thrills, no carotid bruits Observation/Palpation of Peripheral Vascular System: no varicosities, no cyanosis, no edema SKIN: General Appearance: no lesions, warm and dry, normal turgor, no bruising NEUROLOGICAL SYSTEM: Orientation: oriented to time, oriented to place, oriented to person Cranial Nerves: Cranial Nerves II-XII intact, normal facial movement PSYCHIATRIC: Mood and affect: normal mood, normal affect Assessment and Plan: She presents with a sudden onset change in hearing and balance on the right that was treated with oral steroid, but has left her with a persistent whooshing tinnitus. I see no middle ear disease or auscultate any abnormal vascular sounds on exam. She has outside audiograms from 03/22/23 and 04/06/23 that are reviewed. These show a slight right hearing loss initially, with convergence on second testing, mostly due to reduced left values than improved right responses. Audiometric testing is performed today and independently reviewed and interpreted. This shows a mild asymmetric right loss at all frequencies. Tympanometry shows normal compliance consistent with normally ventilated middle ear spaces. MRI imaging to evaluate and retrocochlear pathology or vascular disease is advised given this finding and accompanying pulsatile tinnitus as I find no obvious cause on exam. 1. Subjective tinnitus of right ear Ambulatory referral to Audiology MR IAC With And Without Contrast MR/MRA Brain With And Without Contrast Creatinine, Serum 2. Sensorineural hearing loss, unilateral Return in about 1 month (around 07/06/2023). The patient and/or caregiver is to notify the office if no improvement or worsening of symptoms is noted prior to the scheduled follow-up for sooner evaluation. The patient and/or caregiver is able to state an understanding of these recommendations and is agreeable to the treatment plan. --Blossom Murray MD on 06/05/2023 at 10:02 AM An electronic signature was used to authenticate this note. Review of Systems HENT: Positive for hearing loss. documented in this encounter [facility] 02-24-2023 Miscellaneous Notes Provider called off for 02/24/23, sent [employer]- call center spoke with patient. documented in this encounter [facility] 02-09-2023 History of Present illness Narrative UNIVERSAL PROTOCOL / SAFETY CHECKLIST Procedure to be Performed: Skin Tag Removal on Left Breast Sign In: A Moment of CARE was completed. Personnel directly involved with the procedure wore the appropriate PPE (Personal Protective Equipment). Patient/Surrogate Stated/Verified: PATIENT VERIFIED(optional for EMERGENT procedures): Patient name, Date of , Relevant allergies, and The intended procedure Time Out Communication: Intended patient and procedure match the source documents. Consent documented and matches the intended procedure. Medications required for procedure verified. Sign Out: SIGN OUT (optional for EMERGENT procedures): All specimen containers correctly labeled. All instruments, equipment, possible retained foreign bodies accounted for. Post-procedure follow-up management communicated and Plan of Care Visit completed when applicable. Margot Wyatt MD documented in this encounter [facility] 01-31-2023 History of Present illness Narrative Sample Worker offered: Patient declines. Lucia is a 37 year old who presents for an annual gynecologic exam. She reports PMS like symptoms about 4-7 days before menses that resolve within a few days of menses starting. Menses: cycles every 30 days and 4-6 days of flow but can last longer Contraception: vasectomy HPV vaccine: No Last Pap: unsure but was getting care at [facility] [facility] History of abnormal pap: No Last mammogram: within the past 5 years for pain - imaging was negative OB History No obstetric history on file. Appeals Examiner History LMP: 01/16/2023 (Exact Date) Age at Menarche: Age at First : Age at Menopause: Appeals Examiner History Comments: Sexual Activity: Yes; Male Contraception: None PAST MEDICAL HISTORY Diagnosis Date Graves disease Has not been on medicaiton since 2009 Hyperlipidemia PAST SURGICAL HISTORY Procedure Laterality Date EGD W/O BRSH SPEC VARICIES INJ 06/24/2021 LAP UMBILICAL HERNIA REPAIR 2016 FAMILY HISTORY Problem Relation Age of Onset Hypertension Mother Psychiatry Mother depression, fibromyalgia Heart Brother 17 hypertrophic cardiomyopathy Hypertension Maternal Grandfather Heart Maternal Grandfather Alzheimer's Disease Maternal Grandfather SOCIAL HISTORY Social History Tobacco Use Smoking status: Never Smokeless tobacco: Never Vaping Use Vaping Use: Never used Substance Use Topics Alcohol use: Yes Comment: occasionally Drug use: No REVIEW OF SYSTEMS Abdomen: No abdominal pain, nausea, vomiting, diarrhea, or constipation. No bloating, early satiety, indigestion, or increased flatulence. Bladder: No dysuria, gross hematuria, urinary frequency, urinary urgency, or incontinence. Breast: No breast lumps, nipple d/c, overlying skin changes, redness or skin retraction. Allergies and current medication updated:Yes EXAM: BP 138/82 Ht 5' 2.75 (1.59m) Wt 150 lb 3.2 oz (68.1kg) LMP 01/16/2023 BMI 26.81 kg/(m^2). GENERAL: pleasant, female in no apparent distress BREAST: soft, non-tender, no dominant mass, normal nipple-areolar complex other than left breast with 5mm skin tag, no lymphadenopathy, and no nipple discharge CHEST: Normal inspiratory effort ABDOMEN: soft, non-tender, and no masses PELVIC: external genitalia normal, normal Bartholin's glands, urethra, [place]'s glands, no vulvar lesions, no cervical lesions, good vaginal support, physiologic discharge present, normal appearing perineal body and perianal region BIMANUAL: uterus normal size, shape and consistency, no adnexal masses, and non-tender RECTOVAGINAL: deferred. NEURO: alert and oriented x3,exam grossly non-focal EXTREMITIES: normal ASSESSMENT/PLAN: 1) Health maintenance: Pap done with HPV. Mammogram starting age 40. Nutrition, exercise and routine health maintenance exams reviewed. 2) Contraception: vasectomy. Contraceptive options reviewed and information provided. 3) Breast skin tag - follow up for removal if desired 4) Follow up one year or sooner as needed 5) PMS - discussed R/B/A and will increase lexapro for week before menses to 20mg Margot Wyatt MD documented in this encounter [facility] 01-11-2023 Miscellaneous Notes Patient has been identified by name and date of : No Patient phones for refill(s): Requested Prescriptions Pending Prescriptions Disp Refills escitalopram oxalate (LEXAPRO) 10 mg tablet 90 tablet 3 Sig: Take 1 tablet by mouth once daily. 1 tablet by mouth every day levothyroxine (LEVOXYL) 50 mcg tablet 90 tablet 3 Sig: Take 1 tablet by mouth once daily. Take on empty stomach. For Thyroid Date of last office visit in primary care: 08/24/2022 Date of next office visit in primary care: Visit date not found Last 2 Encounter Wt Readings: Date: Wt: 08/24/2022 64 kg (141 lb) 04/22/2022 61.7 kg (136 lb) Previous labs/tests for medication: Thyroid: TSH Date Value 08/26/2022 2.480 mIU/L 04/28/2021 5.370 uU/mL Please advise. Thank you. Praveena Braxton. documented in this encounter [facility] 08-24-2022 History of Present illness Narrative CHIEF COMPLAINT: Patient presents with: Wellness HISTORY: Lucia Oropeza is a 37 year old female who presents 08/24/2022 for her Yearly Physical Exam. They are here today for a wellness exam. Generally feels well and does not have complaints. Does wear a seatbelt when riding in a car. Does have smoke detectors and a carbon monoxide detector in the home. Is able to complete ADL's with independence. Overall health is good per patient. Issues with joint pain the last month. Notices this most in right thumb but all fingers, elbows, shoulders have some stiffness, discomfort. No swelling, no redness, not warm to touch. Occasional shooting pain, no numbness or tingling. Has not tried NSAIDs. Other Providers: Dentist Appeals Examiner, Dr. Anderson with [facility] Depression Screen Q1: Over the past two weeks, have you felt down, depressed or hopeless? No Q2: Over the past two weeks, have you felt little interest or pleasure in doing things? 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 Are periods regular? Yes, noticing some changes Last Pap: No results found for: CYTO Family Hx Breast CA: no Family Hx Colon CA: no Past Medical History: PAST MEDICAL HISTORY Diagnosis Date Graves disease Has not been on medicaiton since 2009 Hyperlipidemia Family Medical History: FAMILY HISTORY Problem Relation Age of Onset Hypertension Mother Psychiatry Mother depression, fibromyalgia Heart Brother 17 hypertrophic cardiomyopathy Hypertension Maternal Grandfather Heart Maternal Grandfather Alzheimer's Disease Maternal Grandfather Social History: Social History Tobacco Use Smoking status: Never Smokeless tobacco: Never Substance Use Topics Alcohol use: Yes Comment: occasionally Drug use: No Allergies: ALLERGIES No Known Allergies Medications: Current Outpatient Medications Medication Sig fexofenadine (ESTELITA ALLERGY) 180 mg tablet Take 180 mg by mouth once daily. escitalopram oxalate (LEXAPRO) 10 mg tablet Take 1 tablet by mouth once daily. 1 tablet by mouth every day levothyroxine (LEVOXYL) 50 mcg tablet Take 1 tablet by mouth once daily. Take on empty stomach. For Thyroid No current facility-administered medications for this visit. Chronic Problem List: ACTIVE PROBLEM LIST Graves Disease Comment: Has not been on medicaiton since 2009 Review of Systems Review of Systems Constitutional: Negative. Respiratory: Negative. Cardiovascular: Negative. Musculoskeletal: Positive for arthralgias. OBJECTIVE BP 126/80 Pulse 97 Wt 141 lb (64.0kg) SpO2 99% LMP 08/22/2022 Physical Exam Vitals and nursing note reviewed. Constitutional: General: She is awake. She is not in acute distress. Appearance: Normal appearance. She is well-developed and well-groomed. She is not ill-appearing, toxic-appearing or diaphoretic. HENT: Head: Normocephalic. Right Ear: Hearing, tympanic membrane, ear canal and external ear normal. Left Ear: Hearing, tympanic membrane, ear canal and external ear normal. Nose: Nose normal. Mouth/Throat: Lips: [place]. Mouth: Mucous membranes are moist. Eyes: General: Vision grossly intact. Conjunctiva/sclera: Conjunctivae normal. Pupils: Pupils are equal, round, and reactive to light. Neck: Thyroid: No thyroid mass, thyromegaly or thyroid tenderness. Vascular: No carotid bruit or JVD. Trachea: Trachea normal. Cardiovascular: Rate and Rhythm: Normal rate and regular rhythm. Pulses: Normal pulses. Heart sounds: Normal heart sounds. No murmur heard. Pulmonary: Effort: Pulmonary effort is normal. No accessory muscle usage, prolonged expiration or respiratory distress. Breath sounds: Normal breath sounds. Musculoskeletal: Cervical back: Normal range of motion and neck supple. Comments: Positive Tinel and shahrzad tests on the right Lymphadenopathy: Cervical: No cervical adenopathy. Skin: General: Skin is warm and dry. Capillary Refill: Capillary refill takes less than 2 seconds. Neurological: General: No focal deficit present. Mental Status: She is alert and oriented to person, place, and time. Mental status is at baseline. Psychiatric: Attention and Perception: Attention and perception normal. Mood and Affect: Mood and affect normal. Speech: Speech normal. Behavior: Behavior normal. Behavior is cooperative. Thought Content: Thought content normal. Cognition and Memory: Cognition and memory normal. Judgment: Judgment normal. ASSESSMENT/PLAN: 1. Wellness examination - ICD9: V70.0, ICD10: Z00.00 (primary diagnosis) - Counseled on healthy diet and regular exercise - Calcium intake with supplements or by diet of 1000 mg/day for under 50, 8187-2326 mg/day for 50+ - Depression screening tool completed and reviewed with patient. Based on score and interview, patient is not at risk for depression and recommended no further intervention at this time. - DEPRESSION SCREENING/ASSESSMENT - CBC + DIFF - COMP METABOLIC PANEL - LIPID PANEL BASIC ALSO ADDRESSED WITH VISIT: 2. 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 If persistent call office. - COCK-UP WRIST SPLINT 3. Arthralgia, unspecified joint - ICD9: 719.40, ICD10: M25.50 Suspect elbow and shoulder soreness is related to job, she has the summer off so we will see if improving. IF persistent will look further in to it. 4. Graves disease - ICD9: 242.00, ICD10: E05.00 - TSH BLD - T3 FREE BLD - T4 FREE/FREE THYROX 5. Encounter for therapeutic drug monitoring - ICD9: V58.83, ICD10: Z51.81 - CBC + DIFF - COMP METABOLIC PANEL 6. Encounter for screening for diabetes mellitus - ICD9: V77.1, ICD10: Z13.1 - COMP METABOLIC PANEL 7. Screening for lipid disorders - ICD9: V77.91, ICD10: Z13.220 - LIPID PANEL BASIC Wellness exam completed. Health maintenance reviewed and updated. Chronic conditions and medications reviewed and updated as needed. Encouraged regular physical activity as tolerated, Healthy diet, and health promoting lifestyle. Encouraged regular eye doctor and dental visits. Wellness handout given Portions of this note have been entered by ancillary staff. I have reviewed and when necessary edited, so that they are an adequate record of my encounter with this patient Please note that parts of this document were created using voice recognition software and therefore may contain grammatical errors. Patient verbalizes understanding of instructions from today's visit and in agreement with treatment plan. Questions answered. Agrees to call the office if questions, concerns or issues with acute symptoms not improving or if they worsen. See diagnoses and orders for additional plan(s). Allergies and medications were reviewed, list was updated, and refills given if needed. Past medical, surgical, social, and family history reviewed and updated as appropriate. Encouraged proper diet & exercise as well as compliance with taking medications. Age-appropriate health preventative measures were discussed. Return if symptoms worsen or fail to improve, for Keep next scheduled appointment.. Jovita Chisholm APRN-GWEN documented in this encounter [facility] 04-28-2022 Miscellaneous Notes Left message for return call. ----- Message from Gayathri Whitley APRN.[employer] sent at 04/28/2022 12:56 PM EST ----- Please let patient know that lab work is overall within acceptable ranges. I am going to have her stop using Deoderant to see if this helps, if it does not help or she is unable to stop using underarm treatments, I will send her to dermatology for further evaluation. Thank you Gayathri Whitley APRN.[employer] documented in this encounter [facility] 04-22-2022 History of Present illness Narrative CC: Patient presents with: Derm Problem: Spots on B/L armpits x 1 month HPI Lucia Oropeza is a 36 year old female who presents today for red lines to her bilateral armpits that have been present for over a month but every day seems the lines are in different areas of her armpits. Itching or Pain: No. Ever had a rash like this before: No. History of skin problems such as psoriasis, eczema, hives: YES, eczema. Changes in soaps or detergents: No. New medications or foods: No. Exposure to others with rash: No. Environmental exposures: No Environmental/seasonal allergies: No Fever, chills, fatigue, joint pain/swelling: No. Treatments: none Had a cold that knocked her out a little before the striations occurred, but symptoms resolved so no further ill symptoms, fever, chills, malaise, tenderness, edema, lumps, drainage, or open areas. PAST MEDICAL HISTORY Diagnosis Date Graves disease Has not been on medicaiton since 2009 Hyperlipidemia PAST SURGICAL HISTORY Procedure Laterality Date E[facility] VARICIES INJ 06/24/2021 LAP UMBILICAL HERNIA REPAIR 2016 ALLERGIES Patient has no known allergies. MEDICATIONS escitalopram oxalate (LEXAPRO) 10 mg tablet Take 1 tablet by mouth once daily. 1 tablet by mouth every day levothyroxine (LEVOXYL) 50 mcg tablet Take 1 tablet by mouth once daily. Take on empty stomach. For Thyroid pantoprazole DR (PROTONIX) 40 mg tablet Take 1 tablet by mouth daily before breakfast. Take on empty stomach, 1/2 hr before meal. dicyclomine (BENTYL) 20 mg tablet Take 1 tablet by mouth three times daily. (Patient not taking: Reported on 07/21/2021 ) COMPOUNDED PRESCRIPTION micorgynon - birthcontrol [place] (Patient not taking: Reported on 08/11/2020 ) FAMILY HISTORY Problem Relation Age of Onset Hypertension Mother Psychiatry Mother depression, fibromyalgia Heart Brother 17 hypertrophic cardiomyopathy Hypertension Maternal Grandfather Heart Maternal Grandfather Alzheimer's Disease Maternal Grandfather Social History Tobacco Use Smoking status: Never Smokeless tobacco: Never Substance Use Topics Alcohol use: Yes Comment: occasionally Drug use: No REVIEW OF SYSTEMS General: no fevers, no chills, no night sweats, no recurrent infections, no change in appetite, no change in energy, and no significant changes in weight Neck: no lumps, no pain , and no swelling Respiratory: no cough, no wheezing, no shortness of breath, no hemoptysis Cardiovascular: no chest pain, no chest pressure, no palpitations, and no swelling GI: No nausea, vomiting, or diarrhea Musculoskeletal: Negative for joint pain or swelling, back pain or muscle pain Endocrine: no fatigue, no weight gain, no weight loss, no cold intolerance, no heat intolerance, no polyuria, no polyphagia, and no polydipsia Neurologic: No headache, weakness, numbness, tingling, neck stiffness, tremor, vertigo, dizziness, memory loss, syncope. PHYSICAL EXAM BP 122/76 Pulse 107 Temp 37.1 C (98.7 F) (Temporal) Resp 16 Wt 61.7 kg (136 lb) LMP 06/17/2021 (Approximate) SpO2 98% BMI 24.31 kg/m General Appearance: well appearing, in no acute distress, alert Eyes: conjunctiva pink and moist, no icterus, sclera white, non-injected Neck: Thyroid normal size and symmetric without palpable nodules, Neck supple, No adenopathy Lymph nodes: No cervical lymphadenopathy, No supraclavicular lymphadenopathy, and No axillary lymphadenopathy. Lungs: Lungs clear to auscultation. No wheezing, rhonchi, rales. Heart: RRR without murmur, gallop, or rubs. No ectopy Skin: 3 short red non-raised striations to left axillae. Right axillae normal in appearance except for heel stiffener skin patches patient states in her tinea versicolor, no open areas, edema, masses, drainage, or tenderness noted. DATA REVIEWED: No new labs ASSESSMENT/PLAN: 1. Skin rash - ICD9: 782.1, ICD10: R21 (primary diagnosis) - been present without known cause for a month and varying in location but always to axillary region. No lymphadenopathy or signs of infection. Unsure on cause Will do further lab work to evaluate further. Follow up depending on results - CBC + DIFF - COMP METABOLIC PANEL - SED RATE WESTERGREN - C-REACTIVE PROTEIN (CRP) - TSH BLD - T3 BLD - T4 FREE/FREE THYROX 2. Other skin changes - ICD9: 782.9, ICD10: R23.8 As above - CBC + DIFF - COMP METABOLIC PANEL - SED RATE WESTERGREN - C-REACTIVE PROTEIN (CRP) - TSH BLD - T3 BLD - T4 FREE/FREE THYROX 3. Graves disease - ICD9: 242.00, ICD10: E05.00 - TSH BLD - T3 BLD - T4 FREE/FREE THYROX Prescription instructions reviewed with patient as applicable. Potential red flag symptoms discussed with the patient. Reviewed appropriate action plan to take if red flag symptoms occur. Patient agreeable to treatment plan. Gayathri Whitley APRN.CNP Medical Decision Making: Problems: Moderate: New problem with uncertain prognosis Data: Unique test(s) ordered: 3+ Risk: Low: Low risk from testing/treatment Medical Decision Making Level: 4 - Moderate documented in this encounter [facility] 02-12-2022 History of Present illness Narrative Reason for Visit Patient presents with: Recheck: 6 month follow up Lucia Oropeza is a 36 year old female who presents here today for Above Complaints.. Health Maintenance HEPATITIS B(1 of 3 - 3-dose series) PAP TESTING HPV TESTING DEPRESSION ASSESSMENT HPI Irritable bowel syndrome: Patient was Trying a low fodmap diet for herself, it worked some but now she is able to tolerate foods without much symptoms of gas or diarrhea. She is not taking the protonix and dicyclomine Hypothyroidism. 6 months ago we checked tsh and it was normal. She has indeed lost some weight. 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 She seems to be where she should be though... She is doing well on her current dose of Synthroid. Denies fatigue, cold intolerance and swelling in feet. TSH recently checked and normal. Anxiety depression: the lexapro is helping her a lot recently and she loves the medication . Gained a little weight.she has been exercising doing yoga and running. Was doing a control and that may be the cause for weight gain. She is dong well with the medication She has side pain, ovarian cyst is being followed by [facility] in [facility]- she did not see them , encouraged to make a follow up No problem-specific Assessment & Plan notes found for this encounter. PAST MEDICAL HISTORY Diagnosis Date Graves disease Has not been on medicaiton since 2009 Hyperlipidemia PAST SURGICAL HISTORY Procedure Laterality Date EGD W/O [facility] SPEC VARICIES INJ 06/24/2021 LAP UMBILICAL HERNIA REPAIR 2016 FAMILY HISTORY Problem Relation Age of Onset Hypertension Mother Psychiatry Mother depression, fibromyalgia Heart Brother 17 hypertrophic cardiomyopathy Hypertension Maternal Grandfather Heart Maternal Grandfather Alzheimer's Disease Maternal Grandfather Social History Tobacco Use Smoking status: Never Smokeless tobacco: Never Substance Use Topics Alcohol use: Yes Comment: occasionally Drug use: No Past medical history, appointments, medications, allergies reviewed. Pertinent Lab/Diagnostic Studies are reviewed and discussed today Current Outpatient Medications: escitalopram oxalate (LEXAPRO) 10 mg tablet levothyroxine (LEVOXYL) [address] (PROTONIX) 40 mg tablet dicyclomine (BENTYL) 20 mg tablet COMPOUNDED PRESCRIPTION Review of Systems CONSTITUTIONAL: No fevers, chills night sweats, unintended weight loss CARDIOVASCULAR: No chest pain, dyspnea, palpitations, orthopnea, PND, ankle edema. PULM: No dyspnea, unexplained cough. GI: No dysphagia/odynophagia, problematic reflux, constipation, diarrhea, changes in stool habits, hematochezia, melena. : No new urinary complaints, including dysuria, gross hematuria or pyuria. NEURO: No new balance problems, peripheral weakness/paresthesias or numbness of concern. Physical Exam BP 128/82 Pulse 88 Resp 16 Wt 61.7 kg (136 lb) LMP 06/17/2021 (Approximate) BMI 24.31 kg/m General appearance: Well appearing, alert, in no acute distress, well nourished. Skin: Skin color, texture, turgor normal, no suspicious rashes or lesions Head: Normocephalic, no masses, lesions, tenderness or abnormalities Eyes: Anicteric sclera. Pupils are equally round and reactive to light. Extraocular movements are intact. Lungs: Lungs clear to auscultation. No wheezing, rhonchi, rales Heart: RRR without murmur, gallop, or rubs. Extremities: No deformities, edema, skin discoloration, clubbing or cyanosis. Good capillary refill. ASSESSMENT/PLAN: 1. Acquired hypothyroidism - ICD9: 244.9, ICD10: E03.9 (primary diagnosis) - Instructed patient on importance of taking on an empty stomach either first thing in the morning or at bedtime. Stable - TSH BLD 2. Hx of ulcer disease - ICD9: V13.89, ICD10: Z87.898 - CBC + DIFF - COMP METABOLIC PANEL 3. Anxiety and depression - ICD9: 300.00, 311, ICD10: F41.9, F32.A Cont on the lexapro as she has been doing well with it 4. Vitamin D deficiency - ICD9: 268.9, ICD10: E55.9 Check vit d numbers - VITAMIN D 25 HYDROXY Saurabh Bermudez MD documented in this encounter [facility] 01-03-2022 Miscellaneous Notes Patient has been identified by name and date of : Yes Patient phones for refill(s): Requested Prescriptions Pending Prescriptions Disp Refills escitalopram oxalate (LEXAPRO) 10 mg tablet 90 tablet 3 Sig: Take 1 tablet by mouth once daily. 1 tablet by mouth every day levothyroxine (LEVOXYL) 50 mcg tablet 30 tablet 5 Sig: Take 1 tablet by mouth once daily. Take on empty stomach. For Thyroid Date of last office visit in primary care: 07/29/21 Last 2 Encounter Wt Readings: Date: Wt: 11/08/2021 64.5 kg (142 lb 3.2 oz) 07/29/2021 64.4 kg (142 lb) Previous labs/tests for medication: Thyroid: TSH Date Value 06/15/2021 2.320 mIU/L 04/28/2021 5.370 uU/mL Please advise. Thank you. Praveena Hinson LPN documented in this encounter [facility] 11-27-2021 Miscellaneous Notes duplicate request documented in this encounter [facility] 11-27-2021 Miscellaneous Notes Patient has been identified by name and date of : Yes Patient phones for refill(s): Requested Prescriptions Pending Prescriptions Disp Refills levothyroxine (LEVOXYL) 50 mcg tablet 30 tablet 5 Sig: Take 1 tablet by mouth once daily. Take on empty stomach. For Thyroid Date of last office visit in primary care: 07/29/2021 Last 2 Encounter Wt Readings: Date: Wt: 11/08/2021 64.5 kg (142 lb 3.2 oz) 07/29/2021 64.4 kg (142 lb) Previous labs/tests for medication: Thyroid: TSH Date Value 06/15/2021 2.320 mIU/L 04/28/2021 5.370 uU/mL Please advise. Thank you. Praveena Hinson LPN documented in this encounter [facility] 11-08-2021 History of Present illness Narrative Subjective The history is provided by the patient. No school of nursing director was used. MERCEDES Oropeza is a 36 year old female who presents today for CC of sinus pressure and congestion on left side of face, and left ear pain/pressure. She started with uri symptoms a week ago and pain worsened over past 2 days. She denies any fever. She used OTC cold meds without relief. BP 122/74 Pulse 99 Temp 36.3 C (97.4 F) Resp 21 Wt 64.5 kg (142 lb 3.2 oz) LMP 06/17/2021 (Approximate) SpO2 100% BMI 25.42 kg/m Social History Tobacco Use Smoking status: Never Smokeless tobacco: Never Substance Use Topics Alcohol use: Yes Comment: occasionally Drug use: No PAST MEDICAL HISTORY Diagnosis Date Graves disease Has not been on medicaiton since 2009 Hyperlipidemia I have confirmed and edited as necessary, the [facility] Review of Systems Constitutional: Negative for chills, fever and malaise/fatigue. HENT: Positive for congestion, ear pain and sinus pain. Negative for sore throat. Respiratory: Negative for cough, sputum production, shortness of breath and wheezing. Cardiovascular: Negative for chest pain. Gastrointestinal: Negative for abdominal pain, diarrhea, nausea and vomiting. Musculoskeletal: Negative for myalgias. Neurological: Positive for headaches. Objective Physical Exam Vitals and nursing note reviewed. HENT: Head: Normocephalic and atraumatic. Right Ear: Tympanic membrane, ear canal and external ear normal. Left Ear: Ear canal and external ear normal. A middle ear effusion is present. Tympanic membrane is bulging. Nose: Mucosal edema, congestion and rhinorrhea present. Right Sinus: No maxillary sinus tenderness or frontal sinus tenderness. Left Sinus: Maxillary sinus tenderness and frontal sinus tenderness present. Mouth/Throat: Pharynx: Uvula midline. No oropharyngeal exudate or posterior oropharyngeal erythema. Cardiovascular: Rate and Rhythm: Normal rate and regular rhythm. Heart sounds: Normal heart sounds. Pulmonary: Effort: Pulmonary effort is normal. Breath sounds: Normal breath sounds. Lymphadenopathy: Head: Right side of head: No submental, submandibular or tonsillar adenopathy. Left side of head: No submental, submandibular or tonsillar adenopathy. Cervical: No cervical adenopathy. Skin: General: Skin is warm and dry. Neurological: Mental Status: She is alert. Psychiatric: Mood and Affect: Affect normal. ASSESSMENT/PLAN: 1. Acute non-recurrent pansinusitis - ICD9: 461.8, ICD10: J01.40 - Will begin treatment with Augmentin 875 mg PO BID for 7 days - Supportive care with plenty of fluids, rest, and analgesia prn. - Follow up in one week if symptoms persist or worsen. - zyrtec, flonase - Nasal saline - See patient instructions. Diagnosis and treatment plan were discussed and questions were answered to the patient's satisfaction. Pt acknowledged understanding of concepts and follow up plan. Specific signs and symptoms that would indicate the need for higher level of care were discussed in detail warranting prompt ER evaluation. Leydi Montano APRN.CNP documented in this encounter [facility] 11-08-2021 Instructions Leydi Montano APRN.CNP - 11/08/2021 6:22 PM EDT -Increase fluid intake. --Rest as much as possible. - Nasal saline spray, maria antonia pot, flonase Flonase or Nasonex 2 sprays in each nostril once a day Zyrtec 10 mg By mouth daily at bedtime Take the entire course of antibiotics as prescribed. DO NOT stop taking it early, even if you are feeling better. -Monitor for signs of worsening infection: increased temperature, pain in face, ear pain or headaches or increase in nasal congestion/mucous that is not improving. -Educated patient on side effects of medication. Probiotic: Floradylann, Gladys, Align. Do not take with antibiotic, make sure 2 hours between. documented in this encounter [facility] 07-22-2021 History of Present illness Narrative Radiology Service Progress Note PATIENT NAME: Lucia Oropeza DATE OF SERVICE: July 22, 2021 TIME: 11:23 AM PATIENT IDENTITY VERIFICATION COMPLETED USING TWO (2) IDENTIFIERS: Name and Date of confirmed by patient verbally. FALL SCREENING: Has the patient had 2 falls in the last year or 1 fall with injury or currently using an Ambulatory Assistive Device (Walker, Cane, Wheelchair, Crutches, etc.)? No PATIENT GENDER DATA: Female. status: : No status: N/A PATIENT RELEVANT IMPLANT DATA REVIEWED: Not Applicable RADIOLOGY DEPARTMENT: Ultrasound PERIPHERAL IV DATA: Not applicable SIGNED BY: Lexis Pineda RDMS T July 22, 2021 11:23 AM documented in this encounter [facility] 07-21-2021 History of Present illness Narrative CHIEF COMPLAINT: Patient presents with: Follow Up: CT scan. Abdominal Pain: same type of pain started on left side upper quad that radiates around to her back HPI Lucia Oropeza is a 36 year old female here today for follow up regarding RUQ pain. Patient was last seen by myself for RUQ pain that radiates to her back and worsens with food. Patient has had US, HIDA, EGD and blood work and most recent CT scan all unremarkable. She reports started Bentyl made her feel tried and brain fog. She reports her diarrhea has improved. She continue to have RUQ pain frequent throughout the day even during the night. She reports pain can intensify after eating or drinking. She reports sometimes the pain is just in her lower back and sometimes it's in her RUQ and lower back. CT scan- findings of bilateral nephrolithiasis - small in size - could be causing some discomfort. Patient denies any urinary symptoms Current Outpatient Medications Medication Sig levothyroxine (LEVOXYL) 50 mcg tablet Take 1 tablet by mouth once daily. Take on empty stomach. For Thyroid escitalopram oxalate (LEXAPRO) 10 mg tablet Take 1 tablet by mouth once daily. 1 tablet by mouth every day pantoprazole DR (PROTONIX) 40 mg tablet Take 1 tablet by mouth daily before breakfast. Take on empty stomach, 1/2 hr before meal. dicyclomine (BENTYL) 20 mg tablet Take 1 tablet by mouth three times daily. (Patient not taking: Reported on 07/21/2021 ) COMPOUNDED PRESCRIPTION micorgynon - birthcontrol [place] in [place] (Patient not taking: Reported on 08/11/2020 ) No current facility-administered medications for this visit. ALLERGIES No Known Allergies Social History Tobacco Use Smoking status: Never Smoker Smokeless tobacco: Never Used Substance Use Topics Alcohol use: Yes Comment: occasionally Drug use: No PAST MEDICAL HISTORY Diagnosis Date Graves disease Has not been on medicaiton since 2009 Hyperlipidemia PAST SURGICAL HISTORY Procedure Laterality Date EGD W/O [facility] SPEC VARICIES INJ 06/24/2021 LAP UMBILICAL HERNIA REPAIR 2016 FAMILY HISTORY Problem Relation Age of Onset Hypertension Mother Psychiatry Mother depression, fibromyalgia Heart Brother 17 hypertrophic cardiomyopathy Hypertension Maternal Grandfather Heart Maternal Grandfather Alzheimer's Disease Maternal Grandfather REVIEW OF SYSTEMS Review of Systems PHYSICAL EXAM LMP 06/17/2021 No vitals or PE since telemedicine Alert and pleasant, No apparent distress. Easy respirations. Able to speak in complete sentences. Good judgement. Appropriate answers. ASSESSMENT: Ruq pain (primary encounter diagnosis) Adnexal cyst PLAN: Assessment/Plan (R10.11) RUQ pain (primary encounter diagnosis) (N94.9) Adnexal cyst 1. RUQ pain - Lucia Oropeza is a 36 year old female here today for follow up regarding RUQ pain. Patient was last seen by myself for RUQ pain that radiates to her back and worsens with food. Patient has had US, HIDA, EGD and blood work and most recent CT scan all unremarkable. Interesting diarrhea has improved she is not taking the bentyl because this made her feel brain fog and tired. She is still having RUQ pain that may radiate to her back or sometimes just lower back pain. She reports the RUQ pain will occur even during the night and worsens 45 min after eating. Likely IBS- D - she is going to try and start fiber, discussed LOW FODMAP diet. Consider consult to general surgery? Would like to trial LOW FODMAP diet first. Also discussed possible Levsin for now she would like to hold off. 2. Adnexal cyst - US FEMALE PELVIS TRANSVAG; Future Follow up in office 3 months/PRN. Recommended to please call office/go to ER if fever, chills, chest pain, SOB, diarrhea, nausea, emesis, worsening abdominal pain, dehydration occurs I spent 30 minutes in the visit, with more than 50% of the total [id number] time of the visit in counseling / coordination of care. I have confirmed and edited as necessary, the PFSH and ROS obtained by others. Jeanna Harris APRN.CNP July 21, 2021 10:19 AM documented in this encounter [facility] 07-20-2021 Miscellaneous Notes To be discussed at visit on 07/21/2021. Inform her CT of the abdomen came back normal-incidental finding Left adnexal cyst is likely ovarian. Ultrasound of pelvis may be helpful for further evaluation she can follow-up with her primary care provider Dr. Bermudez to have this ordered Thanks Jeanna Harris APRN.GWEN documented in this encounter [facility] 07-15-2021 History of Present illness Narrative Radiology Service Progress Note DATE OF SERVICE: July 15, 2021 TIME: 1:11 PM PATIENT IDENTITY VERIFICATION COMPLETED USING TWO (2) STANDARD IDENTIFIERS: Name and Date of confirmed by patient verbally. FALL SCREENING: Has the patient had 2 falls in the last year or 1 fall with injury or currently using an Ambulatory Assistive Device (Walker, Cane, Wheelchair, Crutches, etc.)? No PATIENT GENDER DATA: Female. status: : No status: NO. PATIENT RELEVANT IMPLANT DATA REVIEWED: Yes ALLERGIES: Reviewed and unchanged CONTRAST ALLERGY: NO. EXAM: CT -CONTRAST INDUCED NEPHROPATHY RISK FACTORS: Not applicable CREATININE: Creatinine Date Value Ref Range Status 04/28/2021 0.78 0.58 - 0.96 mg/dL Final 08/11/2020 0.78 0.58 - 0.96 mg/dL Final 12/31/2018 0.71 0.58 - 0.96 mg/dL Final eGFR-All Other Races Date Value Ref Range Status 04/28/2021 >60 . Final Comment: eGFR (Estimated GFR) Units of measure: mL/min/1.73 meters squared eGFR is derived from the reexpressed MDRD Study equation using the following parameters: serum creatinine, age, gender and race. The creatinine assay has been calibrated to be traceable to IDMS. An eGFR <60 mL/min/1.73m2 for >3 months is consistent with chronic kidney disease. Refer to KDOQI guidelines for clinical interpretation. In patients with unstable renal function, e.g. those with acute kidney injury, the eGFR may not accurately reflect actual GFR. Note: On 05/22/2021, the eGFR calculation will be updated to the NKF-ASN Task Force recommended 2021 CKD-EPI creatinine equation which does not include a race variable. For more information or to access a 2020 CKD-EPI calculator, visit the National Kidney [employer] website at kidney.org/professionals/kdoqi/gfr _calculator. eGFR- Date Value Ref Range Status 04/28/2021 >60 Final P.O.C.T. RESULTS: N/A July 15, 2021 TREATMENT: N/A PERIPHERAL IV DATA: Ambulatory: A peripheral IV was started in the Left antecubital site with a Angio cath: 22 gauge. RADIOLOGY DEPARTMENT: CT; Exam(s) Completed: Abdomen/Pelvis SIGNATURE: RT Tiny(R) PATIENT NAME: Lucia Oropeza DATE: July 15, 2021 TIME: 1:11 PM documented in this encounter [facility] 07-02-2021 Miscellaneous Notes Patient aware that HCG needs completed. What is ordered a more sensitive than the urine test and that is why she ordered it. Patient was in the [facility] last week and had HCG test done asking if this could be used or does she need to complete another lab. Please advise the patient. Message given to PSS to call patient and schedule. Please call patient and inform her I have placed the order for CT scan of her abdomen. I also had ordered test that she will need to do before she has the CT scan. Jeanna Harris APRN.CNP documented in this encounter [facility] 06-24-2021 Nurse Note Arrived in phase II via cart. Left lateral position. Sedated, but responds to verbal stimuli. Color normal; skin warm and dry. Respirations wnl and unlabored. Abdomen soft and with + bowel sounds in quads X 4. Patient resting comfortably. . Dr. Rincon at bedside to review procedure and recommendations. Albina Bernal RN CCDelvis [facility] PRE-OP NURSING HAND OFF NOTE SBAR Hand off given to Daniel Carter RN. Hand off was communicated verbally and at the patient's bedside and all questions were answered. Dionne Allen RN documented in this encounter [facility] 06-24-2021 History and physical note UPDATED PROCEDURAL SEDATION HISTORY AND PHYSICAL EXAMINATION SERVICE DATE: 06/24/2021 SERVICE TIME: 1:38 PM PHYSICAL EXAM MUST BE COMPLETED ON ADMISSION PROCEDURE: Procedure Indications: The History and Physical (completed in the past 30 days) has been reviewed and the patient has been examined. The contents accurately reflect the patient's condition with the following additions or revisions since the H&P was completed. ASA Class: ASA Class:: Patient with mild systemic disease Examination indicates no changes. AIRWAY: Airway Visualization of Uvula: Yes Mouth opening greater than 2 fingerbreadths: Yes Neck Full Range of Motion: Yes LUNGS: Lungs clear to auscultation CARDIAC: Regular rhythm,Regular rate Provisional Diagnosis/Treatment Plan: h/unit(s) of ulcers, RUQ pain, diarrhea - EGD SEDATION GOAL: Moderate This H&P can be found in the attached. SIGNATURE: Jamari Rincon MD PATIENT NAME: Lucia Oropeza DATE: June 24, 2021 TIME: 1:38 PM CHIEF COMPLAINT: Patient presents with: Abdominal Pain: Right side going to back for about a year Diarrhea: Since March This consult was requested by Saurabh Bermudez MD for an opinion regarding RUQ pain. My final recommendations will be communicated to the requesting health care provider by way of the shared medical record for internal providers or letter via the [employer] for external providers. The patient was seen by on 04/28/21, leading to this consultation. That note has been reviewed and part as follows: RUQ pain for the past 6 months. pain not continuously but intermittently multiple times and she is not able to point out if it is related to food. radiates to the back, sometimes it is only in the back. When it comes on it lasts for half hour to more. Resolves on its own. No medications have helped her as such. Had h pylori and usg which are negative. Diarrhea: started 3 weeks ago, she had it on and off during her adult life, she had this multiple times a day When she had breakfast this morning, she has this. Watery or loose, smells the same, Brown colored, can have it 3/4 times a day . Every day. No abdominal pain. Has cramps and the she has to go.has mucus in stool but no blood. lexapro is working well for her anxiety and depression. Lucia Oropeza is a 35 year old female with a past medical history Graves' disease, hyperlipidemia. Who presents for right upper quadrant pain and back pain. HPI: PAtient has a history of colonoscopy and EGD 15 years ago and Found gastric ulcers. She reports having right upper quadrant pain and then would notice pain would go to her back. Lately this is more consistent and happening 30 min after she eats. She reports she wakes up in the middle of the night with RUQ pain. She reports if she does not eat for the most part the pain is not there. She reports having bloating and gas. Denies belching, heartburn or acid reflux. She reports since March having water Diarrhea every day. Denies black stool or blood in stool. She reports eating dinner b/w 5:30-6:30- goes to bed around 10 Patient taking pantoprazole 40 mg daily Record Review: [facility] / Outside records reviewed. HIDA 05/13/2021: IMPRESSION: NO EVIDENCE OF ACUTE CHOLECYSTITIS. NORMAL GALLBLADDER EJECTION FRACTION. RUQ US 08/13/2020 IMPRESSION: No acute sonographic abnormalities seen in the right upper quadrant abdomen. Component Latest Ref Rng & Units 04/28/2021 Protein, Total 6.3 - 8.0 g/dL 7.2 Albumin 3.9 - 4.9 g/dL 4.6 Calcium 8.5 - 10.2 mg/dL 9.0 Bilirubin, Total 0.2 - 1.3 mg/dL 0.3 Alkaline Phosphatase 34 - 123 U/L 69 AST 13 - 35 U/L 21 Glucose 74 - 99 mg/dL 89 BUN 7 - 21 mg/dL 8 Creatinine 0.58 - 0.96 mg/dL 0.78 Sodium 136 - 144 mmol/L 140 Potassium 3.7 - 5.1 mmol/L 4.3 Chloride 97 - 105 mmol/L 106 (H) CO2 22 - 30 mmol/L 24 Anion Gap 9 - 18 mmol/L 10 ALT 7 - 38 U/L 18 eGFR- >60 eGFR-All Other Races . >60 H. pylori IgG, Qualitative Negative H pylori Ab, IgG U/mL Specimen Request Specimen received in sterile container. Test Result Test Results Negative for lactoferrin, which may indicate the absence of fecal white blood . . . Free T4 0.9 - 1.7 ng/dL TSH 0.270 - 4.200 uU/mL 5.370 (H) C. difficile PCR Negative for C. difficile toxin by PCR Amylase 30 - 104 U/L 63 Lipase 16 - 61 U/L 45 PAST MEDICAL HISTORY PAST MEDICAL HISTORY Diagnosis Date Graves disease Has not been on medicaiton since 2009 Hyperlipidemia PAST SURGICAL HISTORY PAST SURGICAL HISTORY Procedure Laterality Date LAP UMBILICAL HERNIA REPAIR 2015 Allergies: ALLERGIES ALLERGIES No Known Allergies Medications: CURRENT MEDICATIONS levothyroxine (LEVOXYL) 50 mcg tablet Take 1 tablet by mouth once daily. Take on empty stomach. For Thyroid escitalopram oxalate (LEXAPRO) 10 mg tablet Take 1 tablet by mouth once daily. 1 tablet by mouth every day pantoprazole DR (PROTONIX) 40 mg tablet Take 1 tablet by mouth daily before breakfast. Take on empty stomach, 1/2 hr before meal. dicyclomine (BENTYL) 20 mg tablet Take 1 tablet by mouth three times daily. COMPOUNDED PRESCRIPTION micorgynon - [place] FAMILY HISTORY FAMILY HISTORY Problem Relation Age of Onset Hypertension Mother Psychiatry Mother depression, fibromyalgia Heart Brother 17 hypertrophic cardiomyopathy Hypertension Maternal Grandfather Heart Maternal Grandfather Alzheimer's Disease Maternal Grandfather OCCUPATION & MARITAL STATUS Employer And Job Title: No employer specified (No job title specified) Years Of Education Completed: Not specified Marital Status: SOCIAL HISTORY Social History Tobacco Use Smoking status: Never Smoker Smokeless tobacco: Never Used Substance Use Topics Alcohol use: Yes Comment: occasionally Drug use: No Review of Systems: Review of Systems Constitutional: Positive for fatigue. Gastrointestinal: Positive for abdominal distention, abdominal pain and diarrhea. All other systems reviewed and are negative. Are you taking any blood thinners? No Physical Examination: BP 132/80 Pulse 108 Ht 5' 2.717 (1.59m) Wt 143 lb (64.9kg) SpO2 99% LMP 07/30/2017 BMI 25.56 kg/(m^2). Physical Exam Constitutional: Appearance: Normal appearance. She is normal weight. HENT: Head: Normocephalic and atraumatic. Eyes: Extraocular Movements: Extraocular movements intact. Pupils: Pupils are equal, round, and reactive to light. Cardiovascular: Rate and Rhythm: Normal rate and regular rhythm. Pulses: Normal pulses. Heart sounds: Normal heart sounds. Pulmonary: Effort: Pulmonary effort is normal. Breath sounds: Normal breath sounds. Abdominal: General: Abdomen is flat. Bowel sounds are normal. Palpations: Abdomen is soft. Tenderness: There is abdominal tenderness in the right upper quadrant and right lower quadrant. Musculoskeletal: General: Normal range of motion. Cervical back: Normal range of motion and neck supple. Skin: General: Skin is warm and dry. Neurological: General: No focal deficit present. Mental Status: She is alert and oriented to person, place, and time. Psychiatric: Mood and Affect: Mood normal. Behavior: Behavior normal. ASSESSMENT: Back pain, unspecified back location, unspecified back pain laterality, unspecified chronicity Right upper quadrant pain Diarrhea, unspecified type History of stomach ulcers (primary encounter diagnosis) PLAN: Assessment/Plan (Z87.11) History of stomach ulcers (primary encounter diagnosis) (M54.9) Back pain, unspecified back location, unspecified back pain laterality, unspecified chronicity (R10.11) Right upper quadrant pain (R19.7) Diarrhea, unspecified type 1. Back pain, unspecified back location, unspecified back pain laterality, unspecified chronicity - CONSULT TO GASTROENTEROLOGY - dicyclomine (BENTYL) 20 mg tablet; Take 1 tablet by mouth three times daily. Dispense: 90 tablet; Refill: 0 2. Right upper quadrant pain - CONSULT TO GASTROENTEROLOGY - dicyclomine (BENTYL) 20 mg tablet; Take 1 tablet by mouth three times daily. Dispense: 90 tablet; Refill: 0 - EGD DIAGNOSTIC; Future 3. Diarrhea, unspecified type - CONSULT TO GASTROENTEROLOGY - dicyclomine (BENTYL) 20 mg tablet; Take 1 tablet by mouth three times daily. Dispense: 90 tablet; Refill: 0 4. History of stomach ulcers - EGD DIAGNOSTIC; Future Follow up in office 3 months/PRN. Recommended to please call office/go to ER if fever, chills, chest pain, SOB, diarrhea, nausea, emesis, worsening abdominal pain, dehydration occurs I spent 30 minutes in the visit, with more than 50% of the total [id number] time of the visit in counseling / coordination of care. I have confirmed and edited as necessary, the PFSH and ROS obtained by others. Jeanna Harris APRN.[employer] June 13, 2021 2:24 PM documented in this encounter [facility] 06-01-2021 Miscellaneous Notes Patient is scheduled at [facility] on 08/10/[address] Rincon for EGD. DX: Right upper quadrant pain [R10.11 (ICD-10-CM)]; History of stomach ulcers [Z87.11 (ICD-10-CM)] Verbal and written instructions given. documented in this encounter [facility] 04-28-2021 History of Present illness Narrative Radiology Service Progress Note PATIENT NAME: Lucia Oropeza DATE OF SERVICE: April 28, 2021 TIME: 12:43 PM PATIENT IDENTITY VERIFICATION COMPLETED USING TWO (2) IDENTIFIERS: Name and Date of confirmed by patient verbally. FALL SCREENING: Has the patient had 2 falls in the last year or 1 fall with injury or currently using an Ambulatory Assistive Device (Walker, Cane, Wheelchair, Crutches, etc.)? No PATIENT GENDER DATA: Female. status: : No status: NO. PATIENT RELEVANT IMPLANT DATA REVIEWED: Not Applicable RADIOLOGY DEPARTMENT: General X-ray: Exam(s) Completed: Spine X-Ray(s): Lumbar AP / LAT / L5-S1 PERIPHERAL IV DATA: Not applicable SIGNED BY: RT Barb(R) April 28, 2021 12:43 PM documented in this encounter [facility] Evaluation note Diagnosis Right upper quadrant pain Abdominal pain, right upper quadrant History of stomach ulcers Personal history of other diseases of digestive system [facility] Diagnosis Right lower quadrant abdominal pain- Primary Abdominal pain, right lower quadrant [facility] Diagnosis Right lower quadrant abdominal pain Abdominal pain, right lower quadrant [facility] Diagnosis RUQ pain- Primary Abdominal pain, right upper quadrant Adnexal cyst Other specified symptom associated with female genital organs [facility] Diagnosis Adnexal cyst Other specified symptom associated with female genital organs [facility] Acute non-recurrent pansinusitis- Primary [facility] Diagnosis Acquired hypothyroidism Unspecified hypothyroidism [facility] Diagnosis Acquired hypothyroidism Unspecified hypothyroidism [facility] Diagnosis Anxiety and depression Dysthymic disorder Acquired hypothyroidism Unspecified hypothyroidism [facility] Diagnosis Acquired hypothyroidism- Primary Unspecified hypothyroidism Hx of ulcer disease Personal history of other specified diseases Anxiety and depression Dysthymic disorder Vitamin D deficiency Unspecified vitamin D deficiency [facility] noteNo assessment information availableWThe [facility] Work Phone: Evaluation note* Diagnosis Skin rash- Primary Rash and other nonspecific skin eruption Other skin changes Graves disease Toxic diffuse goiter without mention of thyrotoxic crisis or storm [facility] Diagnosis Wellness examination- Primary Carpal tunnel syndrome of right wrist Carpal tunnel syndrome Arthralgia, unspecified joint Graves disease Toxic diffuse goiter without mention of thyrotoxic crisis or storm Encounter for therapeutic drug monitoring Encounter for screening for diabetes mellitus Screening for diabetes mellitus Screening for lipid disorders [facility] [place] [facility] Diagnosis Acquired hypothyroidism Unspecified hypothyroidism Anxiety and depression Dysthymic disorder [facility] [place] [facility]* Diagnosis Anxiety and depression Dysthymic disorder Acquired hypothyroidism Unspecified hypothyroidism [facility] [place] [facility] Diagnosis Encounter for gynecological examination without abnormal finding- Primary Routine gynecological examination Encounter for screening for malignant neoplasm of cervix Screening for malignant neoplasm of the cervix Special screening examination for human papillomavirus (HPV) Anxiety and depression Dysthymic disorder [facility] [place] [facility]* Diagnosis Skin tag- Primary Unspecified hypertrophic and atrophic condition of skin [facility] [place] [facility]* Diagnosis Acquired hypothyroidism- Primary Unspecified hypothyroidism [facility] [place] [facility] Diagnosis Subjective tinnitus of right ear- Primary Sensorineural hearing loss, unilateral [facility] [place] [facility] Diagnosis Tinnitus of right ear- Primary Abnormal auditory perception of right ear [facility] [place] [facility]* Diagnosis Subjective tinnitus of right ear- Primary Arthralgia of right temporomandibular joint Sensorineural hearing loss, unilateral [facility] [place] [facility]* Diagnosis Numbness and tingling- Primary Disturbance of skin sensation [facility] [place] [facility]* Diagnosis Numbness and tingling- Primary Disturbance of skin sensation Left eye pain Pain in or around eye Demyelinating disease of central nervous system (HCC) Demyelinating disease of central nervous system, unspecified [facility] [place] [facility]* Diagnosis Demyelinating disease of central nervous system (HCC) Demyelinating disease of central nervous system, unspecified [facility] [place] [facility] Diagnosis Left eye pain- Primary Pain in or around eye Subjective visual disturbance Subjective visual disturbance, unspecified Myopia, bilateral Myopia Regular astigmatism of both eyes Regular astigmatism [facility] [place] [facility]* Diagnosis Numbness and tingling- Primary Disturbance of skin sensation Left eye pain Pain in or around eye Demyelinating disease of central nervous system (HCC) Demyelinating disease of central nervous system, unspecified [facility] [place] [facility] Diagnosis Pain in eye, unspecified laterality Subjective visual disturbance Subjective visual disturbance, unspecified Demyelinating disease of central nervous system (HCC) Demyelinating disease of central nervous system, unspecified [facility] Diagnosis Left eye pain- Primary Pain in or around eye Subjective visual disturbance Subjective visual disturbance, unspecified Myopia, bilateral Myopia Regular astigmatism of both eyes Regular astigmatism [facility] Diagnosis Small fiber neuropathy- Primary Unspecified hereditary and idiopathic peripheral neuropathy [facility] Diagnosis Back pain, unspecified back location, unspecified back pain laterality, unspecified chronicity [facility] Acquired hypothyroidism Unspecified hypothyroidism [facility] Diagnosis Left eye pain- Primary Pain in or around eye Subjective visual disturbance Subjective visual disturbance, unspecified Myopia, bilateral Myopia Regular astigmatism of both eyes Regular astigmatism Contact dermatitis of eyelid, left [facility]* Diagnosis Routine medical exam- Primary Routine general medical examination at a [facility] facility Acquired hypothyroidism Unspecified hypothyroidism Migraine without aura and without status migrainosus, not intractable Migraine without aura, without mention of intractable migraine without mention of status migrainosus Numbness and tingling Disturbance of skin sensation [facility] [place] [facility] Diagnosis Eczematous dermatitis of left upper eyelid- Primary Eczematous dermatitis of eyelid [facility] Diagnosis Acquired hypothyroidism Unspecified hypothyroidism [facility] Acquired hypothyroidism Unspecified hypothyroidism [facility] Diagnosis Encounter for gynecological examination (general) (routine) without abnormal findings- Primary [facility] Diagnosis Numbness and tingling- Primary Disturbance of skin sensation Left eye pain Pain in or around eye Rash Rash and other nonspecific skin eruption [facility] Diagnosis Numbness and tingling Disturbance of skin sensation [facility] Diagnosis Vitamin D deficiency- Primary Unspecified vitamin D deficiency Perioral numbness Disturbance of skin sensation Tachycardia Tachycardia, unspecified Dizziness Dizziness and giddiness Paresthesia of skin Disturbance of skin sensation [facility] Weakness- Primary Other malaise and fatigue Dysphagia, unspecified type [facility] Bigeminy- Primary Other specified cardiac dysrhythmias Palpitation Palpitations Dizziness Dizziness and giddiness Trigeminy Other specified cardiac dysrhythmias Sinus tachycardia Other specified cardiac dysrhythmias Screening for depression Encounter for screening examination for other mental health and behavioral disorders documented in this encounter [facility] for referral (narrative)* Outpatient Procedure (Routine) - Closed Specialty Diagnoses / Procedures Referred By Luis caro Referred To Contact [facility] Diagnoses Right upper quadrant pain History of stomach ulcers Procedures EGD DIAGNOSTIC EGD DIAGNOSTIC ESOPHAGOGASTRODUODENOSCOPY TRANSORAL DIAGNOSTIC ESOPHAGOGASTRODUODENOSCOPY TRANSORAL DIAGNOSTIC Jeanna Harris APRN.[employer]EST FIREFIGHTER [address] [place] [address] [facility] [address] [place] [address] Referral ID Status Reason Start Date Expiration Date V isits Requested Visits Authorized [id number] Closed Auto-Generate d Referral 06/23/2021 03/26/[address] [facility] for referral (narrative)* Diagnostic Procedure Only (Routine) - Authorized Specialty Diagnoses / Procedures Referred By Luis caro Referred To Contact US IMAGING Diagnoses Adnexal cyst Procedures US FEMALE PELVIS TRANSVAG US TRANSVAGINAL Jeanna Harris APRN.[employer]EST FIREFIGHTER [address] [place] [address] Us Imaging Referral ID Status Reason Start Date Expiration Date Visits Requested Visits Authorized [id number] Authorized Auto-Generat ed Referral 07/21/2021 08/20/[address] [facility] for referral (narrative)* Diagnostic Procedure Only (Routine) - Closed Specialty Diagnoses / Procedures Referred By Luis t Referred To Contact US IMAGING Diagnoses Adnexal cyst Procedures US FEMALE PELVIS TRANSVAG US TRANSVAGINAL Jeanna Harris APRN.CNP [address] [place] [address] Us Imaging Referral ID Status Reason Start Date Expiration Date V isits Requested Visits Authorized [id number] Closed Auto-Generate d Referral 07/21/2021 08/20/[address] [facility] for referral (narrative)* Diagnostic Procedure Only (Routine) - Closed Specialty Diagnoses / Procedures Referred By Contac t Referred To Contact XR IMAGING Diagnoses Back pain, unspecified back location, unspecified back pain laterality, unspecified chronicity Procedures XR LUMBAR GENERAL 3V AP/LAT/L5-S1 RADEX SPINE LUMBOSACRAL 2/3 VIEWS Saurabh Bermudez MD [facility] [place] [address] [place] [address] Referral ID Status Reason Start Date Expiration Date V isits Requested Visits Authorized [id number] Closed Auto-Generate d Referral 04/28/2021 05/28/[address] [facility] for visit Narrative* Auth/Cert Specialty Diagnoses / Procedures Referred By Contac t Referred To Contact [facility] Diagnoses Right upper quadrant pain Procedures ESOPHAGOGASTRODUODENOSCOPY TRANSORAL DIAGNOSTIC [facility] [address] [place] [address] Referral ID Status Reason Start Date Expiration Date Visits Re quested Visits Authorized [id number] [address] [facility] for visit Narrative* Diagnostic Procedure Only (Routine) - Closed Specialty Diagnoses / Procedures Referred By Contac t Referred To Contact XR IMAGING Diagnoses Back pain, unspecified back location, unspecified back pain laterality, unspecified chronicity Procedures XR LUMBAR GENERAL 3V AP/LAT/L5-S1 RADEX SPINE LUMBOSACRAL 2/3 VIEWS Saurabh Bermudez MD [facility] [place] [address] [place] [address] Referral ID Status Reason Start Date Expiration Date V isits Requested Visits Authorized [id number] Closed Auto-Generate d Referral 04/28/2021 05/28/2022 1 1 [facility] Medications Administered Section Inactive Administered Medications - up to 3 most recent administrations Medication Order MAR Action Action Date Dose Rate Site benzocaine 20% 1 Lamont (TOPEX) 1 Lamont, TOPICAL, DIRECTED, Starting on Carissa 06/24/21 at 1430, Until Carissa 06/24/21 at 1829, DOSING DIRECTED BY PHYSICIAN FOR PROCEDURAL SEDATION ONLY - Pharmaceutical Waste: Aerosol -, Intraprocedure Given 06/24/2021 1:49 PM EDT 5 Sprays fentaNYL 50 mcg/mL 25-100 mcg injection (SUBLIMAZE) 25-100 mcg, INTRAVENOUS, DIRECTED, Starting on Carissa 06/24/21 at 1430, Until Carissa 06/24/21 at 1829, DOSING DIRECTED BY PHYSICIAN FOR PROCEDURAL SEDATION ONLY, Intraprocedure Given 06/24/2021 1:52 PM EDT 50 mcg Given 06/24/2021 1:50 PM EDT 50 mcg lactated ringers iv infusion 30 mL/hr, INTRAVENOUS, CONTINUOUS, Starting on Carissa 06/24/21 at 1230, Until Carissa 06/24/21 at 1215, Preprocedure New Bag/Syringe/Bottle 06/24/2021 12:30 PM EDT 30 mL/hr 30 mL/hr midazolam (PF) 1-5 mg injection (VERSED) 1-5 mg, INTRAVENOUS, DIRECTED, Starting on Carissa 06/24/21 at 1430, Until Carissa 06/24/21 at 1829, DOSING DIRECTED BY PHYSICIAN FOR PROCEDURAL SEDATION ONLY, Intraprocedure Given 06/24/2021 1:52 PM EDT 2 mg Given 06/24/2021 1:50 PM EDT 3 mg Advance Directives Documents on File Type Date Recorded Patient Battery Hand Expl anation Advance Directive(s) 06/22/2021 5:47 PM Documents on File Type Date Recorded Patient Battery Hand Expl anation Advance Directive(s) 06/22/2021 5:47 PM Reason for Referral Specialty Diagnoses / Procedures Referred By Luis t Referred To Contact CT IMAGING Diagnoses Right lower quadrant abdominal pain Procedures CT ABD/PEL W IVCON CT ABD & PELVIS W/CONTRAST Jeanna Harris, TAMMY.[employer]HTER [address] [place] [address] Ct Imaging Referral ID Status Reason Start Date Expiration Date V isits Requested Visits Authorized [id number] Open Auto-Generate d Referral 06/30/2021 07/30/2022 1 1 Referral ID Status Reason Start Date Expiration Date V isits Requested Visits Authorized [id number] Closed Auto-Generate d Referral 07/06/2021 03/26/2022 2 2 Specialty Diagnoses / Procedures Referred By Contac t Referred To Contact Radiology Diagnoses Subjective tinnitus of right ear Procedures MR/MRA Brain With And Without Contrast Blossom Murray MD [address] [phone] Referral ID Status Reason Start Date Expiration Date V isits Requested Visits Authorized [id number] New Request 06/05/2023 06/04/2024 1 1 Specialty Diagnoses / Procedures Referred By Contac t Referred To Contact Radiology Diagnoses Subjective tinnitus of right ear Procedures MR IAC With And Without Contrast Blossom Murray MD [address] [place] [address] Referral ID Status Reason Start Date Expiration Date V isits Requested Visits Authorized [id number] New Request 06/05/2023 06/04/2024 1 1 Specialty Diagnoses / Procedures Referred By Contac t Referred To Contact Audiology Diagnoses Subjective tinnitus of right ear Blossom Murray MD [address] [place] [address] [facility] [address] [place] [address] Referral ID Status Reason Start Date Expiration Date V isits Requested Visits Authorized [id number] Authorized 06/05/2023 06/04/2024 1 1 Specialty Diagnoses / Procedures Referred By Contac t Referred To Contact Neurology Diagnoses Numbness and tingling Procedures CONSULT TO NEUROLOGY OFFICE/OUTPATIENT [facility] 60 MINUTES Hannah Lorenzo MD [address] [place] [address] Referral ID Status Reason Start Date Expiration Date Visits Requested Visits Authorized [id number] Authorized PCP Requested Referral 09/04/2023 09/01/2024 1 1 Specialty Diagnoses / Procedures Referred By Contac t Referred To Contact MR IMAGING Diagnoses Demyelinating disease of central nervous system (HCC) Procedures MRI BRAIN WO/W IVCON MRI BRAIN BRAIN STEM W/O W/CONTRAST MATERIAL Shahida Graf, FINAL INSPECTOR [employer]HTER [address] [place] [phone] [place] [address] Referral ID Status Reason Start Date Expiration Date Visits Requested Visits Authorized [id number] Authorized Auto-Generat ed Referral 09/08/2023 10/07/2024 1 1 Specialty Diagnoses / Procedures Referred By Contac t Referred To Contact Ophthalmology Diagnoses Numbness and tingling Left eye pain Procedures CONSULT TO OPHTHALMOLOGY OFFICE/OUTPATIENT [facility] 60 MINUTES Shahida Graf, FINAL INSPECTOR [employer]FIGHTER [address] [place] [phone] Referral ID Status Reason Start Date Expiration Date Visits Requested Visits Authorized [id number] Authorized PCP Requested Referral 09/08/2023 09/07/2024 1 1 Referral ID Status Reason Start Date Expiration Date V isits Requested Visits Authorized [id number] Closed Auto-Generate d Referral 09/08/2023 10/07/2024 1 1 Specialty Diagnoses / Procedures Referred By Contac t Referred To Contact MR IMAGING Diagnoses Demyelinating disease of central nervous system (HCC) Procedures MRI THORACIC SPINE WO/W IVCON MRI SPINAL CANAL THORACIC W/O & W/CONTR MATRL Shahida Graf, FINAL INSPECTOR [employer]EST FIREFIGHTER [address] [place] [phone] [place] [address] Referral ID Status Reason Start Date Expiration Date Visits Requested Visits Authorized [id number] Authorized Auto-Generat ed Referral 11/02/2023 12/01/2024 1 1 Specialty Diagnoses / Procedures Referred By Contac t Referred To Contact MR IMAGING Diagnoses Demyelinating disease of central nervous system (HCC) Procedures MRI CERVICAL SPINE WO/W IVCON MRI SPINAL CANAL CERVICAL W/O & W/CONTR MATRL Lisa Shahida, FINAL INSPECTOR [employer].FOREST FIREFIGHTER [address] [place] [address] [place] [address] Referral ID Status Reason Start Date Expiration Date Visits Requested Visits Authorized [id number] Authorized Auto-Generat ed Referral 11/02/2023 12/01/2024 1 1 Referral ID Status Reason Start Date Expiration Date V isits Requested Visits Authorized [id number] Closed Auto-Generate d Referral 11/02/2023 12/01/2024 1 1 Referral ID Status Reason Start Date Expiration Date V isits Requested Visits Authorized [id number] Closed Auto-Generate d Referral 11/02/2023 12/01/2024 1 1 Specialty Diagnoses / Procedures Referred By Luis caro Referred To Contact MR IMAGING Diagnoses Pain in eye, unspecified laterality Subjective visual disturbance Procedures MRI ORBIT WO/W IVCON MRI ORBIT FACE & NECK W/O & W/CONTRAST [facility] Bell, FINAL INSPECTOR [employer]EST FIREFIGHTER [address] [phone] [place] [address] Referral ID Status Reason Start Date Expiration Date V isits Requested Visits Authorized [id number] Closed Auto-Generate d Referral 10/22/2023 11/20/2024 1 1 Specialty Diagnoses / Procedures Referred By Luis caro Referred To Contact Diagnoses Eczematous dermatitis of left upper eyelid Errol Vences, OD [address] [place] [address] Referral ID Status Reason Start Date Expiration Date V isits Requested Visits Authorized [id number] Authorized 02/03/2024 03/04/2026 1 1 Summary Purpose Family History No Family History Records FoundNo Family History Records FoundNo Family History Records FoundNo Family History Records Found Additional Source Comments Source Comments (unrecognize d section and content) In the event this informatio n is protected by the Federal Confidentiality of Alcohol and Drug Abuse Patient Records regulations: The Federal rules restrict any use of the information to criminally investigate or prosecute any alcohol or drug abuse patient.[facility] the event this information is protected by the Federal Confidentiality of Alcohol and Drug Abuse Patient Records regulations: The Federal rules restrict any use of the information to criminally investigate or prosecute any alcohol or drug abuse patient.[facility] the event this information is protected by the Federal Confidentiality of Alcohol and Drug Abuse Patient Records regulations: The Federal rules restrict any use of the information to criminally investigate or prosecute any alcohol or drug abuse patient.[facility] the event this information is protected by the Federal Confidentiality of Alcohol and Drug Abuse Patient Records regulations: The Federal rules restrict any use of the information to criminally investigate or prosecute any alcohol or drug abuse patient.[facility] the event this information is protected by the Federal Confidentiality of Alcohol and Drug Abuse Patient Records regulations: The Federal rules restrict any use of the information to criminally investigate or prosecute any alcohol or drug abuse patient.[facility]In the event this information is protected by the Federal Confidentiality of Alcohol and Drug Abuse Patient Records regulations: The Federal rules restrict any use of the information to criminally investigate or prosecute any alcohol or drug abuse patient.[facility]In the event this information is protected by the Federal Confidentiality of Alcohol and Drug Abuse Patient Records regulations: The Federal rules restrict any use of the information to criminally investigate or prosecute any alcohol or drug abuse patient.[facility] the event this information is protected by the Federal Confidentiality of Alcohol and Drug Abuse Patient Records regulations: The Federal rules restrict any use of the information to criminally investigate or prosecute any alcohol or drug abuse patient.[facility]In the event this information is protected by the Federal Confidentiality of Alcohol and Drug Abuse Patient Records regulations: The Federal rules restrict any use of the information to criminally investigate or prosecute any alcohol or drug abuse patient.[facility] the event this information is protected by the Federal Confidentiality of Alcohol and Drug Abuse Patient Records regulations: The Federal rules restrict any use of the information to criminally investigate or prosecute any alcohol or drug abuse patient.[facility] the event this information is protected by the Federal Confidentiality of Alcohol and Drug Abuse Patient Records regulations: The Federal rules restrict any use of the information to criminally investigate or prosecute any alcohol or drug abuse patient.[facility]In the event this information is protected by the Federal Confidentiality of Alcohol and Drug Abuse Patient Records regulations: The Federal rules restrict any use of the information to criminally investigate or prosecute any alcohol or drug abuse patient.[facility]In the event this information is protected by the Federal Confidentiality of Alcohol and Drug Abuse Patient Records regulations: The Federal rules restrict any use of the information to criminally investigate or prosecute any alcohol or drug abuse patient.[facility]In the event this information is protected by the Federal Confidentiality of Alcohol and Drug Abuse Patient Records regulations: The Federal rules restrict any use of the information to criminally investigate or prosecute any alcohol or drug abuse patient.[facility]In the event this information is protected by the Federal Confidentiality of Alcohol and Drug Abuse Patient Records regulations: The Federal rules restrict any use of the information to criminally investigate or prosecute any alcohol or drug abuse patient.[facility]In the event this information is protected by the Federal Confidentiality of Alcohol and Drug Abuse Patient Records regulations: The Federal rules restrict any use of the information to criminally investigate or prosecute any alcohol or drug abuse patient.[facility]In the event this information is protected by the Federal Confidentiality of Alcohol and Drug Abuse Patient Records regulations: The Federal rules restrict any use of the information to criminally investigate or prosecute any alcohol or drug abuse patient.[facility]In the event this information is protected by the Federal Confidentiality of Alcohol and Drug Abuse Patient Records regulations: The Federal rules restrict any use of the information to criminally investigate or prosecute any alcohol or drug abuse patient.[facility]In the event this information is protected by the Federal Confidentiality of Alcohol and Drug Abuse Patient Records regulations: The Federal rules restrict any use of the information to criminally investigate or prosecute any alcohol or drug abuse patient.[facility]In the event this information is protected by the Federal Confidentiality of Alcohol and Drug Abuse Patient Records regulations: The Federal rules restrict any use of the information to criminally investigate or prosecute any alcohol or drug abuse patient.[facility]In the event this information is protected by the Federal Confidentiality of Alcohol and Drug Abuse Patient Records regulations: The Federal rules restrict any use of the information to criminally investigate or prosecute any alcohol or drug abuse patient.[facility]In the event this information is protected by the Federal Confidentiality of Alcohol and Drug Abuse Patient Records regulations: The Federal rules restrict any use of the information to criminally investigate or prosecute any alcohol or drug abuse patient.[facility]In the event this information is protected by the Federal Confidentiality of Alcohol and Drug Abuse Patient Records regulations: The Federal rules restrict any use of the information to criminally investigate or prosecute any alcohol or drug abuse patient.[facility]In the event this information is protected by the Federal Confidentiality of Alcohol and Drug Abuse Patient Records regulations: The Federal rules restrict any use of the information to criminally investigate or prosecute any alcohol or drug abuse patient.[facility]In the event this information is protected by the Federal Confidentiality of Alcohol and Drug Abuse Patient Records regulations: The Federal rules restrict any use of the information to criminally investigate or prosecute any alcohol or drug abuse patient.[facility]In the event this information is protected by the Federal Confidentiality of Alcohol and Drug Abuse Patient Records regulations: The Federal rules restrict any use of the information to criminally investigate or prosecute any alcohol or drug abuse patient.[facility]In the event this information is protected by the Federal Confidentiality of Alcohol and Drug Abuse Patient Records regulations: The Federal rules restrict any use of the information to criminally investigate or prosecute any alcohol or drug abuse patient.[facility]In the event this information is protected by the Federal Confidentiality of Alcohol and Drug Abuse Patient Records regulations: The Federal rules restrict any use of the information to criminally investigate or prosecute any alcohol or drug abuse patient.[facility] HospitalIn the event this information is protected by the Federal Confidentiality of Alcohol and Drug Abuse Patient Records regulations: The Federal rules restrict any use of the information to criminally investigate or prosecute any alcohol or drug abuse patient.[facility] HospitalIn the event this information is protected by the Federal Confidentiality of Alcohol and Drug Abuse Patient Records regulations: The Federal rules restrict any use of the information to criminally investigate or prosecute any alcohol or drug abuse patient.[facility] HospitalIn the event this information is protected by the Federal Confidentiality of Alcohol and Drug Abuse Patient Records regulations: The Federal rules restrict any use of the information to criminally investigate or prosecute any alcohol or drug abuse patient.[facility]In the event this information is protected by the Federal Confidentiality of Alcohol and Drug Abuse Patient Records regulations: The Federal rules restrict any use of the information to criminally investigate or prosecute any alcohol or drug abuse patient.[facility]In the event this information is protected by the Federal Confidentiality of Alcohol and Drug Abuse Patient Records regulations: The Federal rules restrict any use of the information to criminally investigate or prosecute any alcohol or drug abuse patient.[facility] HospitalIn the event this information is protected by the Federal Confidentiality of Alcohol and Drug Abuse Patient Records regulations: The Federal rules restrict any use of the information to criminally investigate or prosecute any alcohol or drug abuse patient.[facility] HospitalIn the event this information is protected by the Federal Confidentiality of Alcohol and Drug Abuse Patient Records regulations: The Federal rules restrict any use of the information to criminally investigate or prosecute any alcohol or drug abuse patient.[facility] HospitalIn the event this information is protected by the Federal Confidentiality of Alcohol and Drug Abuse Patient Records regulations: The Federal rules restrict any use of the information to criminally investigate or prosecute any alcohol or drug abuse patient.[facility] HospitalIn the event this information is protected by the Federal Confidentiality of Alcohol and Drug Abuse Patient Records regulations: The Federal rules restrict any use of the information to criminally investigate or prosecute any alcohol or drug abuse patient.[facility] HospitalIn the event this information is protected by the Federal Confidentiality of Alcohol and Drug Abuse Patient Records regulations: The Federal rules restrict any use of the information to criminally investigate or prosecute any alcohol or drug abuse patient.[facility]In the event this information is protected by the Federal Confidentiality of Alcohol and Drug Abuse Patient Records regulations: The Federal rules restrict any use of the information to criminally investigate or prosecute any alcohol or drug abuse patient.[facility] HospitalIn the event this information is protected by the Federal Confidentiality of Alcohol and Drug Abuse Patient Records regulations: The Federal rules restrict any use of the information to criminally investigate or prosecute any alcohol or drug abuse patient.[facility] HospitalIn the event this information is protected by the Federal Confidentiality of Alcohol and Drug Abuse Patient Records regulations: The Federal rules restrict any use of the information to criminally investigate or prosecute any alcohol or drug abuse patient.[facility] HospitalIn the event this information is protected by the Federal Confidentiality of Alcohol and Drug Abuse Patient Records regulations: The Federal rules restrict any use of the information to criminally investigate or prosecute any alcohol or drug abuse patient.[facility] HospitalIn the event this information is protected by the Federal Confidentiality of Alcohol and Drug Abuse Patient Records regulations: The Federal rules restrict any use of the information to criminally investigate or prosecute any alcohol or drug abuse patient.[facility] HospitalIn the event this information is protected by the Federal Confidentiality of Alcohol and Drug Abuse Patient Records regulations: The Federal rules restrict any use of the information to criminally investigate or prosecute any alcohol or drug abuse patient.[facility] HospitalIn the event this information is protected by the Federal Confidentiality of Alcohol and Drug Abuse Patient Records regulations: The Federal rules restrict any use of the information to criminally investigate or prosecute any alcohol or drug abuse patient.[facility] HospitalIn the event this information is protected by the Federal Confidentiality of Alcohol and Drug Abuse Patient Records regulations: The Federal rules restrict any use of the information to criminally investigate or prosecute any alcohol or drug abuse patient.[facility] [facility]In the event this information is protected by the Federal Confidentiality of Alcohol and Drug Abuse Patient Records regulations: The Federal rules restrict any use of the information to criminally investigate or prosecute any alcohol or drug abuse patient.[facility] the event this information is protected by the Federal Confidentiality of Alcohol and Drug Abuse Patient Records regulations: The Federal rules restrict any use of the information to criminally investigate or prosecute any alcohol or drug abuse patient.[facility]In the event this information is protected by the Federal Confidentiality of Alcohol and Drug Abuse Patient Records regulations: The Federal rules restrict any use of the information to criminally investigate or prosecute any alcohol or drug abuse patient.[facility]In the event this information is protected by the Federal Confidentiality of Alcohol and Drug Abuse Patient Records regulations: The Federal rules restrict any use of the information to criminally investigate or prosecute any alcohol or drug abuse patient.[facility]In the event this information is protected by the Federal Confidentiality of Alcohol and Drug Abuse Patient Records regulations: The Federal rules restrict any use of the information to criminally investigate or prosecute any alcohol or drug abuse patient.[facility] Care Teams (unrecognized sec tion and content) Vamp Marker Relationship Specialty Start Date End Date Saurabh Bermudez MD [address] [facility] [place] [address] PCP - General Internal Medicine 08/18/20 Vamp Marker Relationship Specialty Start Date End Date Saurabh Bermudez MD [address] [facility] [place] [address] PCP - General Internal Medicine 08/18/20 Vamp Marker Relationship Specialty Start Date End Date Saurabh Bermudez MD [address] [facility] [place] [address] PCP - General Internal Medicine 08/18/20 Vamp Marker Relationship Specialty Start Date End Date Saurabh Bermudez MD [address] [facility] [place] [address] PCP - General Internal Medicine 08/18/20 Vamp Marker Relationship Specialty Start Date End Date Saurabh Bermudez MD [address] [facility] [place] [address] PCP - General Internal Medicine 08/18/20 Vamp Marker Relationship Specialty Start Date End Date Saurabh Bermudez MD [address] [facility] [place] [address] PCP - General Internal Medicine 08/18/20 Vamp Marker Relationship Specialty Start Date End Date Saurabh Bermudez MD [address] [facility] [place] [address] PCP - General Internal Medicine 08/18/20 Vamp Marker Relationship Specialty Start Date End Date Saurabh Bermudez MD [address] [facility] [place] [address] PCP - General Internal Medicine 08/18/20 Vamp Marker Relationship Specialty Start Date End Date Saurabh Bemrudez MD [address] [place] [address] PCP - General Internal Medicine 08/18/20 Vamp Marker Relationship Specialty Start Date End Date Saurabh Bermudez MD [address] [place] [address] PCP - General Internal Medicine 08/18/20 Vamp Marker Relationship Specialty Start Date End Date Saurabh Bermudez MD [address] [place] [address] PCP - General Internal Medicine 08/18/20 Vamp Marker Relationship Specialty Start Date End Date Saurabh Bermudez MD [address] [place] [address] PCP - General Internal Medicine 08/18/20 Vamp Marker Relationship Specialty Start Date End Date Saurabh Bermudez MD [address] [place] [address] PCP - General Internal Medicine 08/18/20 Vamp Marker Relationship Specialty Start Date End Date Saurabh Bermudez MD [address] [place] [address] PCP - General Internal Medicine 08/18/20 Vamp Marker Relationship Specialty Start Date End Date Saurabh Bermudez MD [address] [place] [address] PCP - General Internal Medicine 08/18/20 Vamp Marker Relationship Specialty Start Date End Date Saurabh Bermudez MD [address] [place] [address] PCP - General Internal Medicine 08/18/20 Vamp Marker Relationship Specialty Start Date End Date Saurabh Bermudez MD [address] [place] [address] PCP - General Internal Medicine 08/18/20 Vamp Marker Relationship Specialty Start Date End Date Saurabh Bermudez MD [address] [place] [address] PCP - General Internal Medicine 08/18/20 Vamp Marker Relationship Specialty Start Date End Date Saurabh Bermudez MD [address] [place] [address] PCP - General Internal Medicine 08/18/20 Vamp Marker Relationship Specialty Start Date End Date Saurabh Bermudez MD [address] [place] [address] PCP - General Internal Medicine 08/18/20 Vamp Marker Relationship Specialty Start Date End Date Saurabh Bermudez MD [address] [place] [address] PCP - General Internal Medicine 05/08/23 Vamp Marker Relationship Specialty Start Date End Date Saurabh Bermudez MD [address] [place] [address] PCP - General Internal Medicine 05/08/23 Vamp Marker Relationship Specialty Start Date End Date Saurabh Bermudez MD [address] [place] [address] PCP - General Internal Medicine 05/08/23 Vamp Marker Relationship Specialty Start Date End Date Saurabh Bermudez MD [address] [place] [address] PCP - General Internal Medicine 08/18/20 Vamp Marker Relationship Specialty Start Date End Date Saurabh eBrmudez MD [address] [facility] [place] [address] PCP - General Internal Medicine 08/18/20 Vamp Marker Relationship Specialty Start Date End Date Saurabh Bermudez MD [address] [facility] [place] [address] PCP - General Internal Medicine 08/18/20 Vamp Marker Relationship Specialty Start Date End Date Saurabh Bermudez MD [address] [place] [address] PCP - General Internal Medicine 08/18/20 Vamp Marker Relationship Specialty Start Date End Date Saurabh Bermudez MD [address] [place] [address] PCP - General Internal Medicine 08/18/20 Vamp Marker Relationship Specialty Start Date End Date Saurabh Bermudez MD [address] [place] [address] PCP - General Internal Medicine 08/18/20 Vamp Marker Relationship Specialty Start Date End Date Saurabh Bermudez MD [address] [place] [address] PCP - General Internal Medicine 08/18/20 Vamp Marker Relationship Specialty Start Date End Date Saurabh Bermudez MD [address] [facility] [place] [address] PCP - General Internal Medicine 08/18/20 Vamp Marker Relationship Specialty Start Date End Date Saurabh Bermudez MD [address] [place] [address] PCP - General Internal Medicine 08/18/20 Pratibha Doran PA-C [address] [place], [place] [id number] [phone] [facility] 03/03/24 Gayathri Whitley APRN.[employer]EST FIREFIGHTER [address] [facility] [place] [address] Screw Remover Internal Medicine 03/03/24 Shital Hameed PA-C [address] [place] [address] [facility] 03/03/24 Vamp Marker Relationship Specialty Start Date End Date Saurabh Bermudez MD [address] [place] [address] PCP - General Internal Medicine 08/18/20 Pratibha Doran PA-C [address] [place], [place] 5080948 [phone] [facility] 03/03/24 Gayathri Whitley APRN.FOREST FIREFIGHTER [address] [facility] [place] [address] Screw Remover Internal Medicine 03/03/24 Shital Hameed PA-C [address] [facility] [place] [address] [facility] 03/03/24 Vamp Marker Relationship Specialty Start Date End Date Saurabh Bermudez MD [address] [facility] [place] [address] PCP - General Internal Medicine 08/18/20 Pratibha Doran PA-C [address] [place] [address] [facility] 03/03/24 Gayathri Whitley APRN.FOREST FIREFIGHTER [address] [place] [address] Screw Remover Internal Medicine 03/03/24 Shital Hameed PA-C [address] [place] [address] [facility] Family [facility] 03/03/24 Vamp Marker Relationship Specialty Start Date End Date Saurabh Bermudez MD [address] [place] [address] PCP - General Internal Medicine 08/18/20 Pratibha Doran PA-C [address] [place] [address] [facility] 03/03/24 Gayathri Whitley APRN.FOREST FIREFIGHTER [address] [place] [address] Screw Remover Internal Medicine 03/03/24 Shital Hameed PA-C [address] [place] [address] [facility] Family [facility] 03/03/24 Vamp Marker Relationship Specialty Start Date End Date Saurabh Bermudez MD [address] [place] [address] PCP - General Internal Medicine 08/18/20 Gayathri Whitley APRN.FOREST FIREFIGHTER [address] [place] [address] Screw Remover Internal Medicine 03/03/24 Vamp Marker Relationship Specialty Start Date End Date Saurabh Bermudez MD [address] [facility] [place] [address] PCP - General Internal Medicine 08/18/20 Gayathri Whitley APRN.FOREST FIREFIGHTER [address] [facility] [place] [address] Screw Remover Internal Medicine 03/03/24 Vamp Marker Relationship Specialty Start Date End Date Saurabh Bermudez MD [address] [place] [address] PCP - General Internal Medicine 08/18/20 Gayathri Whitley APRN.FOREST FIREFIGHTER [address] [place] [address] Screw Remover Internal Medicine 03/03/24 Vamp Marker Relationship Specialty Start Date End Date Saurabh Bermudez MD [address] [facility] [place] [address] PCP - General Internal Medicine 08/18/20 Gayathri Whitley APRN.FOREST FIREFIGHTER [address] [facility] [place] [address] Screw Remover Internal Medicine 03/03/24 Vamp Marker Relationship Specialty Start Date End Date Saurabh Bermudez MD [address] [facility] [place] [address] PCP - General Internal Medicine 08/18/20 Gayathri Whitley APRN.FOREST FIREFIGHTER [address] [place] [address] Screw Remover Internal Medicine 03/03/24 Vamp Marker Relationship Specialty Start Date End Date Saurabh Bermudez MD [address] [facility] [place], [place] [address] PCP - General Internal Medicine 08/18/20 Gayathri Whitley APRN.FOREST FIREFIGHTER [address] [place], [place] [address] Screw Remover Internal Medicine 03/03/24 Vamp Marker Relationship Specialty Start Date End Date Saurabh Bermudez MD [address] [facility] [place], [place] [address] PCP - General Internal Medicine 08/18/20 Gayathri Whitley APRN.FOREST FIREFIGHTER [address] [facility] [place] [address] Screw Remover Internal Medicine 03/03/24 Vamp Marker Relationship Specialty Start Date End Date Saurabh Bermudez MD [address] [facility] [place], [place] [address] PCP - General Internal Medicine 08/18/20 Gayathri Whitley APRN.FOREST FIREFIGHTER [address] [place], [place] [address] Screw Remover Internal Medicine 03/03/24 Vamp Marker Relationship Specialty Start Date End Date Saurabh Bermudez MD [address] [place] [place], [place] [address] [phone] PCP - General Internal Medicine 08/18/20 Gayathri Whitley APRN.FOREST FIREFIGHTER [address] [facility] [place] [address] Screw Remover Internal Medicine 03/03/24 Reason for Visit (unrecogniz ed section and content) Reason Comments Results Reason Comments Radiology CT Specialty Diagnoses / Procedures Referred By Contac t Referred To Contact CT IMAGING Diagnoses Right lower quadrant abdominal pain Procedures CT ABD/PEL W IVCON CT ABD & PELVIS W/CONTRAST Jeanna Harris, TAMMY.FOREST FIREFIGHTER [address] [place] [address] Ct Imaging Referral ID Status Reason Start Date Expiration Date V isits Requested Visits Authorized [id number] Closed Auto-Generate d Referral 07/06/2021 03/26/2022 2 2 Reason Comments Results Reason Comments Follow Up CT scan. Abdominal Pain same type of pain st arted on left side upper quad that radiates around to her back Reason Comments Radiology US Specialty Diagnoses / Procedures Referred By Contac t Referred To Contact US IMAGING Diagnoses Adnexal cyst Procedures US FEMALE PELVIS TRANSVAG US TRANSVAGINAL Jeanna Harris APRN.FOREST FIREFIGHTER [address] [place] [address] Us Imaging Referral ID Status Reason Start Date Expiration Date V isits Requested Visits Authorized [id number] Closed Auto-Generate d Referral 07/21/2021 08/20/2022 1 1 Reason Comments Procedure EGD Reason Comments Ear Pain Left ear X 2 days, h ead congestion, cough x 1 week Reason Comments Refill Request Reason Onset Date Comments Refill Request 11/27/2021 Reason Onset Date Comments Refill Request 01/01/2022 Reason Comments Recheck 6 month follow up Specialty Diagnoses / Procedures Referred By Contac t Referred To Contact INTERNAL MEDICINE Diagnoses follow up Procedures 4cSaurabh Maldonado MD [address] [place] [address] [facility] [address] [place] [address] Referral ID Status Reason Start Date Expiration Date V isits Requested Visits Authorized [id number] Closed OON/Self Pay Override 07/29/2021 02/03/2022 1 1 Reason Comments Derm Problem Spots on B/L armpits x 1 month Reason Comments Wellness Reason Onset Date Comments Refill Request 01/10/2023 Reason Onset Date Comments Yearly Exam 01/31/2023 Reason Comments Appointment Conflict Reason Comments Hearing Loss Reason Comments Subjective tinnitus of right ear 1mo fol low up MRA review Reason Comments New Patient Numbness and tinglin g Specialty Diagnoses / Procedures Referred By Contac t Referred To Contact Neurology Diagnoses Numbness and tingling Procedures CONSULT TO NEUROLOGY OFFICE/OUTPATIENT [facility] 60 MINUTES Hannah Lorenzo MD [address] [place] [address] Referral ID Status Reason Start Date Expiration Date V isits Requested Visits Authorized [id number] Closed PCP Requested Referral 09/04/2023 09/01/2024 1 1 Specialty Diagnoses / Procedures Referred By Contac t Referred To Contact MR IMAGING Diagnoses Demyelinating disease of central nervous system (HCC) Procedures MRI BRAIN WO/W IVCON MRI BRAIN BRAIN STEM W/O W/CONTRAST MATERIAL Shahida rGaf, TAMMY.FOREST FIREFIGHTER [address] [id number] [facility] [place] [address] Referral ID Status Reason Start Date Expiration Date V isits Requested Visits Authorized [id number] Closed Auto-Generate d Referral 09/08/2023 10/07/2024 1 1 Reason Comments Eye Pain Left Eye Specialty Diagnoses / Procedures Referred By Contac t Referred To Contact Ophthalmology Diagnoses Numbness and tingling Left eye pain Procedures CONSULT TO OPHTHALMOLOGY OFFICE/OUTPATIENT [facility] 60 MINUTES Shahida Graf, TAMMY.FOREST FIREFIGHTER [address] [place] [id number] Referral ID Status Reason Start Date Expiration Date V isits Requested Visits Authorized [id number] Closed PCP Requested Referral 09/08/2023 09/07/2024 1 1 Reason Comments Follow Up Specialty Diagnoses / Procedures Referred By Contac t Referred To Contact MR IMAGING Diagnoses Pain in eye, unspecified laterality Subjective visual disturbance Procedures MRI ORBIT WO/W IVCON MRI ORBIT FACE & NECK W/O & W/CONTRAST MATRL Shahida Graf APRN.FOREST FIREFIGHTER [address] [place] [address] Mr Imaging [facility] Referral ID Status Reason Start Date Expiration Date V isits Requested Visits Authorized [id number] Closed Auto-Generate d Referral 10/22/2023 11/20/2024 1 1 Reason Comments Eye Pain Left Eye Subjective Visual Disturbance Reason Onset Date Comments Refill Request 12/24/2023 Reason Comments Yearly Exam Reason Onset Date Comments Refill Request 03/12/2024 Reason Onset Date Comments Refill Request 04/08/2024 Reason Comments Established Patient Follow Up Hard time swallowing , when walking she gets stuck and can't move, face feels like its burning from inside out Reason Comments Consult 1 year. Having tingl ing in arms and recent fall Specialty Diagnoses / Procedures Referred By Luis t Referred To Contact Neurology Diagnoses Numbness and tingling Procedures CONSULT TO NEUROLOGY OFFICE/OUTPATIENT [facility] 60 MINUTES Shahida Graf, TAMMY.FOREST FIREFIGHTER [address] [address] Phone: tel: fax: Referral ID Status Reason Start Date Expiration Date V isits Requested Visits Authorized [id number] Closed PCP Requested Referral 08/06/2024 08/06/2025 1 1 Reason Comments Follow Up For numbness & tingl ing post neurology evaluation; persistent numbness with tingly all extremities causing loss of balance/gait with new onset of lower extremity pain Reason Onset Date Comments Refill Request 09/13/2024 Reason Comments 4-5 week f/u Goals (unrecognized section and content) Goals may be documented in a n alternate section INFORMATION SOURCE (unrecogn ized section and content) DATE CREATED AUTHOR 07/18/2023 [facility] DATE CREATED AUTHOR AUTHOR'S ORGANIZ ATION 07/18/2023 [facility] DATE CREATED AUTHOR AUTHOR'S ORGANIZ ATION 08/19/2023 [facility] DATE CREATED AUTHOR AUTHOR'S ORGANIZ ATION 10/13/2024 [facility] FOR RECORDS PERTAINING TO PATIENTS WHO ARE OR HAVE BEEN ENROLLED IN A CHEMICAL DEPENDENCY/SUBSTANCEABUSE PROGRAM, SOME INFORMATION MAY BE OMITTED. This clinical summary was aggregated from multiple sources. Caution should be exercised in using it in the provision of clinical care. This summary normalizes information from multiple sources, and as a consequence, information in this document may materially change the coding, format and clinical context of patient data. In addition, data may be omitted in some cases. CLINICAL DECISIONS SHOULD BE BASED ON THE PRIMARY CLINICAL RECORDS. [facility]. provides no warranty or guarantee of the accuracy or completeness of information in this document.
[2024-11-08 21:20] LABS: Hematocrit 39.1 % (37-47); Hemoglobin 13.3 g/dL (12.0-15.0); Immature Granulocytes Count 0.020 X10^3/uL (0.0-0.0); Mean Corp Hgb Conc 34.0 g/dL (32-36); Mean Corpuscular Volume 92.7 fL (81-99); Mean Platelet Vol. 10.0 fl (6.2-12.0); NRBC Flagged by Analyzer 0 % (0-5); Platelet Count 258 K/mm3 (150-450); RBC Distribution Width CV 11.9 % (11.6-14.6); RBC Distribution Width SD 40.2 fl (35.1-43.9); Red Blood Count 4.22 M/mm3 (4.2-5.4); White Blood Count 7.8 K/mm3 (4.4-11.0)
--- NOTE | 2024-11-08 21:28 | EX.ED.DYSGE1 ---
HPI <BEVERLY Nunez - Last Filed: 11/08/24 22:03> History of Present Illness Chief Complaint: General Illness Narrative Narrative: 39-year-old female with past medical history of tachycardia on a beta-devyn, hypothyroidism presents with multiple complaints. A week ago she developed left anterior neck discomfort and felt a lump. Over the next few days her chest feels tight with lying down. Her left leg feels heavy. She is able to move it and walk and has no numbness or tingling. Over the last few days she also has left flank pain. No fever, chills, upper respiratory symptoms noted. No exertional chest pain or shortness of breath. Chest is only tight when lying down. No nausea, vomiting, abdominal pain, diarrhea, melena hematochezia. No urinary symptoms. PFSH <BEVERLY Nunez - Last Filed: 11/08/24 22:03> COUNTS INCLUDE 234 BEDS AT THE [facility] Medical History Depression Hypothyroid Home Medications ?Medication ?Instructions ?Recorded ?Last Taken ?Type escitalopram oxalate 10 mg tablet 10 mg PO DAILY 04/09/23 Unknown History fluticasone propionate 50 1 spray intranasal Q12H 04/09/23 Unknown History mcg/actuation nasal spray,suspension levothyroxine 50 mcg tablet 50 mcg PO DAILY 04/09/23 Unknown History (Synthroid) metoprolol succinate 25 mg 25 mg PO DAILY 11/08/24 Unknown History tablet,extended release 24 hr Allergy/AdvReac Type Severity Reaction Status Date / Time No Known Allergies Allergy Verified 11/08/24 20:28 Surgical History History of umbilical hernia repair Social History Smoking Status: Never smoker alcohol intake: current substance use type: does not use ROS <BEVERLY Nunez - Last Filed: 11/08/24 22:03> ROS ED ROS Narrative Constitutional: Negative for fever, chills, malaise. CVS: Positive for chest pain. No palpitations or syncope. Respiratory: Negative for shortness of breath, cough. GI: Negative for abdominal pain, nausea, vomiting, diarrhea. Neuro: Negative for headache. EXAM <BEVERLY Nunez - Last Filed: 11/08/24 22:03> Physical Exam Narrative Exam Narrative: CONST: Patient sitting in no acute distress. EYES: Normal inspection. ENT: Moist mucous membranes and normal posterior oropharynx, nares clear, normal TMs bilaterally. NECK: Normal inspection. Trachea midline, no lymphadenopathy or masses. RESP: No respiratory distress, CTAB. CVS: Regular rate and rhythm, no murmur, no gallop. ABD: Soft and nontender, no guarding or rebound, nondistended. Back: Normal inspection, no CVA tenderness. SKIN: Color normal, no rash, warm, dry, intact. EXTREMITIES: Normal appearance, full range of motion, 5/5 strength, 2+ radial and DP pulses. NEURO: Alert and answering questions appropriately. PSYCH: Normal affect. Const Vital Signs: 11/08/24 20:28 11/08/24 21:09 11/08/24 22:11 Temperature 98.2 F Temperature Source Oral Pulse Rate 71 79 Respiratory Rate 16 20 H Respiratory Effort Normal Non-Labored Respiratory Pattern Normal Blood Pressure 128/98 H 106/68 Blood Pressure Mean 108 80 Pulse Ox 98 100 Oxygen Delivery Method Room Air Room Air 11/08/24 22:23 Temperature 98.2 F Temperature Source Pulse Rate 91 Respiratory Rate 18 Respiratory Effort Respiratory Pattern Blood Pressure 116/83 H Blood Pressure Mean 94 Pulse Ox 100 Oxygen Delivery Method <Dr. Maverick Nassar MD - Last Filed: 11/08/24 22:27> Physical Exam Const Vital Signs: 11/08/24 20:28 11/08/24 21:09 11/08/24 22:11 Temperature 98.2 F Temperature Source Oral Pulse Rate 71 79 Respiratory Rate 16 20 H Respiratory Effort Normal Non-Labored Respiratory Pattern Normal Blood Pressure 128/98 H 106/68 Blood Pressure Mean 108 80 Pulse Ox 98 100 Oxygen Delivery Method Room Air Room Air 11/08/24 22:23 Temperature 98.2 F Temperature Source Pulse Rate 91 Respiratory Rate 18 Respiratory Effort Respiratory Pattern Blood Pressure 116/83 H Blood Pressure Mean 94 Pulse Ox 100 Oxygen Delivery Method MDM <BEVERLY Nunez - Last Filed: 11/08/24 22:03> [facility] Lab Data Labs: Laboratory Results - last 24 hr 11/08/24 21:10 WBC 7.8 RBC 4.22 Hgb 13.3 Hct 39.1 MCV 92.7 MCH 31.5 MCHC 34.0 RDW Std Deviation 40.2 RDW Coeff of Barry 11.9 Plt Count 258 MPV 10.0 Immature Gran % (Auto) 0.300 Neut % (Auto) 50.9 Lymph % (Auto) 35.4 [place] % (Auto) 9.1 Eos % (Auto) 3.5 Baso % (Auto) 0.8 Absolute Neuts (auto) 4.0 Absolute Lymphs (auto) 2.77 Nucleated RBC % 0 Sodium 139 Potassium 3.7 Chloride 105 Carbon Dioxide 21.8 Anion Gap 12 BUN 12 Creatinine 0.79 Estim Creat Clear Calc 87.27 Est GFR (MDRD) Non-Af 98 BUN/Creatinine Ratio 15.6 Glucose 116 H Calcium 9.0 Troponin T High Sens < 6 Radiography Diagnostic Testing: Clinical Impression(s) from Imaging Studies Chest X-Ray 11/08/24 20:55 IMPRESSION: No radiographic evidence of the acute cardiopulmonary process [facility] <Dr. Maverick Nassar MD - Last Filed: 11/08/24 22:27> [facility] MDM Narrative Medical decision making narrative: I have personally performed a face to face assessment of the patient and have reviewed the PHAN Note. I performed a substantive portion of the visit including all aspects of the following. My el findings include: History is [39-year-old female complaining of multiple areas of pain over different days this past week.] Exam is [well-appearing 39-year-old female. Vital signs stable afebrile. Pulse ox 90% on room air no hypoxia. H EENT exam pupils round react light. Moist mucous membranes. No signs of trauma to her face or scalp. Neck nontender. No lymphadenopathy. Trachea midline. Lungs clear to auscultation bilaterally. Heart regular rhythm no murmur rate about 70. Chest wall and ribs nontender. Abdomen soft nontender. No peritoneal signs. Back nontender. Moving all 4 extremities. 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 Normal radial pulses. Normal range of motion. Upper extremities are nontender. Lower extremities normal range of motion nontender no edema normal strength. Neurologically the patient is awake alert. Answer questions following commands. No focal motor deficits.] Medical Decision Making [39-year-old very benign exam different areas of pain with no reproducible pain or abnormalities on physical exam. Screening labs were obtained by triage protocol. Chest x-ray is unremarkable. CBC is normal awaiting other labs. Suspect the patient be discharged home.] Other additions or changes: repeat exam at 10:20 PM patient doing well. Exam unchanged. Went over test results. She is comfortable being discharged home. History & Record Review Discussion w/independent historian: Patient Lab Data Attestation: I reviewed the patient's lab results. Lab results narrative: CBC normal. White count 7. H&H 13 and 39. Platelets 258. Chemistry is normal gap 12. Normal BUN and creatinine. Glucose 116. Initial troponin is less than 6. Labs: Laboratory Results - last 24 hr 11/08/24 21:10 WBC 7.8 RBC 4.22 Hgb 13.3 Hct 39.1 MCV 92.7 MCH 31.5 MCHC 34.0 RDW Std Deviation 40.2 RDW Coeff of Barry 11.9 Plt Count 258 MPV 10.0 Immature Gran % (Auto) 0.300 Neut % (Auto) 50.9 Lymph % (Auto) 35.4 [place] % (Auto) 9.1 Eos % (Auto) 3.5 Baso % (Auto) 0.8 Absolute Neuts (auto) 4.0 Absolute Lymphs (auto) 2.77 Nucleated RBC % 0 Sodium 139 Potassium 3.7 Chloride 105 Carbon Dioxide 21.8 Anion Gap 12 BUN 12 Creatinine 0.79 Estim Creat Clear Calc 87.27 Est GFR (MDRD) Non-Af 98 BUN/Creatinine Ratio 15.6 Glucose 116 H Calcium 9.0 Troponin T High Sens < 6 Radiography Chest X-Ray - ED: 1 View, Read by ED Physician, Read by Radiologist, Heart, Lungs, Mediastinum, Bony Structures, No Acute Disease and Chronic Changes Diagnostic Testing: Clinical Impression(s) from Imaging Studies Chest X-Ray 11/08/24 20:55 IMPRESSION: No radiographic evidence of the acute cardiopulmonary process [facility] Chest x-ray, portable, single view, interpreted by myself and radiologist shows no acute abnormality. Normal cardiac silhouette. Normal lung lindsay. No acute abnormalities. Rhythm Strip Rhythm Strip: Sinus Rhythm Rate: 97 Ectopy: PVC(s) EKG Initial EKG: Interpretation: Sinus Rhythm and No Acute Injury Pattern Comments: Sinus rhythm. Rate about 97. No acute signs of IA nor ischemia. Occasional PVCs. Discharge Plan Triage Chief Complaint: General Illness ED Midlevel Provider: Rohini Carr ED Provider: Maverick Nassar Dx/Rx/DC Orders Clinical Impression: Atypical chest pain, Left flank pain, Multiple somatic complaints Prescriptions: No Action levothyroxine [Synthroid] 50 mcg tablet 50 mcg PO DAILY escitalopram oxalate 10 mg tablet 10 mg PO DAILY fluticasone propionate 50 mcg/actuation spray,suspension 1 spray intranasal Q12H metoprolol succinate 25 mg tablet extended release 24 hr 25 mg PO DAILY Primary Care Provider: Diann Llamas Referrals: Diann Llamas MD [Primary Care Provider] - 3-5 Days if not improving Activity Restrictions/Additional Instructions: All your labs, chest x-ray and EKG were all unremarkable. No specific cause for your pain. Follow-up with your doctor if not improving. Motrin and Tylenol for pain. Print Language: Filipino Disposition Disposition: Home, Self Care Discharge Date/Time: 11/08/24 22:25
[2024-11-08 22:08] LABS: Anion Gap 12 (5-15); BUN 12 mg/dL (4-19); BUN/Creat Ratio 15.6 RATIO (10-20); Calcium,Total 9.0 mg/dL (7.6-11.0); Carbon Dioxide 21.8 mmol/L (21.0-32.0); Chloride 105 mmol/L (98-108); Estimated Creatinine Clearance 87.27 ml/min (50-250); Glucose 116 mg/dL (70-99); Potassium 3.7 mmol/L (3.3-5.1); Troponin T High Sensitivity < 6 ng/L (<=14)
[2024-11-08 22:11] VITALS: BP 106/68; PULSE 79; RESP 20; O2SAT 100
[2024-11-08 22:23] VITALS: BP 116/83; PULSE 91; RESP 18; TEMP 36.8; O2SAT 100
== END 2024-11-08 22:25 | disposition home or self-care (01) ==
PROVIDERS: Emergency Provider Emergency Medicine; PCP Internal Medicine; Visit Provider Emergency Medicine
DX: R07.89 Other chest pain (principal); R10.9 Unspecified abdominal pain; F32.A Depression, unspecified; Z79.899 Other long term (current) drug therapy; E03.9 Hypothyroidism, unspecified; Z79.890 Hormone replacement therapy; R00.0 Tachycardia, unspecified
CPT/HCPCS: 71045; 80048; 84484; 85025; 93005; 99284; A4216